=== PATIENT | female | born 1940 | race American Indian/Alaskan Native ===

== ENCOUNTER 2022-03-30 20:32 | Inpatient (IN) | payer MEDICARE ==
[2022-03-30] MEDS ORDERED: HALOPERIDOL LACTATE 5 MG/1 ML INJ IM STA (21:21)
[2022-03-30] MEDS ORDERED: LORazepam 2 MG/ML VIAL IM STA (21:21)
[2022-03-30] MEDS ORDERED: HALOPERIDOL LACTATE 5 MG/1 ML INJ IM ONE (21:23)
--- NOTE | 2022-03-30 21:23 | Emergency Department Report ---
<SOLIS OSEI - Last Filed: 03/30/22 23:44> ED General Adult HPI - General Chief complaint: Psych Stated complaint: im fine Time Seen by Provider: 03/30/22 20:46 Source: patient, EMS ( EMS documentation not available at time of chart dictation ), RN notes reviewed Mode of arrival: Stretcher Limitations: Other (Dementia, psychiatric disease, disorganization) - History of Present Illness Initial comments: The patient was evaluated in the emergency department for symptoms described in the history of present illness. He/she was evaluated in the context of the global COVID-19 pandemic, which necessitated consideration that the patient might be at risk for infection with the virus that causes COVID-19. Institutional protocols and algorithms that pertain to the evaluation of patients at risk for COVID-19 are in a state of rapid change based on information released by regulatory bodies including the CDC and federal and state organizations. These policies and algorithms were followed during the patient's care in the emergency department. Please note that these policies, procedures and recommendations changed on a rapid basis. Primary care doctor: Dr. Guaman Is a 81-year-old female. Her past medical history includes schizophrenia, hallucinations, hypertension, depression, vascular dementia. Her primary care doctor is Dr. Guaman She presents to the emergency room with emergency medical services. The patient herself denies physical pain, homicidality, suicidality, hallucinations and physical pain. She states she is fine and that she wants to go. As per verbal report from nursing team, alf called emergency medical services to administer an IM injection. When EMS arrived, as per verbal report from nursing team, the calling alf requested that EMS take the patient to the emergency room. The patient at the moment denies all physical pain. She appears to have psychiatric evaluation at her alf. Home medications include Tylenol, Lexapro, melatonin, MiraLAX, olanzapine, sertraline, atenolol, vitamin B. The patient has no complaints at this time, and therefore, does not describe the qualitative nature of symptoms, exacerbating factors relieving factors or aggravating factors. She is somewhat disorganized, trying to get up and out of bed, and is not quite sure where she is. She thinks that she is at [facility]. The patient is not currently accompanied by friends or family at this time for collateral information or additional information. She appears to be a resident of [facility]; [phone] Called up [facility] and discussed the patient's case with their staff. Patient has been having increasing episodes of increasing violent behavior, agitation, and amish preoccupations. Simultaneously, she was recently diagnosed with an ESBL urinary tract infection, sensitive to ampicillin, amikacin, amoxicillin, ciprofloxacin, Invanz, gentamicin, Levaquin, Zosyn and Bactrim. She was prescribed Bactrim. She reportedly did not take her Bactrim. -: Gradual, days(s) - Related Data Home Medications Medication Instructions Recorded Confirmed Last Taken Escitalopram [Lexapro] 10 mg PO DAILY 03/31/22 03/31/22 Unknown Melatonin [Melatonin 10MG TAB] 10 mg PO HS 03/31/22 03/31/22 Unknown OLANZapine [Zyprexa] 5 mg PO BID 03/31/22 03/31/22 Unknown Sertraline [Zoloft] 75 mg PO HS 03/31/22 03/31/22 Unknown Timolol Maleate/Pf [Timolol 1 drop OU DAILY 03/31/22 03/31/22 Unknown Maleate 0.5% Eye Drop] Vitamin B Complex [B Complex] 1 tab PO DAILY 03/31/22 03/31/22 Unknown haloperidoL [Haldol] 5 mg PO BID 03/31/22 03/31/22 Unknown polyethylene glycoL 3350 [Miralax 17 gm PO QDAY 03/31/22 03/31/22 Unknown 3350] Allergies Allergy/AdvReac Type Severity Reaction Status Date / Time No Known Drug Allergies Allergy Unknown Verified 03/30/22 21:24 ED Review of Systems Constitutional: denies: fever ENT: denies: epistaxis Respiratory: denies: cough Cardiovascular: denies: chest pain Gastrointestinal: denies: abdominal pain Genitourinary: denies: dysuria Neurological: confusion. denies: weakness Psychiatric: as per HPI (Agitation). denies: homicidal thoughts, suicidal thoughts ED Past Medical Hx - Social History Smoking Status: Unknown if ever smoked Substance Use Type: Other - Medications Home Medications: Home Medications Medication Instructions Recorded Confirmed Last Taken Type Escitalopram [Lexapro] 10 mg PO DAILY 03/31/22 03/31/22 Unknown History Melatonin [Melatonin 10MG TAB] 10 mg PO HS 03/31/22 03/31/22 Unknown History OLANZapine [Zyprexa] 5 mg PO BID 03/31/22 03/31/22 Unknown History Sertraline [Zoloft] 75 mg PO HS 03/31/22 03/31/22 Unknown History Timolol Maleate/Pf [Timolol 1 drop OU DAILY 03/31/22 03/31/22 Unknown History Maleate 0.5% Eye Drop] Vitamin B Complex [B Complex] 1 tab PO DAILY 03/31/22 03/31/22 Unknown History haloperidoL [Haldol] 5 mg PO BID 03/31/22 03/31/22 Unknown History polyethylene glycoL 3350 [Miralax 17 gm PO QDAY 03/31/22 03/31/22 Unknown History 3350] ED Physical Exam - General Limitations: Other (Patient is disorganized.) General appearance: in no apparent distress - Head Head exam: Present: atraumatic, normocephalic - Eye Eye exam: Present: normal appearance, EOMI. Absent: nystagmus - ENT ENT exam: Present: normal exam, normal orophraynx, mucous membranes moist, normal external ear exam - Neck Neck exam: Present: normal inspection, full ROM. Absent: tenderness, meningismus - Respiratory Respiratory exam: Present: normal lung sounds bilaterally. Absent: respiratory distress, wheezes, rales, rhonchi, stridor, decreased breath sounds - Cardiovascular Cardiovascular Exam: Present: regular rate, normal rhythm, normal heart sounds. Absent: bradycardia, tachycardia, irregular rhythm, systolic murmur, diastolic murmur, rubs, gallop - GI/Abdominal GI/Abdominal exam: Present: soft. Absent: distended, tenderness, guarding, rebound, rigid, pulsatile mass - Extremities Exam Extremities exam: Present: normal inspection, full ROM. Absent: pedal edema, calf tenderness - Back Exam Back exam: Present: normal inspection. Absent: tenderness, CVA tenderness (R), CVA tenderness (L), paraspinal tenderness, vertebral tenderness - Neurological Exam Neurological exam: Present: alert - Psychiatric Psychiatric exam: Present: agitated, anxious, other (There is no facial droop. The tongue is midline. EOMI. 5 out of 5 strength in 4 extremities.) - Skin Skin exam: Present: warm, dry, intact, normal color. Absent: rash ED Course - Reevaluation(s) Reevaluation #1: 03/30/22 22:08 Differential diagnosis, including but not limited to: Psychosis, schizophrenia, pneumonia, UTI, electrolyte derangement, thyroid derangement, dementia Assessment and plan: 81-year-old female with disorganized behavior, who is pleasant in the emergency room, not violent, but disorganized. Place patient on hold. Requires medication with haloperidol and Ativan. Obtain x-ray of the chest, noncontrast CT scan of the brain, and urinalysis as well as EKG. Obtain appropriate laboratory studies. Obtain psychiatric consultation. Reassess. Patient is afebrile with reassuring vital signs, with a benign and unremarkable and noncontributory external physical examination. Suspect multiple issues, including probable URI, exacerbating underlying psychosis, schizophrenia and dementia 03/30/22 23:44 X-ray of the chest unremarkable. CT scan of the brain unremarkable. Urinalysis, EKG, and CBC pending. Care was transferred to the oncoming ER physician, to follow-up on CBC, urinalysis, and EKG. Anticipates that patient will require ED Medical Decision Making - Lab Data Result diagrams: 03/30/22 21:28 Vital Signs 03/30/22 03/30/22 03/30/22 20:33 20:51 20:59 Temperature 98.1 F 98.3 F Pulse Rate 98 H Respiratory 18 Rate Blood Pressure 133/92 O2 Sat by Pulse 98 99 Oximetry 03/30/22 21:00 Temperature Pulse Rate Respiratory Rate Blood Pressure O2 Sat by Pulse 99 Oximetry Lab Results 03/30/22 03/30/22 Range/Units 21:28 21:28 Acetaminophen 5.0 L (10.0-30.0) ug/mL Plasma/Serum Alcohol < 0.01 (0-0.07) % - Radiology Data Radiology results: report reviewed, image reviewed interpreted by me: 1 view x-ray of the chest, interpreted by myself, negative for acute findings. CT HEAD WITHOUT CONTRAST INDICATION / CLINICAL INFORMATION: Medical Clearance Psych. TECHNIQUE: All CT scans at this location are performed using CT dose reduction for ALARA by means of automated exposure control. COMPARISON: None available. FINDINGS: HEMORRHAGE: No evidence of intracranial hemorrhage or extra-axial fluid collection. EXTRA-AXIAL SPACES: Cortical sulci and sylvian fissures are enlarged reflecting a degree of parenchymal volume loss which is within normal limits for the patient's age of . Basilar cisterns have an unremarkable appearance. VENTRICULAR SYSTEM: The third and lateral ventricles are enlarged reflecting presence of age related parenchymal volume loss. CEREBRAL PARENCHYMA: Periventricular and deep white matter lucency is observed. This is probably secondary to microvascular ischemic change. There is no indication of recent infarction. No areas of encephalomalacia are identified. MIDLINE SHIFT OR HERNIATION: There is no mass effect. CEREBELLUM / BRAINSTEM: Brainstem has an unremarkable appearance. Age related cerebellar atrophy is noted. MIDLINE STRUCTURES:Pituitary gland has an unremarkable appearance. No abnormalities are seen in the pineal region. INTRACRANIAL VESSELS:Calcified atherosclerotic plaque is present along the course of the cavernous segments of both internal carotid arteries. CRANIOCERVICAL JUNCTION:No significant abnorm ality. ORBITS: Status post bilateral cataract surgery. No additional abnormality. SOFT TISSUES of HEAD: No significant abnormality. CALVARIUM: Evaluation of bone windows reveals no abnormalities. PARANASAL SINUSES / MASTOID AIR CELLS: Paranasal sinuses are free from inflammatory mucosal disease. Mastoid air cells are normally pneumatized. ADDITIONAL FINDINGS: None. IMPRESSION: 1. Age-related involutional changes of parenchymal volume loss and microvascular ischemia. 2. No acute intracranial abnormality. Signer Name: Gurjit Lazo MD Signed: 03/30/2022 9:24 PM CHEST 1 VIEW INDICATION / CLINICAL INFORMATION: Medical Clearance Psych. COMPARISON: None available. FINDINGS: SUPPORT DEVICES: None. HEART / MEDIASTINUM: No significant abnormality. LUNGS / PLEURA: No significant pulmonary or pleural abnormality. No pneumothorax. ADDITIONAL FINDINGS: No significant additional findings. IMPRESSION: 1. No acute findings. Signer Name: Ele Schuler MD Signed: 03/30/2022 9:26 PM Workstation [id number] Disposition Clinical Impression: Acute psychosis, Schizophrenia, Dementia, Medical clearance for psychiatric admission Disposition: 67 [facility] Does the pt Need Aspirin: No Condition: Stable <MADALYN MARTIN - Last Filed: 04/01/22 17:19> ED Review of Systems ROS: Stated complaint: im fine Other details as noted in HPI ED Course Vital Signs 03/30/22 03/30/22 03/30/22 20:33 20:51 20:59 Temperature 98.1 F 98.3 F Pulse Rate 98 H Respiratory 18 Rate Blood Pressure 133/92 O2 Sat by Pulse 98 99 Oximetry 03/30/22 03/30/22 03/30/22 21:00 21:10 21:16 Temperature Pulse Rate Respiratory Rate Blood Pressure O2 Sat by Pulse 99 98 98 Oximetry 03/30/22 03/30/22 03/30/22 21:30 21:46 22:00 Temperature Pulse Rate 79 73 77 Respiratory 17 23 18 Rate Blood Pressure 102/62 146/87 146/87 O2 Sat by Pulse 99 Oximetry 03/30/22 03/30/22 03/30/22 22:16 22:30 22:46 Temperature Pulse Rate 85 81 81 Respiratory 20 23 22 Rate Blood Pressure O2 Sat by Pulse 98 99 98 Oximetry 03/30/22 03/30/22 03/30/22 23:00 23:16 23:30 Temperature Pulse Rate 80 75 61 Respiratory 22 23 15 Rate Blood Pressure 154/78 154/78 154/78 O2 Sat by Pulse 98 98 99 Oximetry 03/30/22 03/31/22 03/31/22 23:46 00:00 00:16 Temperature Pulse Rate 65 67 69 Respiratory 17 16 20 Rate Blood Pressure 154/78 154/78 154/78 O2 Sat by Pulse 96 98 95 Oximetry 03/31/22 03/31/22 03/31/22 00:30 00:46 01:00 Temperature Pulse Rate 67 71 70 Respiratory 26 H 23 23 Rate Blood Pressure 154/78 154/78 154/78 O2 Sat by Pulse 98 98 98 Oximetry 03/31/22 03/31/22 03/31/22 01:16 01:30 01:46 Temperature Pulse Rate 73 71 71 Respiratory 23 24 22 Rate Blood Pressure 154/78 154/78 154/78 O2 Sat by Pulse 97 99 99 Oximetry 03/31/22 03/31/22 03/31/22 02:00 02:16 02:30 Temperature Pulse Rate 70 68 64 Respiratory 23 21 25 H Rate Blood Pressure 154/78 154/78 154/78 O2 Sat by Pulse 99 98 99 Oximetry 03/31/22 03/31/22 03/31/22 02:46 03:00 03:16 Temperature Pulse Rate 55 L 54 L 67 Respiratory 20 22 23 Rate Blood Pressure 154/78 154/78 154/78 O2 Sat by Pulse 99 100 97 Oximetry 03/31/22 03/31/22 03/31/22 03:30 03:46 04:00 Temperature Pulse Rate 65 63 65 Respiratory 21 23 23 Rate Blood Pressure 154/78 154/78 154/78 O2 Sat by Pulse 98 98 98 Oximetry 03/31/22 03/31/22 03/31/22 04:16 04:30 04:46 Temperature Pulse Rate 71 69 67 Respiratory 21 23 20 Rate Blood Pressure 154/78 154/78 154/78 O2 Sat by Pulse 99 99 99 Oximetry 03/31/22 03/31/22 03/31/22 05:00 05:16 05:30 Temperature Pulse Rate 66 71 74 Respiratory 21 20 22 Rate Blood Pressure 154/78 154/78 154/78 O2 Sat by Pulse 99 98 99 Oximetry 03/31/22 03/31/22 03/31/22 05:46 06:00 06:16 Temperature Pulse Rate 61 69 69 Respiratory 23 24 24 Rate Blood Pressure 154/78 O2 Sat by Pulse 96 98 98 Oximetry 03/31/22 03/31/22 03/31/22 06:30 06:46 07:00 Temperature Pulse Rate 70 66 62 Respiratory 24 20 22 Rate Blood Pressure O2 Sat by Pulse 99 99 99 Oximetry 03/31/22 03/31/22 03/31/22 07:16 07:30 07:46 Temperature 98.8 F Pulse Rate 69 60 75 Respiratory 22 21 22 Rate Blood Pressure O2 Sat by Pulse 96 98 98 Oximetry 03/31/22 03/31/22 03/31/22 08:00 08:16 08:30 Temperature Pulse Rate 55 L 79 88 Respiratory 20 18 13 Rate Blood Pressure 127/80 127/80 127/80 O2 Sat by Pulse 98 Oximetry 03/31/22 03/31/22 03/31/22 08:46 09:00 09:16 Temperature Pulse Rate 71 83 76 Respiratory 10 L 17 9 L Rate Blood Pressure 127/80 127/80 127/80 O2 Sat by Pulse 85 86 Oximetry 03/31/22 03/31/22 03/31/22 09:30 09:46 10:00 Temperature Pulse Rate 64 60 58 L Respiratory 10 L 14 21 Rate Blood Pressure 127/80 127/80 127/80 O2 Sat by Pulse Oximetry 03/31/22 03/31/22 03/31/22 10:16 10:30 10:46 Temperature Pulse Rate 70 68 70 Respiratory 11 L 11 L 18 Rate Blood Pressure 127/80 127/80 127/80 O2 Sat by Pulse Oximetry 03/31/22 03/31/22 03/31/22 10:59 11:00 11:16 Temperature Pulse Rate 52 L 58 L Respiratory 19 23 Rate Blood Pressure 127/80 127/80 O2 Sat by Pulse 99 Oximetry 03/31/22 03/31/22 03/31/22 11:30 11:46 12:00 Temperature Pulse Rate 62 55 L 66 Respiratory 21 18 21 Rate Blood Pressure 127/80 127/80 127/80 O2 Sat by Pulse Oximetry 03/31/22 03/31/22 03/31/22 12:16 12:30 12:46 Temperature Pulse Rate 57 L 70 56 L Respiratory 23 22 16 Rate Blood Pressure 127/80 127/80 127/80 O2 Sat by Pulse Oximetry 03/31/22 03/31/22 03/31/22 13:00 13:16 13:30 Temperature Pulse Rate 56 L 81 80 Respiratory 13 14 23 Rate Blood Pressure 127/80 127/80 127/80 O2 Sat by Pulse Oximetry 03/31/22 03/31/22 03/31/22 13:46 14:00 14:16 Temperature Pulse Rate 81 75 77 Respiratory 12 9 L 15 Rate Blood Pressure 127/80 127/80 127/80 O2 Sat by Pulse Oximetry ED Medical Decision Making - Lab Data Result diagrams: 03/31/22 00:09 03/30/22 21:28 - Medical Decision Making Pending CBC, UA, UDS unremarkable. Patient medically clear for psychiatric admission. Mental health consult pending. COVID test ordered Critical care attestation.: If time is entered above; I have spent that time in minutes in the direct care of this critically ill patient, excluding procedure time. ED Disposition Is pt being admited?: No Time of Disposition: 05:42
[2022-03-30 22:10] LABS: Alanine Aminotransferase 10 units/L (7-56); Albumin 4.2 g/dL (3.9-5); BUN/Creatinine Ratio 27; Blood Urea Nitrogen 27 mg/dL (7-17); Calcium 10.1 mg/dL (8.4-10.2); Hemolysis Index 19
--- NOTE | 2022-03-30 22:28 | Cat Scan Report ---
CT HEAD WITHOUT CONTRAST INDICATION / CLINICAL INFORMATION: Medical Clearance Psych. TECHNIQUE: All CT scans at this location are performed using CT dose reduction for ALARA by means of automated e xposure control. COMPARISON: None available. FINDINGS: HEMORRHAGE: No evidence of intracranial hemorrhage or extra-axial fluid collection. EXTRA-AXIAL SPACES: Cortical sulci and sylvian fissures are enlarged reflecting a degree of parenchym al volume loss which is within normal limits for the patient's age of . Basilar cisterns have an unre markable appearance. VENTRICULAR SYSTEM: The third and lateral ventricles are enlarged reflecting presence of age related parenchymal volume loss. CEREBRAL PARENCHYMA: Periventricular and deep white matter lucency is observed. This is probably seco ndary to microvascular ischemic change. There is no indication of recent infarction. No areas of ence phalomalacia are identified. MIDLINE SHIFT OR HERNIATION: There is no mass effect. CEREBELLUM / BRAINSTEM: Brainstem has an unremarkable appearance. Age related cerebellar atrophy is n oted. MIDLINE STRUCTURES:Pituitary gland has an unremarkable appearance. No abnormalities are seen in the p ineal region. INTRACRANIAL VESSELS:Calcified atherosclerotic plaque is present along the course of the cavernous se gments of both internal carotid arteries. CRANIOCERVICAL JUNCTION:No significant abnormality. ORBITS: Status post bilateral cataract surgery. No additional abnormality. SOFT TISSUES of HEAD: No significant abnormality. CALVARIUM: Evaluation of bone windows reveals no abnormalities. PARANASAL SINUSES / MASTOID AIR CELLS: Paranasal sinuses are free from inflammatory mucosal disease. Mastoid air cells are normally pneumatized. ADDITIONAL FINDINGS: None. IMPRESSION: 1. Age-related involutional changes of parenchymal volume loss and microvascular ischemia. 2. No acute intracranial abnormality. Signer Name: Gurjit Lazo MD Signed: 03/30/2022 10:24 PM Workstation Name: [id number]
--- NOTE | 2022-03-30 22:30 | XRay Report ---
CHEST 1 VIEW INDICATION / CLINICAL INFORMATION: Medical Clearance Psych. COMPARISON: None available. FINDINGS: SUPPORT DEVICES: None. HEART / MEDIASTINUM: No significant abnormality. LUNGS / PLEURA: No significant pulmonary or pleural abnormality. No pneumothorax. ADDITIONAL FINDINGS: No significant additional findings. IMPRESSION: 1. No acute findings. Signer Name: Ele Schuler MD Signed: 03/30/2022 10:26 PM Workstation Name: [id number]
[2022-03-31 00:39] LABS: Hematocrit 34.9 % (30.3-42.9); Hemoglobin 11.7 gm/dl (10.1-14.3); Mean Corpuscular HGB Conc 34 % (30-34); Mean Corpuscular Volume 90 fl (79-97); Platelet Count 222 K/mm3 (140-440)
[2022-03-31 01:41] LABS: Bilirubin,Urine NEG (Negative); Blood,Urine NEG (Negative); Color,Urine Yellow (Yellow); Urobilinogen,Urine < 2.0 mg/dL (<2.0)
[2022-03-31 01:51] LABS: Amphetamine Screen,Urine PRESUMPTIVE NEGATIVE; Benzodiazepines Screen,Urine PRESUMPTIVE NEGATIVE; Cannabinoid Screen,Urine PRESUMPTIVE NEGATIVE; Cocaine Screen,Urine PRESUMPTIVE NEGATIVE; Methadone Screen,Urine PRESUMPTIVE NEGATIVE; Opiate Screen,Urine PRESUMPTIVE NEGATIVE
[2022-03-31 02:00] LABS: Hyaline Casts,Urine 2 /LPF; Mucus,Urine 2+ /HPF
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
[2022-03-31] MEDS: risperiDONE 0.25 MG TAB PO SCH (21:10)
--- NOTE | 2022-04-01 08:27 | History and Physical Report ---
GP History & Physical - History of Present Illness Date of admission: 03/31/22 Date of Examination: 04/01/22 Reason for Admission: Danger to self, Failure of Outpatient Treatment, Severe anxiety/depression History of Present Illness: The patient was seen today. She was first seen by me in the ER. At that time her thoughts were disorganized and she was delusional. Today the patient is paranoid and delusional. She is talking to herself at times. She says "there are no children here." She then tells me that her clothes are missing because her sisters are here taking them. The patient then says "I'm not talking to you anymore." She starts to walk off. She says "and you are not Kari. You didn't use to look like this." She refuses to further speak with me. PAST PSYCHIATRIC HISTORY: Unable to assess PAST MEDICAL HISTORY: None reported Family Psychiatric History: None reported or documented SOCIAL HISTORY Unable to assess REVIEW OF SYSTEMS Unable to assess MENTAL STATUS EXAMINATION Unable to assess Diagnoses: Delusional Disorder Treatment Plan Patient admitted for inpatient psychiatric evaluation, medication adjustment and close monitoring The patient's behavior, mood, sleep and appetite will be closely monitored. Patient enrolled in individual and group therapeutic sessions and encouraged to attend. Patient provided with a safe and structured environment. Patient's physical health needs will be addressed by the Hospitalist. Hospitalist Consulted Labs including CBC, CMP, Lipid profile and Hemoglobin A1C levels ordered for baseline reference Social Assessment will be completed and the Hand Slitter will work with patient and family to ensure a suitable and safe disposition Medication adjustment will be made as clinically indicated Continue home meds Increased Risperidone 0.5mg po BID Usual Wellness Nondenominational/Preservation: - Start Trazodone 50 mg po QHS & 50 mg po QHS PRN between 10 PM & 2 AM for insomnia - Start Melatonin 5 mg po QHS to promote circadian rhythm The patient agreed on the treatment plan, understood the risk, benefit, alternative treatment, potential consequence of no treatment, and gave informed consent. Estimated days: 7 Post hospital care: primary care provider, psychiatric provider Case staffed with Dr. Morales Legal Status: Voluntary Patient Problems: Current Active Problems Acute psychosis (Acute) Dementia (Acute) Medical clearance for psychiatric admission (Acute) Schizophrenia (Acute) Reaction to Hospitalization: Accepting Medications and Allergies Allergies Allergy/AdvReac Type Severity Reaction Status Date / Time No Known Drug Allergies Allergy Unknown Verified 03/30/22 21:24 Home Medications Medication Instructions Recorded Confirmed Last Taken Type Escitalopram [Lexapro] 10 mg PO DAILY 03/31/22 03/31/22 Unknown History Melatonin [Melatonin 10MG TAB] 10 mg PO HS 03/31/22 03/31/22 Unknown History OLANZapine [Zyprexa] 5 mg PO BID 03/31/22 03/31/22 Unknown History Sertraline [Zoloft] 75 mg PO HS 03/31/22 03/31/22 Unknown History Timolol Maleate/Pf [Timolol 1 drop OU DAILY 03/31/22 03/31/22 Unknown History Maleate 0.5% Eye Drop] Vitamin B Complex [B Complex] 1 tab PO DAILY 03/31/22 03/31/22 Unknown History haloperidoL [Haldol] 5 mg PO BID 03/31/22 03/31/22 Unknown History polyethylene glycoL 3350 [Miralax 17 gm PO QDAY 03/31/22 03/31/22 Unknown History 3350] Active Meds: Active Medications Risperidone (Risperidone 0.25 Mg Tab) 0.25 mg PO BID [facility] Last Admin: 03/31/22 21:10 Dose: 0.25 mg Results - Results Labs/Vitals: Laboratory Last Values WBC 4.9 K/mm3 (4.5-11.0) 03/31/22 00:09 RBC 3.90 M/mm3 (3.65-5.03) 03/31/22 00:09 Hgb 11.7 gm/dl (10.1-14.3) 03/31/22 00:09 Hct 34.9 % (30.3-42.9) 03/31/22 00:09 MCV 90 fl (79-97) 03/31/22 00:09 MCH 30 pg (28-32) 03/31/22 00:09 MCHC 34 % (30-34) 03/31/22 00:09 RDW 14.0 % (13.2-15.2) 03/31/22 00:09 Plt Count 222 K/mm3 (140-440) 03/31/22 00:09 Sodium 140 mmol/L (137-145) 03/30/22 21:28 Potassium 3.7 mmol/L (3.6-5.0) 03/30/22 21:28 Chloride 105.4 mmol/L (98-107) 03/30/22 21:28 Carbon Dioxide 20 mmol/L (22-30) L 03/30/22 21:28 Anion Gap 18 mmol/L 03/30/22 21:28 BUN 27 mg/dL (7-17) H 03/30/22 21:28 Creatinine 1.0 mg/dL (0.6-1.2) 03/30/22 21:28 Estimated GFR > 60 ml/min 03/30/22 21:28 BUN/Creatinine Ratio 27 % 03/30/22 21:28 Glucose 114 mg/dL (65-100) H 03/30/22 21:28 POC Glucose 85 mg/dL (70-105) 03/31/22 19:53 Calcium 10.1 mg/dL (8.4-10.2) 03/30/22 21: Magnesium 1.90 mg/dL (1.7-2.3) 03/30/22 21: Total Bilirubin 0.20 mg/dL (0.1-1.2) 03/30/22 21:28 AST 18 units/L (5-40) 03/30/22 21:28 ALT 10 units/L (7-56) 03/30/22 21:28 Alkaline Phosphatase 124 units/L (35-129) 03/30/22 21: Ammonia 14.0 umol/L (25-60) L 03/30/22 21:28 Total Creatine Kinase 194 units/L (30-135) H 03/30/22 21:28 Total Protein 7.7 g/dL (6.3-8.2) 03/30/22 21: Albumin 4.2 g/dL (3.9-5) 03/30/22 21: Albumin/Globulin Ratio 1.2 % 03/30/22 21:28 TSH 3.450 mlU/mL (0.270-4.200) 03/30/22 21: Urine Color Yellow (Yellow) 03/30/22 Unknown Urine Turbidity Clear (Clear) 03/30/22 Unknown Urine pH 5.0 (5.0-7.0) 03/30/22 Unknown Ur Specific [place] 1.024 (1.003-1.030) 03/30/22 Unknown Urine Protein 30 mg/dl mg/dL (Negative) 03/30/22 Unknown Urine Glucose (UA) Neg mg/dL (Negative) 03/30/22 Unknown Urine Ketones Tr mg/dL (Negative) 03/30/22 Unknown Urine Blood Neg (Negative) 03/30/22 Unknown Urine Nitrite Neg (Negative) 03/30/22 Unknown Urine Bilirubin Neg (Negative) 03/30/22 Unknown Urine Urobilinogen < 2.0 mg/dL (<2.0) 03/30/22 Unknown Ur Leukocyte Esterase Neg (Negative) 03/30/22 Unknown Urine WBC (Auto) 3.0 /HPF (0.0-6.0) 03/30/22 Unknown Urine RBC (Auto) 14.0 /HPF (0.0-6.0) 03/30/22 Unknown U Epithel Cells (Auto) < 1.0 /HPF (0-13.0) 03/30/22 Unknown Hyaline Casts 2 /LPF 03/30/22 Unknown Urine Mucus 2+ /HPF 03/30/22 Unknown Salicylates < 0.3 mg/dL (2.8-20.0) L 03/30/22 21:28 Urine Opiates Screen Presumptive negative 03/30/22 Unknown Urine Methadone Screen Presumptive negative 03/30/22 Unknown Acetaminophen 5.0 ug/mL (10.0-30.0) L 03/30/22 21:28 Ur Barbiturates Screen Presumptive negative 03/30/22 Unknown Ur Phencyclidine Scrn Presumptive negative 03/30/22 Unknown Ur Amphetamines Screen Presumptive negative 03/30/22 Unknown U Benzodiazepines Scrn Presumptive negative 03/30/22 Unknown Urine Cocaine Screen Presumptive negative 03/30/22 Unknown U Marijuana (THC) Screen Presumptive negative 03/30/22 Unknown Drugs of Abuse Note Disclamer 03/30/22 Unknown Plasma/Serum Alcohol < 0.01 % (0-0.07) 03/30/22 21:28 SARS-CoV-2 (PCR) Negative (Negative) 03/31/22 08:30 Last Vital Signs Temp 97.5 F L 03/31/22 19:24 Pulse 69 03/31/22 21:40 Resp 17 03/31/22 21:40 BP 154/67 03/31/22 21:40 Pulse Ox 99 03/31/22 21:40 Physical Examination - Constitutional Vitals: Vital Signs Temp Pulse Resp BP Pulse Ox 97.5 F L 69 17 154/67 99 03/31/22 19:24 03/31/22 21:40 03/31/22 21:40 03/31/22 21:40 03/31/22 21:40 Temperature -Last 24 Hours Temperature 97.5 F Temperature 97.5 F Mental Status Exam - Vital signs Last Vital Signs Temp 97.5 F L 03/31/22 19:24 Pulse 69 03/31/22 21:40 Resp 17 03/31/22 21:40 BP 154/67 03/31/22 21:40 Pulse Ox 99 03/31/22 21:40 Physician Certification - Certification Statement Physician Certification Statement: This is an acknowledgement statement that DHIRAJ BENDER is a 81 year old F who requires inpatient psychiatric admission for treatment which could reasonably be expected to improve the patient's condition for Estimated period of time patient will need to remain in the hospital: [ ] Plan for post-hospital care: [ ]
[2022-04-01] MEDS ORDERED: [UNRECOGNIZED DRUG - OTHER] OU SCH (10:00)
[2022-04-01] MEDS: TIMOLOL 0.5% OPHTH SOLN 5 ML OU SCH (10:00)
[2022-04-01] MEDS: POLYETHYLENE GLYCOL 3350 17 GM POWDER PO SCH (10:00)
[2022-04-01] MEDS ORDERED: VITAMIN B COMPLEX PO SCH (10:00)
[2022-04-01] MEDS: ESCITALOPRAM 10 MG TAB PO SCH (10:17)
[2022-04-01] MEDS: risperiDONE 0.25 MG TAB PO SCH ×3 (10:17→21:18)
[2022-04-01] MEDS: B COMPLEX W/VITAMIN C TAB PO SCH (11:00)
[2022-04-01] MEDS: SERTRALINE 50 MG TAB PO SCH ×2 (21:17→21:30)
[2022-04-01] MEDS: MELATONIN 5 MG TAB PO SCH (21:17)
[2022-04-01] MEDS ORDERED: NON-FORMULARY EACH (Melatonin [Melatonin 10mg Tab] 10 MG Tablet) PO SCH (22:00)
--- NOTE | 2022-04-02 09:00 | Progress Note ---
Subjective Date of service: 04/02/22 Principal diagnosis: Delusional Disorder Subjective Comment: The patient was seen today. Her thoughts are disorganized. She is suspicious, and looking around. She is mumbling. She asks "how are you and Deepthi doing." She then starts whispering and staring at me. She then points and says "there's your recipe. Go talk to Deepthi." REVIEW OF SYSTEMS Unable to assess MENTAL STATUS EXAMINATION Unable to assess Diagnoses: Delusional Disorder Treatment Plan Patient admitted for inpatient psychiatric evaluation, medication adjustment and close monitoring The patient's behavior, mood, sleep and appetite will be closely monitored. Patient enrolled in individual and group therapeutic sessions and encouraged to attend. Patient provided with a safe and structured environment. Patient's physical health needs will be addressed by the Hospitalist. Hospitalist Consulted Labs including CBC, CMP, Lipid profile and Hemoglobin A1C levels ordered for baseline reference Social Assessment will be completed and the Adolescent Coordinator will work with patient and family to ensure a suitable and safe disposition Medication adjustment will be made as clinically indicated Increased Risperidone 0.5mg po TID Usual Wellness Jewish/Preservation: - Start Trazodone 50 mg po QHS & 50 mg po QHS PRN between 10 PM & 2 AM for insomnia - Start Melatonin 5 mg po QHS to promote circadian rhythm The patient agreed on the treatment plan, understood the risk, benefit, alternative treatment, potential consequence of no treatment, and gave informed consent. Estimated days: 7 Post hospital care: primary care provider, psychiatric provider Case staffed with Dr. Morales Medications and Allergies Allergies Allergy/AdvReac Type Severity Reaction Status Date / Time No Known Drug Allergies Allergy Unknown Verified 03/30/22 21:24 Home Medications Medication Instructions Recorded Confirmed Last Taken Type Escitalopram [Lexapro] 10 mg PO DAILY 03/31/22 03/31/22 Unknown History Melatonin [Melatonin 10MG TAB] 10 mg PO HS 03/31/22 03/31/22 Unknown History OLANZapine [Zyprexa] 5 mg PO BID 03/31/22 03/31/22 Unknown History Sertraline [Zoloft] 75 mg PO HS 03/31/22 03/31/22 Unknown History Timolol Maleate/Pf [Timolol 1 drop OU DAILY 03/31/22 03/31/22 Unknown History Maleate 0.5% Eye Drop] Vitamin B Complex [B Complex] 1 tab PO DAILY 03/31/22 03/31/22 Unknown History haloperidoL [Haldol] 5 mg PO BID 03/31/22 03/31/22 Unknown History polyethylene glycoL 3350 [Miralax 17 gm PO QDAY 03/31/22 03/31/22 Unknown History 3350] Active Meds: Active Medications Escitalopram Oxalate (Escitalopram 10 Mg Tab) 10 mg PO DAILY [facility] Last Admin: 04/01/22 10:17 Dose: 10 mg Melatonin (Melatonin 5 Mg Tab) 10 mg [address] [facility] Last Admin: 04/01/22 21:17 Dose: 10 mg Polyethylene Glycol (Polyethylene Glycol 3350 17 Gm Powder) 17 gm PO QDAY [facility] Last Admin: 04/01/22 10:00 Dose: 17 gm Risperidone (Risperidone 0.25 Mg Tab) 0.5 mg PO BID [facility] Last Admin: 04/01/22 21:18 Dose: 0.5 mg Sertraline HCl (Sertraline 50 Mg Tab) 75 mg PO [facility] Last Admin: 04/01/22 21:30 Dose: Not Given Timolol Maleate (Timolol 0.5% Ophth Soln 5 Ml) 1 drops OU QDAY [facility] Last Admin: 04/01/22 10:00 Dose: 1 drops Vitamin B Complex/Vitamin C (B Complex W/Vitamin C Tab) 1 each PO QDAY [facility] Last Admin: 04/01/22 11:00 Dose: 1 each Results - Results Labs/Vitals: Laboratory Last Values WBC 4.9 K/mm3 (4.5-11.0) 03/31/22 00:09 RBC 3.90 M/mm3 (3.65-5.03) 03/31/22 00:09 Hgb 11.7 gm/dl (10.1-14.3) 03/31/22 00:09 Hct 34.9 % (30.3-42.9) 03/31/22 00:09 MCV 90 fl (79-97) 03/31/22 00:09 MCH 30 pg (28-32) 03/31/22 00:09 MCHC 34 % (30-34) 03/31/22 00:09 RDW 14.0 % (13.2-15.2) 03/31/22 00:09 Plt Count 222 K/mm3 (140-440) 03/31/22 00:09 Sodium 140 mmol/L (137-145) 03/30/22 21:28 Potassium 3.7 mmol/L (3.6-5.0) 03/30/22 21: Chloride 105.4 mmol/L (98-107) 03/30/22 21: Carbon Dioxide 20 mmol/L (22-30) L 03/30/22 21:28 Anion Gap 18 mmol/L 03/30/22 21:28 BUN 27 mg/dL (7-17) H 03/30/22 21:28 Creatinine 1.0 mg/dL (0.6-1.2) 03/30/22 21: Estimated GFR > 60 ml/min 03/30/22 21: BUN/Creatinine Ratio 27 % 03/30/22 21: Glucose 114 mg/dL (65-100) H 03/30/22 21: POC Glucose 85 mg/dL (70-105) 03/31/22 19:53 Calcium 10.1 mg/dL (8.4-10.2) 03/30/22 21:28 Magnesium 1.90 mg/dL (1.7-2.3) 03/30/22 21: Total Bilirubin 0.20 mg/dL (0.1-1.2) 03/30/22 21: AST 18 units/L (5-40) 03/30/22 21: ALT 10 units/L (7-56) 03/30/22 21: Alkaline Phosphatase 124 units/L (35-129) 03/30/22 21: Ammonia 14.0 umol/L (25-60) L 03/30/22 21: Total Creatine Kinase 194 units/L (30-135) H 03/30/22 21:28 Total Protein 7.7 g/dL (6.3-8.2) 03/30/22 21: Albumin 4.2 g/dL (3.9-5) 03/30/22 21: Albumin/Globulin Ratio 1.2 % 03/30/22 21:28 TSH 3.450 mlU/mL (0.270-4.200) 03/30/22 21:28 Urine Color Yellow (Yellow) 03/30/22 Unknown Urine Turbidity Clear (Clear) 03/30/22 Unknown Urine pH 5.0 (5.0-7.0) 03/30/22 Unknown Ur Specific [place] 1.024 (1.003-1.030) 03/30/22 Unknown Urine Protein 30 mg/dl mg/dL (Negative) 03/30/22 Unknown Urine Glucose (UA) Neg mg/dL (Negative) 03/30/22 Unknown Urine Ketones Tr mg/dL (Negative) 03/30/22 Unknown Urine Blood Neg (Negative) 03/30/22 Unknown Urine Nitrite Neg (Negative) 03/30/22 Unknown Urine Bilirubin Neg (Negative) 03/30/22 Unknown Urine Urobilinogen < 2.0 mg/dL (<2.0) 03/30/22 Unknown Ur Leukocyte Esterase Neg (Negative) 03/30/22 Unknown Urine WBC (Auto) 3.0 /HPF (0.0-6.0) 03/30/22 Unknown Urine RBC (Auto) 14.0 /HPF (0.0-6.0) 03/30/22 Unknown U Epithel Cells (Auto) < 1.0 /HPF (0-13.0) 03/30/22 Unknown Hyaline Casts 2 /LPF 03/30/22 Unknown Urine Mucus 2+ /HPF 03/30/22 Unknown Salicylates < 0.3 mg/dL (2.8-20.0) L 03/30/22 21:28 Urine Opiates Screen Presumptive negative 03/30/22 Unknown Urine Methadone Screen Presumptive negative 03/30/22 Unknown Acetaminophen 5.0 ug/mL (10.0-30.0) L 03/30/22 21:28 Ur Barbiturates Screen Presumptive negative 03/30/22 Unknown Ur Phencyclidine Scrn Presumptive negative 03/30/22 Unknown Ur Amphetamines Screen Presumptive negative 03/30/22 Unknown U Benzodiazepines Scrn Presumptive negative 03/30/22 Unknown Urine Cocaine Screen Presumptive negative 03/30/22 Unknown U Marijuana (THC) Screen Presumptive negative 03/30/22 Unknown Drugs of Abuse Note Disclamer 03/30/22 Unknown Plasma/Serum Alcohol < 0.01 % (0-0.07) 03/30/22 21:28 SARS-CoV-2 (PCR) Negative (Negative) 03/31/22 08:30 Last Vital Signs Temp 97.5 F L 03/31/22 19:24 Pulse 81 04/01/22 03:00 Resp 12 04/01/22 03:00 BP 131/60 04/01/22 03:00 Pulse Ox 96 04/01/22 03:00
[2022-04-02] MEDS: TIMOLOL 0.5% OPHTH SOLN 5 ML OU SCH (09:11)
[2022-04-02] MEDS: POLYETHYLENE GLYCOL 3350 17 GM POWDER PO SCH (09:12)
[2022-04-02] MEDS: ESCITALOPRAM 10 MG TAB PO SCH (09:13)
[2022-04-02] MEDS: risperiDONE 0.25 MG TAB PO SCH ×4 (09:17→22:15)
[2022-04-02] MEDS: B COMPLEX W/VITAMIN C TAB PO SCH (09:18)
[2022-04-02] MEDS: ZIPRASIDONE MESYLATE 20 MG VIAL IM PRN (13:39)
[2022-04-02] MEDS: SERTRALINE 50 MG TAB PO SCH (22:00)
[2022-04-02] MEDS: MELATONIN 5 MG TAB PO SCH ×2 (22:00→22:17)
[2022-04-03] MEDS ORDERED: WATER FOR INJ Sterile (PF) 10 ML ONE ×2 (00:35→13:36)
[2022-04-03] MEDS: ZIPRASIDONE MESYLATE 20 MG VIAL IM PRN ×2 (00:36→14:02)
[2022-04-03 00:51] VITALS: BP 141/117
[2022-04-03] MEDS: risperiDONE 0.25 MG TAB PO SCH ×3 (08:21→22:24)
--- NOTE | 2022-04-03 08:46 | Progress Note ---
Subjective Date of service: 04/03/22 Principal diagnosis: Delusional Disorder Subjective Comment: The patient was seen today. Her thoughts are disorganized. She is paranoid and delusional. She is calling me Kallie and tells me to get out of her room. She says "I'm not talking to you, Kallie. You had that music loud." She then says "God made me the little lady lawson. I wasn't trying to be white." REVIEW OF SYSTEMS Unable to assess MENTAL STATUS EXAMINATION Unable to assess Diagnoses: Delusional Disorder Treatment Plan Patient admitted for inpatient psychiatric evaluation, medication adjustment and close monitoring The patient's behavior, mood, sleep and appetite will be closely monitored. Patient enrolled in individual and group therapeutic sessions and encouraged to attend. Patient provided with a safe and structured environment. Patient's physical health needs will be addressed by the Hospitalist. Hospitalist Consulted Labs including CBC, CMP, Lipid profile and Hemoglobin A1C levels ordered for baseline reference Social Assessment will be completed and the Damage Appraiser will work with patient and family to ensure a suitable and safe disposition Medication adjustment will be made as clinically indicated Increased Risperidone 1mg po BID Start Depakote DR 125mg po BID Usual Wellness Confucianist/Preservation: - Start Trazodone 50 mg po QHS & 50 mg po QHS PRN between 10 PM & 2 AM for insomnia - Start Melatonin 5 mg po QHS to promote circadian rhythm The patient agreed on the treatment plan, understood the risk, benefit, a lternative treatment, potential consequence of no treatment, and gave informed consent. Estimated days: 7 Post hospital care: primary care provider, psychiatric provider Case staffed with Dr. Morales Medications and Allergies Allergies Allergy/AdvReac Type Severity Reaction Status Date / Time No Known Drug Allergies Allergy Unknown Verified 03/30/22 21:24 Home Medications Medication Instructions Recorded Confirmed Last Taken Type Escitalopram [Lexapro] 10 mg PO DAILY 03/31/22 03/31/22 Unknown History Melatonin [Melatonin 10MG TAB] 10 mg PO HS 03/31/22 03/31/22 Unknown History OLANZapine [Zyprexa] 5 mg PO BID 03/31/22 03/31/22 Unknown History Sertraline [Zoloft] 75 mg PO HS 03/31/22 03/31/22 Unknown History Timolol Maleate/Pf [Timolol 1 drop OU DAILY 03/31/22 03/31/22 Unknown History Maleate 0.5% Eye Drop] Vitamin B Complex [B Complex] 1 tab PO DAILY 03/31/22 03/31/22 Unknown History haloperidoL [Haldol] 5 mg PO BID 03/31/22 03/31/22 Unknown History polyethylene glycoL 3350 [Miralax 17 gm PO QDAY 03/31/22 03/31/22 Unknown History 3350] Active Meds: Active Medications Escitalopram Oxalate (Escitalopram 10 Mg Tab) 10 mg PO DAILY [facility] Last Admin: 04/02/22 09:13 Dose: 10 mg Melatonin (Melatonin 5 Mg Tab) 10 mg PO [facility] Last Admin: 04/02/22 22:17 Dose: 10 mg Polyethylene Glycol (Polyethylene Glycol 3350 17 Gm Powder) 17 gm PO QDAY [facility] Last Admin: 04/02/22 09:12 Dose: 17 gm Risperidone (Risperidone 0.25 Mg Tab) 0.5 mg PO TID [facility] Last Admin: 04/03/22 08:21 Dose: Not Given Sertraline HCl (Sertraline 50 Mg Tab) 75 mg PO [facility] Last Admin: 04/02/22 22:00 Dose: Not Given Timolol Maleate (Timolol 0.5% Ophth Soln 5 Ml) 1 drops OU QDAY [facility] Last Admin: 04/02/22 09:11 Dose: 1 drops Vitamin B Complex/Vitamin C (B Complex W/Vitamin C Tab) 1 each PO QDAY [facility] Last Admin: 04/02/22 09:18 Dose: 1 each Ziprasidone (Ziprasidone Mesylate 20 Mg Vial) 10 mg IM Q4H PRN PRN Reason: Agitation Last Admin: 04/03/22 00:36 Dose: 10 mg Results - Results Labs/Vitals: Laboratory Last Values WBC 4.9 K/mm3 (4.5-11.0) 03/31/22 00:09 RBC 3.90 M/mm3 (3.65-5.03) 03/31/22 00:09 Hgb 11.7 gm/dl (10.1-14.3) 03/31/22 00:09 Hct 34.9 % (30.3-42.9) 03/31/22 00:09 MCV 90 fl (79-97) 03/31/22 00:09 MCH 30 pg (28-32) 03/31/22 00:09 MCHC 34 % (30-34) 03/31/22 00:09 RDW 14.0 % (13.2-15.2) 03/31/22 00:09 Plt Count 222 K/mm3 (140-440) 03/31/22 00:09 Sodium 140 mmol/L (137-145) 03/30/22 21:28 Potassium 3.7 mmol/L (3.6-5.0) 03/30/22 21:28 Chloride 105.4 mmol/L (98-107) 03/30/22 21:28 Carbon Dioxide 20 mmol/L (22-30) L 03/30/22 21:28 Anion Gap 18 mmol/L 03/30/22 21:28 BUN 27 mg/dL (7-17) H 03/30/22 21:28 Creatinine 1.0 mg/dL (0.6-1.2) 03/30/22 21:28 Estimated GFR > 60 ml/min 03/30/22 21:28 BUN/Creatinine Ratio 27 % 03/30/22 21:28 Glucose 114 mg/dL (65-100) H 03/30/22 21:28 POC Glucose 85 mg/dL (70-105) 03/31/22 19:53 Calcium 10.1 mg/dL (8.4-10.2) 03/30/22 21:28 Magnesium 1.90 mg/dL (1.7-2.3) 03/30/22 21:28 Total Bilirubin 0.20 mg/dL (0.1-1.2) 03/30/22 21:28 AST 18 units/L (5-40) 03/30/22 21:28 ALT 10 units/L (7-56) 03/30/22 21:28 Alkaline Phosphatase 124 units/L (35-129) 03/30/22 21:28 Ammonia 14.0 umol/L (25-60) L 03/30/22 21:28 Total Creatine Kinase 194 units/L (30-135) H 03/30/22 21:28 Total Protein 7.7 g/dL (6.3-8.2) 03/30/22 21:28 Albumin 4.2 g/dL (3.9-5) 03/30/22 21:28 Albumin/Globulin Ratio 1.2 % 03/30/22 21:28 TSH 3.450 mlU/mL (0.270-4.200) 03/30/22 21:28 Urine Color Yellow (Yellow) 03/30/22 Unknown Urine Turbidity Clear (Clear) 03/30/22 Unknown Urine pH 5.0 (5.0-7.0) 03/30/22 Unknown Ur Specific [place] 1.024 (1.003-1.030) 03/30/22 Unknown Urine Protein 30 mg/dl mg/dL (Negative) 03/30/22 Unknown Urine Glucose (UA) Neg mg/dL (Negative) 03/30/22 Unknown Urine Ketones Tr mg/dL (Negative) 03/30/22 Unknown Urine Blood Neg (Negative) 03/30/22 Unknown Urine Nitrite Neg (Negative) 03/30/22 Unknown Urine Bilirubin Neg (Negative) 03/30/22 Unknown Urine Urobilinogen < 2.0 mg/dL (<2.0) 03/30/22 Unknown Ur Leukocyte Esterase Neg (Negative) 03/30/22 Unknown Urine WBC (Auto) 3.0 /HPF (0.0-6.0) 03/30/22 Unknown Urine RBC (Auto) 14.0 /HPF (0.0-6.0) 03/30/22 Unknown U Epithel Cells (Auto) < 1.0 /HPF (0-13.0) 03/30/22 Unknown Hyaline Casts 2 /LPF 03/30/22 Unknown Urine Mucus 2+ /HPF 03/30/22 Unknown Salicylates < 0.3 mg/dL (2.8-20.0) L 03/30/22 21:28 Urine Opiates Screen Presumptive negative 03/30/22 Unknown Urine Methadone Screen Presumptive negative 03/30/22 Unknown Acetaminophen 5.0 ug/mL (10.0-30.0) L 03/30/22 21:28 Ur Barbiturates Screen Presumptive negative 03/30/22 Unknown Ur Phencyclidine Scrn Presumptive negative 03/30/22 Unknown Ur Amphetamines Screen Presumptive negative 03/30/22 Unknown U Benzodiazepines Scrn Presumptive negative 03/30/22 Unknown Urine Cocaine Screen Presumptive negative 03/30/22 Unknown U Marijuana (THC) Screen Presumptive negative 03/30/22 Unknown Drugs of Abuse Note Disclamer 03/30/22 Unknown Plasma/Serum Alcohol < 0.01 % (0-0.07) 03/30/22 21:28 SARS-CoV-2 (PCR) Negative (Negative) 03/31/22 08:30 Last Vital Signs Temp 97.3 F L 04/02/22 08:52 Pulse 107 H 04/02/22 08:52 Resp 18 04/02/22 08:52 BP 141/117 04/02/22 08:52 Pulse Ox 98 04/02/22 08:52
[2022-04-03] MEDS: POLYETHYLENE GLYCOL 3350 17 GM POWDER PO SCH (12:02)
[2022-04-03] MEDS: DIVALPROEX DR 125 MG TAB PO SCH ×3 (12:02→22:25)
[2022-04-03] MEDS: B COMPLEX W/VITAMIN C TAB PO SCH ×2 (12:02→12:41)
[2022-04-03] MEDS: ESCITALOPRAM 10 MG TAB PO SCH ×3 (12:02→13:35)
[2022-04-03] MEDS: TIMOLOL 0.5% OPHTH SOLN 5 ML OU SCH (12:03)
[2022-04-03] MEDS: MELATONIN 5 MG TAB PO SCH (22:25)
[2022-04-03] MEDS: SERTRALINE 50 MG TAB PO SCH (22:25)
[2022-04-04] MEDS ORDERED: WATER FOR INJ Sterile (PF) 10 ML ONE (04:40)
[2022-04-04] MEDS: ZIPRASIDONE MESYLATE 20 MG VIAL IM PRN (05:00)
--- NOTE | 2022-04-04 08:56 | Progress Note ---
Subjective Date of service: 04/04/22 Principal diagnosis: Delusional Disorder Subjective Comment: The patient was seen today. Her thoughts are disorganized. She is paranoid and delusional. She slams her room door in my face and tells met "get out of here, Kallie." I try to open the door, she opens it slightly and is standing behind it. She says "you are doing everything in your power to be white. Get away from me, Kallie." The patient then starts asking for people who are not there. REVIEW OF SYSTEMS Unable to assess MENTAL STATUS EXAMINATION Unable to assess Diagnoses: Delusional Disorder Treatment Plan Patient admitted for inpatient psychiatric evaluation, medication adjustment and close monitoring The patient's behavior, mood, sleep and appetite will be closely monitored. Patient enrolled in individual and group therapeutic sessions and encouraged to attend. Patient provided with a safe and structured environment. Patient's physical health needs will be addressed by the Hospitalist. Hospitalist Consulted Labs including CBC, CMP, Lipid profile and Hemoglobin A1C levels ordered for baseline reference Social Assessment will be completed and the Vegetable Canner will work with patient and family to ensure a suitable and safe disposition Medication adjustment will be made as clinically indicated Increased Risperidone 1mg po BID Increased Depakote DR 125mg po TID Start Klonopin 0.5mg po BID x 3 days Usual Wellness Orthodox/Preservation: - Start Trazodone 50 mg po QHS & 50 mg po QHS PRN between 10 PM & 2 AM for insomnia - Start Melatonin 5 mg po QHS to promote circadian rhythm The patient agreed on the treatment plan, understood the risk, benefit, alternative treatment, potential consequence of no treatment, and gave informed consent. Estimated days: 7 Post hospital care: primary care provider, psychiatric provider Case staffed with Dr. Morales Medications and Allergies Allergies Allergy/AdvReac Type Severity Reaction Status Date / Time No Known Drug Allergies Allergy Unknown Verified 03/30/22 21:24 Home Medications Medication Instructions Recorded Confirmed Last Taken Type Escitalopram [Lexapro] 10 mg PO DAILY 03/31/22 03/31/22 Unknown History Melatonin [Melatonin 10MG TAB] 10 mg PO HS 03/31/22 03/31/22 Unknown History OLANZapine [Zyprexa] 5 mg PO BID 03/31/22 03/31/22 Unknown History Sertraline [Zoloft] 75 mg PO HS 03/31/22 03/31/22 Unknown History Timolol Maleate/Pf [Timolol 1 drop OU DAILY 03/31/22 03/31/22 Unknown History Maleate 0.5% Eye Drop] Vitamin B Complex [B Complex] 1 tab PO DAILY 03/31/22 03/31/22 Unknown History haloperidoL [Haldol] 5 mg PO BID 03/31/22 03/31/22 Unknown History polyethylene glycoL 3350 [Miralax 17 gm PO QDAY 03/31/22 03/31/22 Unknown History 3350] Active Meds: Active Medications Divalproex Sodium (Divalproex Dr 125 Mg Tab) 125 mg PO BID [facility] Last Admin: 04/03/22 22:25 Dose: Not Given Escitalopram Oxalate (Escitalopram 10 Mg Tab) 10 mg PO DAILY [facility] Last Admin: 04/03/22 13:35 Dose: Not Given Melatonin (Melatonin 5 Mg Tab) 10 mg PO [facility] Last Admin: 04/03/22 22:25 Dose: Not Given Polyethylene Glycol (Polyethylene Glycol 3350 17 Gm Powder) 17 gm PO QDAY [facility] Last Admin: 04/03/22 12:02 Dose: Not Given Risperidone (Risperidone 0.25 Mg Tab) 0.5 mg PO TID [facility] Last Admin: 04/03/22 22:24 Dose: Not Given Sertraline HCl (Sertraline 50 Mg Tab) 75 mg PO [facility] Last Admin: 04/03/22 22:25 Dose: Not Given Timolol Maleate (Timolol 0.5% Ophth Soln 5 Ml) 1 drops OU QDAY [facility] Last Admin: 04/03/22 12:03 Dose: Not Given Vitamin B Complex/Vitamin C (B Complex W/Vitamin C Tab) 1 each PO QDAY [facility] Last Admin: 04/03/22 12:02 Dose: Not Given Results - Results Labs/Vitals: Laboratory Last Values WBC 4.9 K/mm3 (4.5-11.0) 03/31/22 00:09 RBC 3.90 M/mm3 (3.65-5.03) 03/31/22 00:09 Hgb 11.7 gm/dl (10.1-14.3) 03/31/22 00:09 Hct 34.9 % (30.3-42.9) 03/31/22 00:09 MCV 90 fl (79-97) 03/31/22 00:09 MCH 30 pg (28-32) 03/31/22 00:09 MCHC 34 % (30-34) 03/31/22 00:09 RDW 14.0 % (13.2-15.2) 03/31/22 00:09 Plt Count 222 K/mm3 (140-440) 03/31/22 00:09 Sodium 140 mmol/L (137-145) 03/30/22 21:28 Potassium 3.7 mmol/L (3.6-5.0) 03/30/22 21:28 Chloride 105.4 mmol/L (98-107) 03/30/22 21:28 Carbon Dioxide 20 mmol/L (22-30) L 03/30/22 21:28 Anion Gap 18 mmol/L 03/30/22 21:28 BUN 27 mg/dL (7-17) H 03/30/22 21:28 Creatinine 1.0 mg/dL (0.6-1.2) 03/30/22 21:28 Estimated GFR > 60 ml/min 03/30/22 21:28 BUN/Creatinine Ratio 27 % 03/30/22 21:28 Glucose 114 mg/dL (65-100) H 03/30/22 21:28 POC Glucose 85 mg/dL (70-105) 03/31/22 19:53 Calcium 10.1 mg/dL (8.4-10.2) 03/30/22 21:28 Magnesium 1.90 mg/dL (1.7-2.3) 03/30/22 21:28 Total Bilirubin 0.20 mg/dL (0.1-1.2) 03/30/22 21:28 AST 18 units/L (5-40) 03/30/22 21:28 ALT 10 units/L (7-56) 03/30/22 21:28 Alkaline Phosphatase 124 units/L (35-129) 03/30/22 21:28 Ammonia 14.0 umol/L (25-60) L 03/30/22 21:28 Total Creatine Kinase 194 units/L (30-135) H 03/30/22 21:28 Total Protein 7.7 g/dL (6.3-8.2) 03/30/22 21:28 Albumin 4.2 g/dL (3.9-5) 03/30/22 21:28 Albumin/Globulin Ratio 1.2 % 03/30/22 21:28 TSH 3.450 mlU/mL (0.270-4.200) 03/30/22 21:28 Urine Color Yellow (Yellow) 03/30/22 Unknown Urine Turbidity Clear (Clear) 03/30/22 Unknown Urine pH 5.0 (5.0-7.0) 03/30/22 Unknown Ur Specific [place] 1.024 (1.003-1.030) 03/30/22 Unknown Urine Protein 30 mg/dl mg/dL (Negative) 03/30/22 Unknown Urine Glucose (UA) Neg mg/dL (Negative) 03/30/22 Unknown Urine Ketones Tr mg/dL (Negative) 03/30/22 Unknown Urine Blood Neg (Negative) 03/30/22 Unknown Urine Nitrite Neg (Negative) 03/30/22 Unknown Urine Bilirubin Neg (Negative) 03/30/22 Unknown Urine Urobilinogen < 2.0 mg/dL (<2.0) 03/30/22 Unknown Ur Leukocyte Esterase Neg (Negative) 03/30/22 Unknown Urine WBC (Auto) 3.0 /HPF (0.0-6.0) 03/30/22 Unknown Urine RBC (Auto) 14.0 /HPF (0.0-6.0) 03/30/22 Unknown U Epithel Cells (Auto) < 1.0 /HPF (0-13.0) 03/30/22 Unknown Hyaline Casts 2 /LPF 03/30/22 Unknown Urine Mucus 2+ /HPF 03/30/22 Unknown Salicylates < 0.3 mg/dL (2.8-20.0) L 03/30/22 21:28 Urine Opiates Screen Presumptive negative 03/30/22 Unknown Urine Methadone Screen Presumptive negative 03/30/22 Unknown Acetaminophen 5.0 ug/mL (10.0-30.0) L 03/30/22 21:28 Ur Barbiturates Screen Presumptive negative 03/30/22 Unknown Ur Phencyclidine Scrn Presumptive negative 03/30/22 Unknown Ur Amphetamines Screen Presumptive negative 03/30/22 Unknown U Benzodiazepines Scrn Presumptive negative 03/30/22 Unknown Urine Cocaine Screen Presumptive negative 03/30/22 Unknown U Marijuana (THC) Screen Presumptive negative 03/30/22 Unknown Drugs of Abuse Note Disclamer 03/30/22 Unknown Plasma/Serum Alcohol < 0.01 % (0-0.07) 03/30/22 21:28 SARS-CoV-2 (PCR) Negative (Negative) 03/31/22 08:30 Last Vital Signs Temp 97.3 F L 04/02/22 08:52 Pulse 107 H 04/02/22 08:52 Resp 18 04/02/22 08:52 BP 141/117 04/02/22 08:52 Pulse Ox 98 04/02/22 08:52
[2022-04-04] MEDS: risperiDONE 0.25 MG TAB PO SCH (09:34)
[2022-04-04] MEDS: B COMPLEX W/VITAMIN C TAB PO SCH (09:56)
[2022-04-04] MEDS: risperiDONE 1 MG TAB PO SCH ×2 (09:57→21:18)
[2022-04-04] MEDS: TIMOLOL 0.5% OPHTH SOLN 5 ML OU SCH (09:57)
[2022-04-04] MEDS: POLYETHYLENE GLYCOL 3350 17 GM POWDER PO SCH (09:57)
[2022-04-04] MEDS: clonazePAM 0.5 MG TAB PO SCH ×2 (09:57→21:21)
[2022-04-04] MEDS: ESCITALOPRAM 10 MG TAB PO SCH (09:57)
[2022-04-04] MEDS: DIVALPROEX DR 125 MG TAB PO SCH ×2 (14:40→21:21)
[2022-04-04] MEDS: MELATONIN 5 MG TAB PO SCH (21:18)
[2022-04-04] MEDS: SERTRALINE 50 MG TAB PO SCH (21:22)
[2022-04-04] MEDS: HALOPERIDOL LACTATE 5 MG/1 ML INJ IM PRN (22:02)
--- NOTE | 2022-04-05 08:40 | Progress Note ---
Subjective Date of service: 04/05/22 Principal diagnosis: Delusional Disorder Subjective Comment: The patient was seen today. Her thoughts are disorganized. She is paranoid and delusional. She is calling me Kallie. She says "get out of here with you yellow hair and white face. You want to be white." The patient says "where is your . Get out of here, you gone ." She pushes me out of her room. REVIEW OF SYSTEMS Unable to assess MENTAL STATUS EXAMINATION Unable to assess Diagnoses: Delusional Disorder Treatment Plan Patient admitted for inpatient psychiatric evaluation, medication adjustment and close monitoring The patient's behavior, mood, sleep and appetite will be closely monitored. Patient enrolled in individual and group therapeutic sessions and encouraged to attend. Patient provided with a safe and structured environment. Patient's physical health needs will be addressed by the Hospitalist. Hospitalist Consulted Labs including CBC, CMP, Lipid profile and Hemoglobin A1C levels ordered for baseline reference Social Assessment will be completed and the Clinical Molecular Geneticist will work with patient and family to ensure a suitable and safe disposition Medication adjustment will be made as clinically indicated Increased Risperidone 1.5mg po BID Increased Depakote DR 250mg po BID Increase Klonopin 1mg po BID x 3 days Usual Wellness Bahai/Preservation: - Start Trazodone 50 mg po QHS & 50 mg po QHS PRN between 10 PM & 2 AM for insomnia - Start Melatonin 5 mg po QHS to promote circadian rhythm The patient agreed on the treatment plan, understood the risk, benefit, alternative treatment, potential consequence of no treatment, and gave informed consent. Estimated days: 7 Post hospital care: primary care provider, psychiatric provider Case staffed with Dr. Morales Medications and Allergies Allergies Allergy/AdvReac Type Severity Reaction Status Date / Time No Known Drug Allergies Allergy Unknown Verified 03/30/22 21:24 Home Medications Medication Instructions Recorded Confirmed Last Taken Type Escitalopram [Lexapro] 10 mg PO DAILY 03/31/22 03/31/22 Unknown History Melatonin [Melatonin 10MG TAB] 10 mg PO HS 03/31/22 03/31/22 Unknown History OLANZapine [Zyprexa] 5 mg PO BID 03/31/22 03/31/22 Unknown History Sertraline [Zoloft] 75 mg PO HS 03/31/22 03/31/22 Unknown History Timolol Maleate/Pf [Timolol 1 drop OU DAILY 03/31/22 03/31/22 Unknown History Maleate 0.5% Eye Drop] Vitamin B Complex [B Complex] 1 tab PO DAILY 03/31/22 03/31/22 Unknown History haloperidoL [Haldol] 5 mg PO BID 03/31/22 03/31/22 Unknown History polyethylene glycoL 3350 [Miralax 17 gm PO QDAY 03/31/22 03/31/22 Unknown His tory 3350] Active Meds: Active Medications Escitalopram Oxalate (Escitalopram 10 Mg Tab) 10 mg PO DAILY [facility] Last Admin: 04/04/22 09:57 Dose: Not Given Haloperidol Lactate (Haloperidol Lactate 5 Mg/1 Ml Inj) 5 mg IM Q6H PRN PRN Reason: Agitation Last Admin: 04/04/22 22:02 Dose: 5 mg Melatonin (Melatonin 5 Mg Tab) 10 mg PO [facility] Last Admin: 04/04/22 21:18 Dose: 10 mg Polyethylene Glycol (Polyethylene Glycol 3350 17 Gm Powder) 17 gm PO QDAY [facility] Last Admin: 04/04/22 09:57 Dose: Not Given Sertraline HCl (Sertraline 50 Mg Tab) 75 mg PO [facility] Last Admin: 04/04/22 21:22 Dose: Not Given Timolol Maleate (Timolol 0.5% Ophth Soln 5 Ml) 1 drops OU QDAY [facility] Last Admin: 04/04/22 09:57 Dose: Not Given Vitamin B Complex/Vitamin C (B Complex W/Vitamin C Tab) 1 each PO QDAY [facility] Last Admin: 04/04/22 09:56 Dose: Not Given Results - Results Labs/Vitals: Laboratory Last Values WBC 4.9 K/mm3 (4.5-11.0) 03/31/22 00:09 RBC 3.90 M/mm3 (3.65-5.03) 03/31/22 00:09 Hgb 11.7 gm/dl (10.1-14.3) 03/31/22 00:09 Hct 34.9 % (30.3-42.9) 03/31/22 00:09 MCV 90 fl (79-97) 03/31/22 00:09 MCH 30 pg (28-32) 03/31/22 00:09 MCHC 34 % (30-34) 03/31/22 00:09 RDW 14.0 % (13.2-15.2) 03/31/22 00:09 Plt Count 222 K/mm3 (140-440) 03/31/22 00:09 Sodium 140 mmol/L (137-145) 03/30/22 21:28 Potassium 3.7 mmol/L (3.6-5.0) 03/30/22 21:28 Chloride 105.4 mmol/L (98-107) 03/30/22 21:28 Carbon Dioxide 20 mmol/L (22-30) L 03/30/22 21:28 Anion Gap 18 mmol/L 03/30/22 21:28 BUN 27 mg/dL (7-17) H 03/30/22 21:28 Creatinine 1.0 mg/dL (0.6-1.2) 03/30/22 21: Estimated GFR > 60 ml/min 03/30/22 21: BUN/Creatinine Ratio 27 % 03/30/22 21:28 Glucose 114 mg/dL (65-100) H 03/30/22 21:28 POC Glucose 85 mg/dL (70-105) 03/31/22 19:53 Calcium 10.1 mg/dL (8.4-10.2) 03/30/22 21:28 Magnesium 1.90 mg/dL (1.7-2.3) 03/30/22 21: Total Bilirubin 0.20 mg/dL (0.1-1.2) 03/30/22 21:28 AST 18 units/L (5-40) 03/30/22 21:28 ALT 10 units/L (7-56) 03/30/22 21:28 Alkaline Phosphatase 124 units/L (35-129) 03/30/22 21:28 Ammonia 14.0 umol/L (25-60) L 03/30/22 21:28 Total Creatine Kinase 194 units/L (30-135) H 03/30/22 21:28 Total Protein 7.7 g/dL (6.3-8.2) 03/30/22 21: Albumin 4.2 g/dL (3.9-5) 03/30/22 21: Albumin/Globulin Ratio 1.2 % 03/30/22 21:28 TSH 3.450 mlU/mL (0.270-4.200) 03/30/22 21:28 Urine Color Yellow (Yellow) 03/30/22 Unknown Urine Turbidity Clear (Clear) 03/30/22 Unknown Urine pH 5.0 (5.0-7.0) 03/30/22 Unknown Ur Specific [place] 1.024 (1.003-1.030) 03/30/22 Unknown Urine Protein 30 mg/dl mg/dL (Negative) 03/30/22 Unknown Urine Glucose (UA) Neg mg/dL (Negative) 03/30/22 Unknown Urine Ketones Tr mg/dL (Negative) 03/30/22 Unknown Urine Blood Neg (Negative) 03/30/22 Unknown Urine Nitrite Neg (Negative) 03/30/22 Unknown Urine Bilirubin Neg (Negative) 03/30/22 Unknown Urine Urobilinogen < 2.0 mg/dL (<2.0) 03/30/22 Unknown Ur Leukocyte Esterase Neg (Negative) 03/30/22 Unknown Urine WBC (Auto) 3.0 /HPF (0.0-6.0) 03/30/22 Unknown Urine RBC (Auto) 14.0 /HPF (0.0-6.0) 03/30/22 Unknown U Epithel Cells (Auto) < 1.0 /HPF (0-13.0) 03/30/22 Unknown Hyaline Casts 2 /LPF 03/30/22 Unknown Urine Mucus 2+ /HPF 03/30/22 Unknown Salicylates < 0.3 mg/dL (2.8-20.0) L 03/30/22 21:28 Urine Opiates Screen Presumptive negative 03/30/22 Unknown Urine Methadone Screen Presumptive negative 03/30/22 Unknown Acetaminophen 5.0 ug/mL (10.0-30.0) L 03/30/22 21:28 Ur Barbiturates Screen Presumptive negative 03/30/22 Unknown Ur Phencyclidine Scrn Presumptive negative 03/30/22 Unknown Ur Amphetamines Screen Presumptive negative 03/30/22 Unknown U Benzodiazepines Scrn Presumptive negative 03/30/22 Unknown Urine Cocaine Screen Presumptive negative 03/30/22 Unknown U Marijuana (THC) Screen Presumptive negative 03/30/22 Unknown Drugs of Abuse Note Disclamer 03/30/22 Unknown Plasma/Serum Alcohol < 0.01 % (0-0.07) 03/30/22 21:28 SARS-CoV-2 (PCR) Negative (Negative) 03/31/22 08:30 Last Vital Signs Temp 97.3 F L 04/02/22 08:52 Pulse 107 H 04/02/22 08:52 Resp 18 04/02/22 08:52 BP 141/117 04/02/22 08:52 Pulse Ox 98 04/02/22 08:52
[2022-04-05] MEDS: POLYETHYLENE GLYCOL 3350 17 GM POWDER PO SCH (09:55)
[2022-04-05] MEDS: clonazePAM 0.5 MG TAB PO SCH ×2 (09:55→21:48)
[2022-04-05] MEDS: risperiDONE 1 MG TAB PO SCH ×2 (09:55→21:48)
[2022-04-05] MEDS: DIVALPROEX DR 250 MG TAB PO SCH ×2 (09:55→21:48)
[2022-04-05] MEDS: ESCITALOPRAM 10 MG TAB PO SCH (09:55)
[2022-04-05] MEDS: B COMPLEX W/VITAMIN C TAB PO SCH (09:55)
[2022-04-05] MEDS: DIVALPROEX DR 125 MG TAB PO SCH (09:57)
[2022-04-05] MEDS: HALOPERIDOL LACTATE 5 MG/1 ML INJ IM PRN (09:58)
[2022-04-05] MEDS: TIMOLOL 0.5% OPHTH SOLN 5 ML OU SCH (10:00)
--- NOTE | 2022-04-05 10:09 | Progress Note ---
Assessment and Plan - Patient Problems (1) Vascular dementia with behavioral disturbance Current Visit: Yes Status: Acute Plan to address problem: Verbal prompting, verbal redirection, benzodiazepine therapy as clinically indicated. (2) Cerebral atherosclerosis Current Visit: Yes Status: Acute Plan to address problem: Risk factor reduction, antiplatelet therapy as clinically indicated. (3) Hyperlipidemia Current Visit: Yes Status: Acute Qualifiers: Hyperlipidemia type: mixed hyperlipidemia Qualified Code(s): E78.2 - Mixed hyperlipidemia Plan to address problem: Statin therapy, balanced diet, low-cholesterol diet. (4) Hypertension Current Visit: Yes Status: Acute Qualifiers: Hypertension type: primary hypertension Qualified Code(s): I10 - Essential (primary) hypertension Plan to address problem: Monitor blood pressure every shift, continue medical management. (5) Osteoarthritis Current Visit: Yes Status: Acute Plan to address problem: Pain control, supportive care. (6) Seizure disorder Current Visit: Yes Status: Acute Plan to address problem: Continue current management. No active seizure activity at this time. (7) Vertigo Current Visit: Yes Status: Acute Plan to address problem: Supportive care, meclizine as needed. (8) Advance care planning Current Visit: Yes Status: Acute Plan to address problem: Disease education done, care plan discussed, diagnoses discussed, prognosis discussed, patient is full code. +30 minutes. (9) Preventative health care Current Visit: Yes Status: Acute Plan to address problem: Patient counseled regarding home safety, fall precautions, outpatient follow-up with primary care physician for all age and risk factor appropriate screening test. +30 minutes. History Interval history: 81 YO Female with Vascular Dementia, Cerebral Atherosclerosis, HTN, HLD, DM, OA, Seizure Disorder, Schizophrenia, ARLETH admitted to [facility] for psychiatric stabilization. Consult placed by Dr. Park for medical management. Patient seen and evaluated in the recreation room. Patient appears to be at baseline level of cognition and function. Hospitalist Physical - Constitutional Vitals: Temp Pulse Resp BP Pulse Ox 97.3 F L 107 H 18 141/117 98 04/02/22 08:52 04/02/22 08:52 04/02/22 08:52 04/02/22 08:52 04/02/22 08:52 General appearance: Present: no acute distress - EENT Eyes: Present: PERRL ENT: hearing decreased - Neck Neck: Present: supple - Respiratory Respiratory effort: normal Respiratory: bilateral: diminished - Cardiovascular Rhythm: regular Heart Sounds: Present: S1 & S2 - Extremities Extremities: no ischemia Peripheral Pulses: within normal limits - Abdominal General gastrointestinal: soft, non-tender, non-distended - Integumentary Integumentary: Present: clear, dry - Psychiatric Psychiatric: cooperative - Neurologic Neurologic: CNII-XII intact Results - Labs CBC & Chem 7: 03/31/22 00:09 03/30/22 21:28 Labs: Laboratory Last Values WBC 4.9 K/mm3 (4.5-11.0) 03/31/22 00:09 RBC 3.90 M/mm3 (3.65-5.03) 03/31/22 00:09 Hgb 11.7 gm/dl (10.1-14.3) 03/31/22 00:09 Hct 34.9 % (30.3-42.9) 03/31/22 00:09 MCV 90 fl (79-97) 03/31/22 00:09 MCH 30 pg (28-32) 03/31/22 00:09 MCHC 34 % (30-34) 03/31/22 00:09 RDW 14.0 % (13.2-15.2) 03/31/22 00:09 Plt Count 222 K/mm3 (140-440) 03/31/22 00:09 Sodium 140 mmol/L (137-145) 03/30/22 21:28 Potassium 3.7 mmol/L (3.6-5.0) 03/30/22 21:28 Chloride 105.4 mmol/L (98-107) 03/30/22 21:28 Carbon Dioxide 20 mmol/L (22-30) L 03/30/22 21:28 Anion Gap 18 mmol/L 03/30/22 21:28 BUN 27 mg/dL (7-17) H 03/30/22 21:28 Creatinine 1.0 mg/dL (0.6-1.2) 03/30/22 21:28 Estimated GFR > 60 ml/min 03/30/22 21:28 BUN/Creatinine Ratio 27 % 03/30/22 21:28 Glucose 114 mg/dL (65-100) H 03/30/22 21:28 POC Glucose 85 mg/dL (70-105) 03/31/22 19:53 Calcium 10.1 mg/dL (8.4-10.2) 03/30/22 21:28 Magnesium 1.90 mg/dL (1.7-2.3) 03/30/22 21: Total Bilirubin 0.20 mg/dL (0.1-1.2) 03/30/22 21:28 AST 18 units/L (5-40) 03/30/22 21:28 ALT 10 units/L (7-56) 03/30/22 21:28 Alkaline Phosphatase 124 units/L (35-129) 03/30/22 21:28 Ammonia 14.0 umol/L (25-60) L 03/30/22 21: Total Creatine Kinase 194 units/L (30-135) H 03/30/22 21: Total Protein 7.7 g/dL (6.3-8.2) 03/30/22 21: Albumin 4.2 g/dL (3.9-5) 03/30/22 21: Albumin/Globulin Ratio 1.2 % 03/30/22 21: TSH 3.450 mlU/mL (0.270-4.200) 03/30/22 21:28 Urine Color Yellow (Yellow) 03/30/22 Unknown Urine Turbidity Clear (Clear) 03/30/22 Unknown Urine pH 5.0 (5.0-7.0) 03/30/22 Unknown Ur Specific [place] 1.024 (1.003-1.030) 03/30/22 Unknown Urine Protein 30 mg/dl mg/dL (Negative) 03/30/22 Unknown Urine Glucose (UA) Neg mg/dL (Negative) 03/30/22 Unknown Urine Ketones Tr mg/dL (Negative) 03/30/22 Unknown Urine Blood Neg (Negative) 03/30/22 Unknown Urine Nitrite Neg (Negative) 03/30/22 Unknown Urine Bilirubin Neg (Negative) 03/30/22 Unknown Urine Urobilinogen < 2.0 mg/dL (<2.0) 03/30/22 Unknown Ur Leukocyte Esterase Neg (Negative) 03/30/22 Unknown Urine WBC (Auto) 3.0 /HPF (0.0-6.0) 03/30/22 Unknown Urine RBC (Auto) 14.0 /HPF (0.0-6.0) 03/30/22 Unknown U Epithel Cells (Auto) < 1.0 /HPF (0-13.0) 03/30/22 Unknown Hyaline Casts 2 /LPF 03/30/22 Unknown Urine Mucus 2+ /HPF 03/30/22 Unknown Salicylates < 0.3 mg/dL (2.8-20.0) L 03/30/22 21:28 Urine Opiates Screen Presumptive negative 03/30/22 Unknown Urine Methadone Screen Presumptive negative 03/30/22 Unknown Acetaminophen 5.0 ug/mL (10.0-30.0) L 03/30/22 21:28 Ur Barbiturates Screen Presumptive negative 03/30/22 Unknown Ur Phencyclidine Scrn Presumptive negative 03/30/22 Unknown Ur Amphetamines Screen Presumptive negative 03/30/22 Unknown U Benzodiazepines Scrn Presumptive negative 03/30/22 Unknown Urine Cocaine Screen Presumptive negative 03/30/22 Unknown U Marijuana (THC) Screen Presumptive negative 03/30/22 Unknown Drugs of Abuse Note Disclamer 03/30/22 Unknown Plasma/Serum Alcohol < 0.01 % (0-0.07) 03/30/22 21:28 SARS-CoV-2 (PCR) Negative (Negative) 03/31/22 08:30 Grimaldo/IV: Voiding Method Toilet Active Medications - Current Medications Current Medications: Generic Name Dose Route Start Last Admin Trade Name Freq PRN Reason Stop Dose Admin Clonazepam 1 mg 04/05/22 10:00 04/05/22 09:55 Clonazepam 0.5 Mg Tab PO 04/08/22 07:00 Not Given BID [facility] Divalproex Sodium 250 mg 04/05/22 10:00 04/05/22 09:[address] 250 Mg Tab PO Not Given BID [facility] Escitalopram Oxalate 10 mg 04/01/22 10:00 04/05/22 09:55 Escitalopram 10 Mg Tab PO Not Given DAILY [facility] Haloperidol Lactate 5 mg 04/04/22 11:00 04/05/22 09:58 Haloperidol Lactate 5 Mg/1 Ml Inj IM 5 mg Q6H PRN Administration Agitation Melatonin 10 mg 04/01/22 22:00 04/04/22 21:18 Melatonin 5 Mg Tab PO 10 mg HS [facility] Administration Polyethylene Glycol 17 gm 04/01/22 10:00 04/05/22 09:55 Polyethylene Glycol 3350 17 Gm Powder PO Not Given QDAY [facility] Risperidone 1.5 mg 04/05/22 10:00 04/05/22 09:55 Risperidone 1 Mg Tab PO Not Given BID [facility] Sertraline HCl 75 mg 04/01/22 22:00 04/04/22 21:22 Sertraline 50 Mg Tab PO Not Given HS [facility] Timolol Maleate 1 drops 04/01/22 10:00 04/05/22 10:00 Timolol 0.5% Ophth Soln 5 Ml OU Not Given QDAY [facility] Vitamin B Complex/Vitamin C 1 each 04/01/22 11:00 04/05/22 09:55 B Complex W/Vitamin C Tab PO Not Given QDAY [facility]
[2022-04-05] MEDS: SERTRALINE 50 MG TAB PO SCH (21:48)
[2022-04-05] MEDS: MELATONIN 5 MG TAB PO SCH (21:48)
--- NOTE | 2022-04-06 08:39 | Progress Note ---
Subjective Date of service: 04/06/22 Principal diagnosis: Delusional Disorder Subjective Comment: The patient was seen today. She is delusional and suspicious. She is referring to me as "Mrs. Arreguin." She says "I'm just a lil baby lawson." The patient tells me to leave her alone and go on. She is staring and looking around. 04/05 The patient was seen today. Her thoughts are disorganized. She is paranoid and delusional. She is calling me Kallie. She says "get out of here with you yellow hair and white face. You want to be white." The patient says "where is your . Get out of here, you gone ." She pushes me out of her room. REVIEW OF SYSTEMS Unable to assess MENTAL STATUS EXAMINATION Unable to assess Diagnoses: Delusional Disorder Treatment Plan Patient admitted for inpatient psychiatric evaluation, medication adjustment and close monitoring The patient's behavior, mood, sleep and appetite will be closely monitored. Patient enrolled in individual and group therapeutic sessions and encouraged to attend. Patient provided with a safe and structured environment. Patient's physical health needs will be addressed by the Hospitalist. Hospi talist Consulted Labs including CBC, CMP, Lipid profile and Hemoglobin A1C levels ordered for baseline reference Social Assessment will be completed and the Mixing Machine Feeder will work with patient and family to ensure a suitable and safe disposition Medication adjustment will be made as clinically indicated Increased Risperidone 2mg po BID Increased Depakote DR 250mg po TID Klonopin 1mg po BID x 3 days Usual Wellness Gnosticism/Preservation: - Start Trazodone 50 mg po QHS & 50 mg po QHS PRN between 10 PM & 2 AM for insomnia - Start Melatonin 5 mg po QHS to promote circadian rhythm The patient agreed on the treatment plan, understood the risk, benefit, alternative treatment, potential consequence of no treatment, and gave informed consent. Estimated days: 7 Post hospital care: primary care provider, psychiatric provider Case staffed with Dr. Morales Medications and Allergies Allergies Allergy/AdvReac Type Severity Reaction Status Date / Time No Known Drug Allergies Allergy Unknown Unknown Verified 04/05/22 20:17 Home Medications Medication Instructions Recorded Confirmed Last Taken Type Escitalopram [Lexapro] 10 mg PO DAILY 03/31/22 03/31/22 Unknown History Melatonin [Melatonin 10MG TAB] 10 mg PO HS 03/31/22 03/31/22 Unknown History OLANZapine [Zyprexa] 5 mg PO BID 03/31/22 03/31/22 Unknown History Sertraline [Zoloft] 75 mg PO HS 03/31/22 03/31/22 Unknown History Timolol Maleate/Pf [Timolol 1 drop OU DAILY 03/31/22 03/31/22 Unknown History Maleate 0.5% Eye Drop] Vitamin B Complex [B Complex] 1 tab PO DAILY 03/31/22 03/31/22 Unknown History haloperidoL [Haldol] 5 mg PO BID 03/31/22 03/31/22 Unknown History polyethylene glycoL 3350 [Miralax 17 gm PO QDAY 03/31/22 03/31/22 Unknown History 3350] Active Meds: Active Medications Clonazepam (Clonazepam 0.5 Mg Tab) 1 mg PO BID [facility] Stop: 04/08/22 07:00 Last Admin: 04/05/22 21:48 Dose: 1 mg Divalproex Sodium (Divalproex Dr 250 Mg Tab) 250 mg PO BID [facility] Last Admin: 04/05/22 21:48 Dose: 250 mg Escitalopram Oxalate (Escitalopram 10 Mg Tab) 10 mg PO DAILY [facility] Last Admin: 04/05/22 09:55 Dose: Not Given Haloperidol Lactate (Haloperidol Lactate 5 Mg/1 Ml Inj) 5 mg IM Q6H PRN PRN Reason: Agitation Last Admin: 04/05/22 09:58 Dose: 5 mg Melatonin (Melatonin 5 Mg Tab) 10 mg PO [facility] Last Admin: 04/05/22 21:48 Dose: 10 mg Polyethylene Glycol (Polyethylene Glycol 3350 17 Gm Powder) 17 gm PO QDAY [facility] Last Admin: 04/05/22 09:55 Dose: Not Given Risperidone (Risperidone 1 Mg Tab) 1.5 mg PO BID [facility] Last Admin: 04/05/22 21:48 Dose: Not Given Sertraline HCl (Sertraline 50 Mg Tab) 75 mg PO [facility] Last Admin: 04/05/22 21:48 Dose: Not Given Timolol Maleate (Timolol 0.5% Ophth Soln 5 Ml) 1 drops OU QDAY [facility] Last Admin: 04/05/22 10:00 Dose: Not Given Vitamin B Complex/Vitamin C (B Complex W/Vitamin C Tab) 1 each PO QDAY [facility] Last Admin: 04/05/22 09:55 Dose: Not Given Results - Results Labs/Vitals: Laboratory Last Values WBC 4.9 K/mm3 (4.5-11.0) 03/31/22 00:09 RBC 3.90 M/mm3 (3.65-5.03) 03/31/22 00:09 Hgb 11.7 gm/dl (10.1-14.3) 03/31/22 00:09 Hct 34.9 % (30.3-42.9) 03/31/22 00:09 MCV 90 fl (79-97) 03/31/22 00:09 MCH 30 pg (28-32) 03/31/22 00:09 MCHC 34 % (30-34) 03/31/22 00:09 RDW 14.0 % (13.2-15.2) 03/31/22 00:09 Plt Count 222 K/mm3 (140-440) 03/31/22 00:09 Sodium 140 mmol/L (137-145) 03/30/22 21:28 Potassium 3.7 mmol/L (3.6-5.0) 03/30/22 21:28 Chloride 105.4 mmol/L (98-107) 03/30/22 21:28 Carbon Dioxide 20 mmol/L (22-30) L 03/30/22 21:28 Anion Gap 18 mmol/L 03/30/22 21:28 BUN 27 mg/dL (7-17) H 03/30/22 21:28 Creatinine 1.0 mg/dL (0.6-1.2) 03/30/22 21:28 Estimated GFR > 60 ml/min 03/30/22 21:28 BUN/Creatinine Ratio 27 % 03/30/22 21:28 Glucose 114 mg/dL (65-100) H 03/30/22 21:28 POC Glucose 85 mg/dL (70-105) 03/31/22 19:53 Calcium 10.1 mg/dL (8.4-10.2) 03/30/22 21:28 Magnesium 1.90 mg/dL (1.7-2.3) 03/30/22 21:28 Total Bilirubin 0.20 mg/dL (0.1-1.2) 03/30/22 21:28 AST 18 units/L (5-40) 03/30/22 21:28 ALT 10 units/L (7-56) 03/30/22 21:28 Alkaline Phosphatase 124 units/L (35-129) 03/30/22 21:28 Ammonia 14.0 umol/L (25-60) L 03/30/22 21: Total Creatine Kinase 194 units/L (30-135) H 03/30/22 21: Total Protein 7.7 g/dL (6.3-8.2) 03/30/22: Albumin 4.2 g/dL (3.9-5) 03/30/22 21: Albumin/Globulin Ratio 1.2 % 03/30/22 21: TSH 3.450 mlU/mL (0.270-4.200) 03/30/22 21: Urine Color Yellow (Yellow) 03/30/22 Unknown Urine Turbidity Clear (Clear) 03/30/22 Unknown Urine pH 5.0 (5.0-7.0) 03/30/22 Unknown Ur Specific [place] 1.024 (1.003-1.030) 03/30/22 Unknown Urine Protein 30 mg/dl mg/dL (Negative) 03/30/22 Unknown Urine Glucose (UA) Neg mg/dL (Negative) 03/30/22 Unknown Urine Ketones Tr mg/dL (Negative) 03/30/22 Unknown Urine Blood Neg (Negative) 03/30/22 Unknown Urine Nitrite Neg (Negative) 03/30/22 Unknown Urine Bilirubin Neg (Negative) 03/30/22 Unknown Urine Urobilinogen < 2.0 mg/dL (<2.0) 03/30/22 Unknown Ur Leukocyte Esterase Neg (Negative) 03/30/22 Unknown Urine WBC (Auto) 3.0 /HPF (0.0-6.0) 03/30/22 Unknown Urine RBC (Auto) 14.0 /HPF (0.0-6.0) 03/30/22 Unknown U Epithel Cells (Auto) < 1.0 /HPF (0-13.0) 03/30/22 Unknown Hyaline Casts 2 /LPF 03/30/22 Unknown Urine Mucus 2+ /HPF 03/30/22 Unknown Salicylates < 0.3 mg/dL (2.8-20.0) L 03/30/22 21: Urine Opiates Screen Presumptive negative 03/30/22 Unknown Urine Methadone Screen Presumptive negative 03/30/22 Unknown Acetaminophen 5.0 ug/mL (10.0-30.0) L 03/30/22 21:28 Ur Barbiturates Screen Presumptive negative 03/30/22 Unknown Ur Phencyclidine Scrn Presumptive negative 03/30/22 Unknown Ur Amphetamines Screen Presumptive negative 03/30/22 Unknown U Benzodiazepines Scrn Presumptive negative 03/30/22 Unknown Urine Cocaine Screen Presumptive negative 03/30/22 Unknown U Marijuana (THC) Screen Presumptive negative 03/30/22 Unknown Drugs of Abuse Note Disclamer 03/30/22 Unknown Plasma/Serum Alcohol < 0.01 % (0-0.07) 03/30/22 21:28 SARS-CoV-2 (PCR) Negative (Negative) 03/31/22 08:30 Last Vital Signs Temp 97.3 F L 04/02/22 08:52 Pulse 107 H 04/02/22 08:52 Resp 18 04/02/22 08:52 BP 141/117 04/02/22 08:52 Pulse Ox 98 04/02/22 08:52
[2022-04-06] MEDS: B COMPLEX W/VITAMIN C TAB PO SCH (10:23)
[2022-04-06] MEDS: risperiDONE 1 MG TAB PO SCH ×2 (10:23→21:33)
[2022-04-06] MEDS: clonazePAM 0.5 MG TAB PO SCH ×2 (10:24→21:32)
[2022-04-06] MEDS: POLYETHYLENE GLYCOL 3350 17 GM POWDER PO SCH (10:31)
[2022-04-06] MEDS: ESCITALOPRAM 10 MG TAB PO SCH (10:31)
[2022-04-06] MEDS: TIMOLOL 0.5% OPHTH SOLN 5 ML OU SCH (10:32)
[2022-04-06] MEDS: HALOPERIDOL LACTATE 5 MG/1 ML INJ IM PRN (10:46)
--- NOTE | 2022-04-06 12:45 | Consultation ---
History of Present Illness - Reason for Consult Consult date: 04/01/22 Medical management Requesting physician: HEATHER LANIER - History of Present Illness 81 YO Female with Vascular Dementia, Cerebral Atherosclerosis, HTN, HLD, DM, OA, Seizure Disorder, Schizophrenia, ARLETH admitted to [facility] for psychiatric stabilization. Consult placed by Dr. Lanier for medical management. Patient seen and evaluated in the recreation room. Patient denies fever, chills, chest pain, palpitation, productive cough, skin rash, recent contact, known exposure to COVID-19. Patient appears to be at baseline level of cognition and function. Past History Past Medical History: arthritis, diabetes, hypertension, hyperlipidemia, seizu res Past Surgical History: total knee replacement Social history: . denies: smoking, alcohol abuse Family history: diabetes, hypertension Medications and Allergies Allergies Allergy/AdvReac Type Severity Reaction Status Date / Time No Known Drug Allergies Allergy Unknown Unknown Verified 04/05/22 20:17 Home Medications Medication Instructions Recorded Confirmed Last Taken Type Escitalopram [Lexapro] 10 mg PO DAILY 03/31/22 03/31/22 Unknown History Melatonin [Melatonin 10MG TAB] 10 mg PO HS 03/31/22 03/31/22 Unknown History OLANZapine [Zyprexa] 5 mg PO BID 03/31/22 03/31/22 Unknown History Sertraline [Zoloft] 75 mg PO HS 03/31/22 03/31/22 Unknown History Timolol Maleate/Pf [Timolol 1 drop OU DAILY 03/31/22 03/31/22 Unknown History Maleate 0.5% Eye Drop] Vitamin B Complex [B Complex] 1 tab PO DAILY 03/31/22 03/31/22 Unknown History haloperidoL [Haldol] 5 mg PO BID 03/31/22 03/31/22 Unknown History polyethylene glycoL 3350 [Miralax 17 gm PO QDAY 03/31/22 03/31/22 Unknown History 3350] Active Meds: Active Medications Clonazepam (Clonazepam 0.5 Mg Tab) 1 mg PO BID [facility] Stop: 04/08/22 07:00 Last Admin: 04/06/22 10:24 Dose: Not Given Divalproex Sodium (Divalproex Dr 250 Mg Tab) 250 mg PO TID [facility] Escitalopram Oxalate (Escitalopram 10 Mg Tab) 10 mg PO DAILY [facility] Last Admin: 04/06/22 10:31 Dose: Not Given Haloperidol Lactate (Haloperidol Lactate 5 Mg/1 Ml Inj) 5 mg IM Q6H PRN PRN Reason: Agitation Last Admin: 04/06/22 10:46 Dose: 5 mg Melatonin (Melatonin 5 Mg Tab) 10 mg PO [facility] Last Admin: 04/05/22 21:48 Dose: 10 mg Polyethylene Glycol (Polyethylene Glycol 3350 17 Gm Powder) 17 gm PO QDAY [facility] Last Admin: 04/06/22 10:31 Dose: Not Given Risperidone (Risperidone 1 Mg Tab) 2 mg PO BID [facility] Last Admin: 04/06/22 10:23 Dose: 2 mg Sertraline HCl (Sertraline 50 Mg Tab) 75 mg PO [facility] Last Admin: 04/05/22 21:48 Dose: Not Given Timolol Maleate (Timolol 0.5% Ophth Soln 5 Ml) 1 drops OU QDAY [facility] Last Admin: 04/06/22 10:32 Dose: Not Given Vitamin B Complex/Vitamin C (B Complex W/Vitamin C Tab) 1 each PO QDAY [facility] Last Admin: 04/06/22 10:23 Dose: Not Given Review of Systems Constitutional: no weight loss, no weight gain, no fever, no chills Ears, nose, mouth and throat: no ear pain, no ear discharge, no decreased hearing, no nose pain, no nasal congestion, no sinus pressure Breasts: no change in shape Cardiovascular: no chest pain, no orthopnea, no palpitations, no rapid/irregular heart beat Respiratory: no cough, no excessive sputum Gastrointestinal: no abdominal pain, no nausea, no change in bowel habits, no coffee ground emesis Genitourinary Female: no pelvic pain, no flank pain, no dysuria Rectal: no pain, no incontinence, no bleeding Musculoskeletal: no neck stiffness, no neck pain, no arm numbness/tingling, no low back pain, no shooting leg pain Integumentary: no rash, no redness, no sores, no boils Neurological: no head injury, no weakness, no parathesias, no numbness, no seizures, no ataxia Psychiatric: anxiety, irritability Endocrine: no cold intolerance, no polyphagia, no excessive thirst, no nocturia, no excessive sweating Hematologic/Lymphatic: no easy bruising, no easy bleeding Allergic/Immunologic: no urticaria, no allergic rhinitis, no wheezing Exam - Constitutional Vitals: Temp Pulse Resp BP Pulse Ox 97.3 F L 107 H 18 141/117 98 04/02/22 08:52 04/02/22 08:52 04/02/22 08:52 04/02/22 08:52 04/02/22 08:52 General appearance: Present: no acute distress, well-nourished - EENT Eyes: Present: PERRL ENT: clear oral mucosa, hearing decreased - Neck Neck: Present: supple, normal ROM - Respiratory Respiratory effort: normal Respiratory: bilateral: CTA - Cardiovascular Heart Sounds: Present: S1 & S2. Absent: rub, click - Extremities Extremities: pulses symmetrical, No edema Peripheral Pulses: within normal limits - Abdominal General gastrointestinal: Present: soft, non-tender, non-distended, normal bowel sounds Female genitourinary: Present: normal - Integumentary Integumentary: Present: clear, warm, dry - Musculoskeletal Musculoskeletal: gait normal, strength equal bilaterally - Psychiatric Psychiatric: cooperative - Neurologic Neurologic: CNII-XII intact, moves all extremities Results - Labs CBC & Chem 7: 03/31/22 00:09 03/30/22 21:28 Assessment and Plan - Patient Problems (1) Vascular dementia with behavioral disturbance Current Visit: Yes Status: Acute Plan to address problem: Verbal prompting, verbal redirection, benzodiazepine therapy as clinically indic ated. (2) Cerebral atherosclerosis Current Visit: Yes Status: Acute Plan to address problem: Risk factor reduction, antiplatelet therapy as clinically indicated. (3) Seizure disorder Current Visit: Yes Status: Acute Plan to address problem: Continue current management. No active seizure activity at this time. (4) Vertigo Current Visit: Yes Status: Acute Plan to address problem: Supportive care, meclizine as needed. (5) Diabetes Current Visit: Yes Status: Acute Plan to address problem: Consistent carbohydrate diet, insulin protocol hypoglycemia protocol, Accu-Chek. (6) Hypertension Current Visit: Yes Status: Acute Qualifiers: Hypertension type: primary hypertension Qualified Code(s): I10 - Essential (primary) hypertension Plan to address problem: Monitor blood pressure every shift, continue medical management. (7) Hyperlipidemia Current Visit: Yes Status: Acute Qualifiers: Hyperlipidemia type: mixed hyperlipidemia Qualified Code(s): E78.2 - Mixed hyperlipidemia Plan to address problem: Statin therapy, balanced diet, low-cholesterol diet. (8) Osteoarthritis Current Visit: Yes Status: Acute Plan to address problem: Pain control, supportive care. (9) Advance care planning Current Visit: Yes Status: Acute Plan to address problem: Disease education done, care plan discussed, diagnoses discussed, prognosis discussed, patient is full code. +30 minutes. (10) Preventative health care Current Visit: Yes Status: Acute Plan to address problem: Patient counseled regarding home safety, fall precautions, outpatient follow-up with primary care physician for all age and risk factor appropriate screening test. +30 minutes.
--- NOTE | 2022-04-06 12:57 | Progress Note ---
Assessment and Plan - Patient Problems (1) Vascular dementia with behavioral disturbance Current Visit: Yes Status: Acute Plan to address problem: Verbal prompting, verbal redirection, benzodiazepine therapy as clinically indicated. (2) Cerebral atherosclerosis Current Visit: Yes Status: Acute Plan to address problem: Risk factor reduction, antiplatelet therapy as clinically indicated. (3) Hyperlipidemia Current Visit: Yes Status: Acute Qualifiers: Hyperlipidemia type: mixed hyperlipidemia Qualified Code(s): E78.2 - Mixed hyperlipidemia Plan to address problem: Statin therapy, balanced diet, low-cholesterol diet. (4) Hypertension Current Visit: Yes Status: Acute Qualifiers: Hypertension type: primary hypertension Qualified Code(s): I10 - Essential (primary) hypertension Plan to address problem: Monitor blood pressure every shift, continue medical management. (5) Osteoarthritis Current Visit: Yes Status: Acute Plan to address problem: Pain control, supportive care. (6) Seizure disorder Current Visit: Yes Status: Acute Plan to address problem: Continue current management. No active seizure activity at this time. (7) Vertigo Current Visit: Yes Status: Acute Plan to address problem: Supportive care, meclizine as needed. (8) Advance care planning Current Visit: Yes Status: Acute Plan to address problem: Disease education done, care plan discussed, diagnoses discussed, prognosis discussed, patient is full code. +30 minutes. (9) Preventative health care Current Visit: Yes Status: Acute Plan to address problem: Patient counseled regarding home safety, fall precautions, outpatient follow-up with primary care physician for all age and risk factor appropriate screening test. +30 minutes. History Interval history: 81 YO Female with Vascular Dementia, Cerebral Atherosclerosis, HTN, HLD, DM, OA, Seizure Disorder, Schizophrenia, ARLETH admitted to [facility] for psychiatric stabilization. Consult placed by Dr. Park for medical management. Patient seen and evaluated in the recreation room. Patient appears to be at baseline level of cognition and function. Hospitalist Physical - Constitutional Vitals: Temp Pulse Resp BP Pulse Ox 97.3 F L 107 H 18 141/117 98 04/02/22 08:52 04/02/22 08:52 04/02/22 08:52 04/02/22 08:52 04/02/22 08:52 General appearance: Present: no acute distress - EENT Eyes: Present: PERRL ENT: hearing decreased - Neck Neck: Present: supple - Respiratory Respiratory effort: normal Respiratory: bilateral: diminished - Cardiovascular Rhythm: regular Heart Sounds: Present: S1 & S2 - Extremities Extremities: no ischemia Peripheral Pulses: within normal limits - Integumentary Integumentary: Present: clear, dry - Psychiatric Psychiatric: cooperative - Neurologic Neurologic: CNII-XII intact Results - Labs CBC & Chem 7: 03/31/22 00:09 03/30/22 21:28 Labs: Laboratory Last Values WBC 4.9 K/mm3 (4.5-11.0) 03/31/22 00:09 RBC 3.90 M/mm3 (3.65-5.03) 03/31/22 00:09 Hgb 11.7 gm/dl (10.1-14.3) 03/31/22 00:09 Hct 34.9 % (30.3-42.9) 03/31/22 00:09 MCV 90 fl (79-97) 03/31/22 00:09 MCH 30 pg (28-32) 03/31/22 00:09 MCHC 34 % (30-34) 03/31/22 00:09 RDW 14.0 % (13.2-15.2) 03/31/22 00:09 Plt Count 222 K/mm3 (140-440) 03/31/22 00:09 Sodium 140 mmol/L (137-145) 03/30/22 21:28 Potassium 3.7 mmol/L (3.6-5.0) 03/30/22 21:28 Chloride 105.4 mmol/L (98-107) 03/30/22 21:28 Carbon Dioxide 20 mmol/L (22-30) L 03/30/22 21:28 Anion Gap 18 mmol/L 03/30/22 21:28 BUN 27 mg/dL (7-17) H 03/30/22 21:28 Creatinine 1.0 mg/dL (0.6-1.2) 03/30/22 21:28 Estimated GFR > 60 ml/min 03/30/22 21:28 BUN/Creatinine Ratio 27 % 03/30/22 21:28 Glucose 114 mg/dL (65-100) H 03/30/22 21:28 POC Glucose 85 mg/dL (70-105) 03/31/22 19:53 Calcium 10.1 mg/dL (8.4-10.2) 03/30/22 21: Magnesium 1.90 mg/dL (1.7-2.3) 03/30/22 21: Total Bilirubin 0.20 mg/dL (0.1-1.2) 03/30/22 21:28 AST 18 units/L (5-40) 03/30/22 21:28 ALT 10 units/L (7-56) 03/30/22 21:28 Alkaline Phosphatase 124 units/L (35-129) 03/30/22 21:28 Ammonia 14.0 umol/L (25-60) L 03/30/22 21: Total Creatine Kinase 194 units/L (30-135) H 03/30/22 21: Total Protein 7.7 g/dL (6.3-8.2) 03/30/22: Albumin 4.2 g/dL (3.9-5) 03/30/22: Albumin/Globulin Ratio 1.2 % 03/30/22: TSH 3.450 mlU/mL (0.270-4.200) 03/30/22 21:28 Urine Color Yellow (Yellow) 03/30/22 Unknown Urine Turbidity Clear (Clear) 03/30/22 Unknown Urine pH 5.0 (5.0-7.0) 03/30/22 Unknown Ur Specific [place] 1.024 (1.003-1.030) 03/30/22 Unknown Urine Protein 30 mg/dl mg/dL (Negative) 03/30/22 Unknown Urine Glucose (UA) Neg mg/dL (Negative) 03/30/22 Unknown Urine Ketones Tr mg/dL (Negative) 03/30/22 Unknown Urine Blood Neg (Negative) 03/30/22 Unknown Urine Nitrite Neg (Negative) 03/30/22 Unknown Urine Bilirubin Neg (Negative) 03/30/22 Unknown Urine Urobilinogen < 2.0 mg/dL (<2.0) 03/30/22 Unknown Ur Leukocyte Esterase Neg (Negative) 03/30/22 Unknown Urine WBC (Auto) 3.0 /HPF (0.0-6.0) 03/30/22 Unknown Urine RBC (Auto) 14.0 /HPF (0.0-6.0) 03/30/22 Unknown U Epithel Cells (Auto) < 1.0 /HPF (0-13.0) 03/30/22 Unknown Hyaline Casts 2 /LPF 03/30/22 Unknown Urine Mucus 2+ /HPF 03/30/22 Unknown Salicylates < 0.3 mg/dL (2.8-20.0) L 03/30/22 21:28 Urine Opiates Screen Presumptive negative 03/30/22 Unknown Urine Methadone Screen Presumptive negative 03/30/22 Unknown Acetaminophen 5.0 ug/mL (10.0-30.0) L 03/30/22 21:28 Ur Barbiturates Screen Presumptive negative 03/30/22 Unknown Ur Phencyclidine Scrn Presumptive negative 03/30/22 Unknown Ur Amphetamines Screen Presumptive negative 03/30/22 Unknown U Benzodiazepines Scrn Presumptive negative 03/30/22 Unknown Urine Cocaine Screen Presumptive negative 03/30/22 Unknown U Marijuana (THC) Screen Presumptive negative 03/30/22 Unknown Drugs of Abuse Note Disclamer 03/30/22 Unknown Plasma/Serum Alcohol < 0.01 % (0-0.07) 03/30/22 21:28 SARS-CoV-2 (PCR) Negative (Negative) 03/31/22 08:30 Grimaldo/IV: Voiding Method Toilet Active Medications - Current Medications Current Medications: Generic Name Dose Route Start Last Admin Trade Name Freq PRN Reason Stop Dose Admin Clonazepam 1 mg 04/05/22 10:00 04/06/22 10:24 Clonazepam 0.5 Mg Tab PO 04/08/22 07:00 Not Given BID [facility] Divalproex Sodium 250 mg 04/06/22 14:[address] 250 Mg Tab PO TID MARIN Escitalopram Oxalate 10 mg 04/01/22 10:00 04/06/22 10:31 Escitalopram 10 Mg Tab PO Not Given DAILY [facility] Haloperidol Lactate 5 mg 04/04/22 11:00 04/06/22 10:46 Haloperidol Lactate 5 Mg/1 Ml Inj IM 5 mg Q6H PRN Administration Agitation Melatonin 10 mg 04/01/22 22:00 04/05/22 21:48 Melatonin 5 Mg Tab PO 10 mg HS MARIN Administration Polyethylene Glycol 17 gm 04/01/22 10:00 04/06/22 10:31 Polyethylene Glycol 3350 17 Gm Powder PO Not Given QDAY [facility] Risperidone 2 mg 04/06/22 10:00 04/06/22 10:23 Risperidone 1 Mg Tab PO 2 mg BID [facility] Administration Sertraline HCl 75 mg 04/01/22 22:00 04/05/22 21:48 Sertraline 50 Mg Tab PO Not Given HS [facility] Timolol Maleate 1 drops 04/01/22 10:00 04/06/22 10:32 Timolol 0.5% Ophth Soln 5 Ml OU Not Given QDAY [facility] Vitamin B Complex/Vitamin C 1 each 04/01/22 11:00 04/06/22 10:23 B Complex W/Vitamin C Tab PO Not Given QDAY [facility]
--- NOTE | 2022-04-06 12:58 | Progress Note ---
Assessment and Plan - Patient Problems (1) Vascular dementia with behavioral disturbance Current Visit: Yes Status: Acute Plan to address problem: Verbal prompting, verbal redirection, benzodiazepine therapy as clinically indicated. (2) Cerebral atherosclerosis Current Visit: Yes Status: Acute Plan to address problem: Risk factor reduction, antiplatelet therapy as clinically indicated. (3) Hyperlipidemia Current Visit: Yes Status: Acute Qualifiers: Hyperlipidemia type: mixed hyperlipidemia Qualified Code(s): E78.2 - Mixed hyperlipidemia Plan to address problem: Statin therapy, balanced diet, low-cholesterol diet. (4) Hypertension Current Visit: Yes Status: Acute Qualifiers: Hypertension type: primary hypertension Qualified Code(s): I10 - Essential (primary) hypertension Plan to address problem: Monitor blood pressure every shift, continue medical management. (5) Osteoarthritis Current Visit: Yes Status: Acute Plan to address problem: Pain control, supportive care. (6) Seizure disorder Current Visit: Yes Status: Acute Plan to address problem: Continue current management. No active seizure activity at this time. (7) Vertigo Current Visit: Yes Status: Acute Plan to address problem: Supportive care, meclizine as needed. (8) Advance care planning Current Visit: Yes Status: Acute Plan to address problem: Disease education done, care plan discussed, diagnoses discussed, prognosis discussed, patient is full code. +30 minutes. (9) Preventative health care Current Visit: Yes Status: Acute Plan to address problem: Patient counseled regarding home safety, fall precautions, outpatient follow-up with primary care physician for all age and risk factor appropriate screening test. +30 minutes. History Interval history: 81 YO Female with Vascular Dementia, Cerebral Atherosclerosis, HTN, HLD, DM, OA, Seizure Disorder, Schizophrenia, ARLETH admitted to [facility] for psychiatric stabilization. Consult placed by Dr. Park for medical management. Patient seen and evaluated in the recreation room. Patient appears to be at baseline level of cognition and function. Hospitalist Physical - Constitutional Vitals: Temp Pulse Resp BP Pulse Ox 97.3 F L 107 H 18 141/117 98 04/02/22 08:52 04/02/22 08:52 04/02/22 08:52 04/02/22 08:52 04/02/22 08:52 General appearance: Present: no acute distress - EENT ENT: hearing decreased - Respiratory Respiratory effort: normal Respiratory: bilateral: diminished - Cardiovascular Rhythm: regular Heart Sounds: Present: S1 & S2 - Extremities Extremities: no ischemia Peripheral Pulses: within normal limits - Abdominal General gastrointestinal: soft, non-tender, non-distended - Integumentary Integumentary: Present: clear, dry - Psychiatric Psychiatric: cooperative - Neurologic Neurologic: CNII-XII intact Results - Labs CBC & Chem 7: 03/31/22 00:09 03/30/22 21:28 Labs: Laboratory Last Values WBC 4.9 K/mm3 (4.5-11.0) 03/31/22 00:09 RBC 3.90 M/mm3 (3.65-5.03) 03/31/22 00:09 Hgb 11.7 gm/dl (10.1-14.3) 03/31/22 00:09 Hct 34.9 % (30.3-42.9) 03/31/22 00:09 MCV 90 fl (79-97) 03/31/22 00:09 MCH 30 pg (28-32) 03/31/22 00:09 MCHC 34 % (30-34) 03/31/22 00:09 RDW 14.0 % (13.2-15.2) 03/31/22 00:09 Plt Count 222 K/mm3 (140-440) 03/31/22 00:09 Sodium 140 mmol/L (137-145) 03/30/22 21:28 Potassium 3.7 mmol/L (3.6-5.0) 03/30/22 21:28 Chloride 105.4 mmol/L (98-107) 03/30/22 21: Carbon Dioxide 20 mmol/L (22-30) L 03/30/22 21:28 Anion Gap 18 mmol/L 03/30/22 21:28 BUN 27 mg/dL (7-17) H 03/30/22 21:28 Creatinine 1.0 mg/dL (0.6-1.2) 03/30/22 21:28 Estimated GFR > 60 ml/min 03/30/22 21:28 BUN/Creatinine Ratio 27 % 03/30/22 21:28 Glucose 114 mg/dL (65-100) H 03/30/22 21:28 POC Glucose 85 mg/dL (70-105) 03/31/22 19:53 Calcium 10.1 mg/dL (8.4-10.2) 03/30/22 21: Magnesium 1.90 mg/dL (1.7-2.3) 03/30/22 21: Total Bilirubin 0.20 mg/dL (0.1-1.2) 03/30/22 21:28 AST 18 units/L (5-40) 03/30/22 21:28 ALT 10 units/L (7-56) 03/30/22 21:28 Alkaline Phosphatase 124 units/L (35-129) 03/30/22 21:28 Ammonia 14.0 umol/L (25-60) L 03/30/22 21:28 Total Creatine Kinase 194 units/L (30-135) H 03/30/22 21: Total Protein 7.7 g/dL (6.3-8.2) 03/30/22 21: Albumin 4.2 g/dL (3.9-5) 03/30/22: Albumin/Globulin Ratio 1.2 % 03/30/22: TSH 3.450 mlU/mL (0.270-4.200) 03/30/22 21:28 Urine Color Yellow (Yellow) 03/30/22 Unknown Urine Turbidity Clear (Clear) 03/30/22 Unknown Urine pH 5.0 (5.0-7.0) 03/30/22 Unknown Ur Specific [place] 1.024 (1.003-1.030) 03/30/22 Unknown Urine Protein 30 mg/dl mg/dL (Negative) 03/30/22 Unknown Urine Glucose (UA) Neg mg/dL (Negative) 03/30/22 Unknown Urine Ketones Tr mg/dL (Negative) 03/30/22 Unknown Urine Blood Neg (Negative) 03/30/22 Unknown Urine Nitrite Neg (Negative) 03/30/22 Unknown Urine Bilirubin Neg (Negative) 03/30/22 Unknown Urine Urobilinogen < 2.0 mg/dL (<2.0) 03/30/22 Unknown Ur Leukocyte Esterase Neg (Negative) 03/30/22 Unknown Urine WBC (Auto) 3.0 /HPF (0.0-6.0) 03/30/22 Unknown Urine RBC (Auto) 14.0 /HPF (0.0-6.0) 03/30/22 Unknown U Epithel Cells (Auto) < 1.0 /HPF (0-13.0) 03/30/22 Unknown Hyaline Casts 2 /LPF 03/30/22 Unknown Urine Mucus 2+ /HPF 03/30/22 Unknown Salicylates < 0.3 mg/dL (2.8-20.0) L 03/30/22 21:28 Urine Opiates Screen Presumptive negative 03/30/22 Unknown Urine Methadone Screen Presumptive negative 03/30/22 Unknown Acetaminophen 5.0 ug/mL (10.0-30.0) L 03/30/22 21:28 Ur Barbiturates Screen Presumptive negative 03/30/22 Unknown Ur Phencyclidine Scrn Presumptive negative 03/30/22 Unknown Ur Amphetamines Screen Presumptive negative 03/30/22 Unknown U Benzodiazepines Scrn Presumptive negative 03/30/22 Unknown Urine Cocaine Screen Presumptive negative 03/30/22 Unknown U Marijuana (THC) Screen Presumptive negative 03/30/22 Unknown Drugs of Abuse Note Disclamer 03/30/22 Unknown Plasma/Serum Alcohol < 0.01 % (0-0.07) 03/30/22 21:28 SARS-CoV-2 (PCR) Negative (Negative) 03/31/22 08:30 Grimaldo/IV: Voiding Method Toilet Active Medications - Current Medications Current Medications: Generic Name Dose Route Start Last Admin Trade Name Freq PRN Reason Stop Dose Admin Clonazepam 1 mg 04/05/22 10:00 04/06/22 10:24 Clonazepam 0.5 Mg Tab PO 04/08/22 07:00 Not Given BID MARIN Divalproex Sodium 250 mg 04/06/22 14:[address] 250 Mg Tab PO TID MARIN Escitalopram Oxalate 10 mg 04/01/22 10:00 04/06/22 10:31 Escitalopram 10 Mg Tab PO Not Given DAILY [facility] Haloperidol Lactate 5 mg 04/04/22 11:00 04/06/22 10:46 Haloperidol Lactate 5 Mg/1 Ml Inj IM 5 mg Q6H PRN Administration Agitation Melatonin 10 mg 04/01/22 22:00 04/05/22 21:48 Melatonin 5 Mg Tab PO 10 mg HS MARIN Administration Polyethylene Glycol 17 gm 04/01/22 10:00 04/06/22 10:31 Polyethylene Glycol 3350 17 Gm Powder PO Not Given QDAY [facility] Risperidone 2 mg 04/06/22 10:00 04/06/22 10:23 Risperidone 1 Mg Tab PO 2 mg BID MARIN Administration Sertraline HCl 75 mg 04/01/22 22:00 04/05/22 21:48 Sertraline 50 Mg Tab PO Not Given [facility] Timolol Maleate 1 drops 04/01/22 10:00 04/06/22 10:32 Timolol 0.5% Ophth Soln 5 Ml OU Not Given QDAY [facility] Vitamin B Complex/Vitamin C 1 each 04/01/22 11:00 04/06/22 10:23 B Complex W/Vitamin C Tab PO Not Given QDAY [facility]
--- NOTE | 2022-04-06 13:00 | Progress Note ---
Assessment and Plan - Patient Problems (1) Vascular dementia with behavioral disturbance Current Visit: Yes Status: Acute Plan to address problem: Verbal prompting, verbal redirection, benzodiazepine therapy as clinically indicated. (2) Cerebral atherosclerosis Current Visit: Yes Status: Acute Plan to address problem: Risk factor reduction, antiplatelet therapy as clinically indicated. (3) Hyperlipidemia Current Visit: Yes Status: Acute Qualifiers: Hyperlipidemia type: mixed hyperlipidemia Qualified Code(s): E78.2 - Mixed hyperlipidemia Plan to address problem: Statin therapy, balanced diet, low-cholesterol diet. (4) Hypertension Current Visit: Yes Status: Acute Qualifiers: Hypertension type: primary hypertension Qualified Code(s): I10 - Essential (primary) hypertension Plan to address problem: Monitor blood pressure every shift, continue medical management. (5) Osteoarthritis Current Visit: Yes Status: Acute Plan to address problem: Pain control, supportive care. (6) Seizure disorder Current Visit: Yes Status: Acute Plan to address problem: Continue current management. No active seizure activity at this time. (7) Vertigo Current Visit: Yes Status: Acute Plan to address problem: Supportive care, meclizine as needed. (8) Advance care planning Current Visit: Yes Status: Acute Plan to address problem: Disease education done, care plan discussed, diagnoses discussed, prognosis discussed, patient is full code. +30 minutes. (9) Preventative health care Current Visit: Yes Status: Acute Plan to address problem: Patient counseled regarding home safety, fall precautions, outpatient follow-up with primary care physician for all age and risk factor appropriate screening test. +30 minutes. History Interval history: 81 YO Female with Vascular Dementia, Cerebral Atherosclerosis, HTN, HLD, DM, OA, Seizure Disorder, Schizophrenia, ARLETH admitted to [facility] for psychiatric stabilization. Consult placed by Dr. Park for medical management. Patient seen and evaluated in the recreation room. Patient appears to be at baseline level of cognition and function. Hospitalist Physical - Constitutional Vitals: Temp Pulse Resp BP Pulse Ox 97.3 F L 107 H 18 141/117 98 04/02/22 08:52 04/02/22 08:52 04/02/22 08:52 04/02/22 08:52 04/02/22 08:52 General appearance: Present: no acute distress - EENT Eyes: Present: PERRL ENT: hearing intact - Neck Neck: Present: supple - Respiratory Respiratory effort: normal Respiratory: bilateral: diminished - Cardiovascular Rhythm: regular Heart Sounds: Present: S1 & S2 - Extremities Extremities: no ischemia Peripheral Pulses: within normal limits - Abdominal General gastrointestinal: soft, non-tender, non-distended - Integumentary Integumentary: Present: clear, dry - Psychiatric Psychiatric: cooperative - Neurologic Neurologic: CNII-XII intact Results - Labs CBC & Chem 7: 03/31/22 00:09 03/30/22 21:28 Labs: Laboratory Last Values WBC 4.9 K/mm3 (4.5-11.0) 03/31/22 00:09 RBC 3.90 M/mm3 (3.65-5.03) 03/31/22 00:09 Hgb 11.7 gm/dl (10.1-14.3) 03/31/22 00:09 Hct 34.9 % (30.3-42.9) 03/31/22 00:09 MCV 90 fl (79-97) 03/31/22 00:09 MCH 30 pg (28-32) 03/31/22 00:09 MCHC 34 % (30-34) 03/31/22 00:09 RDW 14.0 % (13.2-15.2) 03/31/22 00:09 Plt Count 222 K/mm3 (140-440) 03/31/22 00:09 Sodium 140 mmol/L (137-145) 03/30/22 21:28 Potassium 3.7 mmol/L (3.6-5.0) 03/30/22 21:28 Chloride 105.4 mmol/L (98-107) 03/30/22 21:28 Carbon Dioxide 20 mmol/L (22-30) L 03/30/22 21:28 Anion Gap 18 mmol/L 03/30/22 21:28 BUN 27 mg/dL (7-17) H 03/30/22 21:28 Creatinine 1.0 mg/dL (0.6-1.2) 03/30/22 21:28 Estimated GFR > 60 ml/min 03/30/22 21:28 BUN/Creatinine Ratio 27 % 03/30/22 21:28 Glucose 114 mg/dL (65-100) H 03/30/22 21:28 POC Glucose 85 mg/dL (70-105) 03/31/22 19:53 Calcium 10.1 mg/dL (8.4-10.2) 03/30/22 21:28 Magnesium 1.90 mg/dL (1.7-2.3) 03/30/22 21: Total Bilirubin 0.20 mg/dL (0.1-1.2) 03/30/22 21:28 AST 18 units/L (5-40) 03/30/22 21:28 ALT 10 units/L (7-56) 03/30/22 21:28 Alkaline Phosphatase 124 units/L (35-129) 03/30/22 21:28 Ammonia 14.0 umol/L (25-60) L 03/30/22 21: Total Creatine Kinase 194 units/L (30-135) H 03/30/22 21: Total Protein 7.7 g/dL (6.3-8.2) 03/30/22 21: Albumin 4.2 g/dL (3.9-5) 03/30/22 21: Albumin/Globulin Ratio 1.2 % 03/30/22 21: TSH 3.450 mlU/mL (0.270-4.200) 03/30/22 21:28 Urine Color Yellow (Yellow) 03/30/22 Unknown Urine Turbidity Clear (Clear) 03/30/22 Unknown Urine pH 5.0 (5.0-7.0) 03/30/22 Unknown Ur Specific [place] 1.024 (1.003-1.030) 03/30/22 Unknown Urine Protein 30 mg/dl mg/dL (Negative) 03/30/22 Unknown Urine Glucose (UA) Neg mg/dL (Negative) 03/30/22 Unknown Urine Ketones Tr mg/dL (Negative) 03/30/22 Unknown Urine Blood Neg (Negative) 03/30/22 Unknown Urine Nitrite Neg (Negative) 03/30/22 Unknown Urine Bilirubin Neg (Negative) 03/30/22 Unknown Urine Urobilinogen < 2.0 mg/dL (<2.0) 03/30/22 Unknown Ur Leukocyte Esterase Neg (Negative) 03/30/22 Unknown Urine WBC (Auto) 3.0 /HPF (0.0-6.0) 03/30/22 Unknown Urine RBC (Auto) 14.0 /HPF (0.0-6.0) 03/30/22 Unknown U Epithel Cells (Auto) < 1.0 /HPF (0-13.0) 03/30/22 Unknown Hyaline Casts 2 /LPF 03/30/22 Unknown Urine Mucus 2+ /HPF 03/30/22 Unknown Salicylates < 0.3 mg/dL (2.8-20.0) L 03/30/22 21:28 Urine Opiates Screen Presumptive negative 03/30/22 Unknown Urine Methadone Screen Presumptive negative 03/30/22 Unknown Acetaminophen 5.0 ug/mL (10.0-30.0) L 03/30/22 21:28 Ur Barbiturates Screen Presumptive negative 03/30/22 Unknown Ur Phencyclidine Scrn Presumptive negative 03/30/22 Unknown Ur Amphetamines Screen Presumptive negative 03/30/22 Unknown U Benzodiazepines Scrn Presumptive negative 03/30/22 Unknown Urine Cocaine Screen Presumptive negative 03/30/22 Unknown U Marijuana (THC) Screen Presumptive negative 03/30/22 Unknown Drugs of Abuse Note Disclamer 03/30/22 Unknown Plasma/Serum Alcohol < 0.01 % (0-0.07) 03/30/22 21:28 SARS-CoV-2 (PCR) Negative (Negative) 03/31/22 08:30 Grimaldo/IV: Voiding Method Toilet Active Medications - Current Medications Current Medications: Generic Name Dose Route Start Last Admin Trade Name Freq PRN Reason Stop Dose Admin Clonazepam 1 mg 04/05/22 10:00 04/06/22 10:24 Clonazepam 0.5 Mg Tab PO 04/08/22 07:00 Not Given BID MARIN Divalproex Sodium 250 mg 04/06/22 14:[address] 250 Mg Tab PO TID MARIN Escitalopram Oxalate 10 mg 04/01/22 10:00 04/06/22 10:31 Escitalopram 10 Mg Tab PO Not Given DAILY MARIN Haloperidol Lactate 5 mg 04/04/22 11:00 04/06/22 10:46 Haloperidol Lactate 5 Mg/1 Ml Inj IM 5 mg Q6H PRN Administration Agitation Melatonin 10 mg 04/01/22 22:00 04/05/22 21:48 Melatonin 5 Mg Tab PO 10 mg HS MARIN Administration Polyethylene Glycol 17 gm 04/01/22 10:00 04/06/22 10:31 Polyethylene Glycol 3350 17 Gm Powder PO Not Given QDAY [facility] Risperidone 2 mg 04/06/22 10:00 04/06/22 10:23 Risperidone 1 Mg Tab PO 2 mg BID MARIN Administration Sertraline HCl 75 mg 04/01/22 22:00 04/05/22 21:48 Sertraline 50 Mg Tab PO Not Given HS MARIN Timolol Maleate 1 drops 04/01/22 10:00 04/06/22 10:32 Timolol 0.5% Ophth Soln 5 Ml OU Not Given QDAY [facility] Vitamin B Complex/Vitamin C 1 each 04/01/22 11:00 04/06/22 10:23 B Complex W/Vitamin C Tab PO Not Given QDAY [facility]
[2022-04-06] MEDS: DIVALPROEX DR 250 MG TAB PO SCH ×2 (14:44→21:32)
[2022-04-06] MEDS: MELATONIN 5 MG TAB PO SCH (21:32)
[2022-04-06] MEDS: SERTRALINE 50 MG TAB PO SCH (21:33)
[2022-04-07] MEDS: HALOPERIDOL LACTATE 5 MG/1 ML INJ IM PRN (11:50)
[2022-04-07] MEDS: POLYETHYLENE GLYCOL 3350 17 GM POWDER PO SCH (11:53)
[2022-04-07] MEDS: TIMOLOL 0.5% OPHTH SOLN 5 ML OU SCH (11:53)
[2022-04-07] MEDS: risperiDONE 1 MG TAB PO SCH ×2 (11:53→21:34)
[2022-04-07] MEDS: clonazePAM 0.5 MG TAB PO SCH ×2 (11:53→21:34)
[2022-04-07] MEDS: ESCITALOPRAM 10 MG TAB PO SCH (11:53)
[2022-04-07] MEDS: B COMPLEX W/VITAMIN C TAB PO SCH (11:53)
[2022-04-07] MEDS: DIVALPROEX DR 250 MG TAB PO SCH ×3 (11:54→21:33)
--- NOTE | 2022-04-07 20:17 | Progress Note ---
Subjective Date of service: 04/07/22 Principal diagnosis: Delusional Disorder Subjective Comment: Subjective Date of service: 04/07/22 Principal diagnosis: Delusional Disorder Subjective Comment: Patient seen today. Patient still very delusional and suspicious. Patient kept pushing the door and didn't want us to come in. 04/06/22 Principal diagnosis: Delusional Disorder Subjective Comment: The patient was seen today. She is delusional and suspicious. She is referring to me as "Mrs. Arreguin." She says "I'm just a lil baby lawson." The patient tells me to leave her alone and go on. She is staring and looking around. 04/05 The patient was seen today. Her thoughts are disorganized. She is paranoid and delusional. She is calling me Kallie. She says "get out of here with you yellow hair and white face. You want to be white." The patient says "where is your . Get out of here, you gone ." She pushes me out of her room. REVIEW OF SYSTEMS Unable to assess MENTAL STATUS EXAMINATION Unable to assess Diagnoses: Delusional Disorder Treatment Plan Patient admitted for inpatient psychiatric evaluation, medication adjustment and close monitoring The patient's behavior, mood, sleep and appetite will be closely monitored. Patient enrolled in individual and group therapeutic sessions and encouraged to attend. Patient provided with a safe and structured environment. Patient's physical health needs will be addressed by the Hospitalist. Hospitalist Consulted Labs including CBC, CMP, Lipid profile and Hemoglobin A1C levels ordered for baseline reference Social Assessment will be completed and the Front Desk Associate will work with patient and family to ensure a suitable and safe disposition Medication adjustment will be made as clinically indicated Increased Risperidone 2mg po BID Increased Depakote DR 250mg po TID Klonopin 1mg po BID x 3 days Usual Wellness Confucianist/Preservation: - Start Trazodone 50 mg po QHS & 50 mg po QHS PRN between 10 PM & 2 AM for i nsomnia - Start Melatonin 5 mg po QHS to promote circadian rhythm The patient agreed on the treatment plan, understood the risk, benefit, alternative treatment, potential consequence of no treatment, and gave informed consent. Estimated days: 7 Post hospital care: primary care provider, psychiatric provider Case staffed with Dr. Morales Medications and Allergies Allergies Allergy/AdvReac Type Severity Reaction Status Date / Time No Known Drug Allergies Allergy Unknown Unknown Verified 04/05/22 20:17 Home Medications Medication Instructions Recorded Confirmed Last Taken Type Escitalopram [Lexapro] 10 mg PO DAILY 03/31/22 03/31/22 Unknown History Melatonin [Melatonin 10MG TAB] 10 mg PO 03/31/22 03/31/22 Unknown History OLANZapine [Zyprexa] 5 mg PO BID 03/31/22 03/31/22 Unknown History Sertraline [Zoloft] 75 mg PO HS 03/31/22 03/31/22 Unknown History Timolol Maleate/Pf [Timolol 1 drop OU DAILY 03/31/22 03/31/22 Unknown History Maleate 0.5% Eye Drop] Vitamin B Complex [B Complex] 1 tab PO DAILY 03/31/22 03/31/22 Unknown History haloperidoL [Haldol] 5 mg PO BID 03/31/22 03/31/22 Unknown History polyethylene glycoL 3350 [Miralax 17 gm PO QDAY 03/31/22 03/31/22 Unknown History 3350] Active Meds: Active Medications Clonazepam (Clonazepam 0.5 Mg Tab) 1 mg PO BID [facility] Stop: 04/08/22 07:00 Last Admin: 04/05/22 21:48 Dose: 1 mg Divalproex Sodium (Divalproex Dr 250 Mg Tab) 250 mg PO BID [facility] Last Admin: 04/05/22 21:48 Dose: 250 mg Escitalopram Oxalate (Escitalopram 10 Mg Tab) 10 mg PO DAILY [facility] Last Admin: 04/05/22 09:55 Dose: Not Given Haloperidol Lactate (Haloperidol Lactate 5 Mg/1 Ml Inj) 5 mg IM Q6H PRN PRN Reason: Agitation Last Admin: 04/05/22 09:58 Dose: 5 mg Melatonin (Melatonin 5 Mg Tab) 10 mg PO [facility] Last Admin: 04/05/22 21:48 Dose: 10 mg Polyethylene Glycol (Polyethylene Glycol 3350 17 Gm Powder) 17 gm PO QDAY [facility] Last Admin: 04/05/22 09:55 Dose: Not Given Risperidone (Risperidone 1 Mg Tab) 1.5 mg PO BID [facility] Last Admin: 04/05/22 21:48 Dose: Not Given Sertraline HCl (Sertraline 50 Mg Tab) 75 mg PO [facility] Last Admin: 04/05/22 21:48 Dose: Not Given Timolol Maleate (Timolol 0.5% Ophth Soln 5 Ml) 1 drops OU QDAY [facility] Last Admin: 04/05/22 10:00 Dose: Not Given Vitamin B Complex/Vitamin C (B Complex W/Vitamin C Tab) 1 each PO QDAY [facility] Last Admin: 04/05/22 09:55 Dose: Not Given Medications and Allergies Allergies Allergy/AdvReac Type Severity Reaction Status Date / Time No Known Drug Allergies Allergy Unknown Unknown Verified 04/05/22 20:17 Home Medications Medication Instructions Recorded Confirmed Last Taken Type Escitalopram [Lexapro] 10 mg PO DAILY 03/31/22 03/31/22 Unknown History Melatonin [Melatonin 10MG TAB] 10 mg PO 03/31/22 03/31/22 Unknown History OLANZapine [Zyprexa] 5 mg PO BID 03/31/22 03/31/22 Unknown History Sertraline [Zoloft] 75 mg PO 03/31/22 03/31/22 Unknown History Timolol Maleate/Pf [Timolol 1 drop OU DAILY 03/31/22 03/31/22 Unknown History Maleate 0.5% Eye Drop] Vitamin B Complex [B Complex] 1 tab PO DAILY 03/31/22 03/31/22 Unknown History haloperidoL [Haldol] 5 mg PO BID 03/31/22 03/31/22 Unknown History polyethylene glycoL 3350 [Miralax 17 gm PO QDAY 03/31/22 03/31/22 Unknown History 3350] Active Meds: Active Medications Clonazepam (Clonazepam 0.5 Mg Tab) 1 mg PO BID [facility] Stop: 04/08/22 07:00 Last Admin: 04/07/22 11:53 Dose: Not Given Divalproex Sodium (Divalproex Dr 250 Mg Tab) 250 mg PO TID [facility] Last Admin: 04/07/22 14:18 Dose: Not Given Escitalopram Oxalate (Escitalopram 10 Mg Tab) 10 mg PO DAILY [facility] Last Admin: 04/07/22 11:53 Dose: Not Given Haloperidol Lactate (Haloperidol Lactate 5 Mg/1 Ml Inj) 5 mg IM Q6H PRN PRN Reason: Agitation Last Admin: 04/07/22 11:50 Dose: 5 mg Melatonin (Melatonin 5 Mg Tab) 10 mg PO [facility] Last Admin: 04/06/22 21:32 Dose: Not Given Polyethylene Glycol (Polyethylene Glycol 3350 17 Gm Powder) 17 gm PO QDAY [facility] Last Admin: 04/07/22 11:53 Dose: Not Given Risperidone (Risperidone 1 Mg Tab) 2 mg PO BID [facility] Last Admin: 04/07/22 11:53 Dose: Not Given Sertraline HCl (Sertraline 50 Mg Tab) 75 mg PO [facility] Last Admin: 04/06/22 21:33 Dose: Not Given Timolol Maleate (Timolol 0.5% Ophth Soln 5 Ml) 1 drops OU QDAY [facility] Last Admin: 04/07/22 11:53 Dose: Not Given Vitamin B Complex/Vitamin C (B Complex W/Vitamin C Tab) 1 each PO QDAY [facility] Last Admin: 04/07/22 11:53 Dose: Not Given Results - Results Labs/Vitals: Laboratory Last Values WBC 4.9 K/mm3 (4.5-11.0) 03/31/22 00:09 RBC 3.90 M/mm3 (3.65-5.03) 03/31/22 00:09 Hgb 11.7 gm/dl (10.1-14.3) 03/31/22 00:09 Hct 34.9 % (30.3-42.9) 03/31/22 00:09 MCV 90 fl (79-97) 03/31/22 00:09 MCH 30 pg (28-32) 03/31/22 00:09 MCHC 34 % (30-34) 03/31/22 00:09 RDW 14.0 % (13.2-15.2) 03/31/22 00:09 Plt Count 222 K/mm3 (140-440) 03/31/22 00:09 Sodium 140 mmol/L (137-145) 03/30/22 21:28 Potassium 3.7 mmol/L (3.6-5.0) 03/30/22 21:28 Chloride 105.4 mmol/L (98-107) 03/30/22 21:28 Carbon Dioxide 20 mmol/L (22-30) L 03/30/22:28 Anion Gap 18 mmol/L 03/30/22 21:28 BUN 27 mg/dL (7-17) H 03/30/22 21:28 Creatinine 1.0 mg/dL (0.6-1.2) 03/30/22 21:28 Estimated GFR > 60 ml/min 03/30/22 21:28 BUN/Creatinine Ratio 27 % 03/30/22 21:28 Glucose 114 mg/dL (65-100) H 03/30/22 21:28 POC Glucose 85 mg/dL (70-105) 03/31/22 19:53 Calcium 10.1 mg/dL (8.4-10.2) 03/30/22 21:28 Magnesium 1.90 mg/dL (1.7-2.3) 03/30/22 21: Total Bilirubin 0.20 mg/dL (0.1-1.2) 03/30/22 21:28 AST 18 units/L (5-40) 03/30/22 21: ALT 10 units/L (7-56) 03/30/22 21: Alkaline Phosphatase 124 units/L (35-129) 03/30/22 21: Ammonia 14.0 umol/L (25-60) L 03/30/22 21: Total Creatine Kinase 194 units/L (30-135) H 03/30/22 21:28 Total Protein 7.7 g/dL (6.3-8.2) 03/30/22 21: Albumin 4.2 g/dL (3.9-5) 03/30/22 21: Albumin/Globulin Ratio 1.2 % 03/30/22 21: TSH 3.450 mlU/mL (0.270-4.200) 03/30/22 21:28 Urine Color Yellow (Yellow) 03/30/22 Unknown Urine Turbidity Clear (Clear) 03/30/22 Unknown Urine pH 5.0 (5.0-7.0) 03/30/22 Unknown Ur Specific [place] 1.024 (1.003-1.030) 03/30/22 Unknown Urine Protein 30 mg/dl mg/dL (Negative) 03/30/22 Unknown Urine Glucose (UA) Neg mg/dL (Negative) 03/30/22 Unknown Urine Ketones Tr mg/dL (Negative) 03/30/22 Unknown Urine Blood Neg (Negative) 03/30/22 Unknown Urine Nitrite Neg (Negative) 03/30/22 Unknown Urine Bilirubin Neg (Negative) 03/30/22 Unknown Urine Urobilinogen < 2.0 mg/dL (<2.0) 03/30/22 Unknown Ur Leukocyte Esterase Neg (Negative) 03/30/22 Unknown Urine WBC (Auto) 3.0 /HPF (0.0-6.0) 03/30/22 Unknown Urine RBC (Auto) 14.0 /HPF (0.0-6.0) 03/30/22 Unknown U Epithel Cells (Auto) < 1.0 /HPF (0-13.0) 03/30/22 Unknown Hyaline Casts 2 /LPF 03/30/22 Unknown Urine Mucus 2+ /HPF 03/30/22 Unknown Salicylates < 0.3 mg/dL (2.8-20.0) L 03/30/22 21:28 Urine Opiates Screen Presumptive negative 03/30/22 Unknown Urine Methadone Screen Presumptive negative 03/30/22 Unknown Acetaminophen 5.0 ug/mL (10.0-30.0) L 03/30/22 21:28 Ur Barbiturates Screen Presumptive negative 03/30/22 Unknown Ur Phencyclidine Scrn Presumptive negative 03/30/22 Unknown Ur Amphetamines Screen Presumptive negative 03/30/22 Unknown U Benzodiazepines Scrn Presumptive negative 03/30/22 Unknown Urine Cocaine Screen Presumptive negative 03/30/22 Unknown U Marijuana (THC) Screen Presumptive negative 03/30/22 Unknown Drugs of Abuse Note Disclamer 03/30/22 Unknown Plasma/Serum Alcohol < 0.01 % (0-0.07) 03/30/22 21:28 SARS-CoV-2 (PCR) Negative (Negative) 03/31/22 08:30 Last Vital Signs Temp 97.3 F L 04/02/22 08:52 Pulse 107 H 04/02/22 08:52 Resp 18 04/02/22 08:52 BP 141/117 04/02/22 08:52 Pulse Ox 98 04/02/22 08:52
[2022-04-07] MEDS: SERTRALINE 50 MG TAB PO SCH (21:34)
[2022-04-07] MEDS: MELATONIN 5 MG TAB PO SCH (21:34)
[2022-04-08] MEDS: HALOPERIDOL LACTATE 5 MG/1 ML INJ IM PRN (09:49)
[2022-04-08] MEDS: DIVALPROEX DR 250 MG TAB PO SCH ×4 (12:46→22:09)
[2022-04-08] MEDS: B COMPLEX W/VITAMIN C TAB PO SCH (12:47)
[2022-04-08] MEDS: POLYETHYLENE GLYCOL 3350 17 GM POWDER PO SCH (12:47)
[2022-04-08] MEDS: TIMOLOL 0.5% OPHTH SOLN 5 ML OU SCH (12:47)
[2022-04-08] MEDS: ESCITALOPRAM 10 MG TAB PO SCH (12:47)
[2022-04-08] MEDS: risperiDONE 1 MG TAB PO SCH ×3 (12:47→22:10)
--- NOTE | 2022-04-08 17:34 | Progress Note ---
Subjective Principal diagnosis: Delusional Disorder Subjective Comment: Subjective Date of service: 04/08/22 Principal diagnosis: Delusional Disorder Subjective Comment: Patient seen today in her room. She was rambling and telling us to get out of her room, patient had tolet paper everywhere on the floor. patient has been refusing her meds and staff stated that she had been eating the hand soap. Sertraline increased. Date of service: 04/07/22 Principal diagnosis: Delusional Disorder Subjective Comment: Patient seen today. Patient still very delusional and suspicious. Patient kept pushing the door and didn't want us to come in. 04/06/22 Principal diagnosis: Delusional Disorder Subjective Comment: The patient was seen today. She is delusional and suspicious. She is referring to me as "Mrs. Arreguin." She says "I'm just a lil baby lawson." The patient tells me to leave her alone and go on. She is staring and looking around. 04/05 The patient was seen today. Her thoughts are disorganized. She is paranoid and delusional. She is calling me Kallie. She says "get out of here with you yellow hair and white face. You want to be white." The patient says "where is your . Get out of here, you gone ." She pushes me out of her room. REVIEW OF SYSTEMS Unable to assess MENTAL STATUS EXAMINATION Unable to assess Diagnoses: Delusional Disorder Treatment Plan Patient admitted for inpatient psychiatric evaluation, medication adjustment and close monitoring The patient's behavior, mood, sleep and appetite will be closely monitored. Patient enrolled in individual and group therapeutic sessions and encouraged to attend. Patient provided with a safe and structured environment. Patient's physical health needs will be addressed by the Hospitalist. Hospitalist Consulted Labs including CBC, CMP, Lipid profile and Hemoglobin A1C levels ordered for baseline reference Social Assessment will be completed and the Social Media Project Manager will work with patient and family to ensure a suitable and safe disposition Medication adjustment will be made as clinically indicated Increased Risperidone 2mg po BID Increased Depakote DR 250mg po TID Klonopin 1mg po BID x 3 days Usual Wellness Sabianist/Preservation: - Start Trazodone 50 mg po QHS & 50 mg po QHS PRN between 10 PM & 2 AM for insomnia - Start Melatonin 5 mg po QHS to promote circadian rhythm The patient agreed on the treatment plan, understood the risk, benefit, alternative treatment, potential consequence of no treatment, and gave informed consent. Estimated days: 7 Post hospital care: primary care provider, psychiatric provider Case staffed with Dr. Morales Medications and Allergies Allergies Allergy/AdvReac Type Severity Reaction Status Date / Time No Known Drug Allergies Allergy Unknown Unknown Verified 04/05/22 20:17 Home Medications Medication Instructions Recorded Confirmed Last Taken Type Escitalopram [Lexapro] 10 mg PO DAILY 03/31/22 03/31/22 Unknown History Melatonin [Melatonin 10MG TAB] 10 mg PO HS 03/31/22 03/31/22 Unknown History OLANZapine [Zyprexa] 5 mg PO BID 03/31/22 03/31/22 Unknown History Sertraline [Zoloft] 75 mg PO HS 03/31/22 03/31/22 Unknown History Timolol Maleate/Pf [Timolol 1 drop OU DAILY 03/31/22 03/31/22 Unknown History Maleate 0.5% Eye Drop] Vitamin B Complex [B Complex] 1 tab PO DAILY 03/31/22 03/31/22 Unknown History haloperidoL [Haldol] 5 mg PO BID 03/31/22 03/31/22 Unknown History polyethylene glycoL 3350 [Miralax 17 gm PO QDAY 03/31/22 03/31/22 Unknown History 3350] Active Meds: Active Medications Clonazepam (Clonazepam 0.5 Mg Tab) 1 mg PO BID [facility] Stop: 04/08/22 07:00 Last Admin: 04/05/22 21:48 Dose: 1 mg Divalproex Sodium (Divalproex Dr 250 Mg Tab) 250 mg PO BID [facility] Last Admin: 04/05/22 21:48 Dose: 250 mg Escitalopram Oxalate (Escitalopram 10 Mg Tab) 10 mg PO DAILY [facility] Last Admin: 04/05/22 09:55 Dose: Not Given Haloperidol Lactate (Haloperidol Lactate 5 Mg/1 Ml Inj) 5 mg IM Q6H PRN PRN Reason: Agitation Last Admin: 04/05/22 09:58 Dose: 5 mg Melatonin (Melatonin 5 Mg Tab) 10 mg PO [facility] Last Admin: 04/05/22 21:48 Dose: 10 mg Polyethylene Glycol (Polyethylene Glycol 3350 17 Gm Powder) 17 gm PO QDAY [facility] Last Admin: 04/05/22 09:55 Dose: Not Given Risperidone (Risperidone 1 Mg Tab) 1.5 mg PO BID [facility] Last Admin: 04/05/22 21:48 Dose: Not Given Sertraline HCl (Sertraline 50 Mg Tab) 75 mg PO [facility] Last Admin: 04/05/22 21:48 Dose: Not Given Timolol Maleate (Timolol 0.5% Ophth Soln 5 Ml) 1 drops OU QDAY [facility] Last Admin: 04/05/22 10:00 Dose: Not Given Vitamin B Complex/Vitamin C (B Complex W/Vitamin C Tab) 1 each PO QDAY [facility] Last Admin: 04/05/22 09:55 Dose: Not Given Medications and Allergies Allergies Allergy/AdvReac Type Severity Reaction Status Date / Time No Known Drug Allergies Allergy Unknown Unknown Verified 04/05/22 20:17 Home Medications Medication Instructions Recorded Confirmed Last Taken Type Escitalopram [Lexapro] 10 mg PO DAILY 03/31/22 03/31/22 Unknown History Melatonin [Melatonin 10MG TAB] 10 mg PO 03/31/22 03/31/22 Unknown History OLANZapine [Zyprexa] 5 mg PO BID 03/31/22 03/31/22 Unknown History Sertraline [Zoloft] 75 mg PO 03/31/22 03/31/22 Unknown History Timolol Maleate/Pf [Timolol 1 drop OU DAILY 03/31/22 03/31/22 Unknown History Maleate 0.5% Eye Drop] Vitamin B Complex [B Complex] 1 tab PO DAILY 03/31/22 03/31/22 Unknown History haloperidoL [Haldol] 5 mg PO BID 03/31/22 03/31/22 Unknown History polyethylene glycoL 3350 [Miralax 17 gm PO QDAY 03/31/22 03/31/22 Unknown History 3350] Active Meds: Active Medications Divalproex Sodium (Divalproex Dr 250 Mg Tab) 250 mg PO TID [facility] Last Admin: 04/08/22 15:24 Dose: Not Given Escitalopram Oxalate (Escitalopram 10 Mg Tab) 10 mg PO DAILY [facility] Last Admin: 04/08/22 12:47 Dose: Not Given Haloperidol Lactate (Haloperidol Lactate 5 Mg/1 Ml Inj) 5 mg IM Q6H PRN PRN Reason: Agitation Last Admin: 04/08/22 09:49 Dose: 5 mg Melatonin (Melatonin 5 Mg Tab) 10 mg PO [facility] Last Admin: 04/07/22 21:34 Dose: Not Given Polyethylene Glycol (Polyethylene Glycol 3350 17 Gm Powder) 17 gm PO QDAY [facility] Last Admin: 04/08/22 12:47 Dose: Not Given Risperidone (Risperidone 1 Mg Tab) 2 mg PO BID [facility] Last Admin: 04/08/22 12:47 Dose: Not Given Sertraline HCl (Sertraline 50 Mg Tab) 75 mg PO [facility] Last Admin: 04/07/22 21:34 Dose: Not Given Timolol Maleate (Timolol 0.5% Ophth Soln 5 Ml) 1 drops OU QDAY [facility] Last Admin: 04/08/22 12:47 Dose: Not Given Vitamin B Complex/Vitamin C (B Complex W/Vitamin C Tab) 1 each PO QDAY [facility] Last Admin: 04/08/22 12:47 Dose: Not Given Results - Results Labs/Vitals: Laboratory Last Values WBC 4.9 K/mm3 (4.5-11.0) 03/31/22 00:09 RBC 3.90 M/mm3 (3.65-5.03) 03/31/22 00:09 Hgb 11.7 gm/dl (10.1-14.3) 03/31/22 00:09 Hct 34.9 % (30.3-42.9) 03/31/22 00:09 MCV 90 fl (79-97) 03/31/22 00:09 MCH 30 pg (28-32) 03/31/22 00:09 MCHC 34 % (30-34) 03/31/22 00:09 RDW 14.0 % (13.2-15.2) 03/31/22 00:09 Plt Count 222 K/mm3 (140-440) 03/31/22 00:09 Sodium 140 mmol/L (137-145) 03/30/22 21:28 Potassium 3.7 mmol/L (3.6-5.0) 03/30/22 21:28 Chloride 105.4 mmol/L (98-107) 03/30/22 21:28 Carbon Dioxide 20 mmol/L (22-30) L 03/30/22 21:28 Anion Gap 18 mmol/L 03/30/22 21:28 BUN 27 mg/dL (7-17) H 03/30/22 21:28 Creatinine 1.0 mg/dL (0.6-1.2) 03/30/22 21:28 Estimated GFR > 60 ml/min 03/30/22 21:28 BUN/Creatinine Ratio 27 % 03/30/22 21:28 Glucose 114 mg/dL (65-100) H 03/30/22 21:28 POC Glucose 85 mg/dL (70-105) 03/31/22 19:53 Calcium 10.1 mg/dL (8.4-10.2) 03/30/22 21:28 Magnesium 1.90 mg/dL (1.7-2.3) 03/30/22 21: Total Bilirubin 0.20 mg/dL (0.1-1.2) 03/30/22 21: AST 18 units/L (5-40) 03/30/22 21: ALT 10 units/L (7-56) 03/30/22 21: Alkaline Phosphatase 124 units/L (35-129) 03/30/22 21: Ammonia 14.0 umol/L (25-60) L 03/30/22 21:28 Total Creatine Kinase 194 units/L (30-135) H 03/30/22 21:28 Total Protein 7.7 g/dL (6.3-8.2) 03/30/22 21: Albumin 4.2 g/dL (3.9-5) 03/30/22 21: Albumin/Globulin Ratio 1.2 % 03/30/22 21: TSH 3.450 mlU/mL (0.270-4.200) 03/30/22 21:28 Urine Color Yellow (Yellow) 03/30/22 Unknown Urine Turbidity Clear (Clear) 03/30/22 Unknown Urine pH 5.0 (5.0-7.0) 03/30/22 Unknown Ur Specific [place] 1.024 (1.003-1.030) 03/30/22 Unknown Urine Protein 30 mg/dl mg/dL (Negative) 03/30/22 Unknown Urine Glucose (UA) Neg mg/dL (Negative) 03/30/22 Unknown Urine Ketones Tr mg/dL (Negative) 03/30/22 Unknown Urine Blood Neg (Negative) 03/30/22 Unknown Urine Nitrite Neg (Negative) 03/30/22 Unknown Urine Bilirubin Neg (Negative) 03/30/22 Unknown Urine Urobilinogen < 2.0 mg/dL (<2.0) 03/30/22 Unknown Ur Leukocyte Esterase Neg (Negative) 03/30/22 Unknown Urine WBC (Auto) 3.0 /HPF (0.0-6.0) 03/30/22 Unknown Urine RBC (Auto) 14.0 /HPF (0.0-6.0) 03/30/22 Unknown U Epithel Cells (Auto) < 1.0 /HPF (0-13.0) 03/30/22 Unknown Hyaline Casts 2 /LPF 03/30/22 Unknown Urine Mucus 2+ /HPF 03/30/22 Unknown Salicylates < 0.3 mg/dL (2.8-20.0) L 03/30/22 21:28 Urine Opiates Screen Presumptive negative 03/30/22 Unknown Urine Methadone Screen Presumptive negative 03/30/22 Unknown Acetaminophen 5.0 ug/mL (10.0-30.0) L 03/30/22 21:28 Ur Barbiturates Screen Presumptive negative 03/30/22 Unknown Ur Phencyclidine Scrn Presumptive negative 03/30/22 Unknown Ur Amphetamines Screen Presumptive negative 03/30/22 Unknown U Benzodiazepines Scrn Presumptive negative 03/30/22 Unknown Urine Cocaine Screen Presumptive negative 03/30/22 Unknown U Marijuana (THC) Screen Presumptive negative 03/30/22 Unknown Drugs of Abuse Note Disclamer 03/30/22 Unknown Plasma/Serum Alcohol < 0.01 % (0-0.07) 03/30/22 21:28 SARS-CoV-2 (PCR) Negative (Negative) 03/31/22 08:30 Last Vital Signs Temp 97.3 F L 04/02/22 08:52 Pulse 107 H 04/02/22 08:52 Resp 18 04/02/22 08:52 BP 141/117 04/02/22 08:52 Pulse Ox 98 04/02/22 08:52
[2022-04-08] MEDS: MELATONIN 5 MG TAB PO SCH ×2 (21:05→22:10)
[2022-04-08] MEDS: SERTRALINE 100 MG TAB PO SCH ×2 (21:06→22:11)
--- NOTE | 2022-04-09 09:36 | Progress Note ---
Subjective Date of service: 04/09/22 Principal diagnosis: Delusional Disorder Subjective Comment: Subjective Date of service: 04/09/2022 Principal diagnosis:Delusional disorder Subjective Comment: Patient seen today in her room. Patient told me to " go out of here you bitch". Patient refusing to take her medications and also refusing to eat. Date of service: 04/08/22 Principal diagnosis: Delusional Disorder Subjective Comment: Patient seen today in her room. She was rambling and telling us to get out of her room, patient had tolet paper everywhere on the floor. patient has been refusing her meds and staff stated that she had been eating the hand soap. Sertraline increased. Date of service: 04/07/22 Principal diagnosis: Delusional Disorder Subjective Comment: Patient seen today. Patient still very delusional and suspicious. Patient kept pushing the door and didn't want us to come in. 04/06/22 Principal diagnosis: Delusional Disorder Subjective Comment: The patient was seen today. She is delusional and suspicious. She is referring to me as "Mrs. Arreguin." She says "I'm just a lil baby lawson." The patient tells me to leave her alone and go on. She is staring and looking around. 04/05 The patient was seen today. Her thoughts are disorganized. She is paranoid and delusional. She is calling me Kallie. She says "get out of here with you yellow hair and white face. You want to be white." The patient says "where is your . Get out of here, you gone ." She pushes me out of her room. REVIEW OF SYSTEMS Unable to assess MENTAL STATUS EXAMINATION Unable to assess Diagnoses: Delusional Disorder Treatment Plan Patient admitted for inpatient psychiatric evaluation, medication adjustment and close monitoring The patient's behavior, mood, sleep and appetite will be closely monitored. Patient enrolled in individual and group therapeutic sessions and encouraged to attend. Patient provided with a safe and structured environment. Patient's physical health needs will be addressed by the Hospitalist. Hospitalist Consulted Labs including CBC, CMP, Lipid profile and Hemoglobin A1C levels ordered for baseline reference Social Assessment will be completed and the Gui Developer will work with patient and family to ensure a suitable and safe disposition Medication adjustment will be made as clinically indicated Increased Risperidone 2mg po BID Increased Depakote DR 250mg po TID Klonopin 1mg po BID x 3 days Usual Wellness Anabaptism/Preservation: - Start Trazodone 50 mg po QHS & 50 mg po QHS PRN between 10 PM & 2 AM for insomnia - Start Melatonin 5 mg po QHS to promote circadian rhythm The patient agreed on the treatment plan, understood the risk, benefit, alternative treatment, potential consequence of no treatment, and gave informed consent. Estimated days: 7 Post hospital care: primary care provider, psychiatric provider Case staffed with Dr. Morales Medications and Allergies Allergies Allergy/AdvReac Type Severity Reaction Status Date / Time No Known Drug Allergies Allergy Unknown Unknown Verified 04/05/22 20:17 Home Medications Medication Instructions Recorded Confirmed Last Taken Type Escitalopram [Lexapro] 10 mg PO DAILY 03/31/22 03/31/22 Unknown History Melatonin [Melatonin 10MG TAB] 10 mg PO HS 03/31/22 03/31/22 Unknown History OLANZapine [Zyprexa] 5 mg PO BID 03/31/22 03/31/22 Unknown History Sertraline [Zoloft] 75 mg PO HS 03/31/22 03/31/22 Unknown History Timolol Maleate/Pf [Timolol 1 drop OU DAILY 03/31/22 03/31/22 Unknown History Maleate 0.5% Eye Drop] Vitamin B Complex [B Complex] 1 tab PO DAILY 03/31/22 03/31/22 Unknown History haloperidoL [Haldol] 5 mg PO BID 03/31/22 03/31/22 Unknown History polyethylene glycoL 3350 [Miralax 17 gm PO QDAY 03/31/22 03/31/22 Unknown History 3350] Active Meds: Active Medications Clonazepam (Clonazepam 0.5 Mg Tab) 1 mg PO BID [facility] Stop: 04/08/22 07:00 Last Admin: 04/05/22 21:48 Dose: 1 mg Divalproex Sodium (Divalproex Dr 250 Mg Tab) 250 mg PO BID [facility] Last Admin: 04/05/22 21:48 Dose: 250 mg Escitalopram Oxalate (Escitalopram 10 Mg Tab) 10 mg PO DAILY [facility] Last Admin: 04/05/22 09:55 Dose: Not Given Haloperidol Lactate (Haloperidol Lactate 5 Mg/1 Ml Inj) 5 mg IM Q6H PRN PRN Reason: Agitation Last Admin: 07/06/22 09:58 Dose: 5 mg Melatonin (Melatonin 5 Mg Tab) 10 mg PO [facility] Last Admin: 04/05/22 21:48 Dose: 10 mg Polyethylene Glycol (Polyethylene Glycol 3350 17 Gm Powder) 17 gm PO QDAY [facility] Last Admin: 04/05/22 09:55 Dose: Not Given Risperidone (Risperidone 1 Mg Tab) 1.5 mg PO BID [facility] Last Admin: 04/05/22 21:48 Dose: Not Given Sertraline HCl (Sertraline 50 Mg Tab) 75 mg PO [facility] Last Admin: 04/05/22 21:48 Dose: Not Given Timolol Maleate (Timolol 0.5% Ophth Soln 5 Ml) 1 drops OU QDAY [facility] Last Admin: 04/05/22 10:00 Dose: Not Given Vitamin B Complex/Vitamin C (B Complex W/Vitamin C Tab) 1 each PO QDAY [facility] Last Admin: 04/05/22 09:55 Dose: Not Given Medications and Allergies Allergies Allergy/AdvReac Type Severity Reaction Status Date / Time No Known Drug Allergies Allergy Unknown Unknown Verified 04/05/22 20:17 Home Medications Medication Instructions Recorded Confirmed Last Taken Type Escitalopram [Lexapro] 10 mg PO DAILY 03/31/22 03/31/22 Unknown History Melatonin [Melatonin 10MG TAB] 10 mg PO 03/31/22 03/31/22 Unknown History OLANZapine [Zyprexa] 5 mg PO BID 03/31/22 03/31/22 Unknown History Sertraline [Zoloft] 75 mg PO 03/31/22 03/31/22 Unknown History Timolol Maleate/Pf [Timolol 1 drop OU DAILY 03/31/22 03/31/22 Unknown History Maleate 0.5% Eye Drop] Vitamin B Complex [B Complex] 1 tab PO DAILY 03/31/22 03/31/22 Unknown History haloperidoL [Haldol] 5 mg PO BID 03/31/22 03/31/22 Unknown History polyethylene glycoL 3350 [Miralax 17 gm PO QDAY 03/31/22 03/31/22 Unknown History 3350] Active Meds: Active Medications Divalproex Sodium (Divalproex Dr 250 Mg Tab) 250 mg PO TID [facility] Last Admin: 04/08/22 22:09 Dose: Not Given Escitalopram Oxalate (Escitalopram 10 Mg Tab) 10 mg PO DAILY [facility] Last Admin: 04/08/22 12:47 Dose: Not Given Haloperidol Lactate (Haloperidol Lactate 5 Mg/1 Ml Inj) 5 mg IM Q6H PRN PRN Reason: Agitation Last Admin: 04/08/22 09:49 Dose: 5 mg Melatonin (Melatonin 5 Mg Tab) 10 mg PO HS [facility] Last Admin: 04/08/22 22:10 Dose: Not Given Polyethylene Glycol (Polyethylene Glycol 3350 17 Gm Powder) 17 gm PO QDAY [facility] Last Admin: 04/08/22 12:47 Dose: Not Given Risperidone (Risperidone 1 Mg Tab) 2 mg PO BID [facility] Last Admin: 04/08/22 22:10 Dose: Not Given Sertraline HCl (Sertraline 100 Mg Tab) 100 mg PO QHS [facility] Last Admin: 04/08/22 22:11 Dose: Not Given Timolol Maleate (Timolol 0.5% Ophth Soln 5 Ml) 1 drops OU QDAY [facility] Last Admin: 04/08/22 12:47 Dose: Not Given Vitamin B Complex/Vitamin C (B Complex W/Vitamin C Tab) 1 each PO QDAY [facility] Last Admin: 04/08/22 12:47 Dose: Not Given Results - Results Labs/Vitals: Laboratory Last Values WBC 4.9 K/mm3 (4.5-11.0) 03/31/22 00:09 RBC 3.90 M/mm3 (3.65-5.03) 03/31/22 00:09 Hgb 11.7 gm/dl (10.1-14.3) 03/31/22 00:09 Hct 34.9 % (30.3-42.9) 03/31/22 00:09 MCV 90 fl (79-97) 03/31/22 00:09 MCH 30 pg (28-32) 03/31/22 00:09 MCHC 34 % (30-34) 03/31/22 00:09 RDW 14.0 % (13.2-15.2) 03/31/22 00:09 Plt Count 222 K/mm3 (140-440) 03/31/22 00:09 Sodium 140 mmol/L (137-145) 03/30/22 21:28 Potassium 3.7 mmol/L (3.6-5.0) 03/30/22 21:28 Chloride 105.4 mmol/L (98-107) 03/30/22 21:28 Carbon Dioxide 20 mmol/L (22-30) L 03/30/22 21:28 Anion Gap 18 mmol/L 03/30/22 21:28 BUN 27 mg/dL (7-17) H 03/30/22 21:28 Creatinine 1.0 mg/dL (0.6-1.2) 03/30/22 21:28 Estimated GFR > 60 ml/min 03/30/22 21:28 BUN/Creatinine Ratio 27 % 03/30/22 21:28 Glucose 114 mg/dL (65-100) H 03/30/22 21:28 POC Glucose 85 mg/dL (70-105) 03/31/22 19:53 Calcium 10.1 mg/dL (8.4-10.2) 03/30/22 21: Magnesium 1.90 mg/dL (1.7-2.3) 03/30/22 21: Total Bilirubin 0.20 mg/dL (0.1-1.2) 03/30/22 21:28 AST 18 units/L (5-40) 03/30/22 21:28 ALT 10 units/L (7-56) 03/30/22 21:28 Alkaline Phosphatase 124 units/L (35-129) 03/30/22 21:28 Ammonia 14.0 umol/L (25-60) L 03/30/22 21:28 Total Creatine Kinase 194 units/L (30-135) H 03/30/22 21:28 Total Protein 7.7 g/dL (6.3-8.2) 03/30/22 21: Albumin 4.2 g/dL (3.9-5) 03/30/22 21:28 Albumin/Globulin Ratio 1.2 % 03/30/22 21:28 TSH 3.450 mlU/mL (0.270-4.200) 03/30/22 21:28 Urine Color Yellow (Yellow) 03/30/22 Unknown Urine Turbidity Clear (Clear) 03/30/22 Unknown Urine pH 5.0 (5.0-7.0) 03/30/22 Unknown Ur Specific [place] 1.024 (1.003-1.030) 03/30/22 Unknown Urine Protein 30 mg/dl mg/dL (Negative) 03/30/22 Unknown Urine Glucose (UA) Neg mg/dL (Negative) 03/30/22 Unknown Urine Ketones Tr mg/dL (Negative) 03/30/22 Unknown Urine Blood Neg (Negative) 03/30/22 Unknown Urine Nitrite Neg (Negative) 03/30/22 Unknown Urine Bilirubin Neg (Negative) 03/30/22 Unknown Urine Urobilinogen < 2.0 mg/dL (<2.0) 03/30/22 Unknown Ur Leukocyte Esterase Neg (Negative) 03/30/22 Unknown Urine WBC (Auto) 3.0 /HPF (0.0-6.0) 03/30/22 Unknown Urine RBC (Auto) 14.0 /HPF (0.0-6.0) 03/30/22 Unknown U Epithel Cells (Auto) < 1.0 /HPF (0-13.0) 03/30/22 Unknown Hyaline Casts 2 /LPF 03/30/22 Unknown Urine Mucus 2+ /HPF 03/30/22 Unknown Salicylates < 0.3 mg/dL (2.8-20.0) L 03/30/22 21:28 Urine Opiates Screen Presumptive negative 03/30/22 Unknown Urine Methadone Screen Presumptive negative 03/30/22 Unknown Acetaminophen 5.0 ug/mL (10.0-30.0) L 03/30/22 21:28 Ur Barbiturates Screen Presumptive negative 03/30/22 Unknown Ur Phencyclidine Scrn Presumptive negative 03/30/22 Unknown Ur Amphetamines Screen Presumptive negative 03/30/22 Unknown U Benzodiazepines Scrn Presumptive negative 03/30/22 Unknown Urine Cocaine Screen Presumptive negative 03/30/22 Unknown U Marijuana (THC) Screen Presumptive negative 03/30/22 Unknown Drugs of Abuse Note Disclamer 03/30/22 Unknown Plasma/Serum Alcohol < 0.01 % (0-0.07) 03/30/22 21:28 SARS-CoV-2 (PCR) Negative (Negative) 03/31/22 08:30 Last Vital Signs Temp 97.3 F L 04/02/22 08:52 Pulse 107 H 04/02/22 08:52 Resp 18 04/02/22 08:52 BP 141/117 04/02/22 08:52 Pulse Ox 98 04/02/22 08:52
[2022-04-09] MEDS: TIMOLOL 0.5% OPHTH SOLN 5 ML OU SCH (11:00)
[2022-04-09] MEDS: ESCITALOPRAM 10 MG TAB PO SCH (11:00)
[2022-04-09] MEDS: POLYETHYLENE GLYCOL 3350 17 GM POWDER PO SCH (11:00)
[2022-04-09] MEDS: risperiDONE 1 MG TAB PO SCH ×2 (11:00→21:41)
[2022-04-09] MEDS: B COMPLEX W/VITAMIN C TAB PO SCH (11:00)
[2022-04-09] MEDS: DIVALPROEX DR 250 MG TAB PO SCH ×3 (11:00→21:41)
[2022-04-09] MEDS: HALOPERIDOL LACTATE 5 MG/1 ML INJ IM PRN (15:00)
--- NOTE | 2022-04-09 20:16 | Progress Note ---
Assessment and Plan - Patient Problems (1) Vascular dementia with behavioral disturbance Current Visit: Yes Status: Acute Plan to address problem: Verbal prompting, verbal redirection, benzodiazepine therapy as clinically indicated. (2) Cerebral atherosclerosis Current Visit: Yes Status: Acute Plan to address problem: Risk factor reduction, antiplatelet therapy as clinically indicated. (3) Hyperlipidemia Current Visit: Yes Status: Acute Qualifiers: Hyperlipidemia type: mixed hyperlipidemia Qualified Code(s): E78.2 - Mixed hyperlipidemia Plan to address problem: Statin therapy, balanced diet, low-cholesterol diet. (4) Hypertension Current Visit: Yes Status: Acute Qualifiers: Hypertension type: primary hypertension Qualified Code(s): I10 - Essential (primary) hypertension Plan to address problem: Monitor blood pressure every shift, continue medical management. (5) Osteoarthritis Current Visit: Yes Status: Acute Plan to address problem: Pain control, supportive care. (6) Seizure disorder Current Visit: Yes Status: Acute Plan to address problem: Continue current management. No active seizure activity at this time. (7) Vertigo Current Visit: Yes Status: Acute Plan to address problem: Supportive care, meclizine as needed. (8) Advance care planning Current Visit: Yes Status: Acute Plan to address problem: Disease education done, care plan discussed, diagnoses discussed, prognosis discussed, patient is full code. +30 minutes. (9) Preventative health care Current Visit: Yes Status: Acute Plan to address problem: Patient counseled regarding home safety, fall precautions, outpatient follow-up with primary care physician for all age and risk factor appropriate screening test. +30 minutes. History Interval history: 81 YO Female with Vascular Dementia, Cerebral Atherosclerosis, HTN, HLD, DM, OA, Seizure Disorder, Schizophrenia, ARLETH admitted to [facility] for psychiatric stabilization. Consult placed by Dr. Park for medical management. Patient seen and evaluated in the recreation room. Patient appears to be at baseline level of cognition and function. Hospitalist Physical - Constitutional Vitals: Temp Pulse Resp BP Pulse Ox 97.3 F L 107 H 18 141/117 98 04/02/22 08:52 04/02/22 08:52 04/02/22 08:52 04/02/22 08:52 04/02/22 08:52 General appearance: Present: no acute distress - EENT Eyes: Present: PERRL ENT: hearing decreased - Neck Neck: Present: supple - Respiratory Respiratory effort: normal Respiratory: bilateral: diminished - Cardiovascular Rhythm: regular Heart Sounds: Present: S1 & S2 - Extremities Extremities: no ischemia Peripheral Pulses: within normal limits - Abdominal General gastrointestinal: soft, non-tender, non-distended - Integumentary Integumentary: Present: dry - Psychiatric Psychiatric: cooperative - Neurologic Neurologic: CNII-XII intact Results - Labs CBC & Chem 7: 03/31/22 00:09 03/30/22 21:28 Labs: Laboratory Last Values WBC 4.9 K/mm3 (4.5-11.0) 03/31/22 00:09 RBC 3.90 M/mm3 (3.65-5.03) 03/31/22 00:09 Hgb 11.7 gm/dl (10.1-14.3) 03/31/22 00:09 Hct 34.9 % (30.3-42.9) 03/31/22 00:09 MCV 90 fl (79-97) 03/31/22 00:09 MCH 30 pg (28-32) 03/31/22 00:09 MCHC 34 % (30-34) 03/31/22 00:09 RDW 14.0 % (13.2-15.2) 03/31/22 00:09 Plt Count 222 K/mm3 (140-440) 03/31/22 00:09 Sodium 140 mmol/L (137-145) 03/30/22 21:28 Potassium 3.7 mmol/L (3.6-5.0) 03/30/22 21:28 Chloride 105.4 mmol/L (98-107) 03/30/22 21:28 Carbon Dioxide 20 mmol/L (22-30) L 03/30/22 21:28 Anion Gap 18 mmol/L 03/30/22 21:28 BUN 27 mg/dL (7-17) H 03/30/22 21:28 Creatinine 1.0 mg/dL (0.6-1.2) 03/30/22 21:28 Estimated GFR > 60 ml/min 03/30/22 21:28 BUN/Creatinine Ratio 27 % 03/30/22 21:28 Glucose 114 mg/dL (65-100) H 03/30/22 21:28 POC Glucose 85 mg/dL (70-105) 03/31/22 19:53 Calcium 10.1 mg/dL (8.4-10.2) 03/30/22 21: Magnesium 1.90 mg/dL (1.7-2.3) 03/30/22 21: Total Bilirubin 0.20 mg/dL (0.1-1.2) 03/30/22 21:28 AST 18 units/L (5-40) 03/30/22 21:28 ALT 10 units/L (7-56) 03/30/22 21: Alkaline Phosphatase 124 units/L (35-129) 03/30/22 21:28 Ammonia 14.0 umol/L (25-60) L 03/30/22 21: Total Creatine Kinase 194 units/L (30-135) H 03/30/22 21: Total Protein 7.7 g/dL (6.3-8.2) 03/30/22 21: Albumin 4.2 g/dL (3.9-5) 03/30/22 21: Albumin/Globulin Ratio 1.2 % 03/30/22 21: TSH 3.450 mlU/mL (0.270-4.200) 03/30/22 21:28 Urine Color Yellow (Yellow) 03/30/22 Unknown Urine Turbidity Clear (Clear) 03/30/22 Unknown Urine pH 5.0 (5.0-7.0) 03/30/22 Unknown Ur Specific [place] 1.024 (1.003-1.030) 03/30/22 Unknown Urine Protein 30 mg/dl mg/dL (Negative) 03/30/22 Unknown Urine Glucose (UA) Neg mg/dL (Negative) 03/30/22 Unknown Urine Ketones Tr mg/dL (Negative) 03/30/22 Unknown Urine Blood Neg (Negative) 03/30/22 Unknown Urine Nitrite Neg (Negative) 03/30/22 Unknown Urine Bilirubin Neg (Negative) 03/30/22 Unknown Urine Urobilinogen < 2.0 mg/dL (<2.0) 03/30/22 Unknown Ur Leukocyte Esterase Neg (Negative) 03/30/22 Unknown Urine WBC (Auto) 3.0 /HPF (0.0-6.0) 03/30/22 Unknown Urine RBC (Auto) 14.0 /HPF (0.0-6.0) 03/30/22 Unknown U Epithel Cells (Auto) < 1.0 /HPF (0-13.0) 03/30/22 Unknown Hyaline Casts 2 /LPF 03/30/22 Unknown Urine Mucus 2+ /HPF 03/30/22 Unknown Salicylates < 0.3 mg/dL (2.8-20.0) L 03/30/22 21:28 Urine Opiates Screen Presumptive negative 03/30/22 Unknown Urine Methadone Screen Presumptive negative 03/30/22 Unknown Acetaminophen 5.0 ug/mL (10.0-30.0) L 03/30/22 21:28 Ur Barbiturates Screen Presumptive negative 03/30/22 Unknown Ur Phencyclidine Scrn Presumptive negative 03/30/22 Unknown Ur Amphetamines Screen Presumptive negative 03/30/22 Unknown U Benzodiazepines Scrn Presumptive negative 03/30/22 Unknown Urine Cocaine Screen Presumptive negative 03/30/22 Unknown U Marijuana (THC) Screen Presumptive negative 03/30/22 Unknown Drugs of Abuse Note Disclamer 03/30/22 Unknown Plasma/Serum Alcohol < 0.01 % (0-0.07) 03/30/22 21:28 SARS-CoV-2 (PCR) Negative (Negative) 03/31/22 08:30 Grimaldo/IV: Voiding Method Toilet Active Medications - Current Medications Current Medications: Generic Name Dose Route Start Last Admin Trade Name Freq PRN Reason Stop Dose Admin Divalproex Sodium 250 mg 04/06/22 14:00 04/09/22 14:[address] 250 Mg Tab PO Not Given TID MARIN Escitalopram Oxalate 10 mg 04/01/22 10:00 04/09/22 11:00 Escitalopram 10 Mg Tab PO Not Given DAILY MARIN Haloperidol Lactate 5 mg 04/04/22 11:00 04/09/22 15:00 Haloperidol Lactate 5 Mg/1 Ml Inj IM 5 mg Q6H PRN Administration Agitation Melatonin 10 mg 04/01/22 22:00 04/08/22 22:10 Melatonin 5 Mg Tab PO Not Given HS MARIN Polyethylene Glycol 17 gm 04/01/22 10:00 04/09/22 11:00 Polyethylene Glycol 3350 17 Gm Powder PO Not Given QDAY MARIN Risperidone 2 mg 04/06/22 10:00 04/09/22 11:00 Risperidone 1 Mg Tab PO Not Given BID MARIN Sertraline HCl 100 mg 04/08/22 22:00 04/08/22 22:11 Sertraline 100 Mg Tab PO Not Given QHS [facility] Timolol Maleate 1 drops 04/01/22 10:00 04/09/22 11:00 Timolol 0.5% Ophth Soln 5 Ml OU Not Given QDAY [facility] Vitamin B Complex/Vitamin C 1 each 04/01/22 11:00 04/09/22 11:00 B Complex W/Vitamin C Tab PO Not Given QDAY [facility] Nutrition/Malnutrition Assess - Dietary Evaluation Nutrition/Malnutrition Findings: Nutrition Notes Start: 04/07/22 12:14 Freq: Status: Active Protocol: Document 04/07/22 12:14 MARYLOUALL (Rec: 04/07/22 12:22 NHALL [id number]) Nutrition Notes Need for Assessment generated from: LOS Initial or Follow up Assessment Other Pertinent Diagnosis Vascular dementia with behavioral disturbance Current Diet Regular Labs/Tests reviewed Pertinent Medications reviewed Height 5 ft 6 in Weight 68.039 kg [place] Body Weight (kg) 59.09 BMI 24.2 Weight Status Appropriate Subjective/Other Information Pt screened for LOS. She has consumed 45% of meals since admission. Percent of energy/protein needs met: 68% energy 59% pro Burn Absent Trauma Absent Current % PO Poor (25-49%) Minimum of two criteria No #1 Nutrition Diagnosis Inadequate protein-energy intake Etiology advanced age, dementia As Evidenced by Signs and Symptoms PO intake meeting <75% energy and pro needs Is patient on ventilator? No Is Patient Ambulatory and/or Out of Bed Yes REE-([facility]-ambulatory/OOB) [ [id number] [id number]] Calculation Used for Recommendations [facility] Additional Notes Pro needs 1-1.2g/k-82g/ day Fluid needs 1ml/kcal Nutrition Intervention Change Diet Order: Continue current diet order Add Supplement/Snack (indicate name/kcal Ensure Enlive once daily /protein ) Provides kCal: 350 Provides Protein (gm) 20 Goal #1 PO intake of meals plus ONS to meet at least 75% energy and pro needs Anticipated Discharge Needs: Continue ONS 1-2 times daily if PO intake remains suboptimal Follow-Up By: 04/14/22 Additional Comments F/U: intakes (meals, ONS), wt
--- NOTE | 2022-04-09 20:16 | Progress Note ---
Assessment and Plan - Patient Problems (1) Vascular dementia with behavioral disturbance Current Visit: Yes Status: Acute Plan to address problem: Verbal prompting, verbal redirection, benzodiazepine therapy as clinically indicated. (2) Cerebral atherosclerosis Current Visit: Yes Status: Acute Plan to address problem: Risk factor reduction, antiplatelet therapy as clinically indicated. (3) Hyperlipidemia Current Visit: Yes Status: Acute Qualifiers: Hyperlipidemia type: mixed hyperlipidemia Qualified Code(s): E78.2 - Mixed hyperlipidemia Plan to address problem: Statin therapy, balanced diet, low-cholesterol diet. (4) Hypertension Current Visit: Yes Status: Acute Qualifiers: Hypertension type: primary hypertension Qualified Code(s): I10 - Essential (primary) hypertension Plan to address problem: Monitor blood pressure every shift, continue medical management. (5) Osteoarthritis Current Visit: Yes Status: Acute Plan to address problem: Pain control, supportive care. (6) Seizure disorder Current Visit: Yes Status: Acute Plan to address problem: Continue current management. No active seizure activity at this time. (7) Vertigo Current Visit: Yes Status: Acute Plan to address problem: Supportive care, meclizine as needed. (8) Advance care planning Current Visit: Yes Status: Acute Plan to address problem: Disease education done, care plan discussed, diagnoses discussed, prognosis discussed, patient is full code. +30 minutes. (9) Preventative health care Current Visit: Yes Status: Acute History Interval history: 81 YO Female with Vascular Dementia, Cerebral Atherosclerosis, HTN, HLD, DM, OA, Seizure Disorder, Schizophrenia, ARLETH admitted to [facility] for psychiatric stabilization. Consult placed by Dr. Park for medical management. Patient seen and evaluated in the recreation room. Patient appears to be at baseline level of cognition and function. Hospitalist Physical - Constitutional Vitals: Temp Pulse Resp BP Pulse Ox 97.3 F L 107 H 18 141/117 98 04/02/22 08:52 04/02/22 08:52 04/02/22 08:52 04/02/22 08:52 04/02/22 08:52 General appearance: Present: no acute distress - EENT Eyes: Present: PERRL ENT: hearing decreased - Neck Neck: Present: supple - Respiratory Respiratory effort: normal Respiratory: bilateral: CTA - Cardiovascular Rhythm: regular Heart Sounds: Present: S1 & S2 - Extremities Extremities: no ischemia Peripheral Pulses: within normal limits - Abdominal General gastrointestinal: soft, non-tender, non-distended - Integumentary Integumentary: Present: clear, dry - Psychiatric Psychiatric: cooperative - Neurologic Neurologic: CNII-XII intact Results - Labs CBC & Chem 7: 03/31/22 00:09 03/30/22 21:28 Labs: Laboratory Last Values WBC 4.9 K/mm3 (4.5-11.0) 03/31/22 00:09 RBC 3.90 M/mm3 (3.65-5.03) 03/31/22 00:09 Hgb 11.7 gm/dl (10.1-14.3) 03/31/22 00:09 Hct 34.9 % (30.3-42.9) 03/31/22 00:09 MCV 90 fl (79-97) 03/31/22 00:09 MCH 30 pg (28-32) 03/31/22 00:09 MCHC 34 % (30-34) 03/31/22 00:09 RDW 14.0 % (13.2-15.2) 03/31/22 00:09 Plt Count 222 K/mm3 (140-440) 03/31/22 00:09 Sodium 140 mmol/L (137-145) 03/30/22 21:28 Potassium 3.7 mmol/L (3.6-5.0) 03/30/22 21:28 Chloride 105.4 mmol/L (98-107) 03/30/22 21:28 Carbon Dioxide 20 mmol/L (22-30) L 03/30/22 21:28 Anion Gap 18 mmol/L 03/30/22 21:28 BUN 27 mg/dL (7-17) H 03/30/22 21:28 Creatinine 1.0 mg/dL (0.6-1.2) 03/30/22 21:28 Estimated GFR > 60 ml/min 03/30/22 21:28 BUN/Creatinine Ratio 27 % 03/30/22 21:28 Glucose 114 mg/dL (65-100) H 03/30/22 21:28 POC Glucose 85 mg/dL (70-105) 03/31/22 19:53 Calcium 10.1 mg/dL (8.4-10.2) 03/30/22 21:28 Magnesium 1.90 mg/dL (1.7-2.3) 03/30/22 21: Total Bilirubin 0.20 mg/dL (0.1-1.2) 03/30/22 21: AST 18 units/L (5-40) 03/30/22 21: ALT 10 units/L (7-56) 03/30/22 21: Alkaline Phosphatase 124 units/L (35-129) 03/30/22 21: Ammonia 14.0 umol/L (25-60) L 03/30/22 21: Total Creatine Kinase 194 units/L (30-135) H 03/30/22 21: Total Protein 7.7 g/dL (6.3-8.2) 03/30/22: Albumin 4.2 g/dL (3.9-5) 03/30/22: Albumin/Globulin Ratio 1.2 % 03/30/22: TSH 3.450 mlU/mL (0.270-4.200) 03/30/22 21:28 Urine Color Yellow (Yellow) 03/30/22 Unknown Urine Turbidity Clear (Clear) 03/30/22 Unknown Urine pH 5.0 (5.0-7.0) 03/30/22 Unknown Ur Specific [place] 1.024 (1.003-1.030) 03/30/22 Unknown Urine Protein 30 mg/dl mg/dL (Negative) 03/30/22 Unknown Urine Glucose (UA) Neg mg/dL (Negative) 03/30/22 Unknown Urine Ketones Tr mg/dL (Negative) 03/30/22 Unknown Urine Blood Neg (Negative) 03/30/22 Unknown Urine Nitrite Neg (Negative) 03/30/22 Unknown Urine Bilirubin Neg (Negative) 03/30/22 Unknown Urine Urobilinogen < 2.0 mg/dL (<2.0) 03/30/22 Unknown Ur Leukocyte Esterase Neg (Negative) 03/30/22 Unknown Urine WBC (Auto) 3.0 /HPF (0.0-6.0) 03/30/22 Unknown Urine RBC (Auto) 14.0 /HPF (0.0-6.0) 03/30/22 Unknown U Epithel Cells (Auto) < 1.0 /HPF (0-13.0) 03/30/22 Unknown Hyaline Casts 2 /LPF 03/30/22 Unknown Urine Mucus 2+ /HPF 03/30/22 Unknown Salicylates < 0.3 mg/dL (2.8-20.0) L 03/30/22 21:28 Urine Opiates Screen Presumptive negative 03/30/22 Unknown Urine Methadone Screen Presumptive negative 03/30/22 Unknown Acetaminophen 5.0 ug/mL (10.0-30.0) L 03/30/22 21:28 Ur Barbiturates Screen Presumptive negative 03/30/22 Unknown Ur Phencyclidine Scrn Presumptive negative 03/30/22 Unknown Ur Amphetamines Screen Presumptive negative 03/30/22 Unknown U Benzodiazepines Scrn Presumptive negative 03/30/22 Unknown Urine Cocaine Screen Presumptive negative 03/30/22 Unknown U Marijuana (THC) Screen Presumptive negative 03/30/22 Unknown Drugs of Abuse Note Disclamer 03/30/22 Unknown Plasma/Serum Alcohol < 0.01 % (0-0.07) 03/30/22 21:28 SARS-CoV-2 (PCR) Negative (Negative) 03/31/22 08:30 Grimaldo/IV: Voiding Method Toilet Active Medications - Current Medications Current Medications: Generic Name Dose Route Start Last Admin Trade Name Freq PRN Reason Stop Dose Admin Divalproex Sodium 250 mg 04/06/22 14:00 04/09/22 14:[address] 250 Mg Tab PO Not Given TID MARIN Escitalopram Oxalate 10 mg 04/01/22 10:00 04/09/22 11:00 Escitalopram 10 Mg Tab PO Not Given DAILY MARIN Haloperidol Lactate 5 mg 04/04/22 11:00 04/09/22 15:00 Haloperidol Lactate 5 Mg/1 Ml Inj IM 5 mg Q6H PRN Administration Agitation Melatonin 10 mg 04/01/22 22:00 04/08/22 22:10 Melatonin 5 Mg Tab PO Not Given HS MARIN Polyethylene Glycol 17 gm 04/01/22 10:00 04/09/22 11:00 Polyethylene Glycol 3350 17 Gm Powder PO Not Given QDAY [facility] Risperidone 2 mg 04/06/22 10:00 04/09/22 11:00 Risperidone 1 Mg Tab PO Not Given BID MARIN Sertraline HCl 100 mg 04/08/22 22:00 04/08/22 22:11 Sertraline 100 Mg Tab PO Not Given QHS MARIN Timolol Maleate 1 drops 04/01/22 10:00 04/09/22 11:00 Timolol 0.5% Ophth Soln 5 Ml OU Not Given QDAY [facility] Vitamin B Complex/Vitamin C 1 each 04/01/22 11:00 04/09/22 11:00 B Complex W/Vitamin C Tab PO Not Given QDAY [facility] Nutrition/Malnutrition Assess - Dietary Evaluation Nutrition/Malnutrition Findings: Nutrition Notes Start: 04/07/22 12:14 Freq: Status: Active Protocol: Document 04/07/22 12:14 [email or web address] (Rec: 04/07/22 12:22 [facility] [id number]) Nutrition Notes Need for Assessment generated from: LOS Initial or Follow up Assessment Other Pertinent Diagnosis Vascular dementia with behavioral disturbance Current Diet Regular Labs/Tests reviewed Pertinent Medications reviewed Height 5 ft 6 in Weight 68.039 kg [place] Body Weight (kg) 59.09 BMI 24.2 Weight Status Appropriate Subjective/Other Information Pt screened for LOS. She has consumed 45% of meals since admission. Percent of energy/protein needs met: 68% energy 59% pro Burn Absent Trauma Absent Current % PO Poor (25-49%) Minimum of two criteria No #1 Nutrition Diagnosis Inadequate protein-energy intake Etiology advanced age, dementia As Evidenced by Signs and Symptoms PO intake meeting <75% energy and pro needs Is patient on ventilator? No Is Patient Ambulatory and/or Out of Bed Yes REE-([facility]-ambulatory/OOB) [ 1523.782 NUTR.MSJOOB] Calculation Used for Recommendations [facility] Additional Notes Pro needs 1-1.2g/k-82g/ day Fluid needs 1ml/kcal Nutrition Intervention Change Diet Order: Continue current diet order Add Supplement/Snack (indicate name/kcal Ensure Enlive once daily /protein ) Provides kCal: 350 Provides Protein (gm) 20 Goal #1 PO intake of meals plus ONS to meet at least 75% energy and pro needs Anticipated Discharge Needs: Continue ONS 1-2 times daily if PO intake remains suboptimal Follow-Up By: 04/14/22 Additional Comments F/U: intakes (meals, ONS), wt
--- NOTE | 2022-04-09 20:17 | Progress Note ---
Assessment and Plan - Patient Problems (1) Vascular dementia with behavioral disturbance Current Visit: Yes Status: Acute Plan to address problem: Verbal prompting, verbal redirection, benzodiazepine therapy as clinically indicated. (2) Cerebral atherosclerosis Current Visit: Yes Status: Acute Plan to address problem: Risk factor reduction, antiplatelet therapy as clinically indicated. (3) Hyperlipidemia Current Visit: Yes Status: Acute Qualifiers: Hyperlipidemia type: mixed hyperlipidemia Qualified Code(s): E78.2 - Mixed hyperlipidemia Plan to address problem: Statin therapy, balanced diet, low-cholesterol diet. (4) Hypertension Current Visit: Yes Status: Acute Qualifiers: Hypertension type: primary hypertension Qualified Code(s): I10 - Essential (primary) hypertension Plan to address problem: Monitor blood pressure every shift, continue medical management. (5) Osteoarthritis Current Visit: Yes Status: Acute Plan to address problem: Pain control, supportive care. (6) Seizure disorder Current Visit: Yes Status: Acute Plan to address problem: Continue current management. No active seizure activity at this time. (7) Vertigo Current Visit: Yes Status: Acute Plan to address problem: Supportive care, meclizine as needed. (8) Advance care planning Current Visit: Yes Status: Acute Plan to address problem: Disease education done, care plan discussed, diagnoses discussed, prognosis discussed, patient is full code. +30 minutes. (9) Preventative health care Current Visit: Yes Status: Acute Plan to address problem: Patient counseled regarding home safety, fall precautions, outpatient follow-up with primary care physician for all age and risk factor appropriate screening test. +30 minutes. History Interval history: 81 YO Female with Vascular Dementia, Cerebral Atherosclerosis, HTN, HLD, DM, OA, Seizure Disorder, Schizophrenia, ARLETH admitted to [facility] for psychiatric stabilization. Consult placed by Dr. Park for medical management. Patient seen and evaluated in the recreation room. Patient appears to be at baseline level of cognition and function. Hospitalist Physical - Constitutional Vitals: Temp Pulse Resp BP Pulse Ox 97.3 F L 107 H 18 141/117 98 04/02/22 08:52 04/02/22 08:52 04/02/22 08:52 04/02/22 08:52 04/02/22 08:52 General appearance: Present: no acute distress - EENT Eyes: Present: PERRL ENT: hearing intact, hearing decreased - Neck Neck: Present: supple - Respiratory Respiratory effort: normal Respiratory: bilateral: diminished - Cardiovascular Rhythm: regular Heart Sounds: Present: S1 & S2 - Extremities Extremities: no ischemia Peripheral Pulses: within normal limits - Abdominal General gastrointestinal: soft, non-tender, non-distended - Integumentary Integumentary: Present: clear, dry - Psychiatric Psychiatric: cooperative - Neurologic Neurologic: CNII-XII intact Results - Labs CBC & Chem 7: 03/31/22 00:09 03/30/22 21:28 Labs: Laboratory Last Values WBC 4.9 K/mm3 (4.5-11.0) 03/31/22 00:09 RBC 3.90 M/mm3 (3.65-5.03) 03/31/22 00:09 Hgb 11.7 gm/dl (10.1-14.3) 03/31/22 00:09 Hct 34.9 % (30.3-42.9) 03/31/22 00:09 MCV 90 fl (79-97) 03/31/22 00:09 MCH 30 pg (28-32) 03/31/22 00:09 MCHC 34 % (30-34) 03/31/22 00:09 RDW 14.0 % (13.2-15.2) 03/31/22 00:09 Plt Count 222 K/mm3 (140-440) 03/31/22 00:09 Sodium 140 mmol/L (137-145) 03/30/22 21:28 Potassium 3.7 mmol/L (3.6-5.0) 03/30/22 21:28 Chloride 105.4 mmol/L (98-107) 03/30/22 21:28 Carbon Dioxide 20 mmol/L (22-30) L 03/30/22 21:28 Anion Gap 18 mmol/L 03/30/22 21:28 BUN 27 mg/dL (7-17) H 03/30/22 21:28 Creatinine 1.0 mg/dL (0.6-1.2) 03/30/22 21:28 Estimated GFR > 60 ml/min 03/30/22 21:28 BUN/Creatinine Ratio 27 % 03/30/22 21:28 Glucose 114 mg/dL (65-100) H 03/30/22 21:28 POC Glucose 85 mg/dL (70-105) 03/31/22 19:53 Calcium 10.1 mg/dL (8.4-10.2) 03/30/22 21:28 Magnesium 1.90 mg/dL (1.7-2.3) 03/30/22 21:28 Total Bilirubin 0.20 mg/dL (0.1-1.2) 03/30/22 21:28 AST 18 units/L (5-40) 03/30/22 21:28 ALT 10 units/L (7-56) 03/30/22 21:28 Alkaline Phosphatase 124 units/L (35-129) 03/30/22 21:28 Ammonia 14.0 umol/L (25-60) L 03/30/22 21:28 Total Creatine Kinase 194 units/L (30-135) H 03/30/22 21:28 Total Protein 7.7 g/dL (6.3-8.2) 03/30/22 21:28 Albumin 4.2 g/dL (3.9-5) 03/30/22 21: Albumin/Globulin Ratio 1.2 % 03/30/22 21:28 TSH 3.450 mlU/mL (0.270-4.200) 03/30/22 21:28 Urine Color Yellow (Yellow) 03/30/22 Unknown Urine Turbidity Clear (Clear) 03/30/22 Unknown Urine pH 5.0 (5.0-7.0) 03/30/22 Unknown Ur Specific [place] 1.024 (1.003-1.030) 03/30/22 Unknown Urine Protein 30 mg/dl mg/dL (Negative) 03/30/22 Unknown Urine Glucose (UA) Neg mg/dL (Negative) 03/30/22 Unknown Urine Ketones Tr mg/dL (Negative) 03/30/22 Unknown Urine Blood Neg (Negative) 03/30/22 Unknown Urine Nitrite Neg (Negative) 03/30/22 Unknown Urine Bilirubin Neg (Negative) 03/30/22 Unknown Urine Urobilinogen < 2.0 mg/dL (<2.0) 03/30/22 Unknown Ur Leukocyte Esterase Neg (Negative) 03/30/22 Unknown Urine WBC (Auto) 3.0 /HPF (0.0-6.0) 03/30/22 Unknown Urine RBC (Auto) 14.0 /HPF (0.0-6.0) 03/30/22 Unknown U Epithel Cells (Auto) < 1.0 /HPF (0-13.0) 03/30/22 Unknown Hyaline Casts 2 /LPF 03/30/22 Unknown Urine Mucus 2+ /HPF 03/30/22 Unknown Salicylates < 0.3 mg/dL (2.8-20.0) L 03/30/22 21:28 Urine Opiates Screen Presumptive negative 03/30/22 Unknown Urine Methadone Screen Presumptive negative 03/30/22 Unknown Acetaminophen 5.0 ug/mL (10.0-30.0) L 03/30/22 21:28 Ur Barbiturates Screen Presumptive negative 03/30/22 Unknown Ur Phencyclidine Scrn Presumptive negative 03/30/22 Unknown Ur Amphetamines Screen Presumptive negative 03/30/22 Unknown U Benzodiazepines Scrn Presumptive negative 03/30/22 Unknown Urine Cocaine Screen Presumptive negative 03/30/22 Unknown U Marijuana (THC) Screen Presumptive negative 03/30/22 Unknown Drugs of Abuse Note Disclamer 03/30/22 Unknown Plasma/Serum Alcohol < 0.01 % (0-0.07) 03/30/22 21:28 SARS-CoV-2 (PCR) Negative (Negative) 03/31/22 08:30 Grimaldo/IV: Voiding Method Toilet Active Medications - Current Medications Current Medications: Generic Name Dose Route Start Last Admin Trade Name Freq PRN Reason Stop Dose Admin Divalproex Sodium 250 mg 04/06/22 14:00 04/09/22 14:[address] 250 Mg Tab PO Not Given TID MARIN Escitalopram Oxalate 10 mg 04/01/22 10:00 04/09/22 11:00 Escitalopram 10 Mg Tab PO Not Given DAILY MARIN Haloperidol Lactate 5 mg 04/04/22 11:00 04/09/22 15:00 Haloperidol Lactate 5 Mg/1 Ml Inj IM 5 mg Q6H PRN Administration Agitation Melatonin 10 mg 04/01/22 22:00 04/08/22 22:10 Melatonin 5 Mg Tab PO Not Given HS MARIN Polyethylene Glycol 17 gm 04/01/22 10:00 04/09/22 11:00 Polyethylene Glycol 3350 17 Gm Powder PO Not Given QDAY [facility] Risperidone 2 mg 04/06/22 10:00 04/09/22 11:00 Risperidone 1 Mg Tab PO Not Given BID MARIN Sertraline HCl 100 mg 04/08/22 22:00 04/08/22 22:11 Sertraline 100 Mg Tab PO Not Given QHS COUNTS INCLUDE [facility] BEDS AT [facility] Timolol Maleate 1 drops 04/01/22 10:00 04/09/22 11:00 Timolol 0.5% Ophth Soln 5 Ml OU Not Given QDAY COUNTS INCLUDE 234 BEDS AT THE [facility] Vitamin B Complex/Vitamin C 1 each 04/01/22 11:00 04/09/22 11:00 B Complex W/Vitamin C Tab PO Not Given QDAY COUNTS INCLUDE 234 BEDS AT THE [facility] Nutrition/Malnutrition Assess - Dietary Evaluation Nutrition/Malnutrition Findings: Nutrition Notes Start: 04/07/22 12:14 Freq: Status: Active Protocol: Document 04/07/22 12:14 [facility] (Rec: 04/07/22 12:22 [facility] [id number]) Nutrition Notes Need for Assessment generated from: LOS Initial or Follow up Assessment Other Pertinent Diagnosis Vascular dementia with behavioral disturbance Current Diet Regular Labs/Tests reviewed Pertinent Medications reviewed Height 5 ft 6 in Weight 68.039 kg [place] Body Weight (kg) 59.09 BMI 24.2 Weight Status Appropriate Subjective/Other Information Pt screened for LOS. She has consumed 45% of meals since admission. Percent of energy/protein needs met: 68% energy 59% pro Burn Absent Trauma Absent Current % PO Poor (25-49%) Minimum of two criteria No #1 Nutrition Diagnosis Inadequate protein-energy intake Etiology advanced age, dementia As Evidenced by Signs and Symptoms PO intake meeting <75% energy and pro needs Is patient on ventilator? No Is Patient Ambulatory and/or Out of Bed Yes REE-([facility]-ambulatory/OOB) [ 1523.782 NUTR.MSJOOB] Calculation Used for Recommendations [facility] Additional Notes Pro needs 1-1.2g/k-82g/ day Fluid needs 1ml/kcal Nutrition Intervention Change Diet Order: Continue current diet order Add Supplement/Snack (indicate name/kcal Ensure Enlive once daily /protein ) Provides kCal: 350 Provides Protein (gm) 20 Goal #1 PO intake of meals plus ONS to meet at least 75% energy and pro needs Anticipated Discharge Needs: Continue ONS 1-2 times daily if PO intake remains suboptimal Follow-Up By: 04/14/22 Additional Comments F/U: intakes (meals, ONS), wt
[2022-04-09] MEDS: SERTRALINE 100 MG TAB PO SCH (21:41)
[2022-04-09] MEDS: MELATONIN 5 MG TAB PO SCH (21:41)
--- NOTE | 2022-04-10 09:41 | Progress Note ---
Subjective Date of service: 04/10/22 Principal diagnosis: Delusional Disorder Subjective Comment: Subjective Date of service: 04/10/2022 Principal diagnosis:Delusional disorder Subjective Comment: Patient seen this morning, uneaten breakfast on her table. Patient states " you can have the food, i don't like grits" Patient very aggressive, cursing and kicking staff and myself. Patient refusing to take vitals.Patient thoughts are disorganized. Date of service: 04/09/2022 Principal diagnosis:Delusional disorder Subjective Comment: Patient seen today in her room. Patient told me to " go out of here you bitch". Patient refusing to take her medications and also refusing to eat. Date of service: 04/08/22 Principal diagnosis: Delusional Disorder Subjective Comment: Patient seen today in her room. She was rambling and telling us to get out of her room, patient had tolet paper everywhere on the floor. patient has been refusing her meds and staff stated that she had been eating the hand soap. Sertraline increased. Date of service: 04/07/22 Principal diagnosis: Delusional Disorder Subjective Comment: Patient seen today. Patient still very delusional and suspicious. Patient kept pushing the door and didn't want us to come in. 04/06/22 Principal diagnosis: Delusional Disorder Subjective Comment: The patient was seen today. She is delusional and suspicious. She is referring to me as "Mrs. Arreguin." She says "I'm just a lil baby lawson." The patient tells me to leave her alone and go on. She is staring and looking around. 04/05 The patient was seen today. Her thoughts are disorganized. She is paranoid and delusional. She is calling me Kallie. She says "get out of here with you yellow hair and white face. You want to be white." The patient says "where is your . Get out of here, you gone ." She pushes me out of her room. REVIEW OF SYSTEMS Unable to assess MENTAL STATUS EXAMINATION Unable to assess Diagnoses: Delusional Disorder Treatment Plan Patient admitted for inpatient psychiatric evaluation, medication adjustment and close monitoring The patient's behavior, mood, sleep and appetite will be closely monitored. Patient enrolled in individual and group therapeutic sessions and encouraged to attend. Patient provided with a safe and structured environment. Patient's physical health needs will be addressed by the Hospitalist. Hospitalist Consulted Labs including CBC, CMP, Lipid profile and Hemoglobin A1C levels ordered for baseline reference Social Assessment will be completed and the Driver Sales will work with patient and family to ensure a suitable and safe disposition Medication adjustment will be made as clinically indicated Increased Risperidone 2mg po BID Increased Depakote DR 250mg po TID Klonopin 1mg po BID x 3 days Usual Wellness Amish/Preservation: - Start Trazodone 50 mg po QHS & 50 mg po QHS PRN between 10 PM & 2 AM for insomnia - Start Melatonin 5 mg po QHS to promote circadian rhythm The patient agreed on the treatment plan, understood the risk, benefit, alternative treatment, potential consequence of no treatment, and gave informed consent. Estimated days: 7 Post hospital care: primary care provider, psychiatric provider Case staffed with Dr. Morales Medications and Allergies Allergies Allergy/AdvReac Type Severity Reaction Status Date / Time No Known Drug Allergies Allergy Unknown Unknown Verified 04/05/22 20:17 Home Medications Medication Instructions Recorded Confirmed Last Taken Type Escitalopram [Lexapro] 10 mg PO DAILY 03/31/22 03/31/22 Unknown History Melatonin [Melatonin 10MG TAB] 10 mg PO HS 03/31/22 03/31/22 Unknown History OLANZapine [Zyprexa] 5 mg PO BID 03/31/22 03/31/22 Unknown History Sertraline [Zoloft] 75 mg PO HS 03/31/22 03/31/22 Unknown History Timolol Maleate/Pf [Timolol 1 drop OU DAILY 03/31/22 03/31/22 Unknown History Maleate 0.5% Eye Drop] Vitamin B Complex [B Complex] 1 tab PO DAILY 03/31/22 03/31/22 Unknown History haloperidoL [Haldol] 5 mg PO BID 03/31/22 03/31/22 Unknown History polyethylene glycoL 3350 [Miralax 17 gm PO QDAY 03/31/22 03/31/22 Unknown History 3350] Active Meds: Active Medications Clonazepam (Clonazepam 0.5 Mg Tab) 1 mg PO BID [facility] Stop: 04/08/22 07:00 Last Admin: 04/05/22 21:48 Dose: 1 mg Divalproex Sodium (Divalproex Dr 250 Mg Tab) 250 mg PO BID [facility] Last Admin: 04/05/22 21:48 Dose: 250 mg Escitalopram Oxalate (Escitalopram 10 Mg Tab) 10 mg PO DAILY [facility] Last Admin: 04/05/22 09:55 Dose: Not Given Haloperidol Lactate (Haloperidol Lactate 5 Mg/1 Ml Inj) 5 mg IM Q6H PRN PRN Reason: Agitation Last Admin: 04/05/22 09:58 Dose: 5 mg Melatonin (Melatonin 5 Mg Tab) 10 mg PO [facility] Last Admin: 04/05/22 21:48 Dose: 10 mg Polyethylene Glycol (Polyethylene Glycol 3350 17 Gm Powder) 17 gm PO QDAY [facility] Last Admin: 04/05/22 09:55 Dose: Not Given Risperidone (Risperidone 1 Mg Tab) 1.5 mg PO BID [facility] Last Admin: 04/05/22 21:48 Dose: Not Given Sertraline HCl (Sertraline 50 Mg Tab) 75 mg PO [facility] Last Admin: 04/05/22 21:48 Dose: Not Given Timolol Maleate (Timolol 0.5% Ophth Soln 5 Ml) 1 drops OU QDAY [facility] Last Admin: 04/05/22 10:00 Dose: Not Given Vitamin B Complex/Vitamin C (B Complex W/Vitamin C Tab) 1 each PO QDAY [facility] Last Admin: 04/05/22 09:55 Dose: Not Given Medications and Allergies Allergies Allergy/AdvReac Type Severity Reaction Status Date / Time No Known Drug Allergies Allergy Unknown Unknown Verified 04/05/22 20:17 Home Medications Medication Instructions Recorded Confirmed Last Taken Type Escitalopram [Lexapro] 10 mg PO DAILY 03/31/22 03/31/22 Unknown History Melatonin [Melatonin 10MG TAB] 10 mg PO 03/31/22 03/31/22 Unknown History OLANZapine [Zyprexa] 5 mg PO BID 03/31/22 03/31/22 Unknown History Sertraline [Zoloft] 75 mg PO 03/31/22 03/31/22 Unknown History Timolol Maleate/Pf [Timolol 1 drop OU DAILY 03/31/22 03/31/22 Unknown History Maleate 0.5% Eye Drop] Vitamin B Complex [B Complex] 1 tab PO DAILY 03/31/22 03/31/22 Unknown History haloperidoL [Haldol] 5 mg PO BID 03/31/22 03/31/22 Unknown History polyethylene glycoL 3350 [Miralax 17 gm PO QDAY 03/31/22 03/31/22 Unknown History 6420] Active Meds: Active Medications Divalproex Sodium (Divalproex Dr 250 Mg Tab) 250 mg PO TID [facility] Last Admin: 04/09/22 21:41 Dose: Not Given Escitalopram Oxalate (Escitalopram 10 Mg Tab) 10 mg PO DAILY [facility] Last Admin: 04/09/22 11:00 Dose: Not Given Haloperidol Lactate (Haloperidol Lactate 5 Mg/1 Ml Inj) 5 mg IM Q6H PRN PRN Reason: Agitation Last Admin: 04/09/22 15:00 Dose: 5 mg Melatonin (Melatonin 5 Mg Tab) 10 mg PO HS [facility] Last Admin: 04/09/22 21:41 Dose: Not Given Polyethylene Glycol (Polyethylene Glycol 3350 17 Gm Powder) 17 gm PO QDAY [facility] Last Admin: 04/09/22 11:00 Dose: Not Given Risperidone (Risperidone 1 Mg Tab) 2 mg PO BID [facility] Last Admin: 04/09/22 21:41 Dose: Not Given Sertraline HCl (Sertraline 100 Mg Tab) 100 mg PO QHS [facility] Last Admin: 04/09/22 21:41 Dose: Not Given Timolol Maleate (Timolol 0.5% Ophth Soln 5 Ml) 1 drops OU QDAY [facility] Last Admin: 04/09/22 11:00 Dose: Not Given Vitamin B Complex/Vitamin C (B Complex W/Vitamin C Tab) 1 each PO QDAY [facility] Last Admin: 04/09/22 11:00 Dose: Not Given Results - Results Labs/Vitals: Laboratory Last Values WBC 4.9 K/mm3 (4.5-11.0) 03/31/22 00:09 RBC 3.90 M/mm3 (3.65-5.03) 03/31/22 00:09 Hgb 11.7 gm/dl (10.1-14.3) 03/31/22 00:09 Hct 34.9 % (30.3-42.9) 03/31/22 00:09 MCV 90 fl (79-97) 03/31/22 00:09 MCH 30 pg (28-32) 03/31/22 00:09 MCHC 34 % (30-34) 03/31/22 00:09 RDW 14.0 % (13.2-15.2) 03/31/22 00:09 Plt Count 222 K/mm3 (140-440) 03/31/22 00:09 Sodium 140 mmol/L (137-145) 03/30/22 21:28 Potassium 3.7 mmol/L (3.6-5.0) 03/30/22 21:28 Chloride 105.4 mmol/L (98-107) 03/30/22 21:28 Carbon Dioxide 20 mmol/L (22-30) L 03/30/22 21:28 Anion Gap 18 mmol/L 03/30/22 21:28 BUN 27 mg/dL (7-17) H 03/30/22 21:28 Creatinine 1.0 mg/dL (0.6-1.2) 03/30/22 21:28 Estimated GFR > 60 ml/min 03/30/22 21: BUN/Creatinine Ratio 27 % 03/30/22 21:28 Glucose 114 mg/dL (65-100) H 03/30/22 21: POC Glucose 85 mg/dL (70-105) 03/31/22 19:53 Calcium 10.1 mg/dL (8.4-10.2) 03/30/22 21:28 Magnesium 1.90 mg/dL (1.7-2.3) 03/30/22 21:28 Total Bilirubin 0.20 mg/dL (0.1-1.2) 03/30/22 21:28 AST 18 units/L (5-40) 03/30/22 21:28 ALT 10 units/L (7-56) 03/30/22 21:28 Alkaline Phosphatase 124 units/L (35-129) 03/30/22 21:28 Ammonia 14.0 umol/L (25-60) L 03/30/22 21:28 Total Creatine Kinase 194 units/L (30-135) H 03/30/22 21:28 Total Protein 7.7 g/dL (6.3-8.2) 03/30/22 21: Albumin 4.2 g/dL (3.9-5) 03/30/22 21:28 Albumin/Globulin Ratio 1.2 % 03/30/22 21:28 TSH 3.450 mlU/mL (0.270-4.200) 03/30/22 21:28 Urine Color Yellow (Yellow) 03/30/22 Unknown Urine Turbidity Clear (Clear) 03/30/22 Unknown Urine pH 5.0 (5.0-7.0) 03/30/22 Unknown Ur Specific [place] 1.024 (1.003-1.030) 03/30/22 Unknown Urine Protein 30 mg/dl mg/dL (Negative) 03/30/22 Unknown Urine Glucose (UA) Neg mg/dL (Negative) 03/30/22 Unknown Urine Ketones Tr mg/dL (Negative) 03/30/22 Unknown Urine Blood Neg (Negative) 03/30/22 Unknown Urine Nitrite Neg (Negative) 03/30/22 Unknown Urine Bilirubin Neg (Negative) 03/30/22 Unknown Urine Urobilinogen < 2.0 mg/dL (<2.0) 03/30/22 Unknown Ur Leukocyte Esterase Neg (Negative) 03/30/22 Unknown Urine WBC (Auto) 3.0 /HPF (0.0-6.0) 03/30/22 Unknown Urine RBC (Auto) 14.0 /HPF (0.0-6.0) 03/30/22 Unknown U Epithel Cells (Auto) < 1.0 /HPF (0-13.0) 03/30/22 Unknown Hyaline Casts 2 /LPF 03/30/22 Unknown Urine Mucus 2+ /HPF 03/30/22 Unknown Salicylates < 0.3 mg/dL (2.8-20.0) L 03/30/22 21:28 Urine Opiates Screen Presumptive negative 03/30/22 Unknown Urine Methadone Screen Presumptive negative 03/30/22 Unknown Acetaminophen 5.0 ug/mL (10.0-30.0) L 03/30/22 21:28 Ur Barbiturates Screen Presumptive negative 03/30/22 Unknown Ur Phencyclidine Scrn Presumptive negative 03/30/22 Unknown Ur Amphetamines Screen Presumptive negative 03/30/22 Unknown U Benzodiazepines Scrn Presumptive negative 03/30/22 Unknown Urine Cocaine Screen Presumptive negative 03/30/22 Unknown U Marijuana (THC) Screen Presumptive negative 03/30/22 Unknown Drugs of Abuse Note Disclamer 03/30/22 Unknown Plasma/Serum Alcohol < 0.01 % (0-0.07) 03/30/22 21:28 SARS-CoV-2 (PCR) Negative (Negative) 03/31/22 08:30 Last Vital Signs Temp 97.3 F L 04/02/22 08:52 Pulse 107 H 04/02/22 08:52 Resp 18 04/02/22 08:52 BP 141/117 04/02/22 08:52 Pulse Ox 98 04/02/22 08:52
[2022-04-10] MEDS: B COMPLEX W/VITAMIN C TAB PO SCH (10:36)
[2022-04-10] MEDS: DIVALPROEX DR 250 MG TAB PO SCH ×3 (10:36→21:23)
[2022-04-10] MEDS: ESCITALOPRAM 10 MG TAB PO SCH (10:36)
[2022-04-10] MEDS: TIMOLOL 0.5% OPHTH SOLN 5 ML OU SCH (10:37)
[2022-04-10] MEDS: POLYETHYLENE GLYCOL 3350 17 GM POWDER PO SCH (10:37)
[2022-04-10] MEDS: risperiDONE 1 MG TAB PO SCH ×2 (10:37→21:23)
[2022-04-10] MEDS: MELATONIN 5 MG TAB PO SCH (21:23)
[2022-04-10] MEDS: SERTRALINE 100 MG TAB PO SCH (21:23)
[2022-04-11] MEDS: DIVALPROEX DR 250 MG TAB PO SCH ×3 (08:30→21:23)
[2022-04-11] MEDS: TIMOLOL 0.5% OPHTH SOLN 5 ML OU SCH (10:00)
[2022-04-11] MEDS: ESCITALOPRAM 10 MG TAB PO SCH (10:00)
[2022-04-11] MEDS: risperiDONE 1 MG TAB PO SCH ×2 (10:00→21:24)
[2022-04-11] MEDS: B COMPLEX W/VITAMIN C TAB PO SCH (10:00)
[2022-04-11] MEDS: POLYETHYLENE GLYCOL 3350 17 GM POWDER PO SCH (10:00)
--- NOTE | 2022-04-11 10:11 | Progress Note ---
Subjective Date of service: 04/11/22 Principal diagnosis: Delusional Disorder Subjective Comment: Subjective Subjective Date of service: 04/11/22 Principal diagnosis: Delusional Disorder Subjective Comment: Patient seen today walking down the hallway. Patient asked how she was doing and states "I feel fine" and kept on walking. Patient didnt answer any more questions. Nursing staff states patient takes her time with eating, but will eventually finish her food. Patient took her shower today and was appropriately dressed. Date of service: 04/10/2022 Principal diagnosis:Delusional disorder Subjective Comment: Patient seen this morning, uneaten breakfast on her table. Patient states " you can have the food, i don't like grits" Patient very aggressive, cursing and kicking staff and myself. Patient refusing to take vitals.Patient thoughts are disorganized. Date of service: 04/09/2022 Principal diagnosis:Delusional disorder Subjective Comment: Patient seen today in her room. Patient told me to " go out of here you bitch". Patient refusing to take her medications and also refusing to eat. Date of service: 04/08/22 Principal diagnosis: Delusional Disorder Subjective Comment: Patient seen today in her room. She was rambling and telling us to get out of her room, patient had tolet paper everywhere on the floor. patient has been refusing her meds and staff stated that she had been eating the hand soap. Sertraline increased. Date of service: 04/07/22 Principal diagnosis: Delusional Disorder Subjective Comment: Patient seen today. Patient still very delusional and suspicious. Patient kept pushing the door and didn't want us to come in. 04/06/22 Principal diagnosis: Delusional Disorder Subjective Comment: The patient was seen today. She is delusional and suspicious. She is referring to me as "Mrs. Arreguin." She says "I'm just a lil baby lawson." The patient tells me to leave her alone and go on. She is staring and looking around. 04/05 The patient was seen today. Her thoughts are disorganized. She is paranoid and delusional. She is calling me Kallie. She says "get out of here with you yellow hair and white face. You want to be white." The patient says "where is your . Get out of here, you gone ." She pushes me out of her room. REVIEW OF SYSTEMS Unable to assess MENTAL STATUS EXAMINATION Unable to assess Diagnoses: Delusional Disorder Treatment Plan Patient admitted for inpatient psychiatric evaluation, medication adjustment and close monitoring The patient's behavior, mood, sleep and appetite will be closely monitored. Patient enrolled in individual and group therapeutic sessions and encouraged to attend. Patient provided with a safe and structured environment. Patient's physical health needs will be addressed by the Hospitalist. Hospitalist Consulted Labs including CBC, CMP, Lipid profile and Hemoglobin A1C levels ordered for baseline reference Social Assessment will be completed and the Credentialing Manager will work with patient and family to ensure a suitable and safe disposition Medication adjustment will be made as clinically indicated Increased Risperidone 2mg po BID Increased Depakote DR 250mg po TID Klonopin 1mg po BID x 3 days Usual Wellness Bah[place]/Preservation: - Start Trazodone 50 mg po QHS & 50 mg po QHS PRN between 10 PM & 2 AM for insomnia - Start Melatonin 5 mg po QHS to promote circadian rhythm The patient agreed on the treatment plan, understood the risk, benefit, alternative treatment, potential consequence of no treatment, and gave informed consent. Estimated days: 7 Post hospital care: primary care provider, psychiatric provider Case staffed with Dr. Morales Medications and Allergies Allergies Allergy/AdvReac Type Severity Reaction Status Date / Time No Known Drug Allergies Allergy Unknown Unknown Verified 04/05/22 20:17 Home Medications Medication Instructions Recorded Confirmed Last Taken Type Escitalopram [Lexapro] 10 mg PO DAILY 03/31/22 03/31/22 Unknown History Melatonin [Melatonin 10MG TAB] 10 mg PO HS 03/31/22 03/31/22 Unknown History OLANZapine [Zyprexa] 5 mg PO BID 03/31/22 03/31/22 Unknown History Sertraline [Zoloft] 75 mg PO HS 03/31/22 03/31/22 Unknown History Timolol Maleate/Pf [Timolol 1 drop OU DAILY 03/31/22 03/31/22 Unknown History Maleate 0.5% Eye Drop] Vitamin B Complex [B Complex] 1 tab PO DAILY 03/31/22 03/31/22 Unknown History haloperidoL [Haldol] 5 mg PO BID 03/31/22 03/31/22 Unknown History polyethylene glycoL 3350 [Miralax 17 gm PO QDAY 03/31/22 03/31/22 Unknown History 3350] Active Meds: Active Medications Clonazepam (Clonazepam 0.5 Mg Tab) 1 mg PO BID [facility] Stop: 04/08/22 07:00 Last Admin: 04/05/22 21:48 Dose: 1 mg Divalproex Sodium (Divalproex Dr 250 Mg Tab) 250 mg PO BID [facility] Last Admin: 04/05/22 21:48 Dose: 250 mg Escitalopram Oxalate (Escitalopram 10 Mg Tab) 10 mg PO DAILY [facility] Last Admin: 04/05/22 09:55 Dose: Not Given Haloperidol Lactate (Haloperidol Lactate 5 Mg/1 Ml Inj) 5 mg IM Q6H PRN PRN Reason: Agitation Last Admin: 04/05/22 09:58 Dose: 5 mg Melatonin (Melatonin 5 Mg Tab) 10 mg PO [facility] Last Admin: 04/05/22 21:48 Dose: 10 mg Polyethylene Glycol (Polyethylene Glycol 3350 17 Gm Powder) 17 gm PO QDAY [facility] Last Admin: 04/05/22 09:55 Dose: Not Given Risperidone (Risperidone 1 Mg Tab) 1.5 mg PO BID [facility] Last Admin: 04/05/22 21:48 Dose: Not Given Sertraline HCl (Sertraline 50 Mg Tab) 75 mg PO [facility] Last Admin: 04/05/22 21:48 Dose: Not Given Timolol Maleate (Timolol 0.5% Ophth Soln 5 Ml) 1 drops OU QDAY [facility] Last Admin: 04/05/22 10:00 Dose: Not Given Vitamin B Complex/Vitamin C (B Complex W/Vitamin C Tab) 1 each PO QDAY [facility] Last Admin: 04/05/22 09:55 Dose: Not Given Medications and Allergies Allergies Allergy/AdvReac Type Severity Reaction Status Date / Time No Known Drug Allergies Allergy Unknown Unknown Verified 04/05/22 20:17 Home Medications Medication Instructions Recorded Confirmed Last Taken Type Escitalopram [Lexapro] 10 mg PO DAILY 03/31/22 03/31/22 Unknown History Melatonin [Melatonin 10MG TAB] 10 mg PO 03/31/22 03/31/22 Unknown History OLANZapine [Zyprexa] 5 mg PO BID 03/31/22 03/31/22 Unknown History Sertraline [Zoloft] 75 mg PO 03/31/22 03/31/22 Unknown History Timolol Maleate/Pf [Timolol 1 drop OU DAILY 03/31/22 03/31/22 Unknown History Maleate 0.5% Eye Drop] Vitamin B Complex [B Complex] 1 tab PO DAILY 03/31/22 03/31/22 Unknown History haloperidoL [Haldol] 5 mg PO BID 03/31/22 03/31/22 Unknown History polyethylene glycoL 3350 [Miralax 17 gm PO QDAY 03/31/22 03/31/22 Unknown History 3350] Active Meds: Active Medications Divalproex Sodium (Divalproex Dr 250 Mg Tab) 250 mg PO TID [facility] Last Admin: 04/10/22 21:23 Dose: Not Given Escitalopram Oxalate (Escitalopram 10 Mg Tab) 10 mg PO DAILY [facility] Last Admin: 04/10/22 10:36 Dose: Not Given Haloperidol Lactate (Haloperidol Lactate 5 Mg/1 Ml Inj) 5 mg IM Q6H PRN PRN Reason: Agitation Last Admin: 04/09/22 15:00 Dose: 5 mg Melatonin (Melatonin 5 Mg Tab) 10 mg PO HS [facility] Last Admin: 04/10/22 21:23 Dose: Not Given Polyethylene Glycol (Polyethylene Glycol 3350 17 Gm Powder) 17 gm PO QDAY [facility] Last Admin: 04/10/22 10:37 Dose: Not Given Risperidone (Risperidone 1 Mg Tab) 2 mg PO BID [facility] Last Admin: 04/10/22 21:23 Dose: Not Given Sertraline HCl (Sertraline 100 Mg Tab) 100 mg PO QHS [facility] Last Admin: 04/10/22 21:23 Dose: Not Given Timolol Maleate (Timolol 0.5% Ophth Soln 5 Ml) 1 drops OU QDAY [facility] Last Admin: 04/10/22 10:37 Dose: Not Given Vitamin B Complex/Vitamin C (B Complex W/Vitamin C Tab) 1 each PO QDAY [facility] Last Admin: 04/10/22 10:36 Dose: Not Given Results - Results Labs/Vitals: Laboratory Last Values WBC 4.9 K/mm3 (4.5-11.0) 03/31/22 00:09 RBC 3.90 M/mm3 (3.65-5.03) 03/31/22 00:09 Hgb 11.7 gm/dl (10.1-14.3) 03/31/22 00:09 Hct 34.9 % (30.3-42.9) 03/31/22 00:09 MCV 90 fl (79-97) 03/31/22 00:09 MCH 30 pg (28-32) 03/31/22 00:09 MCHC 34 % (30-34) 03/31/22 00:09 RDW 14.0 % (13.2-15.2) 03/31/22 00:09 Plt Count 222 K/mm3 (140-440) 03/31/22 00:09 Sodium 140 mmol/L (137-145) 03/30/22 21:28 Potassium 3.7 mmol/L (3.6-5.0) 03/30/22 21:28 Chloride 105.4 mmol/L (98-107) 03/30/22 21:28 Carbon Dioxide 20 mmol/L (22-30) L 03/30/22 21:28 Anion Gap 18 mmol/L 03/30/22 21:28 BUN 27 mg/dL (7-17) H 03/30/22 21:28 Creatinine 1.0 mg/dL (0.6-1.2) 03/30/22 21:28 Estimated GFR > 60 ml/min 03/30/22 21:28 BUN/Creatinine Ratio 27 % 03/30/22 21:28 Glucose 114 mg/dL (65-100) H 03/30/22 21:28 POC Glucose 85 mg/dL (70-105) 03/31/22 19:53 Calcium 10.1 mg/dL (8.4-10.2) 03/30/22 21:28 Magnesium 1.90 mg/dL (1.7-2.3) 03/30/22 21:28 Total Bilirubin 0.20 mg/dL (0.1-1.2) 03/30/22 21:28 AST 18 units/L (5-40) 03/30/22 21:28 ALT 10 units/L (7-56) 03/30/22 21:28 Alkaline Phosphatase 124 units/L (35-129) 03/30/22 21:28 Ammonia 14.0 umol/L (25-60) L 03/30/22 21:28 Total Creatine Kinase 194 units/L (30-135) H 03/30/22 21:28 Total Protein 7.7 g/dL (6.3-8.2) 03/30/22 21:28 Albumin 4.2 g/dL (3.9-5) 03/30/22 21:28 Albumin/Globulin Ratio 1.2 % 03/30/22 21:28 TSH 3.450 mlU/mL (0.270-4.200) 03/30/22 21:28 Urine Color Yellow (Yellow) 03/30/22 Unknown Urine Turbidity Clear (Clear) 03/30/22 Unknown Urine pH 5.0 (5.0-7.0) 03/30/22 Unknown Ur Specific [place] 1.024 (1.003-1.030) 03/30/22 Unknown Urine Protein 30 mg/dl mg/dL (Negative) 03/30/22 Unknown Urine Glucose (UA) Neg mg/dL (Negative) 03/30/22 Unknown Urine Ketones Tr mg/dL (Negative) 03/30/22 Unknown Urine Blood Neg (Negative) 03/30/22 Unknown Urine Nitrite Neg (Negative) 03/30/22 Unknown Urine Bilirubin Neg (Negative) 03/30/22 Unknown Urine Urobilinogen < 2.0 mg/dL (<2.0) 03/30/22 Unknown Ur Leukocyte Esterase Neg (Negative) 03/30/22 Unknown Urine WBC (Auto) 3.0 /HPF (0.0-6.0) 03/30/22 Unknown Urine RBC (Auto) 14.0 /HPF (0.0-6.0) 03/30/22 Unknown U Epithel Cells (Auto) < 1.0 /HPF (0-13.0) 03/30/22 Unknown Hyaline Casts 2 /LPF 03/30/22 Unknown Urine Mucus 2+ /HPF 03/30/22 Unknown Salicylates < 0.3 mg/dL (2.8-20.0) L 03/30/22 21:28 Urine Opiates Screen Presumptive negative 03/30/22 Unknown Urine Methadone Screen Presumptive negative 03/30/22 Unknown Acetaminophen 5.0 ug/mL (10.0-30.0) L 03/30/22 21:28 Ur Barbiturates Screen Presumptive negative 03/30/22 Unknown Ur Phencyclidine Scrn Presumptive negative 03/30/22 Unknown Ur Amphetamines Screen Presumptive negative 03/30/22 Unknown U Benzodiazepines Scrn Presumptive negative 03/30/22 Unknown Urine Cocaine Screen Presumptive negative 03/30/22 Unknown U Marijuana (THC) Screen Presumptive negative 03/30/22 Unknown Drugs of Abuse Note Disclamer 03/30/22 Unknown Plasma/Serum Alcohol < 0.01 % (0-0.07) 03/30/22 21:28 SARS-CoV-2 (PCR) Negative (Negative) 03/31/22 08:30 Last Vital Signs Temp 97.3 F L 04/02/22 08:52 Pulse 107 H 04/02/22 08:52 Resp 18 04/02/22 08:52 BP 141/117 04/02/22 08:52 Pulse Ox 98 04/02/22 08:52
[2022-04-11] MEDS: HALOPERIDOL LACTATE 5 MG/1 ML INJ IM PRN (17:00)
[2022-04-11] MEDS: MELATONIN 5 MG TAB PO SCH (21:23)
[2022-04-11] MEDS: SERTRALINE 100 MG TAB PO SCH (21:24)
--- NOTE | 2022-04-12 09:43 | Progress Note ---
Subjective Date of service: 04/12/22 Principal diagnosis: Delusional Disorder Subjective Comment: Subjective Date of service: 04/12/22 Principal diagnosis: Delusional Disorder. Patient seen today in her room. Patient tells me to "get out". Patient refusing all medications and eating very little breakfast. Patient given prn haldol during the night. Subjective Date of service: 04/11/22 Principal diagnosis: Delusional Disorder Subjective Comment: Patient seen today walking down the hallway. Patient asked how she was doing and states "I feel fine" and kept on walking. Patient didnt answer any more questions. Nursing staff states patient takes her time with eating, but will eventually finish her food. Patient took her shower today and was appropriately dressed. Date of service: 04/10/2022 Principal diagnosis:Delusional disorder Subjective Comment: Patient seen this morning, uneaten breakfast on her table. Patient states " you can have the food, i don't like grits" Patient very aggressive, cursing and kicking staff and myself. Patient refusing to take vitals.Patient thoughts are disorganized. Date of service: 04/09/2022 Principal diagnosis:Delusional disorder Subjective Comment: Patient seen today in her room. Patient told me to " go out of here you bitch". Patient refusing to take her medications and also refusing to eat. Date of service: 04/08/22 Principal diagnosis: Delusional Disorder Subjective Comment: Patient seen today in her room. She was rambling and telling us to get out of her room, patient had tolet paper everywhere on the floor. patient has been refusing her meds and staff stated that she had been eating the hand soap. Sertraline increased. Date of service: 04/07/22 Principal diagnosis: Delusional Disorder Subjective Comment: Patient seen today. Patient still very delusional and suspicious. Patient kept pushing the door and didn't want us to come in. 04/06/22 Principal diagnosis: Delusional Disorder Subjective Comment: The patient was seen today. She is delusional and suspicious. She is referring to me as "Mrs. Arreguin." She says "I'm just a lil baby lawson." The patient tells me to leave her alone and go on. She is staring and looking around. 04/05 The patient was seen today. Her thoughts are disorganized. She is paranoid and delusional. She is calling me Kallie. She says "get out of here with you yellow hair and white face. You want to be white." The patient says "where is your . Get out of here, you gone ." She pushes me out of her room. REVIEW OF SYSTEMS Unable to assess MENTAL STATUS EXAMINATION Unable to assess Diagnoses: Delusional Disorder Treatment Plan Patient admitted for inpatient psychiatric evaluation, medication adjustment and close monitoring The patient's behavior, mood, sleep and appetite will be closely monitored. Patient enrolled in individual and group therapeutic sessions and encouraged to attend. Patient provided with a safe and structured environment. Patient's physical health needs will be addressed by the Hospitalist. Hospitalist Consulted Labs including CBC, CMP, Lipid profile and Hemoglobin A1C levels ordered for baseline reference Social Assessment will be completed and the Integration Technician will work with patient and family to ensure a suitable and safe disposition Medication adjustment will be made as clinically indicated Increased Risperidone 2mg po BID Increased Depakote DR 250mg po TID Klonopin 1mg po BID x 3 days Usual Wellness [facility] [facility]/Preservation: - Start Trazodone 50 mg po QHS & 50 mg po QHS PRN between 10 PM & 2 AM for insomnia - Start Melatonin 5 mg po QHS to promote circadian rhythm The patient agreed on the treatment plan, understood the risk, benefit, alternative treatment, potential consequence of no treatment, and gave informed consent. Estimated days: 7 Post hospital care: primary care provider, psychiatric provider Case staffed with Dr. Morales Medications and Allergies Allergies Allergy/AdvReac Type Severity Reaction Status Date / Time No Known Drug Allergies Allergy Unknown Unknown Verified 04/05/22 20:17 Home Medications Medication Instructions Recorded Confirmed Last Taken Type Escitalopram [Lexapro] 10 mg PO DAILY 03/31/22 03/31/22 Unknown History Melatonin [Melatonin 10MG TAB] 10 mg PO HS 03/31/22 03/31/22 Unknown History OLANZapine [Zyprexa] 5 mg PO BID 03/31/22 03/31/22 Unknown History Sertraline [Zoloft] 75 mg PO HS 03/31/22 03/31/22 Unknown History Timolol Maleate/Pf [Timolol 1 drop OU DAILY 03/31/22 03/31/22 Unknown History Maleate 0.5% Eye Drop] Vitamin B Complex [B Complex] 1 tab PO DAILY 03/31/22 03/31/22 Unknown History haloperidoL [Haldol] 5 mg PO BID 03/31/22 03/31/22 Unknown History polyethylene glycoL 3350 [Miralax 17 gm PO QDAY 03/31/22 03/31/22 Unknown History 3350] Active Meds: Active Medications Clonazepam (Clonazepam 0.5 Mg Tab) 1 mg PO BID [facility] Stop: 04/08/22 07:00 Last Admin: 04/05/22 21:48 Dose: 1 mg Divalproex Sodium (Divalproex Dr 250 Mg Tab) 250 mg PO BID [facility] Last Admin: 04/05/22 21:48 Dose: 250 mg Escitalopram Oxalate (Escitalopram 10 Mg Tab) 10 mg PO DAILY [facility] Last Admin: 04/05/22 09:55 Dose: Not Given Haloperidol Lactate (Haloperidol Lactate 5 Mg/1 Ml Inj) 5 mg IM Q6H PRN PRN Reason: Agitation Last Admin: 04/05/22 09:58 Dose: 5 mg Melatonin (Melatonin 5 Mg Tab) 10 mg PO [facility] Last Admin: 04/05/22 21:48 Dose: 10 mg Polyethylene Glycol (Polyethylene Glycol 3350 17 Gm Powder) 17 gm PO QDAY [facility] Last Admin: 04/05/22 09:55 Dose: Not Given Risperidone (Risperidone 1 Mg Tab) 1.5 mg PO BID [facility] Last Admin: 04/05/22 21:48 Dose: Not Given Sertraline HCl (Sertraline 50 Mg Tab) 75 mg PO [facility] Last Admin: 04/05/22 21:48 Dose: Not Given Timolol Maleate (Timolol 0.5% Ophth Soln 5 Ml) 1 drops OU QDAY [facility] Last Admin: 04/05/22 10:00 Dose: Not Given Vitamin B Complex/Vitamin C (B Complex W/Vitamin C Tab) 1 each PO QDAY [facility] Last Admin: 04/05/22 09:55 Dose: Not Given Medications and Allergies Allergies Allergy/AdvReac Type Severity Reaction Status Date / Time No Known Drug Allergies Allergy Unknown Unknown Verified 04/05/22 20:17 Home Medications Medication Instructions Recorded Confirmed Last Taken Type Escitalopram [Lexapro] 10 mg PO DAILY 03/31/22 03/31/22 Unknown History Melatonin [Melatonin 10MG TAB] 10 mg PO HS 03/31/22 03/31/22 Unknown History OLANZapine [Zyprexa] 5 mg PO BID 03/31/22 03/31/22 Unknown History Sertraline [Zoloft] 75 mg PO HS 03/31/22 03/31/22 Unknown History Timolol Maleate/Pf [Timolol 1 drop OU DAILY 03/31/22 03/31/22 Unknown History Maleate 0.5% Eye Drop] Vitamin B Complex [B Complex] 1 tab PO DAILY 03/31/22 03/31/22 Unknown History haloperidoL [Haldol] 5 mg PO BID 03/31/22 03/31/22 Unknown History polyethylene glycoL 3350 [Miralax 17 gm PO QDAY 03/31/22 03/31/22 Unknown Hist ory 3350] Active Meds: Active Medications Divalproex Sodium (Divalproex Dr 250 Mg Tab) 250 mg PO TID [facility] Last Admin: 04/11/22 21:23 Dose: Not Given Escitalopram Oxalate (Escitalopram 10 Mg Tab) 10 mg PO DAILY [facility] Last Admin: 04/11/22 10:00 Dose: Not Given Haloperidol Lactate (Haloperidol Lactate 5 Mg/1 Ml Inj) 5 mg IM Q6H PRN PRN Reason: Agitation Last Admin: 04/11/22 17:00 Dose: 5 mg Melatonin (Melatonin 5 Mg Tab) 10 mg PO [facility] Last Admin: 04/11/22 21:23 Dose: Not Given Polyethylene Glycol (Polyethylene Glycol 3350 17 Gm Powder) 17 gm PO QDAY [facility] Last Admin: 04/11/22 10:00 Dose: Not Given Risperidone (Risperidone 1 Mg Tab) 2 mg PO BID [facility] Last Admin: 04/11/22 21:24 Dose: Not Given Sertraline HCl (Sertraline 100 Mg Tab) 100 mg PO QHS [facility] Last Admin: 04/11/22 21:24 Dose: Not Given Timolol Maleate (Timolol 0.5% Ophth Soln 5 Ml) 1 drops OU QDAY [facility] Last Admin: 04/11/22 10:00 Dose: Not Given Vitamin B Complex/Vitamin C (B Complex W/Vitamin C Tab) 1 each PO QDAY [facility] Last Admin: 04/11/22 10:00 Dose: Not Given Results - Results Labs/Vitals: Laboratory Last Values WBC 4.9 K/mm3 (4.5-11.0) 03/31/22 00:09 RBC 3.90 M/mm3 (3.65-5.03) 03/31/22 00:09 Hgb 11.7 gm/dl (10.1-14.3) 03/31/22 00:09 Hct 34.9 % (30.3-42.9) 03/31/22 00:09 MCV 90 fl (79-97) 03/31/22 00:09 MCH 30 pg (28-32) 03/31/22 00:09 MCHC 34 % (30-34) 03/31/22 00:09 RDW 14.0 % (13.2-15.2) 03/31/22 00:09 Plt Count 222 K/mm3 (140-440) 03/31/22 00:09 Sodium 140 mmol/L (137-145) 03/30/22 21:28 Potassium 3.7 mmol/L (3.6-5.0) 03/30/22 21:28 Chloride 105.4 mmol/L (98-107) 03/30/22 21:28 Carbon Dioxide 20 mmol/L (22-30) L 03/30/22 21:28 Anion Gap 18 mmol/L 03/30/22 21:28 BUN 27 mg/dL (7-17) H 03/30/22 21:28 Creatinine 1.0 mg/dL (0.6-1.2) 03/30/22 21:28 Estimated GFR > 60 ml/min 03/30/22 21:28 BUN/Creatinine Ratio 27 % 03/30/22 21:28 Glucose 114 mg/dL (65-100) H 03/30/22 21:28 POC Glucose 85 mg/dL (70-105) 03/31/22 19:53 Calcium 10.1 mg/dL (8.4-10.2) 03/30/22 21:28 Magnesium 1.90 mg/dL (1.7-2.3) 03/30/22 21:28 Total Bilirubin 0.20 mg/dL (0.1-1.2) 03/30/22 21:28 AST 18 units/L (5-40) 03/30/22 21:28 ALT 10 units/L (7-56) 03/30/22 21:28 Alkaline Phosphatase 124 units/L (35-129) 03/30/22 21:28 Ammonia 14.0 umol/L (25-60) L 03/30/22 21:28 Total Creatine Kinase 194 units/L (30-135) H 03/30/22 21: Total Protein 7.7 g/dL (6.3-8.2) 03/30/22 21: Albumin 4.2 g/dL (3.9-5) 03/30/22 21: Albumin/Globulin Ratio 1.2 % 03/30/22 21: TSH 3.450 mlU/mL (0.270-4.200) 03/30/22 21:28 Urine Color Yellow (Yellow) 03/30/22 Unknown Urine Turbidity Clear (Clear) 03/30/22 Unknown Urine pH 5.0 (5.0-7.0) 03/30/22 Unknown Ur Specific [place] 1.024 (1.003-1.030) 03/30/22 Unknown Urine Protein 30 mg/dl mg/dL (Negative) 03/30/22 Unknown Urine Glucose (UA) Neg mg/dL (Negative) 03/30/22 Unknown Urine Ketones Tr mg/dL (Negative) 03/30/22 Unknown Urine Blood Neg (Negative) 03/30/22 Unknown Urine Nitrite Neg (Negative) 03/30/22 Unknown Urine Bilirubin Neg (Negative) 03/30/22 Unknown Urine Urobilinogen < 2.0 mg/dL (<2.0) 03/30/22 Unknown Ur Leukocyte Esterase Neg (Negative) 03/30/22 Unknown Urine WBC (Auto) 3.0 /HPF (0.0-6.0) 03/30/22 Unknown Urine RBC (Auto) 14.0 /HPF (0.0-6.0) 03/30/22 Unknown U Epithel Cells (Auto) < 1.0 /HPF (0-13.0) 03/30/22 Unknown Hyaline Casts 2 /LPF 03/30/22 Unknown Urine Mucus 2+ /HPF 03/30/22 Unknown Salicylates < 0.3 mg/dL (2.8-20.0) L 03/30/22 21:28 Urine Opiates Screen Presumptive negative 03/30/22 Unknown Urine Methadone Screen Presumptive negative 03/30/22 Unknown Acetaminophen 5.0 ug/mL (10.0-30.0) L 03/30/22 21:28 Ur Barbiturates Screen Presumptive negative 03/30/22 Unknown Ur Phencyclidine Scrn Presumptive negative 03/30/22 Unknown Ur Amphetamines Screen Presumptive negative 03/30/22 Unknown U Benzodiazepines Scrn Presumptive negative 03/30/22 Unknown Urine Cocaine Screen Presumptive negative 03/30/22 Unknown U Marijuana (THC) Screen Presumptive negative 03/30/22 Unknown Drugs of Abuse Note Disclamer 03/30/22 Unknown Plasma/Serum Alcohol < 0.01 % (0-0.07) 03/30/22 21:28 SARS-CoV-2 (PCR) Negative (Negative) 03/31/22 08:30 Last Vital Signs Temp 97.3 F L 04/02/22 08:52 Pulse 107 H 04/02/22 08:52 Resp 18 04/02/22 08:52 BP 141/117 04/02/22 08:52 Pulse Ox 98 04/02/22 08:52
[2022-04-12] MEDS: ESCITALOPRAM 10 MG TAB PO SCH (10:28)
[2022-04-12] MEDS: B COMPLEX W/VITAMIN C TAB PO SCH (10:28)
[2022-04-12] MEDS: DIVALPROEX DR 250 MG TAB PO SCH ×3 (10:28→21:15)
[2022-04-12] MEDS: risperiDONE 1 MG TAB PO SCH ×2 (10:29→21:15)
[2022-04-12] MEDS: POLYETHYLENE GLYCOL 3350 17 GM POWDER PO SCH (10:29)
[2022-04-12] MEDS: TIMOLOL 0.5% OPHTH SOLN 5 ML OU SCH (10:29)
[2022-04-12] MEDS: MELATONIN 5 MG TAB PO SCH (21:15)
[2022-04-12] MEDS: SERTRALINE 100 MG TAB PO SCH (21:15)
[2022-04-12] MEDS: HALOPERIDOL LACTATE 5 MG/1 ML INJ IM PRN (22:47)
[2022-04-13] MEDS: HALOPERIDOL LACTATE 5 MG/1 ML INJ IM PRN (07:54)
[2022-04-13] MEDS: DIVALPROEX DR 250 MG TAB PO SCH ×3 (08:01→21:46)
--- NOTE | 2022-04-13 09:13 | Progress Note ---
Subjective Date of service: 04/13/22 Principal diagnosis: Delusional Disorder Subjective Comment: Subjective Date of service: 04/13/22 Principal diagnosis: Delusional Disorder. Patient seen today. Patient still confused and telling me to leave her room. Patient not compliant with medications, received prn yesterday. Date of service: 04/12/22 Principal diagnosis: Delusional Disorder. Patient seen today in her room. Patient tells me to "get out". Patient refusing all medications and eating very little breakfast. Patient given prn haldol during the night. Subjective Date of service: 04/11/22 Principal diagnosis: Delusional Disorder Subjective Comment: Patient seen today walking down the hallway. Patient asked how she was doing and states "I feel fine" and kept on walking. Patient didnt answer any more questions. Nursing staff states patient takes her time with ea ting, but will eventually finish her food. Patient took her shower today and was appropriately dressed. Date of service: 04/10/2022 Principal diagnosis:Delusional disorder Subjective Comment: Patient seen this morning, uneaten breakfast on her table. Patient states " you can have the food, i don't like grits" Patient very aggress kavita, cursing and kicking staff and myself. Patient refusing to take vitals.Patient thoughts are disorganized. Date of service: 04/09/2022 Principal diagnosis:Delusional disorder Subjective Comment: Patient seen today in her room. Patient told me to " go out of here you bitch". Patient refusing to take her medications and also refusing to eat. Date of service: 04/08/22 Principal diagnosis: Delusional Disorder Subjective Comment: Patient seen today in her room. She was rambling and telling us to get out of her room, patient had tolet paper everywhere on the floor. patient has been refusing her meds and staff stated that she had been eating the hand soap. Sertraline increased. Date of service: 04/07/22 Principal diagnosis: Delusional Disorder Subjective Comment: Patient seen today. Patient still very delusional and suspicious. Patient kept pushing the door and didn't want us to come in. 04/06/22 Principal diagnosis: Delusional Disorder Subjective Comment: The patient was seen today. She is delusional and suspicious. She is referring to me as "Mrs. Arreguin." She says "I'm just a lil baby lawson." The patient tells me to leave her alone and go on. She is staring and looking around. 04/05 The patient was seen today. Her thoughts are disorganized. She is paranoid and delusional. She is calling me Kallie. She says "get out of here with you yellow hair and white face. You want to be white." The patient says "where is your . Get out of here, you gone ." She pushes me out of her room. REVIEW OF SYSTEMS Unable to assess MENTAL STATUS EXAMINATION Unable to assess Diagnoses: Delusional Disorder Treatment Plan Patient admitted for inpatient psychiatric evaluation, medication adjustment and close monitoring The patient's behavior, mood, sleep and appetite will be closely monitored. Patient enrolled in individual and group therapeutic sessions and encouraged to attend. Patient provided with a safe and structured environment. Patient's physical health needs will be addressed by the Hospitalist. Hospitalist Consulted Labs including CBC, CMP, Lipid profile and Hemoglobin A1C levels ordered for baseline reference Social Assessment will be completed and the Clinical Partner will work with patient and family to ensure a suitable and safe disposition Medication adjustment will be made as clinically indicated Increased Risperidone 2mg po BID Increased Depakote DR 250mg po TID Klonopin 1mg po BID x 3 days Usual Wellness [facility]/Preservation: - Start Trazodone 50 mg po QHS & 50 mg po QHS PRN between 10 PM & 2 AM for insomnia - Start Melatonin 5 mg po QHS to promote circadian rhythm The patient agreed on the treatment plan, understood the risk, benefit, alternative treatment, potential consequence of no treatment, and gave informed consent. Estimated days: 7 Post hospital care: primary care provider, psychiatric provider Case staffed with Dr. Morales Medications and Allergies Allergies Allergy/AdvReac Type Severity Reaction Status Date / Time No Known Drug Allergies Allergy Unknown Unknown Verified 04/05/22 20:17 Home Medications Medication Instructions Recorded Confirmed Last Taken Type Escitalopram [Lexapro] 10 mg PO DAILY 03/31/22 03/31/22 Unknown History Melatonin [Melatonin 10MG TAB] 10 mg PO HS 03/31/22 03/31/22 Unknown History OLANZapine [Zyprexa] 5 mg PO BID 03/31/22 03/31/22 Unknown History Sertraline [Zoloft] 75 mg PO HS 03/31/22 03/31/22 Unknown History Timolol Maleate/Pf [Timolol 1 drop OU DAILY 03/31/22 03/31/22 Unknown History Maleate 0.5% Eye Drop] Vitamin B Complex [B Complex] 1 tab PO DAILY 03/31/22 03/31/22 Unknown History haloperidoL [Haldol] 5 mg PO BID 03/31/22 03/31/22 Unknown History polyethylene glycoL 3350 [Miralax 17 gm PO QDAY 03/31/22 03/31/22 Unknown History 3350] Active Meds: Active Medications Clonazepam (Clonazepam 0.5 Mg Tab) 1 mg PO BID [facility] Stop: 04/08/22 07:00 Last Admin: 04/05/22 21:48 Dose: 1 mg Divalproex Sodium (Divalproex Dr 250 Mg Tab) 250 mg PO BID [facility] Last Admin: 04/05/22 21:48 Dose: 250 mg Escitalopram Oxalate (Escitalopram 10 Mg Tab) 10 mg PO DAILY [facility] Last Admin: 04/05/22 09:55 Dose: Not Given Haloperidol Lactate (Haloperidol Lactate 5 Mg/1 Ml Inj) 5 mg IM Q6H PRN PRN Reason: Agitation Last Admin: 04/05/22 09:58 Dose: 5 mg Melatonin (Melatonin 5 Mg Tab) 10 mg PO [facility] Last Admin: 04/05/22 21:48 Dose: 10 mg Polyethylene Glycol (Polyethylene Glycol 3350 17 Gm Powder) 17 gm PO QDAY [facility] Last Admin: 04/05/22 09:55 Dose: Not Given Risperidone (Risperidone 1 Mg Tab) 1.5 mg PO BID [facility] Last Admin: 04/05/22 21:48 Dose: Not Given Sertraline HCl (Sertraline 50 Mg Tab) 75 mg PO [facility] Last Admin: 04/05/22 21:48 Dose: Not Given Timolol Maleate (Timolol 0.5% Ophth Soln 5 Ml) 1 drops OU QDAY [facility] Last Admin: 04/05/22 10:00 Dose: Not Given Vitamin B Complex/Vitamin C (B Complex W/Vitamin C Tab) 1 each PO QDAY [facility] Last Admin: 04/05/22 09:55 Dose: Not Given Medications and Allergies Allergies Allergy/AdvReac Type Severity Reaction Status Date / Time No Known Drug Allergies Allergy Unknown Unknown Verified 04/05/22 20:17 Home Medications Medication Instructions Recorded Confirmed Last Taken Type Escitalopram [Lexapro] 10 mg PO DAILY 03/31/22 03/31/22 Unknown History Melatonin [Melatonin 10MG TAB] 10 mg PO HS 03/31/22 03/31/22 Unknown History OLANZapine [Zyprexa] 5 mg PO BID 03/31/22 03/31/22 Unknown History Sertraline [Zoloft] 75 mg PO HS 03/31/22 03/31/22 Unknown History Timolol Maleate/Pf [Timolol 1 drop OU DAILY 03/31/22 03/31/22 Unknown History Maleate 0.5% Eye Drop] Vitamin B Complex [B Complex] 1 tab PO DAILY 03/31/22 03/31/22 Unknown History haloperidoL [Haldol] 5 mg PO BID 03/31/22 03/31/22 Unknown History polyethylene glycoL 3350 [Miralax 17 gm PO QDAY 03/31/22 03/31/22 Unknown History 3350] Active Meds: Active Medications Divalproex Sodium (Divalproex Dr 250 Mg Tab) 250 mg PO TID [facility] Last Admin: 04/13/22 08:01 Dose: Not Given Escitalopram Oxalate (Escitalopram 10 Mg Tab) 10 mg PO DAILY [facility] Last Admin: 04/12/22 10:28 Dose: Not Given Haloperidol Lactate (Haloperidol Lactate 5 Mg/1 Ml Inj) 5 mg IM Q6H PRN PRN Reason: Agitation Last Admin: 04/13/22 07:54 Dose: 5 mg Melatonin (Melatonin 5 Mg Tab) 10 mg PO [facility] Last Admin: 04/12/22 21:15 Dose: Not Given Polyethylene Glycol (Polyethylene Glycol 3350 17 Gm Powder) 17 gm PO QDAY [facility]PL[facility] Last Admin: 04/12/22 10:29 Dose: Not Given Risperidone (Risperidone 1 Mg Tab) 2 mg PO BID [facility] Last Admin: 04/12/22 21:15 Dose: Not Given Sertraline HCl (Sertraline 100 Mg Tab) 100 mg PO QHS REPLACED BY [facility] Last Admin: 04/12/22 21:15 Dose: Not Given Timolol Maleate (Timolol 0.5% Ophth Soln 5 Ml) 1 drops OU QDAY REPLACED [facility] Last Admin: 04/12/22 10:29 Dose: Not Given Vitamin B Complex/Vitamin C (B Complex W/Vitamin C Tab) 1 each PO QDAY [facility] Last Admin: 04/12/22 10:28 Dose: Not Given Results - Results Labs/Vitals: Laboratory Last Values WBC 4.9 K/mm3 (4.5-11.0) 03/31/22 00:09 RBC 3.90 M/mm3 (3.65-5.03) 03/31/22 00:09 Hgb 11.7 gm/dl (10.1-14.3) 03/31/22 00:09 Hct 34.9 % (30.3-42.9) 03/31/22 00:09 MCV 90 fl (79-97) 03/31/22 00:09 MCH 30 pg (28-32) 03/31/22 00:09 MCHC 34 % (30-34) 03/31/22 00:09 RDW 14.0 % (13.2-15.2) 03/31/22 00:09 Plt Count 222 K/mm3 (140-440) 03/31/22 00:09 Sodium 140 mmol/L (137-145) 03/30/22 21:28 Potassium 3.7 mmol/L (3.6-5.0) 03/30/22 21:28 Chloride 105.4 mmol/L (98-107) 03/30/22 21:28 Carbon Dioxide 20 mmol/L (22-30) L 03/30/22 21:28 Anion Gap 18 mmol/L 03/30/22 21:28 BUN 27 mg/dL (7-17) H 03/30/22 21:28 Creatinine 1.0 mg/dL (0.6-1.2) 03/30/22 21:28 Estimated GFR > 60 ml/min 03/30/22 21:28 BUN/Creatinine Ratio 27 % 03/30/22 21:28 Glucose 114 mg/dL (65-100) H 03/30/22 21:28 POC Glucose 85 mg/dL (70-105) 03/31/22 19:53 Calcium 10.1 mg/dL (8.4-10.2) 03/30/22 21:28 Magnesium 1.90 mg/dL (1.7-2.3) 03/30/22 21:28 Total Bilirubin 0.20 mg/dL (0.1-1.2) 03/30/22 21:28 AST 18 units/L (5-40) 03/30/22 21: ALT 10 units/L (7-56) 03/30/22 21: Alkaline Phosphatase 124 units/L (35-129) 03/30/22 21: Ammonia 14.0 umol/L (25-60) L 03/30/22 21: Total Creatine Kinase 194 units/L (30-135) H 03/30/22 21: Total Protein 7.7 g/dL (6.3-8.2) 03/30/22: Albumin 4.2 g/dL (3.9-5) 03/30/22: Albumin/Globulin Ratio 1.2 % 03/30/22: TSH 3.450 mlU/mL (0.270-4.200) 03/30/22: Urine Color Yellow (Yellow) 03/30/22 Unknown Urine Turbidity Clear (Clear) 03/30/22 Unknown Urine pH 5.0 (5.0-7.0) 03/30/22 Unknown Ur Specific [place] 1.024 (1.003-1.030) 03/30/22 Unknown Urine Protein 30 mg/dl mg/dL (Negative) 03/30/22 Unknown Urine Glucose (UA) Neg mg/dL (Negative) 03/30/22 Unknown Urine Ketones Tr mg/dL (Negative) 03/30/22 Unknown Urine Blood Neg (Negative) 03/30/22 Unknown Urine Nitrite Neg (Negative) 03/30/22 Unknown Urine Bilirubin Neg (Negative) 03/30/22 Unknown Urine Urobilinogen < 2.0 mg/dL (<2.0) 03/30/22 Unknown Ur Leukocyte Esterase Neg (Negative) 03/30/22 Unknown Urine WBC (Auto) 3.0 /HPF (0.0-6.0) 03/30/22 Unknown Urine RBC (Auto) 14.0 /HPF (0.0-6.0) 03/30/22 Unknown U Epithel Cells (Auto) < 1.0 /HPF (0-13.0) 03/30/22 Unknown Hyaline Casts 2 /LPF 03/30/22 Unknown Urine Mucus 2+ /HPF 03/30/22 Unknown Salicylates < 0.3 mg/dL (2.8-20.0) L 03/30/22: Urine Opiates Screen Presumptive negative 03/30/22 Unknown Urine Methadone Screen Presumptive negative 03/30/22 Unknown Acetaminophen 5.0 ug/mL (10.0-30.0) L 03/30/22 21:28 Ur Barbiturates Screen Presumptive negative 03/30/22 Unknown Ur Phencyclidine Scrn Presumptive negative 03/30/22 Unknown Ur Amphetamines Screen Presumptive negative 03/30/22 Unknown U Benzodiazepines Scrn Presumptive negative 03/30/22 Unknown Urine Cocaine Screen Presumptive negative 03/30/22 Unknown U Marijuana (THC) Screen Presumptive negative 03/30/22 Unknown Drugs of Abuse Note Disclamer 03/30/22 Unknown Plasma/Serum Alcohol < 0.01 % (0-0.07) 03/30/22 21:28 SARS-CoV-2 (PCR) Negative (Negative) 03/31/22 08:30 Last Vital Signs Temp 97.3 F L 04/02/22 08:52 Pulse 107 H 04/02/22 08:52 Resp 18 04/02/22 08:52 BP 141/117 04/02/22 08:52 Pulse Ox 98 04/02/22 08:52
[2022-04-13] MEDS: POLYETHYLENE GLYCOL 3350 17 GM POWDER PO SCH (09:35)
[2022-04-13] MEDS: B COMPLEX W/VITAMIN C TAB PO SCH (09:35)
[2022-04-13] MEDS: ESCITALOPRAM 10 MG TAB PO SCH (09:35)
[2022-04-13] MEDS: risperiDONE 1 MG TAB PO SCH ×2 (09:35→21:46)
[2022-04-13] MEDS: TIMOLOL 0.5% OPHTH SOLN 5 ML OU SCH (09:35)
[2022-04-13] MEDS: MELATONIN 5 MG TAB PO SCH (21:46)
[2022-04-13] MEDS: SERTRALINE 100 MG TAB PO SCH (21:47)
[2022-04-14] MEDS: HALOPERIDOL LACTATE 5 MG/1 ML INJ IM PRN (00:40)
--- NOTE | 2022-04-14 09:04 | Progress Note ---
Subjective Date of service: 04/14/22 Principal diagnosis: Delusional Disorder Subjective Comment: The patient was seen today. She is still psychotic. She is delusional and suspicious. She is calling me "Mrs. Arreguin." She says "gone, gone, get out of here you look like that other girl." The patient is pointing and peeping around. She says "who is that?" She points past me where nobody is standing. 04/06 The patient was seen today. She is delusional and suspicious. She is referring to me as "Mrs. Arreguin." She says "I'm just a lil baby lawson." The patient tells me to leave her alone and go on. She is staring and looking around. 04/05 The patient was seen today. Her thoughts are disorganized. She is paranoid and delusional. She is calling me Kallie. She says "get out of here with you yellow hair and white face. You want to be white." The patient says "where is your . Get out of here, you gone ." She pushes me out of her room. REVIEW OF SYSTEMS Unable to assess MENTAL STATUS EXAMINATION Unable to assess Diagnoses: Delusional Disorder Treatment Plan Patient admitted for inpatient psychiatric evaluation, medication adjustment and close monitoring The patient's behavior, mood, sleep and appetite will be closely monitored. Patient enrolled in individual and group therapeutic sessions and encouraged to attend. Patient provided with a safe and structured environment. Patient's physical health needs will be addressed by the Hospitalist. Hospitalist Consulted Labs including CBC, CMP, Lipid profile and Hemoglobin A1C levels ordered for baseline reference Social Assessment will be completed and the Cyber Systems Engineer will work with patient and family to ensure a suitable and safe disposition Medication adjustment will be made as clinically indicated D/c Zoloft to prevent polypharm Klonopin 0.5mg po BID x 3 days Continue prn haldol if refusing po antipsychotic Usual Wellness Gnosticist/Preservation: - Start Trazodone 50 mg po QHS & 50 mg po QHS PRN between 10 PM & 2 AM for insomnia - Start Melatonin 5 mg po QHS to promote circadian rhythm The patient agreed on the treatment plan, understood the risk, benefit, alternative treatment, potential consequence of no treatment, and gave informed consent. Estimated days: 7 Post hospital care: primary care provider, psychiatric provider Case staffed with Dr. Morales Medications and Allergies Allergies Allergy/AdvReac Type Severity Reaction Status Date / Time No Known Drug Allergies Allergy Unknown Unknown Verified 04/05/22 20:17 Home Medications Medication Instructions Recorded Confirmed Last Taken Type Escitalopram [Lexapro] 10 mg PO DAILY 03/31/22 03/31/22 Unknown History Melatonin [Melatonin 10MG TAB] 10 mg PO 03/31/22 03/31/22 Unknown History OLANZapine [Zyprexa] 5 mg PO BID 03/31/22 03/31/22 Unknown History Sertraline [Zoloft] 75 mg PO HS 03/31/22 03/31/22 Unknown History Timolol Maleate/Pf [Timolol 1 drop OU DAILY 03/31/22 03/31/22 Unknown History Maleate 0.5% Eye Drop] Vitamin B Complex [B Complex] 1 tab PO DAILY 03/31/22 03/31/22 Unknown History haloperidoL [Haldol] 5 mg PO BID 03/31/22 03/31/22 Unknown History polyethylene glycoL 3350 [Miralax 17 gm PO QDAY 03/31/22 03/31/22 Unknown History 3350] Active Meds: Active Medications Divalproex Sodium (Divalproex Dr 250 Mg Tab) 250 mg PO TID [facility] Last Admin: 04/13/22 21:46 Dose: Not Given Escitalopram Oxalate (Escitalopram 10 Mg Tab) 10 mg PO DAILY [facility] Last Admin: 04/13/22 09:35 Dose: Not Given Haloperidol Lactate (Haloperidol Lactate 5 Mg/1 Ml Inj) 5 mg IM Q6H PRN PRN Reason: Agitation Last Admin: 04/14/22 00:40 Dose: 5 mg Melatonin (Melatonin 5 Mg Tab) 10 mg PO [facility] Last Admin: 04/13/22 21:46 Dose: Not Given Polyethylene Glycol (Polyethylene Glycol 3350 17 Gm Powder) 17 gm PO QDAY [facility] Last Admin: 04/13/22 09:35 Dose: Not Given Risperidone (Risperidone 1 Mg Tab) 2 mg PO BID [facility] Last Admin: 04/13/22 21:46 Dose: Not Given Sertraline HCl (Sertraline 100 Mg Tab) 100 mg PO QHS [facility] Last Admin: 04/13/22 21:47 Dose: Not Given Timolol Maleate (Timolol 0.5% Ophth Soln 5 Ml) 1 drops OU QDAY [facility] Last Admin: 04/13/22 09:35 Dose: Not Given Vitamin B Complex/Vitamin C (B Complex W/Vitamin C Tab) 1 each PO QDAY [facility] Last Admin: 04/13/22 09:35 Dose: Not Given Results - Results Labs/Vitals: Laboratory Last Values WBC 4.9 K/mm3 (4.5-11.0) 03/31/22 00:09 RBC 3.90 M/mm3 (3.65-5.03) 03/31/22 00:09 Hgb 11.7 gm/dl (10.1-14.3) 03/31/22 00:09 Hct 34.9 % (30.3-42.9) 03/31/22 00:09 MCV 90 fl (79-97) 03/31/22 00:09 MCH 30 pg (28-32) 03/31/22 00:09 MCHC 34 % (30-34) 03/31/22 00:09 RDW 14.0 % (13.2-15.2) 03/31/22 00:09 Plt Count 222 K/mm3 (140-440) 03/31/22 00:09 Sodium 140 mmol/L (137-145) 03/30/22 21:28 Potassium 3.7 mmol/L (3.6-5.0) 03/30/22 21:28 Chloride 105.4 mmol/L (98-107) 03/30/22 21:28 Carbon Dioxide 20 mmol/L (22-30) L 03/30/22 21:28 Anion Gap 18 mmol/L 03/30/22 21:28 BUN 27 mg/dL (7-17) H 03/30/22 21:28 Creatinine 1.0 mg/dL (0.6-1.2) 03/30/22 21:28 Estimated GFR > 60 ml/min 03/30/22 21:28 BUN/Creatinine Ratio 27 % 03/30/22 21:28 Glucose 114 mg/dL (65-100) H 03/30/22 21:28 POC Glucose 85 mg/dL (70-105) 03/31/22 19:53 Calcium 10.1 mg/dL (8.4-10.2) 03/30/22 21:28 Magnesium 1.90 mg/dL (1.7-2.3) 03/30/22 21:28 Total Bilirubin 0.20 mg/dL (0.1-1.2) 03/30/22 21:28 AST 18 units/L (5-40) 03/30/22 21: ALT 10 units/L (7-56) 03/30/22 21: Alkaline Phosphatase 124 units/L (35-129) 03/30/22 21:28 Ammonia 14.0 umol/L (25-60) L 03/30/22 21: Total Creatine Kinase 194 units/L (30-135) H 03/30/22 21: Total Protein 7.7 g/dL (6.3-8.2) 03/30/22: Albumin 4.2 g/dL (3.9-5) 03/30/22: Albumin/Globulin Ratio 1.2 % 03/30/22: TSH 3.450 mlU/mL (0.270-4.200) 03/30/22 21: Urine Color Yellow (Yellow) 03/30/22 Unknown Urine Turbidity Clear (Clear) 03/30/22 Unknown Urine pH 5.0 (5.0-7.0) 03/30/22 Unknown Ur Specific [place] 1.024 (1.003-1.030) 03/30/22 Unknown Urine Protein 30 mg/dl mg/dL (Negative) 03/30/22 Unknown Urine Glucose (UA) Neg mg/dL (Negative) 03/30/22 Unknown Urine Ketones Tr mg/dL (Negative) 03/30/22 Unknown Urine Blood Neg (Negative) 03/30/22 Unknown Urine Nitrite Neg (Negative) 03/30/22 Unknown Urine Bilirubin Neg (Negative) 03/30/22 Unknown Urine Urobilinogen < 2.0 mg/dL (<2.0) 03/30/22 Unknown Ur Leukocyte Esterase Neg (Negative) 03/30/22 Unknown Urine WBC (Auto) 3.0 /HPF (0.0-6.0) 03/30/22 Unknown Urine RBC (Auto) 14.0 /HPF (0.0-6.0) 03/30/22 Unknown U Epithel Cells (Auto) < 1.0 /HPF (0-13.0) 03/30/22 Unknown Hyaline Casts 2 /LPF 03/30/22 Unknown Urine Mucus 2+ /HPF 03/30/22 Unknown Salicylates < 0.3 mg/dL (2.8-20.0) L 03/30/22 21:28 Urine Opiates Screen Presumptive negative 03/30/22 Unknown Urine Methadone Screen Presumptive negative 03/30/22 Unknown Acetaminophen 5.0 ug/mL (10.0-30.0) L 03/30/22 21:28 Ur Barbiturates Screen Presumptive negative 03/30/22 Unknown Ur Phencyclidine Scrn Presumptive negative 03/30/22 Unknown Ur Amphetamines Screen Presumptive negative 03/30/22 Unknown U Benzodiazepines Scrn Presumptive negative 03/30/22 Unknown Urine Cocaine Screen Presumptive negative 03/30/22 Unknown U Marijuana (THC) Screen Presumptive negative 03/30/22 Unknown Drugs of Abuse Note Disclamer 03/30/22 Unknown Plasma/Serum Alcohol < 0.01 % (0-0.07) 03/30/22 21:28 SARS-CoV-2 (PCR) Negative (Negative) 03/31/22 08:30 Last Vital Signs Temp 97.3 F L 04/02/22 08:52 Pulse 107 H 04/02/22 08:52 Resp 18 04/02/22 08:52 BP 141/117 04/02/22 08:52 Pulse Ox 98 04/02/22 08:52
[2022-04-14] MEDS: DIVALPROEX DR 250 MG TAB PO SCH ×3 (11:15→22:05)
[2022-04-14] MEDS: risperiDONE 1 MG TAB PO SCH ×2 (12:10→22:05)
[2022-04-14] MEDS: POLYETHYLENE GLYCOL 3350 17 GM POWDER PO SCH (12:10)
[2022-04-14] MEDS: clonazePAM 0.5 MG TAB PO SCH ×2 (12:10→22:05)
[2022-04-14] MEDS: ESCITALOPRAM 10 MG TAB PO SCH (12:10)
[2022-04-14] MEDS: B COMPLEX W/VITAMIN C TAB PO SCH (12:10)
[2022-04-14] MEDS: TIMOLOL 0.5% OPHTH SOLN 5 ML OU SCH (12:11)
[2022-04-14] MEDS ORDERED: WATER FOR INJ Sterile (PF) 10 ML ONE (12:12)
[2022-04-14] MEDS: ZIPRASIDONE MESYLATE 20 MG VIAL IM PRN ×2 (12:28→22:04)
--- NOTE | 2022-04-14 20:26 | Progress Note ---
Assessment and Plan Assessment and plan: (1) Vascular dementia with behavioral disturbance Current Visit: Yes Status: Acute Plan to address problem: Verbal prompting, verbal redirection, benzodiazepine therapy as clinically indicated. (2) Cerebral atherosclerosis Current Visit: Yes Status: Acute Plan to address problem: Risk factor reduction, antiplatelet therapy as clinically indicated. (3) Hyperlipidemia Current Visit: Yes Status: Acute Qualifiers: Hyperlipidemia type: mixed hyperlipidemia Qualified Code(s): E78.2 - Mixed hyperlipidemia Plan to address problem: Statin therapy, balanced diet, low-cholesterol diet. (4) Hypertension Current Visit: Yes Status: Acute Qualifiers: Hypertension type: primary hypertension Qualified Code(s): I10 - Essential (primary) hypertension Plan to address problem: Monitor blood pressure every shift, continue medical management. (5) Osteoarthritis Current Visit: Yes Status: Acute Plan to address problem: Pain control, supportive care. (6) Seizure disorder Current Visit: Yes Status: Acute Plan to address problem: Continue current management. No active seizure activity at this time. (7) Vertigo Current Visit: Yes Status: Acute Plan to address problem: Supportive care, meclizine as needed. (8) Advance care planning Current Visit: Yes Status: Acute Plan to address problem: Disease education done, care plan discussed, diagnoses discussed, prognosis discussed, patient is full code. +30 minutes. (9) COVID 19 positive (10) Preventative health care Current Visit: Yes Status: Acute Plan to address problem: Patient counseled regarding home safety, fall precautions, outpatient follow-up with primary care physician for all age and risk factor appropriate screening test. +30 minutes. History Interval history: 81 YO Female with Vascular Dementia, Cerebral Atherosclerosis, HTN, HLD, DM, OA, Seizure Disorder, Schizophrenia, ARLETH admitted to [facility] for psychiatric stabilization. Consult placed by Dr. Park for medical management. Patient seen and evaluated in the recreation room. Patient appears to be at baseline level of cognition and function. covid positive but asymtomatic Hospitalist Physical - Physical exam Narrative exam: General appearance: Present: no acute distress - EENT Eyes: Present: PERRL ENT: hearing intact, hearing decreased - Neck Neck: Present: supple - Respiratory Respiratory effort: normal Respiratory: bilateral: diminished - Cardiovascular Rhythm: regular Heart Sounds: Present: S1 & S2 - Extremities Extremities: no ischemia Peripheral Pulses: within normal limits - Abdominal General gastrointestinal: soft, non-tender, non-distended - Integumentary Integumentary: Present: clear, dry - Psychiatric Psychiatric: cooperative - Neurologic Neurologic: CNII-XII intact - Constitutional Vitals: Temp Pulse Resp BP Pulse Ox 97.3 F L 107 H 18 141/117 98 04/02/22 08:52 04/02/22 08:52 04/02/22 08:52 04/02/22 08:52 04/02/22 08:52 General appearance: Present: no acute distress Results - Labs CBC & Chem 7: 03/31/22 00:09 03/30/22 21:28 Labs: Laboratory Last Values WBC 4.9 K/mm3 (4.5-11.0) 03/31/22 00:09 RBC 3.90 M/mm3 (3.65-5.03) 03/31/22 00:09 Hgb 11.7 gm/dl (10.1-14.3) 03/31/22 00:09 Hct 34.9 % (30.3-42.9) 03/31/22 00:09 MCV 90 fl (79-97) 03/31/22 00:09 MCH 30 pg (28-32) 03/31/22 00:09 MCHC 34 % (30-34) 03/31/22 00:09 RDW 14.0 % (13.2-15.2) 03/31/22 00:09 Plt Count 222 K/mm3 (140-440) 03/31/22 00:09 Sodium 140 mmol/L (137-145) 03/30/22 21:28 Potassium 3.7 mmol/L (3.6-5.0) 03/30/22 21:28 Chloride 105.4 mmol/L (98-107) 03/30/22 21:28 Carbon Dioxide 20 mmol/L (22-30) L 03/30/22 21:28 Anion Gap 18 mmol/L 03/30/22 21:28 BUN 27 mg/dL (7-17) H 03/30/22 21:28 Creatinine 1.0 mg/dL (0.6-1.2) 03/30/22 21:28 Estimated GFR > 60 ml/min 03/30/22 21:28 BUN/Creatinine Ratio 27 % 03/30/22 21:28 Glucose 114 mg/dL (65-100) H 03/30/22 21:28 POC Glucose 85 mg/dL (70-105) 03/31/22 19:53 Calcium 10.1 mg/dL (8.4-10.2) 03/30/22 21: Magnesium 1.90 mg/dL (1.7-2.3) 03/30/22 21: Total Bilirubin 0.20 mg/dL (0.1-1.2) 03/30/22 21:28 AST 18 units/L (5-40) 03/30/22 21:28 ALT 10 units/L (7-56) 03/30/22 21: Alkaline Phosphatase 124 units/L (35-129) 03/30/22 21: Ammonia 14.0 umol/L (25-60) L 03/30/22 21: Total Creatine Kinase 194 units/L (30-135) H 03/30/22 21:28 Total Protein 7.7 g/dL (6.3-8.2) 03/30/22 21: Albumin 4.2 g/dL (3.9-5) 03/30/22 21: Albumin/Globulin Ratio 1.2 % 03/30/22: TSH 3.450 mlU/mL (0.270-4.200) 03/30/22 21: Urine Color Yellow (Yellow) 03/30/22 Unknown Urine Turbidity Clear (Clear) 03/30/22 Unknown Urine pH 5.0 (5.0-7.0) 03/30/22 Unknown Ur Specific [place] 1.024 (1.003-1.030) 03/30/22 Unknown Urine Protein 30 mg/dl mg/dL (Negative) 03/30/22 Unknown Urine Glucose (UA) Neg mg/dL (Negative) 03/30/22 Unknown Urine Ketones Tr mg/dL (Negative) 03/30/22 Unknown Urine Blood Neg (Negative) 03/30/22 Unknown Urine Nitrite Neg (Negative) 03/30/22 Unknown Urine Bilirubin Neg (Negative) 03/30/22 Unknown Urine Urobilinogen < 2.0 mg/dL (<2.0) 03/30/22 Unknown Ur Leukocyte Esterase Neg (Negative) 03/30/22 Unknown Urine WBC (Auto) 3.0 /HPF (0.0-6.0) 03/30/22 Unknown Urine RBC (Auto) 14.0 /HPF (0.0-6.0) 03/30/22 Unknown U Epithel Cells (Auto) < 1.0 /HPF (0-13.0) 03/30/22 Unknown Hyaline Casts 2 /LPF 03/30/22 Unknown Urine Mucus 2+ /HPF 03/30/22 Unknown Salicylates < 0.3 mg/dL (2.8-20.0) L 03/30/22 21:28 Urine Opiates Screen Presumptive negative 03/30/22 Unknown Urine Methadone Screen Presumptive negative 03/30/22 Unknown Acetaminophen 5.0 ug/mL (10.0-30.0) L 03/30/22 21:28 Ur Barbiturates Screen Presumptive negative 03/30/22 Unknown Ur Phencyclidine Scrn Presumptive negative 03/30/22 Unknown Ur Amphetamines Screen Presumptive negative 03/30/22 Unknown U Benzodiazepines Scrn Presumptive negative 03/30/22 Unknown Urine Cocaine Screen Presumptive negative 03/30/22 Unknown U Marijuana (THC) Screen Presumptive negative 03/30/22 Unknown Drugs of Abuse Note Disclamer 03/30/22 Unknown Plasma/Serum Alcohol < 0.01 % (0-0.07) 03/30/22 21:28 SARS-CoV-2 (PCR) Positive (Negative) A 04/14/22 10:00 Grimaldo/IV: Voiding Method Toilet Active Medications - Current Medications Current Medications: Generic Name Dose Route Start Last Admin Trade Name Freq PRN Reason Stop Dose Admin Clonazepam 0.5 mg 04/14/22 10:00 04/14/22 12:10 Clonazepam 0.5 Mg Tab PO 04/17/22 06:00 Not Given BID MARIN Divalproex Sodium 250 mg 04/06/22 14:00 04/14/22 14:[address] 250 Mg Tab PO Not Given TID MARIN Escitalopram Oxalate 10 mg 04/01/22 10:00 04/14/22 12:10 Escitalopram 10 Mg Tab PO Not Given DAILY MARIN Melatonin 10 mg 04/01/22 22:00 04/13/22 21:46 Melatonin 5 Mg Tab PO Not Given HS MARIN Polyethylene Glycol 17 gm 04/01/22 10:00 04/14/22 12:10 Polyethylene Glycol 3350 17 Gm Powder PO Not Given QDAY MARIN Risperidone 2 mg 04/06/22 10:00 04/14/22 12:10 Risperidone 1 Mg Tab PO Not Given BID MARIN Timolol Maleate 1 drops 04/01/22 10:00 04/14/22 12:11 Timolol 0.5% Ophth Soln 5 Ml OU Not Given QDAY [facility] Vitamin B Complex/Vitamin C 1 each 04/01/22 11:00 04/14/22 12:10 B Complex W/Vitamin C Tab PO Not Given QDAY [facility]IN Ziprasidone 10 mg 04/14/22 09:57 04/14/22 12:28 Ziprasidone Mesylate 20 Mg Vial IM 10 mg Q12H PRN Administration Agitation Nutrition/Malnutrition Assess - Dietary Evaluation Nutrition/Malnutrition Findings: Nutrition Notes Start: 04/07/22 12:14 Freq: Status: Active Protocol: Document 04/14/22 13:53 KAVYA (Rec: 04/14/22 14:28 KAVYA [id number]) Nutrition Notes Initial or Follow up Reassessment Other Pertinent Diagnosis COVID-19, Vascular Dementia w/ Behavioral Disturbance, Delusional Disorder. Current Diet Regular Diet (since D 04/07), D Suppl (from D 04/14). Labs/Tests 04/14: N/A. Pertinent Medications 04/14: Vit B complex, Vit C, others nutritionally unremarkable. 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 Weight Status Appropriate Subjective/Other Information RD consult for routine F/U on dietary advancement. Pt's PO intake of meals has been Negligible (0-25%) and pt is refusing to eat, according to ADL and Progress notes. I will prescribe Dietary Supplements to compensate for poor or insifficient PO intake of meals. Percent of energy/protein needs met: Prescribed Regular Diet provides for energy/protein needs (2,289 Kcal/89 g) during LOS; additionally, Dietary Supplements will compensate for possible poor or insufficient PO intake of meals with 480 Kcal and 48 g of protein. Burn Absent Trauma Absent GI Symptoms None Food Allergy No Skin Integrity/Comment Assessment WNL. 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 Diagnosis Progress(for reassessment Continues documentation) Is patient on ventilator? No Is Patient Ambulatory and/or Out of Bed Yes REE-([place]-St. Jeor-ambulatory/OOB) [ 1523.782 [id number]] Kcal/Kg value to use for calculation 24 Approximate Energy Requirements Using 1633 kcal/Kg Calculation Used for Recommendations Kcal/kg Additional Notes Protein: 1-1.2 g/Kg ABW; 68-82 . g/day. Fluids: 1 ml/Kcal, or as per MD. Nutrition Intervention Change Diet Order: Continue Regular Diet. Add Supplement/Snack (indicate name/kcal Start 8 fl oz Ensure High /protein ) Protein; TID. Provides kCal: 480 Provides Protein (gm) 48 Goal #1 Compensate, through dietary supplementation, for possible poor or insufficient PO intake of meals during LOS. Goal #2 Adjust the dietary intervention to better serve Pt's needs and clinical conditions during LOS. Follow-Up By: 04/21/22 Additional Comments Continue monitoring food tolerance, %PO intake of meals and ONS, and BM.
[2022-04-14] MEDS: MELATONIN 5 MG TAB PO SCH (22:05)
--- NOTE | 2022-04-15 08:55 | Progress Note ---
Subjective Date of service: 04/15/22 Principal diagnosis: Delusional Disorder Subjective Comment: The patient was seen today. She was in her room and had jammed the door with a towel. The nurse pried open. The patient was instructed not to do that again. The patient has poor insight, with disorganized thoughts. Her speech is nonsensical. She is asking "did you bring the insulin for my eye." She is calling me Kallie. The patient does say she slept good, but the nurse caring for the patient says she slept about two hours. The nurse also states the patient's appetite is not good. She denies SI/HI. 04/14 The patient was seen today. She is still psychotic. She is delusional and suspicious. She is calling me "Mrs. Arreguin." She says "gone, gone, get out of here you look like that other girl." The patient is pointing and peeping around. She says "who is that?" She points past me where nobody is standing. REVIEW OF SYSTEMS Unable to assess MENTAL STATUS EXAMINATION Unable to assess Diagnoses: Delusional Disorder Treatment Plan Patient admitted for inpatient psychiatric evaluation, medication adjustment and close monitoring The patient's behavior, mood, sleep and appetite will be closely monitored. Patient enrolled in individual and group therapeutic sessions and encouraged to attend. Patient provided with a safe and structured environment. Patient's physical health needs will be addressed by the Hospitalist. Hospitalist Consulted Labs including CBC, CMP, Lipid profile and Hemoglobin A1C levels ordered for baseline reference Social Assessment will be completed and the Truck Repair Service Estimator will work with patient and family to ensure a suitable and safe disposition Medication adjustment will be made as clinically indicated Start Mirtazepine 7.5mg po qhs to stimulate appetite and induce sleep Klonopin 0.5mg po BID x 3 days Increased Lexapro 20mg po daily Continue prn Geodon if refusing po antipsychotic Usual Wellness Taoist/Preservation: - Start Trazodone 50 mg po QHS & 50 mg po QHS PRN between 10 PM & 2 AM for insomnia - Start Melatonin 5 mg po QHS to promote circadian rhythm The patient agreed on the treatment plan, understood the risk, benefit, alternative treatment, potential consequence of no treatment, and gave informed consent. Estimated days: 7 Post hospital care: primary care provider, psychiatric provider Case staffed with Dr. Morales Medications and Allergies Allergies Allergy/AdvReac Type Severity Reaction Status Date / Time No Known Drug Allergies Allergy Unknown Unknown Verified 04/05/22 20:17 Home Medications Medication Instructions Recorded Confirmed Last Taken Type Escitalopram [Lexapro] 10 mg PO DAILY 03/31/22 03/31/22 Unknown History Melatonin [Melatonin 10MG TAB] 10 mg PO 03/31/22 03/31/22 Unknown History OLANZapine [Zyprexa] 5 mg PO BID 03/31/22 03/31/22 Unknown History Sertraline [Zoloft] 75 mg PO HS 03/31/22 03/31/22 Unknown History Timolol Maleate/Pf [Timolol 1 drop OU DAILY 03/31/22 03/31/22 Unknown History Maleate 0.5% Eye Drop] Vitamin B Complex [B Complex] 1 tab PO DAILY 03/31/22 03/31/22 Unknown History haloperidoL [Haldol] 5 mg PO BID 03/31/22 03/31/22 Unknown History polyethylene glycoL 3350 [Miralax 17 gm PO QDAY 03/31/22 03/31/22 Unknown History 3350] Active Meds: Active Medications Clonazepam (Clonazepam 0.5 Mg Tab) 0.5 mg PO BID [facility] Stop: 04/17/22 06:00 Last Admin: 04/14/22 22:05 Dose: Not Given Divalproex Sodium (Divalproex Dr 250 Mg Tab) 250 mg PO TID [facility] Last Admin: 04/14/22 22:05 Dose: Not Given Escitalopram Oxalate (Escitalopram 10 Mg Tab) 10 mg PO DAILY [facility] Last Admin: 04/14/22 12:10 Dose: Not Given Melatonin (Melatonin 5 Mg Tab) 10 mg PO [facility] Last Admin: 04/14/22 22:05 Dose: Not Given Polyethylene Glycol (Polyethylene Glycol 3350 17 Gm Powder) 17 gm PO QDAY [facility] Last Admin: 04/14/22 12:10 Dose: Not Given Risperidone (Risperidone 1 Mg Tab) 2 mg PO BID [facility] Last Admin: 04/14/22 22:05 Dose: Not Given Timolol Maleate (Timolol 0.5% Ophth Soln 5 Ml) 1 drops OU QDAY [facility] Last Admin: 04/14/22 12:11 Dose: Not Given Vitamin B Complex/Vitamin C (B Complex W/Vitamin C Tab) 1 each PO QDAY [facility] Last Admin: 04/14/22 12:10 Dose: Not Given Ziprasidone (Ziprasidone Mesylate 20 Mg Vial) 10 mg IM Q12H PRN PRN Reason: Agitation Last Admin: 04/14/22 22:04 Dose: 10 mg Results - Results Labs/Vitals: Laboratory Last Values WBC 4.9 K/mm3 (4.5-11.0) 03/31/22 00:09 RBC 3.90 M/mm3 (3.65-5.03) 03/31/22 00:09 Hgb 11.7 gm/dl (10.1-14.3) 03/31/22 00:09 Hct 34.9 % (30.3-42.9) 03/31/22 00:09 MCV 90 fl (79-97) 03/31/22 00:09 MCH 30 pg (28-32) 03/31/22 00:09 MCHC 34 % (30-34) 03/31/22 00:09 RDW 14.0 % (13.2-15.2) 03/31/22 00:09 Plt Count 222 K/mm3 (140-440) 03/31/22 00:09 Sodium 140 mmol/L (137-145) 03/30/22 21:28 Potassium 3.7 mmol/L (3.6-5.0) 03/30/22 21:28 Chloride 105.4 mmol/L (98-107) 03/30/22 21:28 Carbon Dioxide 20 mmol/L (22-30) L 03/30/22 21:28 Anion Gap 18 mmol/L 03/30/22 21:28 BUN 27 mg/dL (7-17) H 03/30/22 21:28 Creatinine 1.0 mg/dL (0.6-1.2) 03/30/22 21:28 Estimated GFR > 60 ml/min 03/30/22 21:28 BUN/Creatinine Ratio 27 % 03/30/22 21:28 Glucose 114 mg/dL (65-100) H 03/30/22 21:28 POC Glucose 85 mg/dL (70-105) 03/31/22 19:53 Calcium 10.1 mg/dL (8.4-10.2) 03/30/22 21:28 Magnesium 1.90 mg/dL (1.7-2.3) 03/30/22 21:28 Total Bilirubin 0.20 mg/dL (0.1-1.2) 03/30/22 21: AST 18 units/L (5-40) 03/30/22 21: ALT 10 units/L (7-56) 03/30/22 21: Alkaline Phosphatase 124 units/L (35-129) 03/30/22 21: Ammonia 14.0 umol/L (25-60) L 03/30/22 21: Total Creatine Kinase 194 units/L (30-135) H 03/30/22 21: Total Protein 7.7 g/dL (6.3-8.2) 03/30/22: Albumin 4.2 g/dL (3.9-5) 03/30/22: Albumin/Globulin Ratio 1.2 % 03/30/22: TSH 3.450 mlU/mL (0.270-4.200) 03/30/22 21: Urine Color Yellow (Yellow) 03/30/22 Unknown Urine Turbidity Clear (Clear) 03/30/22 Unknown Urine pH 5.0 (5.0-7.0) 03/30/22 Unknown Ur Specific [place] 1.024 (1.003-1.030) 03/30/22 Unknown Urine Protein 30 mg/dl mg/dL (Negative) 03/30/22 Unknown Urine Glucose (UA) Neg mg/dL (Negative) 03/30/22 Unknown Urine Ketones Tr mg/dL (Negative) 03/30/22 Unknown Urine Blood Neg (Negative) 03/30/22 Unknown Urine Nitrite Neg (Negative) 03/30/22 Unknown Urine Bilirubin Neg (Negative) 03/30/22 Unknown Urine Urobilinogen < 2.0 mg/dL (<2.0) 03/30/22 Unknown Ur Leukocyte Esterase Neg (Negative) 03/30/22 Unknown Urine WBC (Auto) 3.0 /HPF (0.0-6.0) 03/30/22 Unknown Urine RBC (Auto) 14.0 /HPF (0.0-6.0) 03/30/22 Unknown U Epithel Cells (Auto) < 1.0 /HPF (0-13.0) 03/30/22 Unknown Hyaline Casts 2 /LPF 03/30/22 Unknown Urine Mucus 2+ /HPF 03/30/22 Unknown Salicylates < 0.3 mg/dL (2.8-20.0) L 03/30/22 21:28 Urine Opiates Screen Presumptive negative 03/30/22 Unknown Urine Methadone Screen Presumptive negative 03/30/22 Unknown Acetaminophen 5.0 ug/mL (10.0-30.0) L 03/30/22 21:28 Ur Barbiturates Screen Presumptive negative 03/30/22 Unknown Ur Phencyclidine Scrn Presumptive negative 03/30/22 Unknown Ur Amphetamines Screen Presumptive negative 03/30/22 Unknown U Benzodiazepines Scrn Presumptive negative 03/30/22 Unknown Urine Cocaine Screen Presumptive negative 03/30/22 Unknown U Marijuana (THC) Screen Presumptive negative 03/30/22 Unknown Drugs of Abuse Note Disclamer 03/30/22 Unknown Plasma/Serum Alcohol < 0.01 % (0-0.07) 03/30/22 21:28 SARS-CoV-2 (PCR) Positive (Negative) A 04/14/22 10:00 Last Vital Signs Temp 97.3 F L 04/02/22 08:52 Pulse 107 H 04/02/22 08:52 Resp 18 04/02/22 08:52 BP 141/117 04/02/22 08:52 Pulse Ox 98 04/02/22 08:52
[2022-04-15] MEDS: clonazePAM 0.5 MG TAB PO SCH ×2 (10:00→21:10)
[2022-04-15] MEDS: DIVALPROEX DR 250 MG TAB PO SCH ×3 (10:00→21:10)
[2022-04-15] MEDS: B COMPLEX W/VITAMIN C TAB PO SCH (10:00)
[2022-04-15] MEDS: POLYETHYLENE GLYCOL 3350 17 GM POWDER PO SCH (16:38)
[2022-04-15] MEDS: ESCITALOPRAM 10 MG TAB PO SCH (16:39)
[2022-04-15] MEDS: risperiDONE 1 MG TAB PO SCH ×2 (16:39→21:10)
[2022-04-15] MEDS: TIMOLOL 0.5% OPHTH SOLN 5 ML OU SCH (16:39)
[2022-04-15] MEDS: MELATONIN 5 MG TAB PO SCH (21:10)
[2022-04-15] MEDS: MIRTAZAPINE 15 MG TAB PO SCH (21:10)
[2022-04-16] MEDS: DIVALPROEX DR 250 MG TAB PO SCH ×3 (08:00→21:01)
--- NOTE | 2022-04-16 08:29 | Progress Note ---
Subjective Date of service: 04/16/22 Principal diagnosis: Dementia with behavioral disturbance, Delusional Disorder Subjective Comment: The patent was seen today. She is exhibiting signs of progressive dementia. She is confused and has poor insight. Her focus is poor. The patient's thoughts are disorganized. She is suspicious and refusing some meals and medications. She denies SI/HI. 04/15 The patient was seen today. She was in her room and had jammed the door with a towel. The nurse pried open. The patient was instructed not to do that again. The patient has poor insight, with disorganized thoughts. Her speech is nonsensical. She is asking "did you bring the insulin for my eye." She is calling me Kallie. The patient does say she slept good, but the nurse caring for the patient says she slept about two hours. The nurse also states the patient's appetite is not good. She denies SI/HI. 04/14 The patient was seen today. She is still psychotic. She is delusional and suspicious. She is calling me "Mrs. Arreguin." She says "gone, gone, get out of here you look like that other girl." The patient is pointing and peeping around. She says "who is that?" She points past me where nobody is standing. REVIEW OF SYSTEMS Unable to assess MENTAL STATUS EXAMINATION Unable to assess Diagnoses Dementia with Behavioral Disturbance Delusional Disorder Treatment Plan Patient admitted for inpatient psychiatric evaluation, medication adjustment and close monitoring The patient's behavior, mood, sleep and appetite will be closely monitored. Patient enrolled in individual and group therapeutic sessions and encouraged to attend. Patient provided with a safe and structured environment. Patient's physical health needs will be addressed by the Hospitalist. Hospitalist Consulted Labs including CBC, CMP, Lipid profile and Hemoglobin A1C levels ordered for baseline reference Social Assessment will be completed and the Pipelaying Fitter will work with patient and family to ensure a suitable and safe disposition Medication adjustment will be made as clinically indicated Mirtazepine 7.5mg po qhs to stimulate appetite and induce sleep Klonopin 0.5mg po BID x 3 days Lexapro 20mg po daily Continue prn Geodon if refusing po antipsychotic Usual Wellness Christianity/Preservation: - Start Trazodone 50 mg po QHS & 50 mg po QHS PRN between 10 PM & 2 AM for insomnia - Start Melatonin 5 mg po QHS to promote circadian rhythm The patient agreed on the treatment plan, understood the risk, benefit, alternative treatment, potential consequence of no treatment, and gave informed consent. Estimated days: 7 Post hospital care: primary care provider, psychiatric provider Case staffed with Dr. Morales Medications and Allergies Allergies Allergy/AdvReac Type Severity Reaction Status Date / Time No Known Drug Allergies Allergy Unknown Unknown Verified 04/05/22 20:17 Home Medications Medication Instructions Recorded Confirmed Last Taken Type Escitalopram [Lexapro] 10 mg PO DAILY 03/31/22 03/31/22 Unknown History Melatonin [Melatonin 10MG TAB] 10 mg PO HS 03/31/22 03/31/22 Unknown History OLANZapine [Zyprexa] 5 mg PO BID 03/31/22 03/31/22 Unknown History Sertraline [Zoloft] 75 mg PO HS 03/31/22 03/31/22 Unknown History Timolol Maleate/Pf [Timolol 1 drop OU DAILY 03/31/22 03/31/22 Unknown History Maleate 0.5% Eye Drop] Vitamin B Complex [B Complex] 1 tab PO DAILY 03/31/22 03/31/22 Unknown History haloperidoL [Haldol] 5 mg PO BID 03/31/22 03/31/22 Unknown History polyethylene glycoL 3350 [Miralax 17 gm PO QDAY 03/31/22 03/31/22 Unknown History 3350] Active Meds: Active Medications Clonazepam (Clonazepam 0.5 Mg Tab) 0.5 mg PO BID [facility] Stop: 04/17/22 06:00 Last Admin: 04/15/22 21:10 Dose: Not Given Divalproex Sodium (Divalproex Dr 250 Mg Tab) 250 mg PO TID [facility] Last Admin: 04/15/22 21:10 Dose: Not Given Escitalopram Oxalate (Escitalopram 10 Mg Tab) 20 mg PO QDAY [facility] Last Admin: 04/15/22 16:39 Dose: Not Given Melatonin (Melatonin 5 Mg Tab) 10 mg PO [facility] Last Admin: 04/15/22 21:10 Dose: Not Given Mirtazapine (Mirtazapine 15 Mg Tab) 7.5 mg PO QHS [facility] Last Admin: 04/15/22 21:10 Dose: Not Given Polyethylene Glycol (Polyethylene Glycol 3350 17 Gm Powder) 17 gm PO QDAY [facility] Last Admin: 04/15/22 16:38 Dose: Not Given Risperidone (Risperidone 1 Mg Tab) 2 mg PO BID [facility] Last Admin: 04/15/22 21:10 Dose: Not Given Timolol Maleate (Timolol 0.5% Ophth Soln 5 Ml) 1 drops OU QDAY [facility] Last Admin: 04/15/22 16:39 Dose: Not Given Vitamin B Complex/Vitamin C (B Complex W/Vitamin C Tab) 1 each PO QDAY [facility] Last Admin: 04/15/22 10:00 Dose: Not Given Ziprasidone (Ziprasidone Mesylate 20 Mg Vial) 10 mg IM Q12H PRN PRN Reason: Agitation Last Admin: 04/14/22 22:04 Dose: 10 mg Results - Results Labs/Vitals: Laboratory Last Values WBC 4.9 K/mm3 (4.5-11.0) 03/31/22 00:09 RBC 3.90 M/mm3 (3.65-5.03) 03/31/22 00:09 Hgb 11.7 gm/dl (10.1-14.3) 03/31/22 00:09 Hct 34.9 % (30.3-42.9) 03/31/22 00:09 MCV 90 fl (79-97) 03/31/22 00:09 MCH 30 pg (28-32) 03/31/22 00:09 MCHC 34 % (30-34) 03/31/22 00:09 RDW 14.0 % (13.2-15.2) 03/31/22 00:09 Plt Count 222 K/mm3 (140-440) 03/31/22 00:09 Sodium 140 mmol/L (137-145) 03/30/22 21:28 Potassium 3.7 mmol/L (3.6-5.0) 03/30/22 21:28 Chloride 105.4 mmol/L (98-107) 03/30/22 21:28 Carbon Dioxide 20 mmol/L (22-30) L 03/30/22 21:28 Anion Gap 18 mmol/L 03/30/22 21:28 BUN 27 mg/dL (7-17) H 03/30/22 21:28 Creatinine 1.0 mg/dL (0.6-1.2) 03/30/22 21:28 Estimated GFR > 60 ml/min 03/30/22 21:28 BUN/Creatinine Ratio 27 % 03/30/22 21:28 Glucose 114 mg/dL (65-100) H 03/30/22 21:28 POC Glucose 85 mg/dL (70-105) 03/31/22 19:53 Calcium 10.1 mg/dL (8.4-10.2) 03/30/22 21:28 Magnesium 1.90 mg/dL (1.7-2.3) 03/30/22 21:28 Total Bilirubin 0.20 mg/dL (0.1-1.2) 03/30/22 21:28 AST 18 units/L (5-40) 03/30/22 21:28 ALT 10 units/L (7-56) 03/30/22 21: Alkaline Phosphatase 124 units/L (35-129) 03/30/22 21: Ammonia 14.0 umol/L (25-60) L 03/30/22 21: Total Creatine Kinase 194 units/L (30-135) H 03/30/22 21:28 Total Protein 7.7 g/dL (6.3-8.2) 03/30/22 21: Albumin 4.2 g/dL (3.9-5) 03/30/22 21: Albumin/Globulin Ratio 1.2 % 03/30/22 21:28 TSH 3.450 mlU/mL (0.270-4.200) 03/30/22 21:28 Urine Color Yellow (Yellow) 03/30/22 Unknown Urine Turbidity Clear (Clear) 03/30/22 Unknown Urine pH 5.0 (5.0-7.0) 03/30/22 Unknown Ur Specific [place] 1.024 (1.003-1.030) 03/30/22 Unknown Urine Protein 30 mg/dl mg/dL (Negative) 03/30/22 Unknown Urine Glucose (UA) Neg mg/dL (Negative) 03/30/22 Unknown Urine Ketones Tr mg/dL (Negative) 03/30/22 Unknown Urine Blood Neg (Negative) 03/30/22 Unknown Urine Nitrite Neg (Negative) 03/30/22 Unknown Urine Bilirubin Neg (Negative) 03/30/22 Unknown Urine Urobilinogen < 2.0 mg/dL (<2.0) 03/30/22 Unknown Ur Leukocyte Esterase Neg (Negative) 03/30/22 Unknown Urine WBC (Auto) 3.0 /HPF (0.0-6.0) 03/30/22 Unknown Urine RBC (Auto) 14.0 /HPF (0.0-6.0) 03/30/22 Unknown U Epithel Cells (Auto) < 1.0 /HPF (0-13.0) 03/30/22 Unknown Hyaline Casts 2 /LPF 03/30/22 Unknown Urine Mucus 2+ /HPF 03/30/22 Unknown Salicylates < 0.3 mg/dL (2.8-20.0) L 03/30/22 21:28 Urine Opiates Screen Presumptive negative 03/30/22 Unknown Urine Methadone Screen Presumptive negative 03/30/22 Unknown Acetaminophen 5.0 ug/mL (10.0-30.0) L 03/30/22 21:28 Ur Barbiturates Screen Presumptive negative 03/30/22 Unknown Ur Phencyclidine Scrn Presumptive negative 03/30/22 Unknown Ur Amphetamines Screen Presumptive negative 03/30/22 Unknown U Benzodiazepines Scrn Presumptive negative 03/30/22 Unknown Urine Cocaine Screen Presumptive negative 03/30/22 Unknown U Marijuana (THC) Screen Presumptive negative 03/30/22 Unknown Drugs of Abuse Note Disclamer 03/30/22 Unknown Plasma/Serum Alcohol < 0.01 % (0-0.07) 03/30/22 21:28 SARS-CoV-2 (PCR) Positive (Negative) A 04/14/22 10:00 Last Vital Signs Temp 97.3 F L 04/02/22 08:52 Pulse 107 H 04/02/22 08:52 Resp 18 04/02/22 08:52 BP 141/117 04/02/22 08:52 Pulse Ox 98 04/02/22 08:52
[2022-04-16] MEDS: B COMPLEX W/VITAMIN C TAB PO SCH (10:00)
[2022-04-16] MEDS: clonazePAM 0.5 MG TAB PO SCH ×2 (10:00→21:01)
[2022-04-16] MEDS: ESCITALOPRAM 10 MG TAB PO SCH (10:00)
[2022-04-16] MEDS: POLYETHYLENE GLYCOL 3350 17 GM POWDER PO SCH (10:00)
[2022-04-16] MEDS: TIMOLOL 0.5% OPHTH SOLN 5 ML OU SCH (10:00)
[2022-04-16] MEDS: risperiDONE 1 MG TAB PO SCH ×2 (10:00→21:02)
[2022-04-16] MEDS: MELATONIN 5 MG TAB PO SCH (21:01)
[2022-04-16] MEDS: MIRTAZAPINE 15 MG TAB PO SCH (21:02)
[2022-04-16] MEDS: ZIPRASIDONE MESYLATE 20 MG VIAL IM PRN (22:47)
[2022-04-17] MEDS ORDERED: WATER FOR INJ Sterile (PF) 10 ML ONE ×2 (08:31→21:09)
--- NOTE | 2022-04-17 08:37 | Progress Note ---
Subjective Date of service: 04/17/22 Principal diagnosis: Dementia with behavioral disturbance, Delusional Disorder Subjective Comment: The patient was seen today. She is standing in the casas. She is confused, and rambling. She is difficult to redirect. 04/17 The patent was seen today. She is exhibiting signs of progressive dementia. She is confused and has poor insight. Her focus is poor. The patient's thoughts are disorganized. She is suspicious and refusing some meals and medications. She denies SI/HI. 04/15 The patient was seen today. She was in her room and had jammed the door with a towel. The nurse pried open. The patient was instructed not to do that again. The patient has poor insight, with disorganized thoughts. Her speech is nonsensical. She is asking "did you bring the insulin for my eye." She is calling me Kallie. The patient does say she slept good, but the nurse caring for the patient says she slept about two hours. The nurse also states the patient's appetite is not good. She denies SI/HI. 04/14 The patient was seen today. She is still psychotic. She is delusional and suspicious. She is calling me "Mrs. Arreguin." She says "gone, gone, get out of here you look like that other girl." The patient is pointing and peeping around. She says "who is that?" She points past me where nobody is standing. REVIEW OF SYSTEMS Unable to assess MENTAL STATUS EXAMINATION Unable to assess Diagnoses Dementia with Behavioral Disturbance Delusional Disorder Treatment Plan Patient admitted for inpatient psychiatric evaluation, medication adjustment and close monitoring The patient's behavior, mood, sleep and appetite will be closely monitored. Patient enrolled in individual and group therapeutic sessions and encouraged to attend. Patient provided with a safe and structured environment. Patient's physical health needs will be addressed by the Hospitalist. Hospitalist Consulted Labs including CBC, CMP, Lipid profile and Hemoglobin A1C levels ordered for baseline reference Social Assessment will be completed and the Software Development Intern will work with patient and family to ensure a suitable and safe disposition Medication adjustment will be made as clinically indicated Mirtazepine 7.5mg po qhs to stimulate appetite and induce sleep Klonopin 0.5mg po BID x 3 days Lexapro 20mg po daily Continue prn Geodon if refusing po antipsychotic [facility]Preservation: - Start Trazodone 50 mg po QHS & 50 mg po QHS PRN between 10 PM & 2 AM for insomnia - Start Melatonin 5 mg po QHS to promote circadian rhythm The patient agreed on the treatment plan, understood the risk, benefit, alternative treatment, potential consequence of no treatment, and gave informed consent. Estimated days: 7 Post hospital care: primary care provider, psychiatric provider Case staffed with Dr. Morales Medications and Allergies Allergies Allergy/AdvReac Type Severity Reaction Status Date / Time No Known Drug Allergies Allergy Unknown Unknown Verified 04/05/22 20:17 Home Medications Medication Instructions Recorded Confirmed Last Taken Type Escitalopram [Lexapro] 10 mg PO DAILY 03/31/22 03/31/22 Unknown History Melatonin [Melatonin 10MG TAB] 10 mg PO HS 03/31/22 03/31/22 Unknown History OLANZapine [Zyprexa] 5 mg PO BID 03/31/22 03/31/22 Unknown History Sertraline [Zoloft] 75 mg PO HS 03/31/22 03/31/22 Unknown History Timolol Maleate/Pf [Timolol 1 drop OU DAILY 03/31/22 03/31/22 Unknown History Maleate 0.5% Eye Drop] Vitamin B Complex [B Complex] 1 tab PO DAILY 03/31/22 03/31/22 Unknown History haloperidoL [Haldol] 5 mg PO BID 03/31/22 03/31/22 Unknown History polyethylene glycoL 3350 [Miralax 17 gm PO QDAY 03/31/22 03/31/22 Unknown History 3350] Active Meds: Active Medications Divalproex Sodium (Divalproex Dr 250 Mg Tab) 250 mg PO TID [facility] Last Admin: 04/16/22 21:01 Dose: Not Given Escitalopram Oxalate (Escitalopram 10 Mg Tab) 20 mg PO QDAY [facility] Last Admin: 04/16/22 10:00 Dose: Not Given Melatonin (Melatonin 5 Mg Tab) 10 mg PO [facility] Last Admin: 04/16/22 21:01 Dose: Not Given Mirtazapine (Mirtazapine 15 Mg Tab) 7.5 mg PO QHS [facility] Last Admin: 04/16/22 21:02 Dose: Not Given Polyethylene Glycol (Polyethylene Glycol 3350 17 Gm Powder) 17 gm PO QDAY [facility] Last Admin: 04/16/22 10:00 Dose: Not Given Risperidone (Risperidone 1 Mg Tab) 2 mg PO BID [facility] Last Admin: 04/16/22 21:02 Dose: Not Given Timolol Maleate (Timolol 0.5% Ophth Soln 5 Ml) 1 drops OU QDAY [facility] Last Admin: 04/16/22 10:00 Dose: Not Given Vitamin B Complex/Vitamin C (B Complex W/Vitamin C Tab) 1 each PO QDAY [facility] Last Admin: 04/16/22 10:00 Dose: Not Given Ziprasidone (Ziprasidone Mesylate 20 Mg Vial) 10 mg IM Q12H PRN PRN Reason: Agitation Last Admin: 04/16/22 22:47 Dose: 10 mg Results - Results Labs/Vitals: Laboratory Last Values WBC 4.9 K/mm3 (4.5-11.0) 03/31/22 00:09 RBC 3.90 M/mm3 (3.65-5.03) 03/31/22 00:09 Hgb 11.7 gm/dl (10.1-14.3) 03/31/22 00:09 Hct 34.9 % (30.3-42.9) 03/31/22 00:09 MCV 90 fl (79-97) 03/31/22 00:09 MCH 30 pg (28-32) 03/31/22 00:09 MCHC 34 % (30-34) 03/31/22 00:09 RDW 14.0 % (13.2-15.2) 03/31/22 00:09 Plt Count 222 K/mm3 (140-440) 03/31/22 00:09 Sodium 140 mmol/L (137-145) 03/30/22 21:28 Potassium 3.7 mmol/L (3.6-5.0) 03/30/22 21:28 Chloride 105.4 mmol/L (98-107) 03/30/22 21:28 Carbon Dioxide 20 mmol/L (22-30) L 03/30/22 21:28 Anion Gap 18 mmol/L 03/30/22 21:28 BUN 27 mg/dL (7-17) H 03/30/22 21:28 Creatinine 1.0 mg/dL (0.6-1.2) 03/30/22 21:28 Estimated GFR > 60 ml/min 03/30/22 21:28 BUN/Creatinine Ratio 27 % 03/30/22 21:28 Glucose 114 mg/dL (65-100) H 03/30/22 21:28 POC Glucose 85 mg/dL (70-105) 03/31/22 19:53 Calcium 10.1 mg/dL (8.4-10.2) 03/30/22 21:28 Magnesium 1.90 mg/dL (1.7-2.3) 03/30/22 21: Total Bilirubin 0.20 mg/dL (0.1-1.2) 03/30/22 21:28 AST 18 units/L (5-40) 03/30/22 21: ALT 10 units/L (7-56) 03/30/22 21: Alkaline Phosphatase 124 units/L (35-129) 03/30/22 21: Ammonia 14.0 umol/L (25-60) L 03/30/22 21: Total Creatine Kinase 194 units/L (30-135) H 03/30/22 21:28 Total Protein 7.7 g/dL (6.3-8.2) 03/30/22 21: Albumin 4.2 g/dL (3.9-5) 03/30/22 21: Albumin/Globulin Ratio 1.2 % 03/30/22 21: TSH 3.450 mlU/mL (0.270-4.200) 03/30/22 21:28 Urine Color Yellow (Yellow) 03/30/22 Unknown Urine Turbidity Clear (Clear) 03/30/22 Unknown Urine pH 5.0 (5.0-7.0) 03/30/22 Unknown Ur Specific [place] 1.024 (1.003-1.030) 03/30/22 Unknown Urine Protein 30 mg/dl mg/dL (Negative) 03/30/22 Unknown Urine Glucose (UA) Neg mg/dL (Negative) 03/30/22 Unknown Urine Ketones Tr mg/dL (Negative) 03/30/22 Unknown Urine Blood Neg (Negative) 03/30/22 Unknown Urine Nitrite Neg (Negative) 03/30/22 Unknown Urine Bilirubin Neg (Negative) 03/30/22 Unknown Urine Urobilinogen < 2.0 mg/dL (<2.0) 03/30/22 Unknown Ur Leukocyte Esterase Neg (Negative) 03/30/22 Unknown Urine WBC (Auto) 3.0 /HPF (0.0-6.0) 03/30/22 Unknown Urine RBC (Auto) 14.0 /HPF (0.0-6.0) 03/30/22 Unknown U Epithel Cells (Auto) < 1.0 /HPF (0-13.0) 03/30/22 Unknown Hyaline Casts 2 /LPF 03/30/22 Unknown Urine Mucus 2+ /HPF 03/30/22 Unknown Salicylates < 0.3 mg/dL (2.8-20.0) L 03/30/22 21:28 Urine Opiates Screen Presumptive negative 03/30/22 Unknown Urine Methadone Screen Presumptive negative 03/30/22 Unknown Acetaminophen 5.0 ug/mL (10.0-30.0) L 03/30/22 21:28 Ur Barbiturates Screen Presumptive negative 03/30/22 Unknown Ur Phencyclidine Scrn Presumptive negative 03/30/22 Unknown Ur Amphetamines Screen Presumptive negative 03/30/22 Unknown U Benzodiazepines Scrn Presumptive negative 03/30/22 Unknown Urine Cocaine Screen Presumptive negative 03/30/22 Unknown U Marijuana (THC) Screen Presumptive negative 03/30/22 Unknown Drugs of Abuse Note Disclamer 03/30/22 Unknown Plasma/Serum Alcohol < 0.01 % (0-0.07) 03/30/22 21:28 SARS-CoV-2 (PCR) Positive (Negative) A 04/14/22 10:00 Last Vital Signs Temp 97.3 F L 04/02/22 08:52 Pulse 107 H 04/02/22 08:52 Resp 18 04/02/22 08:52 BP 141/117 04/02/22 08:52 Pulse Ox 98 04/02/22 08:52
[2022-04-17] MEDS: B COMPLEX W/VITAMIN C TAB PO SCH (09:48)
[2022-04-17] MEDS: DIVALPROEX DR 250 MG TAB PO SCH ×3 (09:48→21:04)
[2022-04-17] MEDS: ESCITALOPRAM 10 MG TAB PO SCH (09:48)
[2022-04-17] MEDS: TIMOLOL 0.5% OPHTH SOLN 5 ML OU SCH (09:49)
[2022-04-17] MEDS: POLYETHYLENE GLYCOL 3350 17 GM POWDER PO SCH (09:49)
[2022-04-17] MEDS: ZIPRASIDONE MESYLATE 20 MG VIAL IM PRN ×2 (09:49→21:11)
[2022-04-17] MEDS: risperiDONE 1 MG TAB PO SCH ×2 (09:49→21:04)
[2022-04-17] MEDS: MIRTAZAPINE 15 MG TAB PO SCH (21:04)
[2022-04-17] MEDS: ZINC SULFATE 220 MG CAP PO SCH (21:04)
[2022-04-17] MEDS: ASCORBIC ACID 500 MG TAB PO SCH (21:04)
[2022-04-17] MEDS: MELATONIN 5 MG TAB PO SCH (21:04)
--- NOTE | 2022-04-18 08:45 | Discharge Summary ---
Providers - Providers Date of Admission: 03/31/22 14:06 Date of discharge: 04/18/22 Attending physician: HEATHER LANIER MD Primary care physician: FALGUNI CERVANTES Hospitalization Reason for admission: delusional Admitting Diagnosis: F02.81 - DEMENTIA IN OTH DISEASES CLASSD ELSWHR W BEHAVIORAL DISTURB Condition: Stable Hospital course: The patient was provided inpatient psychiatric treatment with safe and supportive care, medication adjustment, adverse effect monitoring, medical evaluations, medical treatments, assessment and psycho-education. The patient's mood, cognition, behavior, moral support are improved and stabilized. St the time of discharge, the patient had no endangering behavior and no debilitating adverse effects. The patient agreed on potential consequences of no treatment and gave informed consent. 04/18 The patient was seen today. She is lying across the bed with her Bible in her hand. She is confused, but slightly easier to redirect this morning. She asks "did you read your Bible." When asking how did she feel, the patient says "I feel good, now get out of my room." 04/17 The patient was seen today. She is standing in the casas. She is confused, and rambling. She is difficult to redirect. 04/16 The patent was seen today. She is exhibiting signs of progressive dementia. She is confused and has poor insight. Her focus is poor. The patient's thoughts are disorganized. She is suspicious and refusing some meals and medications. She denies SI/HI. 04/15 The patient was seen today. She was in her room and had jammed the door with a towel. The nurse pried open. The patient was instructed not to do that again. The patient has poor insight, with disorganized thoughts. Her speech is nonsensical. She is asking "did you bring the insulin for my eye." She is calling me Kallie. The patient does say she slept good, but the nurse caring for the patient says she slept about two hours. The nurse also states the patient's appetite is not good. She denies SI/HI. 04/14 The patient was seen today. She is still psychotic. She is delusional and suspicious. She is calling me "Mrs. Arreguin." She says "gone, gone, get out of here you look like that other girl." The patient is pointing and peeping around. She says "who is that?" She points past me where nobody is standing. 04/12/22 Patient seen today in her room. Patient tells me to "get out". Patient refusing all medications and eating very little breakfast. Patient given prn haldol during the night. 04/11 Patient seen today walking down the hallway. Patient asked how she was doing and states "I feel fine" and kept on walking. Patient didnt answer any more questions. Nursing staff states patient takes her time with eating, but tesfaye l eventually finish her food. Patient took her shower today and was appropriately dressed. 04/10/2022 Patient seen this morning, uneaten breakfast on her table. Patient states " you can have the food, i don't like grits" Patient very aggressive, cursing and kicking staff and myself. Patient refusing to take vitals.Patient thoughts are disorganized. 04/09/2022 Patient seen today in her room. Patient told me to " go out of here you bitch". Patient refusing to take her medications and also refusing to eat. 04/08/22 Patient seen today in her room. She was rambling and telling us to get out of her room, patient had tolet paper everywhere on the floor. patient has been refusing her meds and staff stated that she had been eating the hand soap. Sertraline increased. 04/07/22 Patient seen today. Patient still very delusional and suspicious. Patient kept pushing the door and didn't want us to come in. 04/06/22 The patient was seen today. She is delusional and suspicious. She is referring to me as "Mrs. Arreguin." She says "I'm just a lil baby lawson." The patient tells me to leave her alone and go on. She is staring and looking around. 04/05/22 The patient was seen today. Her thoughts are disorganized. She is paranoid and delusional. She is calling me Kallie. She says "get out of here with you yellow hair and white face. You want to be white." The patient says "where is your . Get out of here, you gone ." She pushes me out of her room. 04/04/22 The patient was seen today. Her thoughts are disorganized. She is paranoid and delusional. She slams her room door in my face and tells met "get out of here, Kallie." I try to open the door, she opens it slightly and is standing behind it. She says "you are doing everything in your power to be white. Get away from me, Kallie." The patient then starts asking for people who are not there. 04/03/22 The patient was seen today. Her thoughts are disorganized. She is paranoid and delusional. She is calling me Kallie and tells me to get out of her room. She says "I'm not talking to you, Kallie. You had that music loud." She then says "God made me the little lady lawson. I wasn't trying to be white." 04/02/22 The patient was seen today. Her thoughts are disorganized. She is suspicious, and looking around. She is mumbling. She asks "how are you and Deepthi doing." She then starts whispering and staring at me. She then points and says "there's your recipe. Go talk to Deepthi." 04/01/22 The patient was seen today. She was first seen by me in the ER. At that time her thoughts were disorganized and she was delusional. Today the patient is paranoid and delusional. She is talking to herself at times. She says "there are no children here." She then tells me that her clothes are missing because her sisters are here taking them. The patient then says "I'm not talking to you anymore." She starts to walk off. She says "and you are not Kari. You didn't use to look like this." She refuses to further speak with me. Disposition: 30 STILL A PATIENT Time spent for discharge: 45 Allergies/Adverse Reactions: Allergies No Known Drug Allergies Allergy (Unknown, Verified 04/05/22 20:17) Unknown Vital Signs: Last Vital Signs Temp 97.3 F L 04/02/22 08:52 Pulse 107 H 04/02/22 08:52 Resp 18 04/02/22 08:52 BP 141/117 04/02/22 08:52 Pulse Ox 98 04/02/22 08:52 Last Lab: Laboratory Last Values WBC 4.9 K/mm3 (4.5-11.0) 03/31/22 00:09 RBC 3.90 M/mm3 (3.65-5.03) 03/31/22 00:09 Hgb 11.7 gm/dl (10.1-14.3) 03/31/22 00:09 Hct 34.9 % (30.3-42.9) 03/31/22 00:09 MCV 90 fl (79-97) 03/31/22 00:09 MCH 30 pg (28-32) 03/31/22 00:09 MCHC 34 % (30-34) 03/31/22 00:09 RDW 14.0 % (13.2-15.2) 03/31/22 00:09 Plt Count 222 K/mm3 (140-440) 03/31/22 00:09 Sodium 140 mmol/L (137-145) 03/30/22 21:28 Potassium 3.7 mmol/L (3.6-5.0) 03/30/22 21:28 Chloride 105.4 mmol/L (98-107) 03/30/22 21:28 Carbon Dioxide 20 mmol/L (22-30) L 03/30/22 21:28 Anion Gap 18 mmol/L 03/30/22 21:28 BUN 27 mg/dL (7-17) H 03/30/22 21:28 Creatinine 1.0 mg/dL (0.6-1.2) 03/30/22 21:28 Estimated GFR > 60 ml/min 03/30/22 21:28 BUN/Creatinine Ratio 27 % 03/30/22 21:28 Glucose 114 mg/dL (65-100) H 03/30/22 21:28 POC Glucose 85 mg/dL (70-105) 03/31/22 19:53 Calcium 10.1 mg/dL (8.4-10.2) 03/30/22 21:28 Magnesium 1.90 mg/dL (1.7-2.3) 03/30/22 21:28 Total Bilirubin 0.20 mg/dL (0.1-1.2) 03/30/22 21:28 AST 18 units/L (5-40) 03/30/22 21:28 ALT 10 units/L (7-56) 03/30/22 21:28 Alkaline Phosphatase 124 units/L (35-129) 03/30/22 21:28 Ammonia 14.0 umol/L (25-60) L 03/30/22 21: Total Creatine Kinase 194 units/L (30-135) H 03/30/22 21:28 Total Protein 7.7 g/dL (6.3-8.2) 03/30/22 21: Albumin 4.2 g/dL (3.9-5) 03/30/22 21: Albumin/Globulin Ratio 1.2 % 03/30/22 21: TSH 3.450 mlU/mL (0.270-4.200) 03/30/22 21:28 Urine Color Yellow (Yellow) 03/30/22 Unknown Urine Turbidity Clear (Clear) 03/30/22 Unknown Urine pH 5.0 (5.0-7.0) 03/30/22 Unknown Ur Specific [place] 1.024 (1.003-1.030) 03/30/22 Unknown Urine Protein 30 mg/dl mg/dL (Negative) 03/30/22 Unknown Urine Glucose (UA) Neg mg/dL (Negative) 03/30/22 Unknown Urine Ketones Tr mg/dL (Negative) 03/30/22 Unknown Urine Blood Neg (Negative) 03/30/22 Unknown Urine Nitrite Neg (Negative) 03/30/22 Unknown Urine Bilirubin Neg (Negative) 03/30/22 Unknown Urine Urobilinogen < 2.0 mg/dL (<2.0) 03/30/22 Unknown Ur Leukocyte Esterase Neg (Negative) 03/30/22 Unknown Urine WBC (Auto) 3.0 /HPF (0.0-6.0) 03/30/22 Unknown Urine RBC (Auto) 14.0 /HPF (0.0-6.0) 03/30/22 Unknown U Epithel Cells (Auto) < 1.0 /HPF (0-13.0) 03/30/22 Unknown Hyaline Casts 2 /LPF 03/30/22 Unknown Urine Mucus 2+ /HPF 03/30/22 Unknown Salicylates < 0.3 mg/dL (2.8-20.0) L 03/30/22 21:28 Urine Opiates Screen Presumptive negative 03/30/22 Unknown Urine Methadone Screen Presumptive negative 03/30/22 Unknown Acetaminophen 5.0 ug/mL (10.0-30.0) L 03/30/22 21:28 Ur Barbiturates Screen Presumptive negative 03/30/22 Unknown Ur Phencyclidine Scrn Presumptive negative 03/30/22 Unknown Ur Amphetamines Screen Presumptive negative 03/30/22 Unknown U Benzodiazepines Scrn Presumptive negative 03/30/22 Unknown Urine Cocaine Screen Presumptive negative 03/30/22 Unknown U Marijuana (THC) Screen Presumptive negative 03/30/22 Unknown Drugs of Abuse Note Disclamer 03/30/22 Unknown Plasma/Serum Alcohol < 0.01 % (0-0.07) 03/30/22 21:28 SARS-CoV-2 (PCR) Positive (Negative) A 04/14/22 10:00 Core Measure Documentation - Palliative Care Palliative Care/ Comfort Measures: Not Applicable - Core Measures Any of the following diagnoses?: none Exam - Constitutional Vitals: Temp Pulse Resp BP Pulse Ox 97.3 F L 107 H 18 141/117 98 04/02/22 08:52 04/02/22 08:52 04/02/22 08:52 04/02/22 08:52 04/02/22 08:52 General appearance: Present: no acute distress - EENT Eyes: Present: PERRL, EOM intact ENT: hearing intact, clear oral mucosa - Neck Neck: Present: supple, normal ROM - Respiratory Respiratory effort: normal Plan Activity: advance as tolerated Weight Bearing Status: Weight Bear as Tolerated Care Plan Goals: Maintain good and stable mental health Plan of Treatment: The patient should be compliant with medications, not to use drugs, and not to drink alcohol. The patient understands that if suicidal ideas, homicidal ideas or any endangering feeling arise, the patient should seek assistance including, but not limited to crisis hotline, and emergency room. Assessment: Dementia with Behavioral Disturbance Follow up with: FALGUNI CERVANTES MD [Primary Care Provider] - 3-5 Days Prescriptions: Mirtazapine [Remeron 15mg TAB] 15 mg PO QHS #[address] [Depakote Dr] 250 mg PO TID #90 tablet Escitalopram [Lexapro] 20 mg PO QDAY #60 tablet risperiDONE [RisperDAL] 2 mg PO BID #120 tablet
--- NOTE | 2022-04-18 09:38 | Progress Note ---
Subjective Date of service: 04/18/22 Principal diagnosis: Dementia with behavioral disturbance, Delusional Disorder Subjective Comment: The patient was seen today. She is lying across the bed with her Bible in her hand. She is confused, but slightly easier to redirect this morning. She asks "did you read your Bible." When asking how did she feel, the patient says "I feel good, now get out of my room." 04/17 The patient was seen today. She is standing in the casas. She is confused, and rambling. She is difficult to redirect. 04/16 The patent was seen today. She is exhibiting signs of progressive dementia. She is confused and has poor insight. Her focus is poor. The patient's thoughts are disorganized. She is suspicious and refusing some meals and medications. She denies SI/HI. 04/15 The patient was seen today. She was in her room and had jammed the door with a towel. The nurse pried open. The patient was instructed not to do that again. The patient has poor insight, with disorganized thoughts. Her speech is nonsensical. She is asking "did you bring the insulin for my eye." She is calling me Kallie. The patient does say she slept good, but the nurse caring for the patient says she slept about two hours. The nurse also states the patient's appetite is not good. She denies SI/HI. 04/14 The patient was seen today. She is still psychotic. She is delusional and suspicious. She is calling me "Mrs. Arreguin." She says "gone, gone, get out of here you look like that other girl." The patient is pointing and peeping around. She says "who is that?" She points past me where nobody is standing. REVIEW OF SYSTEMS Unable to assess MENTAL STATUS EXAMINATION Unable to assess Diagnoses Dementia with Behavioral Disturbance Delusional Disorder Treatment Plan Patient admitted for inpatient psychiatric evaluation, medication adjustment and close monitoring The patient's behavior, mood, sleep and appetite will be closely monitored. Patient enrolled in individual and group therapeutic sessions and encouraged to attend. Patient provided with a safe and structured environment. Patient's physical health needs will be addressed by the Hospitalist. Hospitalist Consulted Labs including CBC, CMP, Lipid profile and Hemoglobin A1C levels ordered for baseline reference Social Assessment will be completed and the Sleeper Cutter will work with patient and family to ensure a suitable and safe disposition Medication adjustment will be made as clinically indicated Mirtazepine 7.5mg po qhs to stimulate appetite and induce sleep Klonopin 0.5mg po BID x 3 days Lexapro 20mg po daily Continue prn Geodon if refusing po antipsychotic Usual Wellness Worship/Preservation: - Start Trazodone 50 mg po QHS & 50 mg po QHS PRN between 10 PM & 2 AM for insomnia - Start Melatonin 5 mg po QHS to promote circadian rhythm The patient agreed on the treatment plan, understood the risk, benefit, alternative treatment, potential consequence of no treatment, and gave informed consent. Estimated days: 7 Post hospital care: primary care provider, psychiatric provider Case staffed with Dr. Morales Medications and Allergies Allergies Allergy/AdvReac Type Severity Reaction Status Date / Time No Known Drug Allergies Allergy Unknown Unknown Verified 04/05/22 20:17 Home Medications Medication Instructions Recorded Confirmed Last Taken Type Melatonin [Melatonin 10MG TAB] 10 mg PO HS 03/31/22 03/31/22 Unknown History Sertraline [Zoloft] 75 mg PO HS 03/31/22 03/31/22 Unknown History Timolol Maleate/Pf [Timolol 1 drop OU DAILY 03/31/22 03/31/22 Unknown History Maleate 0.5% Eye Drop] Vitamin B Complex [B Complex] 1 tab PO DAILY 03/31/22 03/31/22 Unknown History polyethylene glycoL 3350 [Miralax 17 gm PO QDAY 03/31/22 03/31/22 Unknown History 3350] Divalproex Dr [Julianna Rice] 250 mg PO TID #90 tablet 04/18/22 Unknown Rx Escitalopram [Lexapro] 20 mg PO QDAY #60 tablet 04/18/22 Unknown Rx Mirtazapine [Remeron 15mg TAB] 15 mg PO QHS #30 tablet 04/18/22 Unknown Rx risperiDONE [RisperDAL] 2 mg PO BID #120 tablet 04/18/22 Unknown Rx Active Meds: Active Medications Ascorbic Acid (Ascorbic Acid 500 Mg Tab) 500 mg PO BID [facility] Last Admin: 04/17/22 21:04 Dose: Not Given Cholecalciferol (Cholecalciferol (Vit D3) 400 Unit Tab) 1,000 unit PO QDAY [facility] Divalproex Sodium (Divalproex Dr 250 Mg Tab) 250 mg PO TID [facility] Last Admin: 04/17/22 21:04 Dose: Not Given Escitalopram Oxalate (Escitalopram 10 Mg Tab) 20 mg PO QDAY [facility] Last Admin: 04/17/22 09:48 Dose: Not Given Melatonin (Melatonin 5 Mg Tab) 10 mg PO HS [facility] Last Admin: 04/17/22 21:04 Dose: Not Given Mirtazapine (Mirtazapine 15 Mg Tab) 15 mg PO QHS [facility] Last Admin: 04/17/22 21:04 Dose: Not Given Polyethylene Glycol (Polyethylene Glycol 3350 17 Gm Powder) 17 gm PO QDAY [facility] Last Admin: 04/17/22 09:49 Dose: Not Given Risperidone (Risperidone 1 Mg Tab) 2 mg PO BID [facility] Last Admin: 04/17/22 21:04 Dose: Not Given Timolol Maleate (Timolol 0.5% Ophth Soln 5 Ml) 1 drops OU QDAY [facility] Last Admin: 04/17/22 09:49 Dose: Not Given Vitamin B Complex/Vitamin C (B Complex W/Vitamin C Tab) 1 each PO QDAY [facility] Last Admin: 04/17/22 09:48 Dose: Not Given Zinc Sulfate (Zinc Sulfate 220 Mg Cap) 220 mg PO BID [facility] Last Admin: 04/17/22 21:04 Dose: Not Given Ziprasidone (Ziprasidone Mesylate 20 Mg Vial) 10 mg IM Q4H PRN PRN Reason: Agitation Last Admin: 04/17/22 21:11 Dose: 10 mg Results - Results Labs/Vitals: Laboratory Last Values WBC 4.9 K/mm3 (4.5-11.0) 03/31/22 00:09 RBC 3.90 M/mm3 (3.65-5.03) 03/31/22 00:09 Hgb 11.7 gm/dl (10.1-14.3) 03/31/22 00:09 Hct 34.9 % (30.3-42.9) 03/31/22 00:09 MCV 90 fl (79-97) 03/31/22 00:09 MCH 30 pg (28-32) 03/31/22 00:09 MCHC 34 % (30-34) 03/31/22 00:09 RDW 14.0 % (13.2-15.2) 03/31/22 00:09 Plt Count 222 K/mm3 (140-440) 03/31/22 00:09 Sodium 140 mmol/L (137-145) 03/30/22 21:28 Potassium 3.7 mmol/L (3.6-5.0) 03/30/22 21:28 Chloride 105.4 mmol/L (98-107) 03/30/22 21:28 Carbon Dioxide 20 mmol/L (22-30) L 03/30/22 21:28 Anion Gap 18 mmol/L 03/30/22 21:28 BUN 27 mg/dL (7-17) H 03/30/22 21:28 Creatinine 1.0 mg/dL (0.6-1.2) 03/30/22 21:28 Estimated GFR > 60 ml/min 03/30/22 21:28 BUN/Creatinine Ratio 27 % 03/30/22 21:28 Glucose 114 mg/dL (65-100) H 03/30/22 21:28 POC Glucose 85 mg/dL (70-105) 03/31/22 19:53 Calcium 10.1 mg/dL (8.4-10.2) 03/30/22 21:28 Magnesium 1.90 mg/dL (1.7-2.3) 03/30/22 21:28 Total Bilirubin 0.20 mg/dL (0.1-1.2) 03/30/22 21:28 AST 18 units/L (5-40) 03/30/22 21:28 ALT 10 units/L (7-56) 03/30/22 21:28 Alkaline Phosphatase 124 units/L (35-129) 03/30/22 21:28 Ammonia 14.0 umol/L (25-60) L 03/30/22 21:28 Total Creatine Kinase 194 units/L (30-135) H 03/30/22 21:28 Total Protein 7.7 g/dL (6.3-8.2) 03/30/22 21:28 Albumin 4.2 g/dL (3.9-5) 03/30/22 21:28 Albumin/Globulin Ratio 1.2 % 03/30/22 21:28 TSH 3.450 mlU/mL (0.270-4.200) 03/30/22 21:28 Urine Color Yellow (Yellow) 03/30/22 Unknown Urine Turbidity Clear (Clear) 03/30/22 Unknown Urine pH 5.0 (5.0-7.0) 03/30/22 Unknown Ur Specific [place] 1.024 (1.003-1.030) 03/30/22 Unknown Urine Protein 30 mg/dl mg/dL (Negative) 03/30/22 Unknown Urine Glucose (UA) Neg mg/dL (Negative) 03/30/22 Unknown Urine Ketones Tr mg/dL (Negative) 03/30/22 Unknown Urine Blood Neg (Negative) 03/30/22 Unknown Urine Nitrite Neg (Negative) 03/30/22 Unknown Urine Bilirubin Neg (Negative) 03/30/22 Unknown Urine Urobilinogen < 2.0 mg/dL (<2.0) 03/30/22 Unknown Ur Leukocyte Esterase Neg (Negative) 03/30/22 Unknown Urine WBC (Auto) 3.0 /HPF (0.0-6.0) 03/30/22 Unknown Urine RBC (Auto) 14.0 /HPF (0.0-6.0) 03/30/22 Unknown U Epithel Cells (Auto) < 1.0 /HPF (0-13.0) 03/30/22 Unknown Hyaline Casts 2 /LPF 03/30/22 Unknown Urine Mucus 2+ /HPF 03/30/22 Unknown Salicylates < 0.3 mg/dL (2.8-20.0) L 03/30/22 21:28 Urine Opiates Screen Presumptive negative 03/30/22 Unknown Urine Methadone Screen Presumptive negative 03/30/22 Unknown Acetaminophen 5.0 ug/mL (10.0-30.0) L 03/30/22 21:28 Ur Barbiturates Screen Presumptive negative 03/30/22 Unknown Ur Phencyclidine Scrn Presumptive negative 03/30/22 Unknown Ur Amphetamines Screen Presumptive negative 03/30/22 Unknown U Benzodiazepines Scrn Presumptive negative 03/30/22 Unknown Urine Cocaine Screen Presumptive negative 03/30/22 Unknown U Marijuana (THC) Screen Presumptive negative 03/30/22 Unknown Drugs of Abuse Note Disclamer 03/30/22 Unknown Plasma/Serum Alcohol < 0.01 % (0-0.07) 03/30/22 21:28 SARS-CoV-2 (PCR) Positive (Negative) A 04/14/22 10:00 Last Vital Signs Temp 97.3 F L 04/02/22 08:52 Pulse 107 H 04/02/22 08:52 Resp 18 04/02/22 08:52 BP 141/117 04/02/22 08:52 Pulse Ox 98 04/02/22 08:52
[2022-04-18] MEDS: B COMPLEX W/VITAMIN C TAB PO SCH (10:11)
[2022-04-18] MEDS: DIVALPROEX DR 250 MG TAB PO SCH ×3 (10:11→22:02)
[2022-04-18] MEDS: ESCITALOPRAM 10 MG TAB PO SCH (10:11)
[2022-04-18] MEDS: POLYETHYLENE GLYCOL 3350 17 GM POWDER PO SCH (10:12)
[2022-04-18] MEDS: TIMOLOL 0.5% OPHTH SOLN 5 ML OU SCH (10:13)
[2022-04-18] MEDS: risperiDONE 1 MG TAB PO SCH ×2 (10:13→22:02)
[2022-04-18] MEDS: ASCORBIC ACID 500 MG TAB PO SCH ×2 (10:13→22:02)
[2022-04-18] MEDS: CHOLECALCIFEROL (VIT D3) 400 UNIT TAB PO SCH (10:14)
[2022-04-18] MEDS: ZINC SULFATE 220 MG CAP PO SCH ×2 (10:14→22:02)
--- NOTE | 2022-04-18 20:36 | Progress Note ---
Assessment and Plan - Patient Problems (1) Vascular dementia with behavioral disturbance Current Visit: Yes Status: Acute Plan to address problem: Verbal prompting, verbal redirection, benzodiazepine therapy as clinically indicated. (2) Cerebral atherosclerosis Current Visit: Yes Status: Acute Plan to address problem: Risk factor reduction, antiplatelet therapy as clinically indicated. (3) Hyperlipidemia Current Visit: Yes Status: Acute Qualifiers: Hyperlipidemia type: mixed hyperlipidemia Qualified Code(s): E78.2 - Mixed hyperlipidemia Plan to address problem: Statin therapy, balanced diet, low-cholesterol diet. (4) Hypertension Current Visit: Yes Status: Acute Qualifiers: Hypertension type: primary hypertension Qualified Code(s): I10 - Essential (primary) hypertension Plan to address problem: Monitor blood pressure every shift, continue medical management. (5) Osteoarthritis Current Visit: Yes Status: Acute Plan to address problem: Pain control, supportive care. (6) Seizure disorder Current Visit: Yes Status: Acute Plan to address problem: Continue current management. No active seizure activity at this time. (7) Vertigo Current Visit: Yes Status: Acute Plan to address problem: Supportive care, meclizine as needed. (8) Advance care planning Current Visit: Yes Status: Acute Plan to address problem: Disease education done, care plan discussed, diagnoses discussed, prognosis discussed, patient is full code. +30 minutes. (9) Preventative health care Current Visit: Yes Status: Acute Plan to address problem: Patient counseled regarding home safety, fall precautions, outpatient follow-up with primary care physician for all age and risk factor appropriate screening test. +30 minutes. History Interval history: 81 YO Female with Vascular Dementia, Cerebral Atherosclerosis, HTN, HLD, DM, OA, Seizure Disorder, Schizophrenia, ARLETH admitted to [facility] for psychiatric stabilization. Consult placed by Dr. Park for medical management. Patient seen and evaluated in the recreation room. Patient appears to be at baseline level of cognition and function. Hospitalist Physical - Constitutional Vitals: Temp Pulse Resp BP Pulse Ox 97.3 F L 107 H 18 141/117 98 04/02/22 08:52 04/02/22 08:52 04/02/22 08:52 04/02/22 08:52 04/02/22 08:52 General appearance: Present: no acute distress - EENT Eyes: Present: PERRL ENT: hearing decreased - Neck Neck: Present: supple - Respiratory Respiratory effort: normal Respiratory: bilateral: diminished - Cardiovascular Rhythm: regular Heart Sounds: Present: S1 & S2 - Extremities Extremities: no ischemia Peripheral Pulses: within normal limits - Abdominal General gastrointestinal: soft, non-tender, non-distended - Integumentary Integumentary: Present: clear, dry - Psychiatric Psychiatric: cooperative - Neurologic Neurologic: CNII-XII intact Results - Labs CBC & Chem 7: 03/31/22 00:09 03/30/22 21:28 Labs: Laboratory Last Values WBC 4.9 K/mm3 (4.5-11.0) 03/31/22 00:09 RBC 3.90 M/mm3 (3.65-5.03) 03/31/22 00:09 Hgb 11.7 gm/dl (10.1-14.3) 03/31/22 00:09 Hct 34.9 % (30.3-42.9) 03/31/22 00:09 MCV 90 fl (79-97) 03/31/22 00:09 MCH 30 pg (28-32) 03/31/22 00:09 MCHC 34 % (30-34) 03/31/22 00:09 RDW 14.0 % (13.2-15.2) 03/31/22 00:09 Plt Count 222 K/mm3 (140-440) 03/31/22 00:09 Sodium 140 mmol/L (137-145) 03/30/22 21:28 Potassium 3.7 mmol/L (3.6-5.0) 03/30/22 21:28 Chloride 105.4 mmol/L (98-107) 03/30/22 21:28 Carbon Dioxide 20 mmol/L (22-30) L 03/30/22 21:28 Anion Gap 18 mmol/L 03/30/22 21:28 BUN 27 mg/dL (7-17) H 03/30/22 21:28 Creatinine 1.0 mg/dL (0.6-1.2) 03/30/22 21:28 Estimated GFR > 60 ml/min 03/30/22 21:28 BUN/Creatinine Ratio 27 % 03/30/22 21:28 Glucose 114 mg/dL (65-100) H 03/30/22 21:28 POC Glucose 85 mg/dL (70-105) 03/31/22 19:53 Calcium 10.1 mg/dL (8.4-10.2) 03/30/22 21:28 Magnesium 1.90 mg/dL (1.7-2.3) 03/30/22 21: Total Bilirubin 0.20 mg/dL (0.1-1.2) 03/30/22 21:28 AST 18 units/L (5-40) 03/30/22 21:28 ALT 10 units/L (7-56) 03/30/22 21:28 Alkaline Phosphatase 124 units/L (35-129) 03/30/22 21:28 Ammonia 14.0 umol/L (25-60) L 03/30/22 21: Total Creatine Kinase 194 units/L (30-135) H 03/30/22 21: Total Protein 7.7 g/dL (6.3-8.2) 03/30/22 21: Albumin 4.2 g/dL (3.9-5) 03/30/22 21: Albumin/Globulin Ratio 1.2 % 03/30/22 21: TSH 3.450 mlU/mL (0.270-4.200) 03/30/22 21:28 Urine Color Yellow (Yellow) 03/30/22 Unknown Urine Turbidity Clear (Clear) 03/30/22 Unknown Urine pH 5.0 (5.0-7.0) 03/30/22 Unknown Ur Specific [place] 1.024 (1.003-1.030) 03/30/22 Unknown Urine Protein 30 mg/dl mg/dL (Negative) 03/30/22 Unknown Urine Glucose (UA) Neg mg/dL (Negative) 03/30/22 Unknown Urine Ketones Tr mg/dL (Negative) 03/30/22 Unknown Urine Blood Neg (Negative) 03/30/22 Unknown Urine Nitrite Neg (Negative) 03/30/22 Unknown Urine Bilirubin Neg (Negative) 03/30/22 Unknown Urine Urobilinogen < 2.0 mg/dL (<2.0) 03/30/22 Unknown Ur Leukocyte Esterase Neg (Negative) 03/30/22 Unknown Urine WBC (Auto) 3.0 /HPF (0.0-6.0) 03/30/22 Unknown Urine RBC (Auto) 14.0 /HPF (0.0-6.0) 03/30/22 Unknown U Epithel Cells (Auto) < 1.0 /HPF (0-13.0) 03/30/22 Unknown Hyaline Casts 2 /LPF 03/30/22 Unknown Urine Mucus 2+ /HPF 03/30/22 Unknown Salicylates < 0.3 mg/dL (2.8-20.0) L 03/30/22 21:28 Urine Opiates Screen Presumptive negative 03/30/22 Unknown Urine Methadone Screen Presumptive negative 03/30/22 Unknown Acetaminophen 5.0 ug/mL (10.0-30.0) L 03/30/22 21:28 Ur Barbiturates Screen Presumptive negative 03/30/22 Unknown Ur Phencyclidine Scrn Presumptive negative 03/30/22 Unknown Ur Amphetamines Screen Presumptive negative 03/30/22 Unknown U Benzodiazepines Scrn Presumptive negative 03/30/22 Unknown Urine Cocaine Screen Presumptive negative 03/30/22 Unknown U Marijuana (THC) Screen Presumptive negative 03/30/22 Unknown Drugs of Abuse Note Disclamer 03/30/22 Unknown Plasma/Serum Alcohol < 0.01 % (0-0.07) 03/30/22 21:28 SARS-CoV-2 (PCR) Positive (Negative) A 04/18/22 Unknown Grimaldo/IV: Voiding Method Toilet Active Medications - Current Medications Current Medications: Generic Name Dose Route Start Last Admin Trade Name Chrisq PRN Reason Stop Dose Admin Ascorbic Acid 500 mg 04/17/22 22:00 04/18/22 10:13 Ascorbic Acid 500 Mg Tab PO Not Given BID [facility] Cholecalciferol 1,000 unit 04/18/22 10:00 04/18/22 10:14 Cholecalciferol (Vit D3) 400 Unit Tab PO Not Given QDAY [facility] Divalproex Sodium 250 mg 04/06/22 14:00 04/18/22 14:[address] 250 Mg Tab PO Not Given TID [facility] Escitalopram Oxalate 20 mg 04/15/22 10:00 04/18/22 10:11 Escitalopram 10 Mg Tab PO Not Given QDAY [facility] Melatonin 10 mg 04/01/22 22:00 04/17/22 21:04 Melatonin 5 Mg Tab PO Not Given HS [facility] Mirtazapine 15 mg 04/17/22 22:00 04/17/22 21:04 Mirtazapine 15 Mg Tab PO Not Given QHS [facility] Polyethylene Glycol 17 gm 04/01/22 10:00 04/18/22 10:12 Polyethylene Glycol 3350 17 Gm Powder PO Not Given QDAY [facility] Risperidone 2 mg 04/06/22 10:00 04/18/22 10:13 Risperidone 1 Mg Tab PO Not Given BID [facility] Timolol Maleate 1 drops 04/01/22 10:00 04/18/22 10:13 Timolol 0.5% Ophth Soln 5 Ml OU Not Given QDAY [facility] Vitamin B Complex/Vitamin C 1 each 04/01/22 11:00 04/18/22 10:11 B Complex W/Vitamin C Tab PO Not Given QDAY [facility] Zinc Sulfate 220 mg 04/17/22 22:00 04/18/22 10:14 Zinc Sulfate 220 Mg Cap PO Not Given BID [facility] Ziprasidone 10 mg 04/17/22 20:09 04/17/22 21:11 Ziprasidone Mesylate 20 Mg Vial IM 10 mg Q4H PRN Administration Agitation Nutrition/Malnutrition Assess - Dietary Evaluation Nutrition/Malnutrition Findings: Nutrition Notes Start: 04/07/22 12:14 Freq: Status: Active Protocol: Document 04/14/22 13:53 KAVYA (Rec: 04/14/22 14:28 KAVYA [id number]) Nutrition Notes Initial or Follow up Reassessment Other Pertinent Diagnosis COVID-19, Vascular Dementia w/ Behavioral Disturbance, Delusional Disorder. Current Diet Regular Diet (since D 04/07), D Suppl (from D 04/14). Labs/Tests 04/14: N/A. Pertinent Medications 04/14: Vit B complex, Vit C, others nutritionally unremarkable. 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 Weight Status Appropriate Subjective/Other Information RD consult for routine F/U on dietary advancement. Pt's PO intake of meals has been Negligible (0-25%) and pt is refusing to eat, according to ADL and Progress notes. I will prescribe Dietary Supplements to compensate for poor or insifficient PO intake of meals. Percent of energy/protein needs met: Prescribed Regular Diet provides for energy/protein needs (2,289 Kcal/89 g) during LOS; additionally, Dietary Supplements will compensate for possible poor or insufficient PO intake of meals with 480 Kcal and 48 g of protein. Burn Absent Trauma Absent GI Symptoms None Food Allergy No Skin Integrity/Comment Assessment WNL. 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 Diagnosis Progress(for reassessment Continues documentation) Is patient on ventilator? No Is Patient Ambulatory and/or Out of Bed Yes REE-([place]-ambulatory/OOB) [ 1523.782 [id number]] Kcal/Kg value to use for calculation 24 Approximate Energy Requirements Using 1633 kcal/Kg Calculation Used for Recommendations Kcal/kg Additional Notes Protein: 1-1.2 g/Kg ABW; 68-82 . g/day. Fluids: 1 ml/Kcal, or as per MD. Nutrition Intervention Change Diet Order: Continue Regular Diet. Add Supplement/Snack (indicate name/kcal Start 8 fl oz Ensure High /protein ) Protein; TID. Provides kCal: 480 Provides Protein (gm) 48 Goal #1 Compensate, through dietary supplementation, for possible poor or insufficient PO intake of meals during LOS. Goal #2 Adjust the dietary intervention to better serve Pt's needs and clinical conditions during LOS. Follow-Up By: 04/21/22 Additional Comments Continue monitoring food tolerance, %PO intake of meals and ONS, and BM.
--- NOTE | 2022-04-18 20:38 | Progress Note ---
Assessment and Plan - Patient Problems (1) Vascular dementia with behavioral disturbance Current Visit: Yes Status: Acute Plan to address problem: Verbal prompting, verbal redirection, benzodiazepine therapy as clinically indicated. (2) COVID-19 Current Visit: Yes Status: Acute Plan to address problem: Asymptomatic, continue current therapy (3) Cerebral atherosclerosis Current Visit: Yes Status: Acute Plan to address problem: Risk factor reduction, antiplatelet therapy as clinically indicated. (4) Hyperlipidemia Current Visit: Yes Status: Acute Qualifiers: Hyperlipidemia type: mixed hyperlipidemia Qualified Code(s): E78.2 - Mixed hyperlipidemia Plan to address problem: Statin therapy, balanced diet, low-cholesterol diet. (5) Hypertension Current Visit: Yes Status: Acute Qualifiers: Hypertension type: primary hypertension Qualified Code(s): I10 - Essential (primary) hypertension Plan to address problem: Monitor blood pressure every shift, continue medical management. (6) Osteoarthritis Current Visit: Yes Status: Acute Plan to address problem: Pain control, supportive care. (7) Seizure disorder Current Visit: Yes Status: Acute Plan to address problem: Continue current management. No active seizure activity at this time. (8) Vertigo Current Visit: Yes Status: Acute Plan to address problem: Supportive care, meclizine as needed. (9) Advance care planning Current Visit: Yes Status: Acute Plan to address problem: Disease education done, care plan discussed, diagnoses discussed, prognosis discussed, patient is full code. +30 minutes. (10) Preventative health care Current Visit: Yes Status: Acute Plan to address problem: Patient counseled regarding home safety, fall precautions, outpatient follow-up with primary care physician for all age and risk factor appropriate screening test. +30 minutes. History Interval history: 81 YO Female with Vascular Dementia, Cerebral Atherosclerosis, HTN, HLD, DM, OA, Seizure Disorder, Schizophrenia, ARLETH admitted to [facility] for psychiatric stabilization. Consult placed by Dr. Park for medical management. Patient seen and evaluated in the recreation room. Patient appears to be at baseline level of cognition and function. Asymptomatic Covid 19 infection. Hospitalist Physical - Constitutional Vitals: Temp Pulse Resp BP Pulse Ox 97.3 F L 107 H 18 141/117 98 04/02/22 08:52 04/02/22 08:52 04/02/22 08:52 04/02/22 08:52 04/02/22 08:52 General appearance: Present: no acute distress - EENT Eyes: Present: PERRL ENT: hearing intact - Neck Neck: Present: supple - Respiratory Respiratory effort: normal Respiratory: bilateral: CTA - Cardiovascular Rhythm: regular Heart Sounds: Present: S1 & S2 - Extremities Extremities: no ischemia Peripheral Pulses: within normal limits - Abdominal General gastrointestinal: soft, non-tender, non-distended - Integumentary Integumentary: Present: clear, dry - Psychiatric Psychiatric: cooperative - Neurologic Neurologic: CNII-XII intact Results - Labs CBC & Chem 7: 03/31/22 00:09 03/30/22 21:28 Labs: Laboratory Last Values WBC 4.9 K/mm3 (4.5-11.0) 03/31/22 00:09 RBC 3.90 M/mm3 (3.65-5.03) 03/31/22 00:09 Hgb 11.7 gm/dl (10.1-14.3) 03/31/22 00:09 Hct 34.9 % (30.3-42.9) 03/31/22 00:09 MCV 90 fl (79-97) 03/31/22 00:09 MCH 30 pg (28-32) 03/31/22 00:09 MCHC 34 % (30-34) 03/31/22 00:09 RDW 14.0 % (13.2-15.2) 03/31/22 00:09 Plt Count 222 K/mm3 (140-440) 03/31/22 00:09 Sodium 140 mmol/L (137-145) 03/30/22 21:28 Potassium 3.7 mmol/L (3.6-5.0) 03/30/22 21:28 Chloride 105.4 mmol/L (98-107) 03/30/22 21:28 Carbon Dioxide 20 mmol/L (22-30) L 03/30/22 21:28 Anion Gap 18 mmol/L 03/30/22 21:28 BUN 27 mg/dL (7-17) H 03/30/22 21:28 Creatinine 1.0 mg/dL (0.6-1.2) 03/30/22 21:28 Estimated GFR > 60 ml/min 03/30/22 21:28 BUN/Creatinine Ratio 27 % 03/30/22 21:28 Glucose 114 mg/dL (65-100) H 03/30/22 21:28 POC Glucose 85 mg/dL (70-105) 03/31/22 19:53 Calcium 10.1 mg/dL (8.4-10.2) 03/30/22 21:28 Magnesium 1.90 mg/dL (1.7-2.3) 03/30/22 21: Total Bilirubin 0.20 mg/dL (0.1-1.2) 03/30/22 21:28 AST 18 units/L (5-40) 03/30/22 21:28 ALT 10 units/L (7-56) 03/30/22 21: Alkaline Phosphatase 124 units/L (35-129) 03/30/22 21: Ammonia 14.0 umol/L (25-60) L 03/30/22 21: Total Creatine Kinase 194 units/L (30-135) H 03/30/22 21:28 Total Protein 7.7 g/dL (6.3-8.2) 03/30/22 21: Albumin 4.2 g/dL (3.9-5) 03/30/22 21: Albumin/Globulin Ratio 1.2 % 03/30/22: TSH 3.450 mlU/mL (0.270-4.200) 03/30/22 21:28 Urine Color Yellow (Yellow) 03/30/22 Unknown Urine Turbidity Clear (Clear) 03/30/22 Unknown Urine pH 5.0 (5.0-7.0) 03/30/22 Unknown Ur Specific [place] 1.024 (1.003-1.030) 03/30/22 Unknown Urine Protein 30 mg/dl mg/dL (Negative) 03/30/22 Unknown Urine Glucose (UA) Neg mg/dL (Negative) 03/30/22 Unknown Urine Ketones Tr mg/dL (Negative) 03/30/22 Unknown Urine Blood Neg (Negative) 03/30/22 Unknown Urine Nitrite Neg (Negative) 03/30/22 Unknown Urine Bilirubin Neg (Negative) 03/30/22 Unknown Urine Urobilinogen < 2.0 mg/dL (<2.0) 03/30/22 Unknown Ur Leukocyte Esterase Neg (Negative) 03/30/22 Unknown Urine WBC (Auto) 3.0 /HPF (0.0-6.0) 03/30/22 Unknown Urine RBC (Auto) 14.0 /HPF (0.0-6.0) 03/30/22 Unknown U Epithel Cells (Auto) < 1.0 /HPF (0-13.0) 03/30/22 Unknown Hyaline Casts 2 /LPF 03/30/22 Unknown Urine Mucus 2+ /HPF 03/30/22 Unknown Salicylates < 0.3 mg/dL (2.8-20.0) L 03/30/22 21:28 Urine Opiates Screen Presumptive negative 03/30/22 Unknown Urine Methadone Screen Presumptive negative 03/30/22 Unknown Acetaminophen 5.0 ug/mL (10.0-30.0) L 03/30/22 21:28 Ur Barbiturates Screen Presumptive negative 03/30/22 Unknown Ur Phencyclidine Scrn Presumptive negative 03/30/22 Unknown Ur Amphetamines Screen Presumptive negative 03/30/22 Unknown U Benzodiazepines Scrn Presumptive negative 03/30/22 Unknown Urine Cocaine Screen Presumptive negative 03/30/22 Unknown U Marijuana (THC) Screen Presumptive negative 03/30/22 Unknown Drugs of Abuse Note Disclamer 03/30/22 Unknown Plasma/Serum Alcohol < 0.01 % (0-0.07) 03/30/22 21:28 SARS-CoV-2 (PCR) Positive (Negative) A 04/18/22 Unknown Grimaldo/IV: Voiding Method Toilet Active Medications - Current Medications Current Medications: Generic Name Dose Route Start Last Admin Trade Name Freq PRN Reason Stop Dose Admin Ascorbic Acid 500 mg 04/17/22 22:00 04/18/22 10:13 Ascorbic Acid 500 Mg Tab PO Not Given BID [facility] Cholecalciferol 1,000 unit 04/18/22 10:00 04/18/22 10:14 Cholecalciferol (Vit D3) 400 Unit Tab PO Not Given QDAY MARIN Divalproex Sodium 250 mg 04/06/22 14:00 04/18/22 14:[address] 250 Mg Tab PO Not Given TID MARIN Escitalopram Oxalate 20 mg 04/15/22 10:00 04/18/22 10:11 Escitalopram 10 Mg Tab PO Not Given QDAY MARIN Melatonin 10 mg 04/01/22 22:00 04/17/22 21:04 Melatonin 5 Mg Tab PO Not Given HS MARIN Mirtazapine 15 mg 04/17/22 22:00 04/17/22 21:04 Mirtazapine 15 Mg Tab PO Not Given QHS [facility] Polyethylene Glycol 17 gm 04/01/22 10:00 04/18/22 10:12 Polyethylene Glycol 3350 17 Gm Powder PO Not Given QDAY MARIN Risperidone 2 mg 04/06/22 10:00 04/18/22 10:13 Risperidone 1 Mg Tab PO Not Given BID [facility] Timolol Maleate 1 drops 04/01/22 10:00 04/18/22 10:13 Timolol 0.5% Ophth Soln 5 Ml OU Not Given QDAY MARIN Vitamin B Complex/Vitamin C 1 each 04/01/22 11:00 04/18/22 10:11 B Complex W/Vitamin C Tab PO Not Given QDAY [facility] Zinc Sulfate 220 mg 04/17/22 22:00 04/18/22 10:14 Zinc Sulfate 220 Mg Cap PO Not Given BID MARIN Ziprasidone 10 mg 04/17/22 20:09 04/17/22 21:11 Ziprasidone Mesylate 20 Mg Vial IM 10 mg Q4H PRN Administration Agitation Nutrition/Malnutrition Assess - Dietary Evaluation Nutrition/Malnutrition Findings: Nutrition Notes Start: 04/07/22 12:14 Freq: Status: Active Protocol: Document 04/14/22 13:53 KAVYA (Rec: 04/14/22 14:28 KAVYA [id number]) Nutrition Notes Initial or Follow up Reassessment Other Pertinent Diagnosis COVID-19, Vascular Dementia w/ Behavioral Disturbance, Delusional Disorder. Current Diet Regular Diet (since D 04/07), D Suppl (from D 04/14). Labs/Tests 04/14: N/A. Pertinent Medications 04/14: Vit B complex, Vit C, others nutritionally unremarkable. 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 Pt's PO intake of meals has been Negligible (0-25%) and pt is refusing to eat, according to ADL and Progress notes. I will prescribe Dietary Supplements to compensate for poor or insifficient PO intake of meals. Percent of energy/protein needs met: Prescribed Regular Diet provides for energy/protein needs (2,289 Kcal/89 g) during LOS; additionally, Dietary Supplements will compensate for possible poor or insufficient PO intake of meals with 480 Kcal and 48 g of protein. Burn Absent Trauma Absent GI Symptoms None Food Allergy No Skin Integrity/Comment Assessment WNL. 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 Diagnosis Progress(for reassessment Continues documentation) Is patient on ventilator? No Is Patient Ambulatory and/or Out of Bed Yes REE-([facility]-ambulatory/OOB) [ 1523.782 NUTR.[id number]] Kcal/Kg value to use for calculation 24 Approximate Energy Requirements Using 1633 kcal/Kg Calculation Used for Recommendations Kcal/kg Additional Notes Protein: 1-1.2 g/Kg ABW; 68-82 . g/day. Fluids: 1 ml/Kcal, or as per MD. Nutrition Intervention Change Diet Order: Continue Regular Diet. Add Supplement/Snack (indicate name/kcal Start 8 fl oz Ensure High /protein ) Protein; TID. Provides kCal: 480 Provides Protein (gm) 48 Goal #1 Compensate, through dietary supplementation, for possible poor or insufficient PO intake of meals during LOS. Goal #2 Adjust the dietary intervention to better serve Pt's needs and clinical conditions during LOS. Follow-Up By: 04/21/22 Additional Comments Continue monitoring food tolerance, %PO intake of meals and ONS, and BM.
--- NOTE | 2022-04-18 20:40 | Progress Note ---
Assessment and Plan - Patient Problems (1) Vascular dementia with behavioral disturbance Current Visit: Yes Status: Acute Plan to address problem: Verbal prompting, verbal redirection, benzodiazepine therapy as clinically indicated. (2) COVID-19 Current Visit: Yes Status: Acute Plan to address problem: Asymptomatic, continue current therapy (3) Cerebral atherosclerosis Current Visit: Yes Status: Acute Plan to address problem: Risk factor reduction, antiplatelet therapy as clinically indicated. (4) Hyperlipidemia Current Visit: Yes Status: Acute Qualifiers: Hyperlipidemia type: mixed hyperlipidemia Qualified Code(s): E78.2 - Mixed hyperlipidemia Plan to address problem: Statin therapy, balanced diet, low-cholesterol diet. (5) Hypertension Current Visit: Yes Status: Acute Qualifiers: Hypertension type: primary hypertension Qualified Code(s): I10 - Essential (primary) hypertension Plan to address problem: Monitor blood pressure every shift, continue medical management. (6) Osteoarthritis Current Visit: Yes Status: Acute Plan to address problem: Pain control, supportive care. (7) Seizure disorder Current Visit: Yes Status: Acute Plan to address problem: Continue current management. No active seizure activity at this time. (8) Vertigo Current Visit: Yes Status: Acute Plan to address problem: Supportive care, meclizine as needed. (9) Advance care planning Current Visit: Yes Status: Acute Plan to address problem: Disease education done, care plan discussed, diagnoses discussed, prognosis discussed, patient is full code. +30 minutes. (10) Preventative health care Current Visit: Yes Status: Acute Plan to address problem: Patient counseled regarding home safety, fall precautions, outpatient follow-up with primary care physician for all age and risk factor appropriate screening test. +30 minutes. History Interval history: 81 YO Female with Vascular Dementia, Cerebral Atherosclerosis, HTN, HLD, DM, OA, Seizure Disorder, Schizophrenia, ARLETH admitted to [facility] for psychiatric stabilization. Consult placed by Dr. Park for medical management. Patient seen and evaluated in the recreation room. Patient appears to be at baseline level of cognition and function. Asymptomatic Covid 19 infection. Hospitalist Physical - Constitutional Vitals: Temp Pulse Resp BP Pulse Ox 97.3 F L 107 H 18 141/117 98 04/02/22 08:52 04/02/22 08:52 04/02/22 08:52 04/02/22 08:52 04/02/22 08:52 General appearance: Present: no acute distress - EENT Eyes: Present: PERRL ENT: hearing decreased - Neck Neck: Present: supple - Respiratory Respiratory effort: normal Respiratory: bilateral: diminished - Cardiovascular Rhythm: regular Heart Sounds: Present: S1 & S2 - Extremities Extremities: no ischemia Peripheral Pulses: within normal limits - Abdominal General gastrointestinal: soft, non-tender, non-distended - Integumentary Integumentary: Present: clear, dry - Psychiatric Psychiatric: cooperative - Neurologic Neurologic: CNII-XII intact Results - Labs CBC & Chem 7: 03/31/22 00:09 03/30/22 21:28 Labs: Laboratory Last Values WBC 4.9 K/mm3 (4.5-11.0) 03/31/22 00:09 RBC 3.90 M/mm3 (3.65-5.03) 03/31/22 00:09 Hgb 11.7 gm/dl (10.1-14.3) 03/31/22 00:09 Hct 34.9 % (30.3-42.9) 03/31/22 00:09 MCV 90 fl (79-97) 03/31/22 00:09 MCH 30 pg (28-32) 03/31/22 00:09 MCHC 34 % (30-34) 03/31/22 00:09 RDW 14.0 % (13.2-15.2) 03/31/22 00:09 Plt Count 222 K/mm3 (140-440) 03/31/22 00:09 Sodium 140 mmol/L (137-145) 03/30/22 21:28 Potassium 3.7 mmol/L (3.6-5.0) 03/30/22 21:28 Chloride 105.4 mmol/L (98-107) 03/30/22 21:28 Carbon Dioxide 20 mmol/L (22-30) L 03/30/22 21:28 Anion Gap 18 mmol/L 03/30/22 21:28 BUN 27 mg/dL (7-17) H 03/30/22 21:28 Creatinine 1.0 mg/dL (0.6-1.2) 03/30/22 21:28 Estimated GFR > 60 ml/min 03/30/22 21:28 BUN/Creatinine Ratio 27 % 03/30/22 21:28 Glucose 114 mg/dL (65-100) H 03/30/22 21:28 POC Glucose 85 mg/dL (70-105) 03/31/22 19:53 Calcium 10.1 mg/dL (8.4-10.2) 03/30/22 21:28 Magnesium 1.90 mg/dL (1.7-2.3) 03/30/22 21: Total Bilirubin 0.20 mg/dL (0.1-1.2) 03/30/22 21:28 AST 18 units/L (5-40) 03/30/22 21:28 ALT 10 units/L (7-56) 03/30/22 21: Alkaline Phosphatase 124 units/L (35-129) 03/30/22 21: Ammonia 14.0 umol/L (25-60) L 03/30/22 21: Total Creatine Kinase 194 units/L (30-135) H 03/30/22 21:28 Total Protein 7.7 g/dL (6.3-8.2) 03/30/22 21: Albumin 4.2 g/dL (3.9-5) 03/30/22 21: Albumin/Globulin Ratio 1.2 % 03/30/22: TSH 3.450 mlU/mL (0.270-4.200) 03/30/22 21:28 Urine Color Yellow (Yellow) 03/30/22 Unknown Urine Turbidity Clear (Clear) 03/30/22 Unknown Urine pH 5.0 (5.0-7.0) 03/30/22 Unknown Ur Specific [place] 1.024 (1.003-1.030) 03/30/22 Unknown Urine Protein 30 mg/dl mg/dL (Negative) 03/30/22 Unknown Urine Glucose (UA) Neg mg/dL (Negative) 03/30/22 Unknown Urine Ketones Tr mg/dL (Negative) 03/30/22 Unknown Urine Blood Neg (Negative) 03/30/22 Unknown Urine Nitrite Neg (Negative) 03/30/22 Unknown Urine Bilirubin Neg (Negative) 03/30/22 Unknown Urine Urobilinogen < 2.0 mg/dL (<2.0) 03/30/22 Unknown Ur Leukocyte Esterase Neg (Negative) 03/30/22 Unknown Urine WBC (Auto) 3.0 /HPF (0.0-6.0) 03/30/22 Unknown Urine RBC (Auto) 14.0 /HPF (0.0-6.0) 03/30/22 Unknown U Epithel Cells (Auto) < 1.0 /HPF (0-13.0) 03/30/22 Unknown Hyaline Casts 2 /LPF 03/30/22 Unknown Urine Mucus 2+ /HPF 03/30/22 Unknown Salicylates < 0.3 mg/dL (2.8-20.0) L 03/30/22 21:28 Urine Opiates Screen Presumptive negative 03/30/22 Unknown Urine Methadone Screen Presumptive negative 03/30/22 Unknown Acetaminophen 5.0 ug/mL (10.0-30.0) L 03/30/22 21:28 Ur Barbiturates Screen Presumptive negative 03/30/22 Unknown Ur Phencyclidine Scrn Presumptive negative 03/30/22 Unknown Ur Amphetamines Screen Presumptive negative 03/30/22 Unknown U Benzodiazepines Scrn Presumptive negative 03/30/22 Unknown Urine Cocaine Screen Presumptive negative 03/30/22 Unknown U Marijuana (THC) Screen Presumptive negative 03/30/22 Unknown Drugs of Abuse Note Disclamer 03/30/22 Unknown Plasma/Serum Alcohol < 0.01 % (0-0.07) 03/30/22 21:28 SARS-CoV-2 (PCR) Positive (Negative) A 04/18/22 Unknown Grimaldo/IV: Voiding Method Toilet Active Medications - Current Medications Current Medications: Generic Name Dose Route Start Last Admin Trade Name Freq PRN Reason Stop Dose Admin Ascorbic Acid 500 mg 04/17/22 22:00 04/18/22 10:13 Ascorbic Acid 500 Mg Tab PO Not Given BID [facility] Cholecalciferol 1,000 unit 04/18/22 10:00 04/18/22 10:14 Cholecalciferol (Vit D3) 400 Unit Tab PO Not Given QDAY MARIN Divalproex Sodium 250 mg 04/06/22 14:00 04/18/22 14:[address] 250 Mg Tab PO Not Given TID MARIN Escitalopram Oxalate 20 mg 04/15/22 10:00 04/18/22 10:11 Escitalopram 10 Mg Tab PO Not Given QDAY MARIN Melatonin 10 mg 04/01/22 22:00 04/17/22 21:04 Melatonin 5 Mg Tab PO Not Given HS MARIN Mirtazapine 15 mg 04/17/22 22:00 04/17/22 21:04 Mirtazapine 15 Mg Tab PO Not Given QHS [facility] Polyethylene Glycol 17 gm 04/01/22 10:00 04/18/22 10:12 Polyethylene Glycol 3350 17 Gm Powder PO Not Given QDAY MARIN Risperidone 2 mg 04/06/22 10:00 04/18/22 10:13 Risperidone 1 Mg Tab PO Not Given BID [facility] Timolol Maleate 1 drops 04/01/22 10:00 04/18/22 10:13 Timolol 0.5% Ophth Soln 5 Ml OU Not Given QDAY MARIN Vitamin B Complex/Vitamin C 1 each 04/01/22 11:00 04/18/22 10:11 B Complex W/Vitamin C Tab PO Not Given QDAY [facility] Zinc Sulfate 220 mg 04/17/22 22:00 04/18/22 10:14 Zinc Sulfate 220 Mg Cap PO Not Given BID MARIN Ziprasidone 10 mg 04/17/22 20:09 04/17/22 21:11 Ziprasidone Mesylate 20 Mg Vial IM 10 mg Q4H PRN Administration Agitation Nutrition/Malnutrition Assess - Dietary Evaluation Nutrition/Malnutrition Findings: Nutrition Notes Start: 04/07/22 12:14 Freq: Status: Active Protocol: Document 04/14/22 13:53 KAVYA (Rec: 04/14/22 14:28 KAVYA [id number]) Nutrition Notes Initial or Follow up Reassessment Other Pertinent Diagnosis COVID-19, Vascular Dementia w/ Behavioral Disturbance, Delusional Disorder. Current Diet Regular Diet (since D 04/07), D Suppl (from D 04/14). Labs/Tests 04/14: N/A. Pertinent Medications 04/14: Vit B complex, Vit C, others nutritionally unremarkable. Height 5 ft 6 in Weight 68.039 kg [place] Body Weight (kg) 59.09 BMI 24.2 Intake Prior to Admission Good Weight change and time frame Pt states being unsure if loss body weight SECTION CHIEF. Weight Status Appropriate Subjective/Other Information RD consult for routine F/U on dietary advancement. Pt's PO intake of meals has been Negligible (0-25%) and pt is refusing to eat, according to ADL and Progress notes. I will prescribe Dietary Supplements to compensate for poor or insifficient PO intake of meals. Percent of energy/protein needs met: Prescribed Regular Diet provides for energy/protein needs (2,289 Kcal/89 g) during LOS; additionally, Dietary Supplements will compensate for possible poor or insufficient PO intake of meals with 480 Kcal and 48 g of protein. Burn Absent Trauma Absent GI Symptoms None Food Allergy No Skin Integrity/Comment Assessment WNL. Current % PO Negligible Minimum of two criteria No Fluid Accumulation N/A Reduced Supervisor Logging Strength N/A (non-severe) Protein-Calorie Malnutrition N\A #1 Nutrition Diagnosis Inadequate protein-energy intake Comments: Pt's PO intake of meals has been Negligible (0-25%) and pt is refusing to eat, according to ADL and Progress notes. Diagnosis Progress(for reassessment Continues documentation) Is patient on ventilator? No Is Patient Ambulatory and/or Out of Bed Yes REE-([place]-ambulatory/OOB) [ 1523.782 NUTR.MSJOOB] Kcal/Kg value to use for calculation 24 Approximate Energy Requirements Using 1633 kcal/Kg Calculation Used for Recommendations Kcal/kg Additional Notes Protein: 1-1.2 g/Kg ABW; 68-82 . g/day. Fluids: 1 ml/Kcal, or as per MD. Nutrition Intervention Change Diet Order: Continue Regular Diet. Add Supplement/Snack (indicate name/kcal Start 8 fl oz Ensure High /protein ) Protein; TID. Provides kCal: 480 Provides Protein (gm) 48 Goal #1 Compensate, through dietary supplementation, for possible poor or insufficient PO intake of meals during LOS. Goal #2 Adjust the dietary intervention to better serve Pt's needs and clinical conditions during LOS. Follow-Up By: 04/21/22 Additional Comments Continue monitoring food tolerance, %PO intake of meals and ONS, and BM.
[2022-04-18] MEDS: MIRTAZAPINE 15 MG TAB PO SCH (22:02)
[2022-04-18] MEDS: MELATONIN 5 MG TAB PO SCH (22:02)
[2022-04-18] MEDS ORDERED: WATER FOR INJ Sterile (PF) 10 ML ONE (23:52)
[2022-04-19] MEDS: ZIPRASIDONE MESYLATE 20 MG VIAL IM PRN (00:16)
[2022-04-19] MEDS: DIVALPROEX DR 250 MG TAB PO SCH ×3 (08:52→21:42)
[2022-04-19] MEDS: ESCITALOPRAM 10 MG TAB PO SCH (09:04)
[2022-04-19] MEDS: ASCORBIC ACID 500 MG TAB PO SCH ×2 (09:04→21:43)
[2022-04-19] MEDS: TIMOLOL 0.5% OPHTH SOLN 5 ML OU SCH (09:04)
[2022-04-19] MEDS: POLYETHYLENE GLYCOL 3350 17 GM POWDER PO SCH (09:04)
[2022-04-19] MEDS: risperiDONE 1 MG TAB PO SCH ×2 (09:05→21:43)
[2022-04-19] MEDS: B COMPLEX W/VITAMIN C TAB PO SCH (09:05)
[2022-04-19] MEDS: CHOLECALCIFEROL (VIT D3) 400 UNIT TAB PO SCH (09:05)
[2022-04-19] MEDS: ZINC SULFATE 220 MG CAP PO SCH ×2 (09:06→21:43)
--- NOTE | 2022-04-19 12:22 | Progress Note ---
Subjective Date of service: 04/19/22 Principal diagnosis: Dementia with behavioral disturbance, Delusional Disorder Subjective Comment: The patient was seen today. She is awake in her room, and sitting on side of the bed. She is confused and difficult to follow. She is cooperative. 04/18 The patient was seen today. She is lying across the bed with her Bible in her hand. She is confused, but slightly easier to redirect this morning. She asks "did you read your Bible." When asking how did she feel, the patient says "I feel good, now get out of my room." 04/17 The patient was seen today. She is standing in the casas. She is confused, and rambling. She is difficult to redirect. 04/16 The patent was seen today. She is exhibiting signs of progressive dementia. She is confused and has poor insight. Her focus is poor. The patient's thoughts are disorganized. She is suspicious and refusing some meals and medications. She denies SI/HI. 04/15 The patient was seen today. She was in her room and had jammed the door with a towel. The nurse pried open. The patient was instructed not to do that again. The patient has poor insight, with disorganized thoughts. Her speech is nonsensical. She is asking "did you bring the insulin for my eye." She is calling me Kallie. The patient does say she slept good, but the nurse caring for the patient says she slept about two hours. The nurse also states the patient's appetite is not good. She denies SI/HI. 04/14 The patient was seen today. She is still psychotic. She is delusional and suspicious. She is calling me "Mrs. Arreguin." She says "gone, gone, get out of here you look like that other girl." The patient is pointing and peeping around. She says "who is that?" She points past me where nobody is standing. REVIEW OF SYSTEMS Unable to assess MENTAL STATUS EXAMINATION Unable to assess Diagnoses Dementia with Behavioral Disturbance Delusional Disorder Treatment Plan Patient admitted for inpatient psychiatric evaluation, medication adjustment and close monitoring The patient's behavior, mood, sleep and appetite will be closely monitored. Patient enrolled in individual and group therapeutic sessions and encouraged to attend. Patient provided with a safe and structured environment. Patient's physical health needs will be addressed by the Hospitalist. Hospitalist Consulted Labs including CBC, CMP, Lipid profile and Hemoglobin A1C levels ordered for baseline reference Social Assessment will be completed and the Registered Sales Assistant will work with patient and family to ensure a suitable and safe disposition Medication adjustment will be made as clinically indicated Mirtazepine 7.5mg po qhs to stimulate appetite and induce sleep Klonopin 0.5mg po BID x 3 days Lexapro 20mg po daily Continue prn Geodon if refusing po antipsychotic Usual Wellness Voodoo/Preservation: - Start Trazodone 50 mg po QHS & 50 mg po QHS PRN between 10 PM & 2 AM for insomnia - Start Melatonin 5 mg po QHS to promote circadian rhythm The patient agreed on the treatment plan, understood the risk, benefit, alternative treatment, potential consequence of no treatment, and gave informed consent. Estimated days: 7 Post hospital care: primary care provider, psychiatric provider Case staffed with Dr. Morales Medications and Allergies Allergies Allergy/AdvReac Type Severity Reaction Status Date / Time No Known Drug Allergies Allergy Unknown Unknown Verified 04/05/22 20:17 Home Medications Medication Instructions Recorded Confirmed Last Taken Type Melatonin [Melatonin 10MG TAB] 10 mg PO HS 03/31/22 03/31/22 Unknown History Sertraline [Zoloft] 75 mg PO HS 03/31/22 03/31/22 Unknown History Timolol Maleate/Pf [Timolol 1 drop OU DAILY 03/31/22 03/31/22 Unknown History Maleate 0.5% Eye Drop] Vitamin B Complex [B Complex] 1 tab PO DAILY 03/31/22 03/31/22 Unknown History polyethylene glycoL 3350 [Miralax 17 gm PO QDAY 03/31/22 03/31/22 Unknown Hi story 3350] Divalproex [Julianna Rice] 250 mg PO TID #90 tablet 04/18/22 Unknown Rx Escitalopram [Lexapro] 20 mg PO QDAY #60 tablet 04/18/22 Unknown Rx Mirtazapine [Remeron 15mg TAB] 15 mg PO QHS #30 tablet 04/18/22 Unknown Rx risperiDONE [RisperDAL] 2 mg PO BID #120 tablet 04/18/22 Unknown Rx Active Meds: Active Medications Ascorbic Acid (Ascorbic Acid 500 Mg Tab) 500 mg PO BID [facility] Last Admin: 04/19/22 09:04 Dose: Not Given Cholecalciferol (Cholecalciferol (Vit D3) 400 Unit Tab) 1,000 unit PO QDAY [facility] Last Admin: 04/19/22 09:05 Dose: Not Given Divalproex Sodium (Divalproex Dr 250 Mg Tab) 250 mg PO TID [facility] Last Admin: 04/19/22 08:52 Dose: Not Given Escitalopram Oxalate (Escitalopram 10 Mg Tab) 20 mg PO QDAY [facility] Last Admin: 04/19/22 09:04 Dose: Not Given Melatonin (Melatonin 5 Mg Tab) 10 mg PO [facility] Last Admin: 04/18/22 22:02 Dose: Not Given Mirtazapine (Mirtazapine 15 Mg Tab) 15 mg PO QHS [facility] Last Admin: 04/18/22 22:02 Dose: Not Given Polyethylene Glycol (Polyethylene Glycol 3350 17 Gm Powder) 17 gm PO QDAY [facility] Last Admin: 04/19/22 09:04 Dose: Not Given Risperidone (Risperidone 1 Mg Tab) 2 mg PO BID [facility] Last Admin: 04/19/22 09:05 Dose: Not Given Timolol Maleate (Timolol 0.5% Ophth Soln 5 Ml) 1 drops OU QDAY [facility] Last Admin: 04/19/22 09:04 Dose: Not Given Vitamin B Complex/Vitamin C (B Complex W/Vitamin C Tab) 1 each PO QDAY [facility] Last Admin: 04/19/22 09:05 Dose: Not Given Zinc Sulfate (Zinc Sulfate 220 Mg Cap) 220 mg PO BID [facility] Last Admin: 04/19/22 09:06 Dose: Not Given Ziprasidone (Ziprasidone Mesylate 20 Mg Vial) 10 mg IM Q4H PRN PRN Reason: Agitation Last Admin: 04/19/22 00:16 Dose: 10 mg Results - Results Labs/Vitals: Laboratory Last Values WBC 4.9 K/mm3 (4.5-11.0) 03/31/22 00:09 RBC 3.90 M/mm3 (3.65-5.03) 03/31/22 00:09 Hgb 11.7 gm/dl (10.1-14.3) 03/31/22 00:09 Hct 34.9 % (30.3-42.9) 03/31/22 00:09 MCV 90 fl (79-97) 03/31/22 00:09 MCH 30 pg (28-32) 03/31/22 00:09 MCHC 34 % (30-34) 03/31/22 00:09 RDW 14.0 % (13.2-15.2) 03/31/22 00:09 Plt Count 222 K/mm3 (140-440) 03/31/22 00:09 Sodium 140 mmol/L (137-145) 03/30/22 21:28 Potassium 3.7 mmol/L (3.6-5.0) 03/30/22 21:28 Chloride 105.4 mmol/L (98-107) 03/30/22 21:28 Carbon Dioxide 20 mmol/L (22-30) L 03/30/22 21:28 Anion Gap 18 mmol/L 03/30/22 21:28 BUN 27 mg/dL (7-17) H 03/30/22 21:28 Creatinine 1.0 mg/dL (0.6-1.2) 03/30/22 21:28 Estimated GFR > 60 ml/min 03/30/22 21:28 BUN/Creatinine Ratio 27 % 03/30/22 21:28 Glucose 114 mg/dL (65-100) H 03/30/22 21:28 POC Glucose 85 mg/dL (70-105) 03/31/22 19:53 Calcium 10.1 mg/dL (8.4-10.2) 03/30/22 21:28 Magnesium 1.90 mg/dL (1.7-2.3) 03/30/22 21:28 Total Bilirubin 0.20 mg/dL (0.1-1.2) 03/30/22 21:28 AST 18 units/L (5-40) 03/30/22 21:28 ALT 10 units/L (7-56) 03/30/22 21:28 Alkaline Phosphatase 124 units/L (35-129) 03/30/22 21:28 Ammonia 14.0 umol/L (25-60) L 03/30/22 21:28 Total Creatine Kinase 194 units/L (30-135) H 03/30/22 21:28 Total Protein 7.7 g/dL (6.3-8.2) 03/30/22 21:28 Albumin 4.2 g/dL (3.9-5) 03/30/22 21:28 Albumin/Globulin Ratio 1.2 % 03/30/22 21:28 TSH 3.450 mlU/mL (0.270-4.200) 03/30/22 21:28 Urine Color Yellow (Yellow) 03/30/22 Unknown Urine Turbidity Clear (Clear) 03/30/22 Unknown Urine pH 5.0 (5.0-7.0) 03/30/22 Unknown Ur Specific [place] 1.024 (1.003-1.030) 03/30/22 Unknown Urine Protein 30 mg/dl mg/dL (Negative) 03/30/22 Unknown Urine Glucose (UA) Neg mg/dL (Negative) 03/30/22 Unknown Urine Ketones Tr mg/dL (Negative) 03/30/22 Unknown Urine Blood Neg (Negative) 03/30/22 Unknown Urine Nitrite Neg (Negative) 03/30/22 Unknown Urine Bilirubin Neg (Negative) 03/30/22 Unknown Urine Urobilinogen < 2.0 mg/dL (<2.0) 03/30/22 Unknown Ur Leukocyte Esterase Neg (Negative) 03/30/22 Unknown Urine WBC (Auto) 3.0 /HPF (0.0-6.0) 03/30/22 Unknown Urine RBC (Auto) 14.0 /HPF (0.0-6.0) 03/30/22 Unknown U Epithel Cells (Auto) < 1.0 /HPF (0-13.0) 03/30/22 Unknown Hyaline Casts 2 /LPF 03/30/22 Unknown Urine Mucus 2+ /HPF 03/30/22 Unknown Salicylates < 0.3 mg/dL (2.8-20.0) L 03/30/22 21:28 Urine Opiates Screen Presumptive negative 03/30/22 Unknown Urine Methadone Screen Presumptive negative 03/30/22 Unknown Acetaminophen 5.0 ug/mL (10.0-30.0) L 03/30/22 21:28 Ur Barbiturates Screen Presumptive negative 03/30/22 Unknown Ur Phencyclidine Scrn Presumptive negative 03/30/22 Unknown Ur Amphetamines Screen Presumptive negative 03/30/22 Unknown U Benzodiazepines Scrn Presumptive negative 03/30/22 Unknown Urine Cocaine Screen Presumptive negative 03/30/22 Unknown U Marijuana (THC) Screen Presumptive negative 03/30/22 Unknown Drugs of Abuse Note Disclamer 03/30/22 Unknown Plasma/Serum Alcohol < 0.01 % (0-0.07) 03/30/22 21:28 SARS-CoV-2 (PCR) Positive (Negative) A 04/18/22 Unknown Last Vital Signs Temp 97.3 F L 04/02/22 08:52 Pulse 107 H 04/02/22 08:52 Resp 18 04/02/22 08:52 BP 141/117 04/02/22 08:52 Pulse Ox 98 04/02/22 08:52
--- NOTE | 2022-04-19 12:26 | Event Note ---
Date: 04/17/22 Spoke with the patient's niece, updated her on the patient's progress, treatment plan and discharge plan.
[2022-04-19] MEDS: MIRTAZAPINE 15 MG TAB PO SCH (21:42)
[2022-04-19] MEDS: MELATONIN 5 MG TAB PO SCH (21:42)
[2022-04-20] MEDS ORDERED: WATER FOR INJ Sterile (PF) 10 ML ONE (07:41)
[2022-04-20] MEDS: ZIPRASIDONE MESYLATE 20 MG VIAL IM PRN ×2 (07:54→22:23)
[2022-04-20] MEDS: DIVALPROEX DR 250 MG TAB PO SCH ×3 (08:39→22:07)
[2022-04-20] MEDS: ESCITALOPRAM 10 MG TAB PO SCH (09:45)
[2022-04-20] MEDS: risperiDONE 1 MG TAB PO SCH ×2 (09:45→22:08)
[2022-04-20] MEDS: ZINC SULFATE 220 MG CAP PO SCH ×2 (09:45→22:08)
[2022-04-20] MEDS: ASCORBIC ACID 500 MG TAB PO SCH ×2 (09:45→22:08)
[2022-04-20] MEDS: POLYETHYLENE GLYCOL 3350 17 GM POWDER PO SCH (09:45)
[2022-04-20] MEDS: CHOLECALCIFEROL (VIT D3) 400 UNIT TAB PO SCH (09:46)
[2022-04-20] MEDS: B COMPLEX W/VITAMIN C TAB PO SCH (09:46)
[2022-04-20] MEDS: TIMOLOL 0.5% OPHTH SOLN 5 ML OU SCH (09:46)
[2022-04-20] MEDS: MELATONIN 5 MG TAB PO SCH (22:07)
[2022-04-20] MEDS: MIRTAZAPINE 15 MG TAB PO SCH (22:08)
[2022-04-20] MEDS: diphenhydrAMINE 50 MG/ML VIAL IM PRN (22:09)
--- NOTE | 2022-04-21 09:46 | Progress Note ---
Subjective Date of service: 04/21/22 Principal diagnosis: Dementia with behavioral disturbance, Delusional Disorder Subjective Comment: Subjective Date of service: Principal diagnosis: Dementia with behavioral disturbance Patient seen in the [address] way. Patient still refusing her PO medications. Nursing staff noticed that patients neck looks stiff. Haldol and Geodon stopped for now. Date of service: 04/13/22 Principal diagnosis: Delusional Disorder. Patient seen today. Patient still confused and telling me to leave her room. Patient not compliant with medications, received prn yesterday. Date of service: 04/12/22 Principal diagnosis: Delusional Disorder. Patient seen today in her room. Patient tells me to "get out". Patient refusing all medications and eating very little breakfast. Patient given prn haldol during the night. Subjective Date of service: 04/11/22 Principal diagnosis: Delusional Disorder Subjective Comment: Patient seen today walking down the hallway. Patient asked how she was doing and states "I feel fine" and kept on walking. Patient didnt answer any more questions. Nursing staff states patient takes her time with eating, but will eventually finish her food. Patient took her shower today and was appropriately dressed. Date of service: 04/10/2022 Principal diagnosis:Delusional disorder Subjective Comment: Patient seen this morning, uneaten breakfast on her table. Patient states " you can have the food, i don't like grits" Patient very aggressive, cursing and kicking staff and myself. Patient refusing to take vitals.Patient thoughts are disorganized. Date of service: 04/09/2022 Principal diagnosis:Delusional disorder Subjective Comment: Patient seen today in her room. Patient told me to " go out of here you bitch". Patient refusing to take her medications and also refusing to eat. Date of service: 04/08/22 Principal diagnosis: Delusional Disorder Subjective Comment: Patient seen today in her room. She was rambling and telling us to get out of her room, patient had tolet paper everywhere on the floor. patient has been refusing her meds and staff stated that she had been eating the hand soap. Sertraline increased. Date of service: 04/07/22 Principal diagnosis: Delusional Disorder Subjective Comment: Patient seen today. Patient still very delusional and suspicious. Patient kept pushing the door and didn't want us to come in. 04/06/22 Principal diagnosis: Delusional Disorder Subjective Comment: The patient was seen today. She is delusional and suspicious. She is referring to me as "Mrs. Arreguin." She says "I'm just a lil baby lawson." The patient tells me to leave her alone and go on. She is staring and looking around. 04/05 The patient was seen today. Her thoughts are disorganized. She is paranoid and delusional. She is calling me Kallie. She says "get out of here with you yellow hair and white face. You want to be white." The patient says "where is your . Get out of here, you gone ." She pushes me out of her room. REVIEW OF SYSTEMS Unable to assess MENTAL STATUS EXAMINATION Unable to assess Diagnoses: Delusional Disorder Treatment Plan Patient admitted for inpatient psychiatric evaluation, medication adjustment and close monitoring The patient's behavior, mood, sleep and appetite will be closely monitored. Patient enrolled in individual and group therapeutic sessions and encouraged to attend. Patient provided with a safe and structured environment. Patient's physical health needs will be addressed by the Hospitalist. Hospi talist Consulted Labs including CBC, CMP, Lipid profile and Hemoglobin A1C levels ordered for baseline reference Social Assessment will be completed and the Commercial Account Manager will work with patient and family to ensure a suitable and safe disposition Medication adjustment will be made as clinically indicated Increased Risperidone 2mg po BID Increased Depakote DR 250mg po TID Klonopin 1mg po BID x 3 days Usual Wellness Zoroastrian/Preservation: - Start Trazodone 50 mg po QHS & 50 mg po QHS PRN between 10 PM & 2 AM for insomnia - Start Melatonin 5 mg po QHS to promote circadian rhythm The patient agreed on the treatment plan, understood the risk, benefit, alternative treatment, potential consequence of no treatment, and gave informed consent. Estimated days: 7 Post hospital care: primary care provider, psychiatric provider Case staffed with Dr. Morales Medications and Allergies Allergies Allergy/AdvReac Type Severity Reaction Status Date / Time No Known Drug Allergies Allergy Unknown Unknown Verified 04/05/22 20:17 Home Medications Medication Instructions Recorded Confirmed Last Taken Type Escitalopram [Lexapro] 10 mg PO DAILY 03/31/22 03/31/22 Unknown History Melatonin [Melatonin 10MG TAB] 10 mg PO HS 03/31/22 03/31/22 Unknown History OLANZapine [Zyprexa] 5 mg PO BID 03/31/22 03/31/22 Unknown History Sertraline [Zoloft] 75 mg PO HS 03/31/22 03/31/22 Unknown History Timolol Maleate/Pf [Timolol 1 drop OU DAILY 03/31/22 03/31/22 Unknown History Maleate 0.5% Eye Drop] Vitamin B Complex [B Complex] 1 tab PO DAILY 03/31/22 03/31/22 Unknown History haloperidoL [Haldol] 5 mg PO BID 03/31/22 03/31/22 Unknown History polyethylene glycoL 3350 [Miralax 17 gm PO QDAY 03/31/22 03/31/22 Unknown History 3350] Active Meds: Active Medications Clonazepam (Clonazepam 0.5 Mg Tab) 1 mg PO BID [facility] Stop: 04/08/22 07:00 Last Admin: 04/05/22 21:48 Dose: 1 mg Divalproex Sodium (Divalproex Dr 250 Mg Tab) 250 mg PO BID [facility] Last Admin: 04/05/22 21:48 Dose: 250 mg Escitalopram Oxalate (Escitalopram 10 Mg Tab) 10 mg PO DAILY [facility] Last Admin: 04/05/22 09:55 Dose: Not Given Haloperidol Lactate (Haloperidol Lactate 5 Mg/1 Ml Inj) 5 mg IM Q6H PRN PRN Reason: Agitation Last Admin: 04/05/22 09:58 Dose: 5 mg Melatonin (Melatonin 5 Mg Tab) 10 mg PO [facility] Last Admin: 04/05/22 21:48 Dose: 10 mg Polyethylene Glycol (Polyethylene Glycol 3350 17 Gm Powder) 17 gm PO QDAY [facility] Last Admin: 04/05/22 09:55 Dose: Not Given Risperidone (Risperidone 1 Mg Tab) 1.5 mg PO BID [facility] Last Admin: 04/05/22 21:48 Dose: Not Given Sertraline HCl (Sertraline 50 Mg Tab) 75 mg PO [facility] Last Admin: 04/05/22 21:48 Dose: Not Given Timolol Maleate (Timolol 0.5% Ophth Soln 5 Ml) 1 drops OU QDAY [facility] Last Admin: 04/05/22 10:00 Dose: Not Given Vitamin B Complex/Vitamin C (B Complex W/Vitamin C Tab) 1 each PO QDAY [facility] Last Admin: 04/05/22 09:55 Dose: Not Given Medications and Allergies Allergies Allergy/AdvReac Type Severity Reaction Status Date / Time No Known Drug Allergies Allergy Unknown Unknown Verified 04/05/22 20:17 Home Medications Medication Instructions Recorded Confirmed Last Taken Type Melatonin [Melatonin 10MG TAB] 10 mg PO 03/31/22 03/31/22 Unknown History Sertraline [Zoloft] 75 mg PO 03/31/22 03/31/22 Unknown History Timolol Maleate/Pf [Timolol 1 drop OU DAILY 03/31/22 03/31/22 Unknown History Maleate 0.5% Eye Drop] Vitamin B Complex [B Complex] 1 tab PO DAILY 03/31/22 03/31/22 Unknown History polyethylene glycoL 3350 [Miralax 17 gm PO QDAY 03/31/22 03/31/22 Unknown History 3350] Divalproex Dr [Depakote Dr] 250 mg PO TID #90 tablet 04/18/22 Unknown Rx Escitalopram [Lexapro] 20 mg PO QDAY #60 tablet 04/18/22 Unknown Rx Mirtazapine [Remeron 15mg TAB] 15 mg PO QHS #30 tablet 04/18/22 Unknown Rx risperiDONE [RisperDAL] 2 mg PO BID #120 tablet 04/18/22 Unknown Rx Active Meds: Active Medications Ascorbic Acid (Ascorbic Acid 500 Mg Tab) 500 mg PO BID [facility] Last Admin: 04/20/22 22:08 Dose: Not Given Cholecalciferol (Cholecalciferol (Vit D3) 400 Unit Tab) 1,000 unit PO QDAY [facility] Last Admin: 04/20/22 09:46 Dose: Not Given Diphenhydramine HCl (Diphenhydramine 50 Mg/Ml Vial) 50 mg IM Q6H PRN PRN Reason: anxiety Last Admin: 04/20/22 22:09 Dose: 50 mg Divalproex Sodium (Divalproex Dr 250 Mg Tab) 250 mg PO TID [facility] Last Admin: 04/20/22 22:07 Dose: Not Given Escitalopram Oxalate (Escitalopram 10 Mg Tab) 20 mg PO QDAY [facility] Last Admin: 04/20/22 09:45 Dose: Not Given Melatonin (Melatonin 5 Mg Tab) 10 mg PO [facility] Last Admin: 04/20/22 22:07 Dose: Not Given Mirtazapine (Mirtazapine 15 Mg Tab) 15 mg PO QHS [facility] Last Admin: 04/20/22 22:08 Dose: Not Given Polyethylene Glycol (Polyethylene Glycol 3350 17 Gm Powder) 17 gm PO QDAY [facility] Last Admin: 04/20/22 09:45 Dose: Not Given Risperidone (Risperidone 1 Mg Tab) 2 mg PO BID [facility] Last Admin: 04/20/22 22:08 Dose: Not Given Timolol Maleate (Timolol 0.5% Ophth Soln 5 Ml) 1 drops OU QDAY [facility] Last Admin: 04/20/22 09:46 Dose: Not Given Vitamin B Complex/Vitamin C (B Complex W/Vitamin C Tab) 1 each PO QDAY [facility] Last Admin: 04/20/22 09:46 Dose: Not Given Zinc Sulfate (Zinc Sulfate 220 Mg Cap) 220 mg PO BID [facility] Last Admin: 04/20/22 22:08 Dose: Not Given Results - Results Labs/Vitals: Laboratory Last Values WBC 4.9 K/mm3 (4.5-11.0) 03/31/22 00:09 RBC 3.90 M/mm3 (3.65-5.03) 03/31/22 00:09 Hgb 11.7 gm/dl (10.1-14.3) 03/31/22 00:09 Hct 34.9 % (30.3-42.9) 03/31/22 00:09 MCV 90 fl (79-97) 03/31/22 00:09 MCH 30 pg (28-32) 03/31/22 00:09 MCHC 34 % (30-34) 03/31/22 00:09 RDW 14.0 % (13.2-15.2) 03/31/22 00:09 Plt Count 222 K/mm3 (140-440) 03/31/22 00:09 Sodium 140 mmol/L (137-145) 03/30/22 21:28 Potassium 3.7 mmol/L (3.6-5.0) 03/30/22 21:28 Chloride 105.4 mmol/L (98-107) 03/30/22 21:28 Carbon Dioxide 20 mmol/L (22-30) L 03/30/22 21:28 Anion Gap 18 mmol/L 03/30/22 21:28 BUN 27 mg/dL (7-17) H 03/30/22 21:28 Creatinine 1.0 mg/dL (0.6-1.2) 03/30/22 21:28 Estimated GFR > 60 ml/min 03/30/22 21: BUN/Creatinine Ratio 27 % 03/30/22 21:28 Glucose 114 mg/dL (65-100) H 03/30/22 21:28 POC Glucose 85 mg/dL (70-105) 03/31/22 19:53 Calcium 10.1 mg/dL (8.4-10.2) 03/30/22 21:28 Magnesium 1.90 mg/dL (1.7-2.3) 03/30/22 21: Total Bilirubin 0.20 mg/dL (0.1-1.2) 03/30/22 21: AST 18 units/L (5-40) 03/30/22 21: ALT 10 units/L (7-56) 03/30/22 21: Alkaline Phosphatase 124 units/L (35-129) 03/30/22 21:28 Ammonia 14.0 umol/L (25-60) L 03/30/22 21:28 Total Creatine Kinase 194 units/L (30-135) H 03/30/22 21:28 Total Protein 7.7 g/dL (6.3-8.2) 03/30/22 21: Albumin 4.2 g/dL (3.9-5) 03/30/22 21: Albumin/Globulin Ratio 1.2 % 03/30/22 21:28 TSH 3.450 mlU/mL (0.270-4.200) 03/30/22 21:28 Urine Color Yellow (Yellow) 03/30/22 Unknown Urine Turbidity Clear (Clear) 03/30/22 Unknown Urine pH 5.0 (5.0-7.0) 03/30/22 Unknown Ur Specific [place] 1.024 (1.003-1.030) 03/30/22 Unknown Urine Protein 30 mg/dl mg/dL (Negative) 03/30/22 Unknown Urine Glucose (UA) Neg mg/dL (Negative) 03/30/22 Unknown Urine Ketones Tr mg/dL (Negative) 03/30/22 Unknown Urine Blood Neg (Negative) 03/30/22 Unknown Urine Nitrite Neg (Negative) 03/30/22 Unknown Urine Bilirubin Neg (Negative) 03/30/22 Unknown Urine Urobilinogen < 2.0 mg/dL (<2.0) 03/30/22 Unknown Ur Leukocyte Esterase Neg (Negative) 03/30/22 Unknown Urine WBC (Auto) 3.0 /HPF (0.0-6.0) 03/30/22 Unknown Urine RBC (Auto) 14.0 /HPF (0.0-6.0) 03/30/22 Unknown U Epithel Cells (Auto) < 1.0 /HPF (0-13.0) 03/30/22 Unknown Hyaline Casts 2 /LPF 03/30/22 Unknown Urine Mucus 2+ /HPF 03/30/22 Unknown Salicylates < 0.3 mg/dL (2.8-20.0) L 03/30/22 21:28 Urine Opiates Screen Presumptive negative 03/30/22 Unknown Urine Methadone Screen Presumptive negative 03/30/22 Unknown Acetaminophen 5.0 ug/mL (10.0-30.0) L 03/30/22 21:28 Ur Barbiturates Screen Presumptive negative 03/30/22 Unknown Ur Phencyclidine Scrn Presumptive negative 03/30/22 Unknown Ur Amphetamines Screen Presumptive negative 03/30/22 Unknown U Benzodiazepines Scrn Presumptive negative 03/30/22 Unknown Urine Cocaine Screen Presumptive negative 03/30/22 Unknown U Marijuana (THC) Screen Presumptive negative 03/30/22 Unknown Drugs of Abuse Note Disclamer 03/30/22 Unknown Plasma/Serum Alcohol < 0.01 % (0-0.07) 03/30/22 21:28 SARS-CoV-2 (PCR) Positive (Negative) A 04/18/22 Unknown Last Vital Signs Temp 97.3 F L 04/02/22 08:52 Pulse 107 H 04/02/22 08:52 Resp 18 04/02/22 08:52 BP 141/117 04/02/22 08:52 Pulse Ox 98 04/02/22 08:52
[2022-04-21] MEDS: diphenhydrAMINE 50 MG/ML VIAL IM PRN (10:45)
[2022-04-21] MEDS: POLYETHYLENE GLYCOL 3350 17 GM POWDER PO SCH (11:00)
[2022-04-21] MEDS: ZINC SULFATE 220 MG CAP PO SCH ×2 (11:00→21:13)
[2022-04-21] MEDS: B COMPLEX W/VITAMIN C TAB PO SCH (11:00)
[2022-04-21] MEDS: risperiDONE 1 MG TAB PO SCH ×2 (11:00→21:12)
[2022-04-21] MEDS: ESCITALOPRAM 10 MG TAB PO SCH (11:00)
[2022-04-21] MEDS: DIVALPROEX DR 250 MG TAB PO SCH ×3 (11:00→21:07)
[2022-04-21] MEDS: ASCORBIC ACID 500 MG TAB PO SCH ×2 (11:00→21:12)
[2022-04-21] MEDS: TIMOLOL 0.5% OPHTH SOLN 5 ML OU SCH (11:00)
[2022-04-21] MEDS: BENZTROPINE 0.5 MG TAB PO SCH ×2 (11:00→21:12)
[2022-04-21] MEDS: CHOLECALCIFEROL (VIT D3) 400 UNIT TAB PO SCH (11:00)
[2022-04-21] MEDS: MELATONIN 5 MG TAB PO SCH (21:12)
[2022-04-21] MEDS: MIRTAZAPINE 15 MG TAB PO SCH (21:12)
--- NOTE | 2022-04-22 09:35 | Discharge Summary ---
Providers - Providers Date of Admission: 03/31/22 14:06 Attending physician: HEATHER LANIER MD Primary care physician: FALGUNI CERVANTES Hospitalization Condition: Stable Hospital course: The patient was provided inpatient psychiatric treatment with safe and supportive environment, group/individual therapy, psychiatric medication, medication adjustment, adverse effect monitor, medical evaluation, medical treatment, social service assessment, social support meeting, placement assessment and psycho-education. The patients mood, cognition, behavior, motivation, compliance to treatment and appreciation on family/social support are improved and stabilized. At the time of discharge, the patient had no suicidal ideas, no homicidal ideas, no aggressive thoughts, no endangering beha vior and no debilitating adverse effects. The patient agreed on the treatment plan, understood the risk, benefit, alternative treatment, potential consequence of no treatment, and gave informed consent. Progress Note: Disposition: 30 STILL A PATIENT Allergies/Adverse Reactions: Allergies No Known Drug Allergies Allergy (Unknown, Verified 04/05/22 20:17) Unknown Vital Signs: Last Vital Signs Temp 97.3 F L 04/02/22 08:52 Pulse 107 H 04/02/22 08:52 Resp 18 04/02/22 08:52 BP 141/117 04/02/22 08:52 Pulse Ox 98 04/02/22 08:52 Last Lab: Laboratory Last Values WBC 4.9 K/mm3 (4.5-11.0) 03/31/22 00:09 RBC 3.90 M/mm3 (3.65-5.03) 03/31/22 00:09 Hgb 11.7 gm/dl (10.1-14.3) 03/31/22 00:09 Hct 34.9 % (30.3-42.9) 03/31/22 00:09 MCV 90 fl (79-97) 03/31/22 00:09 MCH 30 pg (28-32) 03/31/22 00:09 MCHC 34 % (30-34) 03/31/22 00:09 RDW 14.0 % (13.2-15.2) 03/31/22 00:09 Plt Count 222 K/mm3 (140-440) 03/31/22 00:09 Sodium 140 mmol/L (137-145) 03/30/22 21:28 Potassium 3.7 mmol/L (3.6-5.0) 03/30/22 21:28 Chloride 105.4 mmol/L (98-107) 03/30/22 21:28 Carbon Dioxide 20 mmol/L (22-30) L 03/30/22 21:28 Anion Gap 18 mmol/L 03/30/22 21:28 BUN 27 mg/dL (7-17) H 03/30/22 21:28 Creatinine 1.0 mg/dL (0.6-1.2) 03/30/22 21:28 Estimated GFR > 60 ml/min 03/30/22 21:28 BUN/Creatinine Ratio 27 % 03/30/22 21:28 Glucose 114 mg/dL (65-100) H 03/30/22 21:28 POC Glucose 85 mg/dL (70-105) 03/31/22 19:53 Calcium 10.1 mg/dL (8.4-10.2) 03/30/22 21:28 Magnesium 1.90 mg/dL (1.7-2.3) 03/30/22 21:28 Total Bilirubin 0.20 mg/dL (0.1-1.2) 03/30/22 21:28 AST 18 units/L (5-40) 03/30/22 21:28 ALT 10 units/L (7-56) 03/30/22 21:28 Alkaline Phosphatase 124 units/L (35-129) 03/30/22 21:28 Ammonia 14.0 umol/L (25-60) L 03/30/22 21:28 Total Creatine Kinase 194 units/L (30-135) H 03/30/22 21:28 Total Protein 7.7 g/dL (6.3-8.2) 03/30/22 21:28 Albumin 4.2 g/dL (3.9-5) 03/30/22 21:28 Albumin/Globulin Ratio 1.2 % 03/30/22 21:28 TSH 3.450 mlU/mL (0.270-4.200) 03/30/22 21:28 Urine Color Yellow (Yellow) 03/30/22 Unknown Urine Turbidity Clear (Clear) 03/30/22 Unknown Urine pH 5.0 (5.0-7.0) 03/30/22 Unknown Ur Specific [place] 1.024 (1.003-1.030) 03/30/22 Unknown Urine Protein 30 mg/dl mg/dL (Negative) 03/30/22 Unknown Urine Glucose (UA) Neg mg/dL (Negative) 03/30/22 Unknown Urine Ketones Tr mg/dL (Negative) 03/30/22 Unknown Urine Blood Neg (Negative) 03/30/22 Unknown Urine Nitrite Neg (Negative) 03/30/22 Unknown Urine Bilirubin Neg (Negative) 03/30/22 Unknown Urine Urobilinogen < 2.0 mg/dL (<2.0) 03/30/22 Unknown Ur Leukocyte Esterase Neg (Negative) 03/30/22 Unknown Urine WBC (Auto) 3.0 /HPF (0.0-6.0) 03/30/22 Unknown Urine RBC (Auto) 14.0 /HPF (0.0-6.0) 03/30/22 Unknown U Epithel Cells (Auto) < 1.0 /HPF (0-13.0) 03/30/22 Unknown Hyaline Casts 2 /LPF 03/30/22 Unknown Urine Mucus 2+ /HPF 03/30/22 Unknown Salicylates < 0.3 mg/dL (2.8-20.0) L 03/30/22 21:28 Urine Opiates Screen Presumptive negative 03/30/22 Unknown Urine Methadone Screen Presumptive negative 03/30/22 Unknown Acetaminophen 5.0 ug/mL (10.0-30.0) L 03/30/22 21:28 Ur Barbiturates Screen Presumptive negative 03/30/22 Unknown Ur Phencyclidine Scrn Presumptive negative 03/30/22 Unknown Ur Amphetamines Screen Presumptive negative 03/30/22 Unknown U Benzodiazepines Scrn Presumptive negative 03/30/22 Unknown Urine Cocaine Screen Presumptive negative 03/30/22 Unknown U Marijuana (THC) Screen Presumptive negative 03/30/22 Unknown Drugs of Abuse Note Disclamer 03/30/22 Unknown Plasma/Serum Alcohol < 0.01 % (0-0.07) 03/30/22 21:28 SARS-CoV-2 (PCR) Positive (Negative) A 04/18/22 Unknown Core Measure Documentation - Palliative Care Palliative Care/ Comfort Measures: Not Applicable - Core Measures Any of the following diagnoses?: none - VTE Discharge Requirements Deep Vein Thrombosis/Pulmonary Embolism Present on Admission: No Exam - Constitutional Vitals: Temp Pulse Resp BP Pulse Ox 97.3 F L 107 H 18 141/117 98 04/02/22 08:52 04/02/22 08:52 04/02/22 08:52 04/02/22 08:52 04/02/22 08:52 Plan Care Plan Goals: Maintain good and stable mental health Plan of Treatment: The patient should be compliant with medications, not to use drugs, and not to drink alcohol. The patient understands that if suicidal ideas, homicidal ideas or any endangering feeling arise, the patient should seek assistance including, but not limited to crisis hotline, and emergency room. Assessment: Dementia with Behavioral Disturbance Follow up with: FALGUNI CERVANTES MD [Primary Care Provider] - 3-5 Days Prescriptions: Mirtazapine [Remeron 15mg TAB] 15 mg PO QHS #[address] [Depakote Dr] 250 mg PO TID #90 tablet Escitalopram [Lexapro] 20 mg PO QDAY #60 tablet risperiDONE [RisperDAL] 2 mg PO BID #120 tablet
[2022-04-22] MEDS: DIVALPROEX DR 250 MG TAB PO SCH ×3 (11:18→22:05)
[2022-04-22] MEDS: BENZTROPINE 0.5 MG TAB PO SCH ×2 (11:18→22:05)
[2022-04-22] MEDS: ESCITALOPRAM 10 MG TAB PO SCH (11:18)
[2022-04-22] MEDS: B COMPLEX W/VITAMIN C TAB PO SCH (11:18)
[2022-04-22] MEDS: POLYETHYLENE GLYCOL 3350 17 GM POWDER PO SCH (11:19)
[2022-04-22] MEDS: risperiDONE 1 MG TAB PO SCH ×2 (11:20→22:05)
[2022-04-22] MEDS: CHOLECALCIFEROL (VIT D3) 400 UNIT TAB PO SCH (11:20)
[2022-04-22] MEDS: ZINC SULFATE 220 MG CAP PO SCH ×2 (11:20→22:06)
[2022-04-22] MEDS: TIMOLOL 0.5% OPHTH SOLN 5 ML OU SCH (11:20)
[2022-04-22] MEDS: ASCORBIC ACID 500 MG TAB PO SCH ×2 (11:20→22:05)
--- NOTE | 2022-04-22 11:56 | Progress Note ---
Subjective Date of service: 04/22/22 Principal diagnosis: Dementia with behavioral disturbance, Delusional Disorder Subjective Comment: Subjective Date of service: 04/22/22 Principal diagnosis: Dementia with behavioral disturbance Patient seen today. No changes at this time. Possible dc on Sunday. Date of service: 04/21/22 Principal diagnosis: Dementia with behavioral disturbance Patient seen in the [address]. Patient still refusing her PO medications. Nursing staff noticed that patients neck looks stiff. Haldol and Geodon stopped for now. Date of service: 04/13/22 Principal diagnosis: Delusional Disorder. Patient seen today. Patient still confused and telling me to leave her room. Patient not compliant with medications, received prn yesterday. Date of service: 04/12/22 Principal diagnosis: Delusional Disorder. Patient seen today in her room. Patient tells me to "get out". Patient refusing all medications and eating very little breakfast. Patient given prn haldol during the night. Subjective Date of service: 04/11/22 Principal diagnosis: Delusional Disorder Subjective Comment: Patient seen today walking down the hallway. Patient asked how she was doing and states "I feel fine" and kept on walking. Patient didnt answer any more questions. Nursing staff states patient takes her time with eating, but will eventually finish her food. Patient took her shower today and was appropriately dressed. Date of service: 04/10/2022 Principal diagnosis:Delusional disorder Subjective Comment: Patient seen this morning, uneaten breakfast on her table. Patient states " you can have the food, i don't like grits" Patient very aggressive, cursing and kicking staff and myself. Patient refusing to take vitals.Patient thoughts are disorganized. Date of service: 04/09/2022 Principal diagnosis:Delusional disorder Subjective Comment: Patient seen today in her room. Patient told me to " go out of here you bitch". Patient refusing to take her medications and also refusing to eat. Date of service: 04/08/22 Principal diagnosis: Delusional Disorder Subjective Comment: Patient seen today in her room. She was rambling and telling us to get out of her room, patient had tolet paper everywhere on the floor. patient has been refusing her meds and staff stated that she had been eating the hand soap. Sertraline increased. Date of service: 04/07/22 Principal diagnosis: Delusional Disorder Subjective Comment: Patient seen today. Patient still very delusional and humphrey spicious. Patient kept pushing the door and didn't want us to come in. 04/06/22 Principal diagnosis: Delusional Disorder Subjective Comment: The patient was seen today. She is delusional and suspicious. She is referring to me as "Mrs. Arreguin." She says "I'm just a lil baby lawson." The patient tells me to leave her alone and go on. She is staring and looking around. 04/05 The patient was seen today. Her thoughts are disorganized. She is paranoid and delusional. She is calling me Kallie. She says "get out of here with you yellow hair and white face. You want to be white." The patient says "where is your . Get out of here, you gone ." She pushes me out of her room. REVIEW OF SYSTEMS Unable to assess MENTAL STATUS EXAMINATION Unable to assess Diagnoses: Delusional Disorder Treatment Plan Patient admitted for inpatient psychiatric evaluation, medication adjustment and close monitoring The patient's behavior, mood, sleep and appetite will be closely monitored. Patient enrolled in individual and group therapeutic sessions and encouraged to attend. Patient provided with a safe and structured environment. Patient's physical health needs will be addressed by the Hospitalist. Hospitalist Consulted Labs including CBC, CMP, Lipid profile and Hemoglobin A1C levels ordered for baseline reference Social Assessment will be completed and the Carpentry Teacher will work with patient and family to ensure a suitable and safe disposition Medication adjustment will be made as clinically indicated Increased Risperidone 2mg po BID Increased Depakote DR 250mg po TID Klonopin 1mg po BID x 3 days Usual Wellness Anabaptist/Preservation: - Start Trazodone 50 mg po QHS & 50 mg po QHS PRN between 10 PM & 2 AM for insomnia - Start Melatonin 5 mg po QHS to promote circadian rhythm The patient agreed on the treatment plan, understood the risk, benefit, alternative treatment, potential consequence of no treatment, and gave informed consent. Estimated days: 7 Post hospital care: primary care provider, psychiatric provider Case staffed with Dr. Morales Medications and Allergies Allergies Allergy/AdvReac Type Severity Reaction Status Date / Time No Known Drug Allergies Allergy Unknown Unknown Verified 04/05/22 20:17 Home Medications Medication Instructions Recorded Confirmed Last Taken Type Escitalopram [Lexapro] 10 mg PO DAILY 03/31/22 03/31/22 Unknown History Melatonin [Melatonin 10MG TAB] 10 mg PO 03/31/22 03/31/22 Unknown History OLANZapine [Zyprexa] 5 mg PO BID 03/31/22 03/31/22 Unknown History Sertraline [Zoloft] 75 mg PO HS 03/31/22 03/31/22 Unknown History Timolol Maleate/Pf [Timolol 1 drop OU DAILY 03/31/22 03/31/22 Unknown History Maleate 0.5% Eye Drop] Vitamin B Complex [B Complex] 1 tab PO DAILY 03/31/22 03/31/22 Unknown History haloperidoL [Haldol] 5 mg PO BID 03/31/22 03/31/22 Unknown History polyethylene glycoL 3350 [Miralax 17 gm PO QDAY 03/31/22 03/31/22 Unknown History 3350] Active Meds: Active Medications Clonazepam (Clonazepam 0.5 Mg Tab) 1 mg PO BID [facility] Stop: 04/08/22 07:00 Last Admin: 04/05/22 21:48 Dose: 1 mg Divalproex Sodium (Divalproex Dr 250 Mg Tab) 250 mg PO BID [facility] Last Admin: 04/05/22 21:48 Dose: 250 mg Escitalopram Oxalate (Escitalopram 10 Mg Tab) 10 mg PO DAILY [facility] Last Admin: 04/05/22 09:55 Dose: Not Given Haloperidol Lactate (Haloperidol Lactate 5 Mg/1 Ml Inj) 5 mg IM Q6H PRN PRN Reason: Agitation Last Admin: 04/05/22 09:58 Dose: 5 mg Melatonin (Melatonin 5 Mg Tab) 10 mg PO [facility] Last Admin: 04/05/22 21:48 Dose: 10 mg Polyethylene Glycol (Polyethylene Glycol 3350 17 Gm Powder) 17 gm PO QDAY [facility] Last Admin: 04/05/22 09:55 Dose: Not Given Risperidone (Risperidone 1 Mg Tab) 1.5 mg PO BID [facility] Last Admin: 04/05/22 21:48 Dose: Not Given Sertraline HCl (Sertraline 50 Mg Tab) 75 mg PO [facility] Last Admin: 04/05/22 21:48 Dose: Not Given Timolol Maleate (Timolol 0.5% Ophth Soln 5 Ml) 1 drops OU QDAY [facility] Last Admin: 04/05/22 10:00 Dose: Not Given Vitamin B Complex/Vitamin C (B Complex W/Vitamin C Tab) 1 each PO QDAY [facility] Last Admin: 04/05/22 09:55 Dose: Not Given Medications and Allergies Allergies Allergy/AdvReac Type Severity Reaction Status Date / Time No Known Drug Allergies Allergy Unknown Unknown Verified 04/05/22 20:17 Home Medications Medication Instructions Recorded Confirmed Last Taken Type Melatonin [Melatonin 10MG TAB] 10 mg PO HS 03/31/22 03/31/22 Unknown History Sertraline [Zoloft] 75 mg PO HS 03/31/22 03/31/22 Unknown History Timolol Maleate/Pf [Timolol 1 drop OU DAILY 03/31/22 03/31/22 Unknown History Maleate 0.5% Eye Drop] Vitamin B Complex [B Complex] 1 tab PO DAILY 03/31/22 03/31/22 Unknown History polyethylene glycoL 3350 [Miralax 17 gm PO QDAY 03/31/22 03/31/22 Unknown History 3350] Divalproex Dr [Depakote Dr] 250 mg PO TID #90 tablet 04/18/22 Unknown Rx Escitalopram [Lexapro] 20 mg PO QDAY #60 tablet 04/18/22 Unknown Rx Mirtazapine [Remeron 15mg TAB] 15 mg PO QHS #30 tablet 04/18/22 Unknown Rx risperiDONE [RisperDAL] 2 mg PO BID #120 tablet 04/18/22 Unknown Rx Active Meds: Active Medications Ascorbic Acid (Ascorbic Acid 500 Mg Tab) 500 mg PO BID [facility] Last Admin: 04/22/22 11:20 Dose: Not Given Benztropine Mesylate (Benztropine 0.5 Mg Tab) 0.5 mg PO BID [facility] Last Admin: 04/22/22 11:18 Dose: Not Given Cholecalciferol (Cholecalciferol (Vit D3) 400 Unit Tab) 1,000 unit PO QDAY [facility] Last Admin: 04/22/22 11:20 Dose: Not Given Diphenhydramine HCl (Diphenhydramine 50 Mg/Ml Vial) 50 mg IM Q6H PRN PRN Reason: anxiety Last Admin: 04/21/22 10:45 Dose: 50 mg Divalproex Sodium (Divalproex Dr 250 Mg Tab) 250 mg PO TID [facility] Last Admin: 04/22/22 11:18 Dose: Not Given Escitalopram Oxalate (Escitalopram 10 Mg Tab) 20 mg PO QDAY [facility] Last Admin: 04/22/22 11:18 Dose: Not Given Melatonin (Melatonin 5 Mg Tab) 10 mg PO HS [facility] Last Admin: 04/21/22 21:12 Dose: Not Given Mirtazapine (Mirtazapine 15 Mg Tab) 15 mg PO QHS [facility] Last Admin: 04/21/22 21:12 Dose: Not Given Polyethylene Glycol (Polyethylene Glycol 3350 17 Gm Powder) 17 gm PO QDAY [facility] Last Admin: 04/22/22 11:19 Dose: Not Given Risperidone (Risperidone 1 Mg Tab) 2 mg PO BID [facility] Last Admin: 04/22/22 11:20 Dose: Not Given Timolol Maleate (Timolol 0.5% Ophth Soln 5 Ml) 1 drops OU QDAY [facility] Last Admin: 04/22/22 11:20 Dose: Not Given Vitamin B Complex/Vitamin C (B Complex W/Vitamin C Tab) 1 each PO QDAY [facility] Last Admin: 04/22/22 11:18 Dose: Not Given Zinc Sulfate (Zinc Sulfate 220 Mg Cap) 220 mg PO BID [facility] Last Admin: 04/22/22 11:20 Dose: Not Given Results - Results Labs/Vitals: Laboratory Last Values WBC 4.9 K/mm3 (4.5-11.0) 03/31/22 00:09 RBC 3.90 M/mm3 (3.65-5.03) 03/31/22 00:09 Hgb 11.7 gm/dl (10.1-14.3) 03/31/22 00:09 Hct 34.9 % (30.3-42.9) 03/31/22 00:09 MCV 90 fl (79-97) 03/31/22 00:09 MCH 30 pg (28-32) 03/31/22 00:09 MCHC 34 % (30-34) 03/31/22 00:09 RDW 14.0 % (13.2-15.2) 03/31/22 00:09 Plt Count 222 K/mm3 (140-440) 03/31/22 00:09 Sodium 140 mmol/L (137-145) 03/30/22 21:28 Potassium 3.7 mmol/L (3.6-5.0) 03/30/22 21:28 Chloride 105.4 mmol/L (98-107) 03/30/22 21:28 Carbon Dioxide 20 mmol/L (22-30) L 03/30/22 21:28 Anion Gap 18 mmol/L 03/30/22 21:28 BUN 27 mg/dL (7-17) H 03/30/22 21:28 Creatinine 1.0 mg/dL (0.6-1.2) 03/30/22 21:28 Estimated GFR > 60 ml/min 03/30/22 21:28 BUN/Creatinine Ratio 27 % 03/30/22 21:28 Glucose 114 mg/dL (65-100) H 03/30/22 21:28 POC Glucose 85 mg/dL (70-105) 03/31/22 19:53 Calcium 10.1 mg/dL (8.4-10.2) 03/30/22 21:28 Magnesium 1.90 mg/dL (1.7-2.3) 03/30/22 21:28 Total Bilirubin 0.20 mg/dL (0.1-1.2) 03/30/22 21:28 AST 18 units/L (5-40) 03/30/22 21:28 ALT 10 units/L (7-56) 03/30/22 21:28 Alkaline Phosphatase 124 units/L (35-129) 03/30/22 21:28 Ammonia 14.0 umol/L (25-60) L 03/30/22 21:28 Total Creatine Kinase 194 units/L (30-135) H 03/30/22 21:28 Total Protein 7.7 g/dL (6.3-8.2) 03/30/22 21:28 Albumin 4.2 g/dL (3.9-5) 03/30/22 21:28 Albumin/Globulin Ratio 1.2 % 03/30/22 21:28 TSH 3.450 mlU/mL (0.270-4.200) 03/30/22 21:28 Urine Color Yellow (Yellow) 03/30/22 Unknown Urine Turbidity Clear (Clear) 03/30/22 Unknown Urine pH 5.0 (5.0-7.0) 03/30/22 Unknown Ur Specific [place] 1.024 (1.003-1.030) 03/30/22 Unknown Urine Protein 30 mg/dl mg/dL (Negative) 03/30/22 Unknown Urine Glucose (UA) Neg mg/dL (Negative) 03/30/22 Unknown Urine Ketones Tr mg/dL (Negative) 03/30/22 Unknown Urine Blood Neg (Negative) 03/30/22 Unknown Urine Nitrite Neg (Negative) 03/30/22 Unknown Urine Bilirubin Neg (Negative) 03/30/22 Unknown Urine Urobilinogen < 2.0 mg/dL (<2.0) 03/30/22 Unknown Ur Leukocyte Esterase Neg (Negative) 03/30/22 Unknown Urine WBC (Auto) 3.0 /HPF (0.0-6.0) 03/30/22 Unknown Urine RBC (Auto) 14.0 /HPF (0.0-6.0) 03/30/22 Unknown U Epithel Cells (Auto) < 1.0 /HPF (0-13.0) 03/30/22 Unknown Hyaline Casts 2 /LPF 03/30/22 Unknown Urine Mucus 2+ /HPF 03/30/22 Unknown Salicylates < 0.3 mg/dL (2.8-20.0) L 03/30/22 21:28 Urine Opiates Screen Presumptive negative 03/30/22 Unknown Urine Methadone Screen Presumptive negative 03/30/22 Unknown Acetaminophen 5.0 ug/mL (10.0-30.0) L 03/30/22 21:28 Ur Barbiturates Screen Presumptive negative 03/30/22 Unknown Ur Phencyclidine Scrn Presumptive negative 03/30/22 Unknown Ur Amphetamines Screen Presumptive negative 03/30/22 Unknown U Benzodiazepines Scrn Presumptive negative 03/30/22 Unknown Urine Cocaine Screen Presumptive negative 03/30/22 Unknown U Marijuana (THC) Screen Presumptive negative 03/30/22 Unknown Drugs of Abuse Note Disclamer 03/30/22 Unknown Plasma/Serum Alcohol < 0.01 % (0-0.07) 03/30/22 21:28 SARS-CoV-2 (PCR) Positive (Negative) A 04/18/22 Unknown Last Vital Signs Temp 97.3 F L 04/02/22 08:52 Pulse 107 H 04/02/22 08:52 Resp 18 04/02/22 08:52 BP 141/117 04/02/22 08:52 Pulse Ox 98 04/02/22 08:52
[2022-04-22] MEDS ORDERED: BENZTROPINE 2 MG/2 ML INJ IM ONE (13:00)
[2022-04-22] MEDS: diphenhydrAMINE 50 MG/ML VIAL IM PRN (20:40)
[2022-04-22] MEDS: MIRTAZAPINE 15 MG TAB PO SCH (22:05)
[2022-04-22] MEDS: MELATONIN 5 MG TAB PO SCH (22:05)
[2022-04-23] MEDS: DIVALPROEX DR 250 MG TAB PO SCH ×3 (09:56→21:21)
[2022-04-23] MEDS: ESCITALOPRAM 10 MG TAB PO SCH (10:11)
[2022-04-23] MEDS: B COMPLEX W/VITAMIN C TAB PO SCH (10:11)
[2022-04-23] MEDS: POLYETHYLENE GLYCOL 3350 17 GM POWDER PO SCH (10:11)
[2022-04-23] MEDS: BENZTROPINE 0.5 MG TAB PO SCH ×2 (10:11→21:21)
[2022-04-23] MEDS: risperiDONE 1 MG TAB PO SCH ×2 (10:11→21:22)
[2022-04-23] MEDS: CHOLECALCIFEROL (VIT D3) 400 UNIT TAB PO SCH (10:12)
[2022-04-23] MEDS: ZINC SULFATE 220 MG CAP PO SCH ×2 (10:12→21:22)
[2022-04-23] MEDS: ASCORBIC ACID 500 MG TAB PO SCH ×2 (10:12→21:22)
[2022-04-23] MEDS: TIMOLOL 0.5% OPHTH SOLN 5 ML OU SCH (10:12)
--- NOTE | 2022-04-23 12:00 | Progress Note ---
Subjective Date of service: 04/23/22 Principal diagnosis: Dementia with behavioral disturbance, Delusional Disorder Subjective Comment: Subjective Date of service: 04/23/22 Principal diagnosis: Dementia with behavioral disturbance Patient seen today in her room. No changes at this time. Date of service: 04/22/22 Principal diagnosis: Dementia with behavioral disturbance Patient seen today. No changes at this time. Possible dc on Sunday. Date of service: 04/21/22 Principal diagnosis: Dementia with behavioral disturbance Patient seen in the [address]. Patient still refusing her PO medications. Nursing staff noticed that patients neck looks stiff. Haldol and Geodon stopped for now. Date of service: 04/13/22 Principal diagnosis: Delusional Disorder. Patient seen today. Patient still confused and telling me to leave her room. Patient not compliant with medications, received prn yesterday. Date of service: 04/12/22 Principal diagnosis: Delusional Disorder. Patient seen today in her room. Patient tells me to "get out". Patient refusing all medications and eating very little breakfast. Patient given prn haldol during the night. Subjective Date of service: 04/11/22 Principal diagnosis: Delusional Disorder Subjective Comment: Patient seen today walking down the hallway. Patient asked how she was doing and states "I feel fine" and kept on walking. Patient didnt answer any more questions. Nursing staff states patient takes her time with eating, but will eventually finish her food. Patient took her shower today and was appropriately dressed. Date of service: 04/10/2022 Principal diagnosis:Delusional disorder Subjective Comment: Patient seen this morning, uneaten breakfast on her table. Patient states " you can have the food, i don't like grits" Patient very aggressive, cursing and kicking staff and myself. Patient refusing to take vitals.Patient thoughts are disorganized. Date of service: 04/09/2022 Principal diagnosis:Delusional disorder Subjective Comment: Patient seen today in her room. Patient told me to " go out of here you bitch". Patient refusing to take her medications and also refusing to eat. Date of service: 04/08/22 Principal diagnosis: Delusional Disorder Subjective Comment: Patient seen today in her room. She was rambling and telling us to get out of her room, patient had tolet paper everywhere on the floor. patient has been refusing her meds and staff stated that she had been eating the hand soap. Sertraline increased. Date of service: 04/07/22 Principal diagnosis: Delusional Disorder Subjective Comment: Patient seen today. Patient still very delusional and suspicious. Patient kept pushing the door and didn't want us to come in. 04/06/22 Principal diagnosis: Delusional Disorder Subjective Comment: The patient was seen today. She is delusional and suspicious. She is referring to me as "Mrs. Arreguin." She says "I'm just a lil baby lawson." The patient tells me to leave her alone and go on. She is staring and looking around. 04/05 The patient was seen today. Her thoughts are disorganized. She is paranoid and delusional. She is calling me Kallie. She says "get out of here with you yellow hair and white face. You want to be white." The patient says "where is your . Get out of here, you gone ." She pushes me out of her room. REVIEW OF SYSTEMS Unable to assess MENTAL STATUS EXAMINATION Unable to assess Diagnoses: Delusional Disorder Treatment Plan Patient admitted for inpatient psychiatric evaluation, medication adjustment and close monitoring The patient's behavior, mood, sleep and appetite will be closely monitored. Patient enrolled in individual and group therapeutic sessions and encouraged to attend. Patient provided with a safe and structured environment. Patient's physical health needs will be addressed by the Hospitalist. Hospitalist Consulted Labs including CBC, CMP, Lipid profile and Hemoglobin A1C levels ordered for baseline reference Social Assessment will be completed and the Director Cost will work with patient and family to ensure a suitable and safe disposition Medication adjustment will be made as clinically indicated Increased Risperidone 2mg po BID Increased Depakote DR 250mg po TID Klonopin 1mg po BID x 3 days Usual Wellness Buddhist/Preservation: - Start Trazodone 50 mg po QHS & 50 mg po QHS PRN between 10 PM & 2 AM for insomnia - Start Melatonin 5 mg po QHS to promote circadian rhythm The patient agreed on the treatment plan, understood the risk, benefit, alternative treatment, potential consequence of no treatment, and gave informed consent. Estimated days: 7 Post hospital care: primary care provider, psychiatric provider Case staffed with Dr. Morales Medications and Allergies Allergies Allergy/AdvReac Type Severity Reaction Status Date / Time No Known Drug Allergies Allergy Unknown Unknown Verified 04/05/22 20:17 Home Medications Medication Instructions Recorded Confirmed Last Taken Type Escitalopram [Lexapro] 10 mg PO DAILY 03/31/22 03/31/22 Unknown History Melatonin [Melatonin 10MG TAB] 10 mg PO HS 03/31/22 03/31/22 Unknown History OLANZapine [Zyprexa] 5 mg PO BID 03/31/22 03/31/22 Unknown History Sertraline [Zoloft] 75 mg PO HS 03/31/22 03/31/22 Unknown History Timolol Maleate/Pf [Timolol 1 drop OU DAILY 03/31/22 03/31/22 Unknown History Maleate 0.5% Eye Drop] Vitamin B Complex [B Complex] 1 tab PO DAILY 03/31/22 03/31/22 Unknown History haloperidoL [Haldol] 5 mg PO BID 03/31/22 03/31/22 Unknown History polyethylene glycoL 3350 [Miralax 17 gm PO QDAY 03/31/22 03/31/22 Unknown History 3350] Active Meds: Active Medications Clonazepam (Clonazepam 0.5 Mg Tab) 1 mg PO BID [facility] Stop: 04/08/22 07:00 Last Admin: 04/05/22 21:48 Dose: 1 mg Divalproex Sodium (Divalproex Dr 250 Mg Tab) 250 mg PO BID [facility] Last Admin: 04/05/22 21:48 Dose: 250 mg Escitalopram Oxalate (Escitalopram 10 Mg Tab) 10 mg PO DAILY [facility] Last Admin: 04/05/22 09:55 Dose: Not Given Haloperidol Lactate (Haloperidol Lactate 5 Mg/1 Ml Inj) 5 mg IM Q6H PRN PRN Reason: Agitation Last Admin: 04/05/22 09:58 Dose: 5 mg Melatonin (Melatonin 5 Mg Tab) 10 mg PO [facility] Last Admin: 04/05/22 21:48 Dose: 10 mg Polyethylene Glycol (Polyethylene Glycol 3350 17 Gm Powder) 17 gm PO QDAY [facility] Last Admin: 04/05/22 09:55 Dose: Not Given Risperidone (Risperidone 1 Mg Tab) 1.5 mg PO BID [facility] Last Admin: 04/05/22 21:48 Dose: Not Given Sertraline HCl (Sertraline 50 Mg Tab) 75 mg PO [facility] Last Admin: 04/05/22 21:48 Dose: Not Given Timolol Maleate (Timolol 0.5% Ophth Soln 5 Ml) 1 drops OU QDAY [facility] Last Admin: 04/05/22 10:00 Dose: Not Given Vitamin B Complex/Vitamin C (B Complex W/Vitamin C Tab) 1 each PO QDAY [facility] Last Admin: 04/05/22 09:55 Dose: Not Given Medications and Allergies Allergies Allergy/AdvReac Type Severity Reaction Status Date / Time No Known Drug Allergies Allergy Unknown Unknown Verified 04/05/22 20:17 Home Medications Medication Instructions Recorded Confirmed Last Taken Type Melatonin [Melatonin 10MG TAB] 10 mg PO HS 03/31/22 03/31/22 Unknown History Sertraline [Zoloft] 75 mg PO HS 03/31/22 03/31/22 Unknown History Timolol Maleate/Pf [Timolol 1 drop OU DAILY 03/31/22 03/31/22 Unknown History Maleate 0.5% Eye Drop] Vitamin B Complex [B Complex] 1 tab PO DAILY 03/31/22 03/31/22 Unknown History polyethylene glycoL 3350 [Miralax 17 gm PO QDAY 03/31/22 03/31/22 Unknown History 3350] Divalproex Dr [Depakote Dr] 250 mg PO TID #90 tablet 04/18/22 Unknown Rx Escitalopram [Lexapro] 20 mg PO QDAY #60 tablet 04/18/22 Unknown Rx Mirtazapine [Remeron 15mg TAB] 15 mg PO QHS #30 tablet 04/18/22 Unknown Rx risperiDONE [RisperDAL] 2 mg PO BID #120 tablet 04/18/22 Unknown Rx Active Meds: Active Medications Ascorbic Acid (Ascorbic Acid 500 Mg Tab) 500 mg PO BID [facility] Last Admin: 04/23/22 10:12 Dose: Not Given Benztropine Mesylate (Benztropine 0.5 Mg Tab) 0.5 mg PO BID [facility] Last Admin: 04/23/22 10:11 Dose: Not Given Cholecalciferol (Cholecalciferol (Vit D3) 400 Unit Tab) 1,000 unit PO QDAY [facility] Last Admin: 04/23/22 10:12 Dose: Not Given Diphenhydramine HCl (Diphenhydramine 50 Mg/Ml Vial) 50 mg IM Q6H PRN PRN Reason: anxiety Last Admin: 04/22/22 20:40 Dose: 50 mg Divalproex Sodium (Divalproex Dr 250 Mg Tab) 250 mg PO TID [facility] Last Admin: 04/23/22 09:56 Dose: Not Given Escitalopram Oxalate (Escitalopram 10 Mg Tab) 20 mg PO QDAY [facility] Last Admin: 04/23/22 10:11 Dose: Not Given Melatonin (Melatonin 5 Mg Tab) 10 mg PO HS [facility] Last Admin: 04/22/22 22:05 Dose: Not Given Mirtazapine (Mirtazapine 15 Mg Tab) 15 mg PO QHS [facility] Last Admin: 04/22/22 22:05 Dose: Not Given Polyethylene Glycol (Polyethylene Glycol 3350 17 Gm Powder) 17 gm PO QDAY [facility] Last Admin: 04/23/22 10:11 Dose: Not Given Risperidone (Risperidone 1 Mg Tab) 2 mg PO BID [facility] Last Admin: 04/23/22 10:11 Dose: Not Given Timolol Maleate (Timolol 0.5% Ophth Soln 5 Ml) 1 drops OU QDAY [facility] Last Admin: 04/23/22 10:12 Dose: Not Given Vitamin B Complex/Vitamin C (B Complex W/Vitamin C Tab) 1 each PO QDAY [facility] Last Admin: 04/23/22 10:11 Dose: Not Given Zinc Sulfate (Zinc Sulfate 220 Mg Cap) 220 mg PO BID [facility] Last Admin: 04/23/22 10:12 Dose: Not Given Results - Results Labs/Vitals: Laboratory Last Values WBC 4.9 K/mm3 (4.5-11.0) 03/31/22 00:09 RBC 3.90 M/mm3 (3.65-5.03) 03/31/22 00:09 Hgb 11.7 gm/dl (10.1-14.3) 03/31/22 00:09 Hct 34.9 % (30.3-42.9) 03/31/22 00:09 MCV 90 fl (79-97) 03/31/22 00:09 MCH 30 pg (28-32) 03/31/22 00:09 MCHC 34 % (30-34) 03/31/22 00:09 RDW 14.0 % (13.2-15.2) 03/31/22 00:09 Plt Count 222 K/mm3 (140-440) 03/31/22 00:09 Sodium 140 mmol/L (137-145) 03/30/22 21:28 Potassium 3.7 mmol/L (3.6-5.0) 03/30/22 21: Chloride 105.4 mmol/L (98-107) 03/30/22 21: Carbon Dioxide 20 mmol/L (22-30) L 03/30/22 21:28 Anion Gap 18 mmol/L 03/30/22 21:28 BUN 27 mg/dL (7-17) H 03/30/22 21:28 Creatinine 1.0 mg/dL (0.6-1.2) 03/30/22 21: Estimated GFR > 60 ml/min 03/30/22 21: BUN/Creatinine Ratio 27 % 03/30/22 21:28 Glucose 114 mg/dL (65-100) H 03/30/22 21: POC Glucose 85 mg/dL (70-105) 03/31/22 19:53 Calcium 10.1 mg/dL (8.4-10.2) 03/30/22 21:28 Magnesium 1.90 mg/dL (1.7-2.3) 03/30/22 21: Total Bilirubin 0.20 mg/dL (0.1-1.2) 03/30/22 21:28 AST 18 units/L (5-40) 03/30/22 21:28 ALT 10 units/L (7-56) 03/30/22 21: Alkaline Phosphatase 124 units/L (35-129) 03/30/22 21: Ammonia 14.0 umol/L (25-60) L 03/30/22 21:28 Total Creatine Kinase 194 units/L (30-135) H 03/30/22 21:28 Total Protein 7.7 g/dL (6.3-8.2) 03/30/22 21: Albumin 4.2 g/dL (3.9-5) 03/30/22 21: Albumin/Globulin Ratio 1.2 % 03/30/22 21:28 TSH 3.450 mlU/mL (0.270-4.200) 03/30/22 21:28 Urine Color Yellow (Yellow) 03/30/22 Unknown Urine Turbidity Clear (Clear) 03/30/22 Unknown Urine pH 5.0 (5.0-7.0) 03/30/22 Unknown Ur Specific [place] 1.024 (1.003-1.030) 03/30/22 Unknown Urine Protein 30 mg/dl mg/dL (Negative) 03/30/22 Unknown Urine Glucose (UA) Neg mg/dL (Negative) 03/30/22 Unknown Urine Ketones Tr mg/dL (Negative) 03/30/22 Unknown Urine Blood Neg (Negative) 03/30/22 Unknown Urine Nitrite Neg (Negative) 03/30/22 Unknown Urine Bilirubin Neg (Negative) 03/30/22 Unknown Urine Urobilinogen < 2.0 mg/dL (<2.0) 03/30/22 Unknown Ur Leukocyte Esterase Neg (Negative) 03/30/22 Unknown Urine WBC (Auto) 3.0 /HPF (0.0-6.0) 03/30/22 Unknown Urine RBC (Auto) 14.0 /HPF (0.0-6.0) 03/30/22 Unknown U Epithel Cells (Auto) < 1.0 /HPF (0-13.0) 03/30/22 Unknown Hyaline Casts 2 /LPF 03/30/22 Unknown Urine Mucus 2+ /HPF 03/30/22 Unknown Salicylates < 0.3 mg/dL (2.8-20.0) L 03/30/22 21:28 Urine Opiates Screen Presumptive negative 03/30/22 Unknown Urine Methadone Screen Presumptive negative 03/30/22 Unknown Acetaminophen 5.0 ug/mL (10.0-30.0) L 03/30/22 21:28 Ur Barbiturates Screen Presumptive negative 03/30/22 Unknown Ur Phencyclidine Scrn Presumptive negative 03/30/22 Unknown Ur Amphetamines Screen Presumptive negative 03/30/22 Unknown U Benzodiazepines Scrn Presumptive negative 03/30/22 Unknown Urine Cocaine Screen Presumptive negative 03/30/22 Unknown U Marijuana (THC) Screen Presumptive negative 03/30/22 Unknown Drugs of Abuse Note Disclamer 03/30/22 Unknown Plasma/Serum Alcohol < 0.01 % (0-0.07) 03/30/22 21:28 SARS-CoV-2 (PCR) Positive (Negative) A 04/18/22 Unknown Last Vital Signs Temp 97.3 F L 04/02/22 08:52 Pulse 107 H 04/02/22 08:52 Resp 18 04/02/22 08:52 BP 141/117 04/02/22 08:52 Pulse Ox 98 04/02/22 08:52
[2022-04-23] MEDS: MELATONIN 5 MG TAB PO SCH (21:21)
[2022-04-23] MEDS: MIRTAZAPINE 15 MG TAB PO SCH (21:22)
[2022-04-24] MEDS: diphenhydrAMINE 50 MG/ML VIAL IM PRN (11:09)
--- NOTE | 2022-04-24 11:20 | Progress Note ---
Subjective Date of service: 04/24/22 Principal diagnosis: Dementia with behavioral disturbance, Delusional Disorder Subjective Comment: Subjective Date of service: 04/24/22 Principal diagnosis: Dementia with behavioral disturbance Patient seen today. No new changes. Awaiting transport for discharge. Date of service: 04/23/22 Principal diagnosis: Dementia with behavioral disturbance Patient seen today in her room. No changes at this time. Date of service: 04/22/22 Principal diagnosis: Dementia with behavioral disturbance Patient seen today. No changes at this time. Possible dc on Sunday. Date of service: 04/21/22 Principal diagnosis: Dementia with behavioral disturbance Patient seen in the [address]. Patient still refusing her PO medications. Nursing staff noticed that patients neck looks stiff. Haldol and Geodon stopped for now. Date of service: 04/13/22 Principal diagnosis: Delusional Disorder. Patient seen today. Patient still confused and telling me to leave her room. Patient not compliant with medications, received prn yesterday. Date of service: 04/12/22 Principal diagnosis: Delusional Disorder. Patient seen today in her room. Patient tells me to "get out". Patient refusing all medications and eating very little breakfast. Patient given prn haldol during the night. Subjective Date of service: 04/11/22 Principal diagnosis: Delusional Disorder Subjective Comment: Patient seen today walking down the hallway. Patient asked how she was doing and states "I feel fine" and kept on walking. Patient didnt answer any more questions. Nursing staff states patient takes her time with eating, but will eventually finish her food. Patient took her shower today and was appropriately dressed. Date of service: 04/10/2022 Principal diagnosis:Delusional disorder Subjective Comment: Patient seen this morning, uneaten breakfast on her table. Patient states " you can have the food, i don't like grits" Patient very aggressive, cursing and kicking staff and myself. Patient refusing to take vitals.Patient thoughts are disorganized. Date of service: 04/09/2022 Principal diagnosis:Delusional disorder Subjective Comment: Patient seen today in her room. Patient told me to " go out of here you bitch". Patient refusing to take her medications and also refusing to eat. Date of service: 04/08/22 Principal diagnosis: Delusional Disorder Subjective Comment: Patient seen today in her room. She was rambling and telling us to get out of her room, patient had tolet paper everywhere on the floor. patient has been refusing her meds and staff stated that she had been eating the hand soap. Sertraline increased. Date of service: 04/07/22 Principal diagnosis: Delusional Disorder Subjective Comment: Patient seen today. Patient still very delusional and suspicious. Patient kept pushing the door and didn't want us to come in. 04/06/22 Principal diagnosis: Delusional Disorder Subjective Comment: The patient was seen today. She is delusional and suspicious. She is referring to me as "Mrs. Arreguin." She says "I'm just a lil baby lawson." The patient tells me to leave her alone and go on. She is staring and looking around. 04/05 The patient was seen today. Her thoughts are disorganized. She is paranoid and delusional. She is calling me Kallie. She says "get out of here with you yellow hair and white face. You want to be white." The patient says "where is your . Get out of here, you gone ." She pushes me out of her room. REVIEW OF SYSTEMS Unable to assess MENTAL STATUS EXAMINATION Unable to assess Diagnoses: Delusional Disorder Treatment Plan Patient admitted for inpatient psychiatric evaluation, medication adjustment and close monitoring The patient's behavior, mood, sleep and appetite will be closely monitored. Patient enrolled in individual and group therapeutic sessions and encouraged to attend. Patient provided with a safe and structured environment. Patient's physical health needs will be addressed by the Hospitalist. Hospitalist Consulted Labs including CBC, CMP, Lipid profile and Hemoglobin A1C levels ordered for baseline reference Social Assessment will be completed and the Interstate Planner will work with patient and family to ensure a suitable and safe disposition Medication adjustment will be made as clinically indicated Increased Risperidone 2mg po BID Increased Depakote DR 250mg po TID Klonopin 1mg po BID x 3 days Usual Wellness Amish/Preservation: - Start Trazodone 50 mg po QHS & 50 mg po QHS PRN between 10 PM & 2 AM for insomnia - Start Melatonin 5 mg po QHS to promote circadian rhythm The patient agreed on the treatment plan, understood the risk, benefit, alternative treatment, potential consequence of no treatment, and gave informed consent. Estimated days: 7 Post hospital care: primary care provider, psychiatric provider Case staffed with Dr. Morales Medications and Allergies Allergies Allergy/AdvReac Type Severity Reaction Status Date / Time No Known Drug Allergies Allergy Unknown Unknown Verified 04/05/22 20:17 Home Medications Medication Instructions Recorded Confirmed Last Taken Type Escitalopram [Lexapro] 10 mg PO DAILY 03/31/22 03/31/22 Unknown History Melatonin [Melatonin 10MG TAB] 10 mg PO HS 03/31/22 03/31/22 Unknown History OLANZapine [Zyprexa] 5 mg PO BID 03/31/22 03/31/22 Unknown History Sertraline [Zoloft] 75 mg PO HS 03/31/22 03/31/22 Unknown History Timolol Maleate/Pf [Timolol 1 drop OU DAILY 03/31/22 03/31/22 Unknown History Maleate 0.5% Eye Drop] Vitamin B Complex [B Complex] 1 tab PO DAILY 03/31/22 03/31/22 Unknown History haloperidoL [Haldol] 5 mg PO BID 03/31/22 03/31/22 Unknown History polyethylene glycoL 3350 [Miralax 17 gm PO QDAY 03/31/22 03/31/22 Unknown History 3350] Active Meds: Active Medications Clonazepam (Clonazepam 0.5 Mg Tab) 1 mg PO BID [facility] Stop: 04/08/22 07:00 Last Admin: 04/05/22 21:48 Dose: 1 mg Divalproex Sodium (Divalproex Dr 250 Mg Tab) 250 mg PO BID [facility] Last Admin: 04/05/22 21:48 Dose: 250 mg Escitalopram Oxalate (Escitalopram 10 Mg Tab) 10 mg PO DAILY [facility] Last Admin: 04/05/22 09:55 Dose: Not Given Haloperidol Lactate (Haloperidol Lactate 5 Mg/1 Ml Inj) 5 mg IM Q6H PRN PRN Reason: Agitation Last Admin: 04/05/22 09:58 Dose: 5 mg Melatonin (Melatonin 5 Mg Tab) [address] [facility] Last Admin: 04/05/22 21:48 Dose: 10 mg Polyethylene Glycol (Polyethylene Glycol 3350 17 Gm Powder) 17 gm PO QDAY [facility] Last Admin: 04/05/22 09:55 Dose: Not Given Risperidone (Risperidone 1 Mg Tab) 1.5 mg PO BID [facility] Last Admin: 04/05/22 21:48 Dose: Not Given Sertraline HCl (Sertraline 50 Mg Tab) [address] [facility] Last Admin: 04/05/22 21:48 Dose: Not Given Timolol Maleate (Timolol 0.5% Ophth Soln 5 Ml) 1 drops OU QDAY [facility] Last Admin: 04/05/22 10:00 Dose: Not Given Vitamin B Complex/Vitamin C (B Complex W/Vitamin C Tab) 1 each PO QDAY [facility] Last Admin: 04/05/22 09:55 Dose: Not Given Medications and Allergies Allergies Allergy/AdvReac Type Severity Reaction Status Date / Time No Known Drug Allergies Allergy Unknown Unknown Verified 04/05/22 20:17 Home Medications Medication Instructions Recorded Confirmed Last Taken Type Melatonin [Melatonin 10MG TAB] 10 mg PO 03/31/22 03/31/22 Unknown History Sertraline [Zoloft] 75 mg PO 03/31/22 03/31/22 Unknown History Timolol Maleate/Pf [Timolol 1 drop OU DAILY 03/31/22 03/31/22 Unknown History Maleate 0.5% Eye Drop] Vitamin B Complex [B Complex] 1 tab PO DAILY 03/31/22 03/31/22 Unknown History polyethylene glycoL 3350 [Miralax 17 gm PO QDAY 03/31/22 03/31/22 Unknown History 3350] Divalproex [Julianna Rice] 250 mg PO TID #90 tablet 04/18/22 Unknown Rx Escitalopram [Lexapro] 20 mg PO QDAY #60 tablet 04/18/22 Unknown Rx Mirtazapine [Remeron 15mg TAB] 15 mg PO QHS #30 tablet 04/18/22 Unknown Rx risperiDONE [RisperDAL] 2 mg PO BID #120 tablet 04/18/22 Unknown Rx Active Meds: Active Medications Ascorbic Acid (Ascorbic Acid 500 Mg Tab) 500 mg PO BID [facility] Last Admin: 04/23/22 21:22 Dose: Not Given Benztropine Mesylate (Benztropine 0.5 Mg Tab) 0.5 mg PO BID [facility] Last Admin: 04/23/22 21:21 Dose: Not Given Cholecalciferol (Cholecalciferol (Vit D3) 400 Unit Tab) 1,000 unit PO QDAY [facility] Last Admin: 04/23/22 10:12 Dose: Not Given Diphenhydramine HCl (Diphenhydramine 50 Mg/Ml Vial) 50 mg IM Q6H PRN PRN Reason: anxiety Last Admin: 04/24/22 11:09 Dose: 50 mg Divalproex Sodium (Divalproex Dr 250 Mg Tab) 250 mg PO TID [facility] Last Admin: 04/23/22 21:21 Dose: Not Given Escitalopram Oxalate (Escitalopram 10 Mg Tab) 20 mg PO QDAY [facility] Last Admin: 04/23/22 10:11 Dose: Not Given Melatonin (Melatonin 5 Mg Tab) 10 mg PO HS [facility] Last Admin: 04/23/22 21:21 Dose: Not Given Mirtazapine (Mirtazapine 15 Mg Tab) 15 mg PO QHS [facility] Last Admin: 04/23/22 21:22 Dose: Not Given Polyethylene Glycol (Polyethylene Glycol 3350 17 Gm Powder) 17 gm PO QDAY [facility] Last Admin: 04/23/22 10:11 Dose: Not Given Risperidone (Risperidone 1 Mg Tab) 2 mg PO BID [facility] Last Admin: 04/23/22 21:22 Dose: Not Given Timolol Maleate (Timolol 0.5% Ophth Soln 5 Ml) 1 drops OU QDAY [facility] Last Admin: 04/23/22 10:12 Dose: Not Given Vitamin B Complex/Vitamin C (B Complex W/Vitamin C Tab) 1 each PO QDAY [facility] Last Admin: 04/23/22 10:11 Dose: Not Given Zinc Sulfate (Zinc Sulfate 220 Mg Cap) 220 mg PO BID [facility] Last Admin: 04/23/22 21:22 Dose: Not Given Results - Results Labs/Vitals: Laboratory Last Values WBC 4.9 K/mm3 (4.5-11.0) 03/31/22 00:09 RBC 3.90 M/mm3 (3.65-5.03) 03/31/22 00:09 Hgb 11.7 gm/dl (10.1-14.3) 03/31/22 00:09 Hct 34.9 % (30.3-42.9) 03/31/22 00:09 MCV 90 fl (79-97) 03/31/22 00:09 MCH 30 pg (28-32) 03/31/22 00:09 MCHC 34 % (30-34) 03/31/22 00:09 RDW 14.0 % (13.2-15.2) 03/31/22 00:09 Plt Count 222 K/mm3 (140-440) 03/31/22 00:09 Sodium 140 mmol/L (137-145) 03/30/22 21:28 Potassium 3.7 mmol/L (3.6-5.0) 03/30/22 21:28 Chloride 105.4 mmol/L (98-107) 03/30/22 21:28 Carbon Dioxide 20 mmol/L (22-30) L 03/30/22 21:28 Anion Gap 18 mmol/L 03/30/22 21:28 BUN 27 mg/dL (7-17) H 03/30/22 21:28 Creatinine 1.0 mg/dL (0.6-1.2) 03/30/22 21: Estimated GFR > 60 ml/min 03/30/22 21:28 BUN/Creatinine Ratio 27 % 03/30/22 21:28 Glucose 114 mg/dL (65-100) H 03/30/22 21:28 POC Glucose 85 mg/dL (70-105) 03/31/22 19:53 Calcium 10.1 mg/dL (8.4-10.2) 03/30/22 21:28 Magnesium 1.90 mg/dL (1.7-2.3) 03/30/22 21:28 Total Bilirubin 0.20 mg/dL (0.1-1.2) 03/30/22 21:28 AST 18 units/L (5-40) 03/30/22 21:28 ALT 10 units/L (7-56) 03/30/22 21:28 Alkaline Phosphatase 124 units/L (35-129) 03/30/22 21:28 Ammonia 14.0 umol/L (25-60) L 03/30/22 21:28 Total Creatine Kinase 194 units/L (30-135) H 03/30/22 21:28 Total Protein 7.7 g/dL (6.3-8.2) 03/30/22 21:28 Albumin 4.2 g/dL (3.9-5) 03/30/22 21:28 Albumin/Globulin Ratio 1.2 % 03/30/22 21:28 TSH 3.450 mlU/mL (0.270-4.200) 03/30/22 21:28 Urine Color Yellow (Yellow) 03/30/22 Unknown Urine Turbidity Clear (Clear) 03/30/22 Unknown Urine pH 5.0 (5.0-7.0) 03/30/22 Unknown Ur Specific [place] 1.024 (1.003-1.030) 03/30/22 Unknown Urine Protein 30 mg/dl mg/dL (Negative) 03/30/22 Unknown Urine Glucose (UA) Neg mg/dL (Negative) 03/30/22 Unknown Urine Ketones Tr mg/dL (Negative) 03/30/22 Unknown Urine Blood Neg (Negative) 03/30/22 Unknown Urine Nitrite Neg (Negative) 03/30/22 Unknown Urine Bilirubin Neg (Negative) 03/30/22 Unknown Urine Urobilinogen < 2.0 mg/dL (<2.0) 03/30/22 Unknown Ur Leukocyte Esterase Neg (Negative) 03/30/22 Unknown Urine WBC (Auto) 3.0 /HPF (0.0-6.0) 03/30/22 Unknown Urine RBC (Auto) 14.0 /HPF (0.0-6.0) 03/30/22 Unknown U Epithel Cells (Auto) < 1.0 /HPF (0-13.0) 03/30/22 Unknown Hyaline Casts 2 /LPF 03/30/22 Unknown Urine Mucus 2+ /HPF 03/30/22 Unknown Salicylates < 0.3 mg/dL (2.8-20.0) L 03/30/22 21:28 Urine Opiates Screen Presumptive negative 03/30/22 Unknown Urine Methadone Screen Presumptive negative 03/30/22 Unknown Acetaminophen 5.0 ug/mL (10.0-30.0) L 03/30/22 21:28 Ur Barbiturates Screen Presumptive negative 03/30/22 Unknown Ur Phencyclidine Scrn Presumptive negative 03/30/22 Unknown Ur Amphetamines Screen Presumptive negative 03/30/22 Unknown U Benzodiazepines Scrn Presumptive negative 03/30/22 Unknown Urine Cocaine Screen Presumptive negative 03/30/22 Unknown U Marijuana (THC) Screen Presumptive negative 03/30/22 Unknown Drugs of Abuse Note Disclamer 03/30/22 Unknown Plasma/Serum Alcohol < 0.01 % (0-0.07) 03/30/22 21:28 SARS-CoV-2 (PCR) Positive (Negative) A 04/18/22 Unknown Last Vital Signs Temp 97.3 F L 04/02/22 08:52 Pulse 107 H 04/02/22 08:52 Resp 18 04/02/22 08:52 BP 141/117 04/02/22 08:52 Pulse Ox 98 04/02/22 08:52
[2022-04-24] MEDS: BENZTROPINE 0.5 MG TAB PO SCH (11:46)
[2022-04-24] MEDS: POLYETHYLENE GLYCOL 3350 17 GM POWDER PO SCH (11:46)
[2022-04-24] MEDS: DIVALPROEX DR 250 MG TAB PO SCH (11:46)
[2022-04-24] MEDS: B COMPLEX W/VITAMIN C TAB PO SCH (11:46)
[2022-04-24] MEDS: ESCITALOPRAM 10 MG TAB PO SCH (11:46)
[2022-04-24] MEDS: TIMOLOL 0.5% OPHTH SOLN 5 ML OU SCH (11:47)
[2022-04-24] MEDS: ASCORBIC ACID 500 MG TAB PO SCH (11:47)
[2022-04-24] MEDS: risperiDONE 1 MG TAB PO SCH (11:47)
[2022-04-24] MEDS: CHOLECALCIFEROL (VIT D3) 400 UNIT TAB PO SCH (11:47)
[2022-04-24] MEDS: ZINC SULFATE 220 MG CAP PO SCH (11:47)
--- NOTE | 2022-04-24 12:27 | Progress Note ---
Assessment and Plan Assessment and plan: Patient Problems (1) Vascular dementia with behavioral disturbance Current Visit: Yes Status: Acute Plan to address problem: Verbal prompting, verbal redirection, benzodiazepine therapy as clinically indicated. (2) COVID-19 Current Visit: Yes Status: Acute Plan to address problem: Asymptomatic, continue current therapy (3) Cerebral atherosclerosis Current Visit: Yes Status: Acute Plan to address problem: Risk factor reduction, antiplatelet therapy as clinically indicated. (4) Hyperlipidemia Current Visit: Yes Status: Acute Qualifiers: Hyperlipidemia type: mixed hyperlipidemia Qualified Code(s): E78.2 - Mixed hyperlipidemia Plan to address problem: Statin therapy, balanced diet, low-cholesterol diet. (5) Hypertension Current Visit: Yes Status: Acute Qualifiers: Hypertension type: primary hypertension Qualified Code(s): I10 - Essential (primary) hypertension Plan to address problem: Monitor blood pressure every shift, continue medical management. (6) Osteoarthritis Current Visit: Yes Status: Acute Plan to address problem: Pain control, supportive care. (7) Seizure disorder Current Visit: Yes Status: Acute Plan to address problem: Continue current management. No active seizure activity at this time. (8) Vertigo Current Visit: Yes Status: Acute Plan to address problem: Supportive care, meclizine as needed. (9) Advance care planning Current Visit: Yes Status: Acute Plan to address problem: Disease education done, care plan discussed, diagnoses discussed, prognosis discussed, patient is full code. +30 minutes. (10) Preventative health care Current Visit: Yes Status: Acute Plan to address problem: Patient counseled regarding home safety, fall precautions, outpatient follow-up with primary care physician for all age and risk factor appropriate screening test. +30 minutes. Overall patient is clinically stable from medical standpoint for discharge History Interval history: 81 YO Female with Vascular Dementia, Cerebral Atherosclerosis, HTN, HLD, DM, OA, Seizure Disorder, Schizophrenia, ARLETH admitted to [facility] for psychiatric stabilization. Consult placed by Dr. Park for medical management. Patient seen and evaluated in the recreation room. Patient appears to be at baseline level of cognition and function, continues to speak unintelligibly and in rapid succession covid positive but asymtomatic Hospitalist Physical - Physical exam Narrative exam: General appearance: Present: no acute distress - EENT Eyes: Present: PERRL ENT: hearing intact, hearing decreased - Neck Neck: Present: supple - Respiratory Respiratory effort: normal Respiratory: bilateral: diminished - Cardiovascular Rhythm: regular Heart Sounds: Present: S1 & S2 - Extremities Extremities: no ischemia Peripheral Pulses: within normal limits - Abdominal General gastrointestinal: soft, non-tender, non-distended - Integumentary Integumentary: Present: clear, dry - Psychiatric Psychiatric: cooperative - Neurologic Neurologic: CNII-XII intact - Constitutional Vitals: Temp Pulse Resp BP Pulse Ox 97.3 F L 107 H 18 141/117 98 04/02/22 08:52 04/02/22 08:52 04/02/22 08:52 04/02/22 08:52 04/02/22 08:52 General appearance: Present: no acute distress Results - Labs CBC & Chem 7: 03/31/22 00:09 03/30/22 21:28 Labs: Laboratory Last Values WBC 4.9 K/mm3 (4.5-11.0) 03/31/22 00:09 RBC 3.90 M/mm3 (3.65-5.03) 03/31/22 00:09 Hgb 11.7 gm/dl (10.1-14.3) 03/31/22 00:09 Hct 34.9 % (30.3-42.9) 03/31/22 00:09 MCV 90 fl (79-97) 03/31/22 00:09 MCH 30 pg (28-32) 03/31/22 00:09 MCHC 34 % (30-34) 03/31/22 00:09 RDW 14.0 % (13.2-15.2) 03/31/22 00:09 Plt Count 222 K/mm3 (140-440) 03/31/22 00:09 Sodium 140 mmol/L (137-145) 03/30/22 21:28 Potassium 3.7 mmol/L (3.6-5.0) 03/30/22 21:28 Chloride 105.4 mmol/L (98-107) 03/30/22 21:28 Carbon Dioxide 20 mmol/L (22-30) L 03/30/22 21:28 Anion Gap 18 mmol/L 03/30/22 21:28 BUN 27 mg/dL (7-17) H 03/30/22 21:28 Creatinine 1.0 mg/dL (0.6-1.2) 03/30/22: Estimated GFR > 60 ml/min 03/30/22 21: BUN/Creatinine Ratio 27 % 03/30/22 21:28 Glucose 114 mg/dL (65-100) H 03/30/22 21:28 POC Glucose 85 mg/dL (70-105) 03/31/22 19:53 Calcium 10.1 mg/dL (8.4-10.2) 03/30/22 21:28 Magnesium 1.90 mg/dL (1.7-2.3) 03/30/22 21: Total Bilirubin 0.20 mg/dL (0.1-1.2) 03/30/22 21: AST 18 units/L (5-40) 03/30/22 21: ALT 10 units/L (7-56) 03/30/22 21: Alkaline Phosphatase 124 units/L (35-129) 03/30/22 21: Ammonia 14.0 umol/L (25-60) L 03/30/22 21: Total Creatine Kinase 194 units/L (30-135) H 03/30/22 21:28 Total Protein 7.7 g/dL (6.3-8.2) 03/30/22 21: Albumin 4.2 g/dL (3.9-5) 03/30/22 21: Albumin/Globulin Ratio 1.2 % 03/30/22 21:28 TSH 3.450 mlU/mL (0.270-4.200) 03/30/22 21:28 Urine Color Yellow (Yellow) 03/30/22 Unknown Urine Turbidity Clear (Clear) 03/30/22 Unknown Urine pH 5.0 (5.0-7.0) 03/30/22 Unknown Ur Specific [place] 1.024 (1.003-1.030) 03/30/22 Unknown Urine Protein 30 mg/dl mg/dL (Negative) 03/30/22 Unknown Urine Glucose (UA) Neg mg/dL (Negative) 03/30/22 Unknown Urine Ketones Tr mg/dL (Negative) 03/30/22 Unknown Urine Blood Neg (Negative) 03/30/22 Unknown Urine Nitrite Neg (Negative) 03/30/22 Unknown Urine Bilirubin Neg (Negative) 03/30/22 Unknown Urine Urobilinogen < 2.0 mg/dL (<2.0) 03/30/22 Unknown Ur Leukocyte Esterase Neg (Negative) 03/30/22 Unknown Urine WBC (Auto) 3.0 /HPF (0.0-6.0) 03/30/22 Unknown Urine RBC (Auto) 14.0 /HPF (0.0-6.0) 03/30/22 Unknown U Epithel Cells (Auto) < 1.0 /HPF (0-13.0) 03/30/22 Unknown Hyaline Casts 2 /LPF 03/30/22 Unknown Urine Mucus 2+ /HPF 03/30/22 Unknown Salicylates < 0.3 mg/dL (2.8-20.0) L 03/30/22 21:28 Urine Opiates Screen Presumptive negative 03/30/22 Unknown Urine Methadone Screen Presumptive negative 03/30/22 Unknown Acetaminophen 5.0 ug/mL (10.0-30.0) L 03/30/22 21:28 Ur Barbiturates Screen Presumptive negative 03/30/22 Unknown Ur Phencyclidine Scrn Presumptive negative 03/30/22 Unknown Ur Amphetamines Screen Presumptive negative 03/30/22 Unknown U Benzodiazepines Scrn Presumptive negative 03/30/22 Unknown Urine Cocaine Screen Presumptive negative 03/30/22 Unknown U Marijuana (THC) Screen Presumptive negative 03/30/22 Unknown Drugs of Abuse Note Disclamer 03/30/22 Unknown Plasma/Serum Alcohol < 0.01 % (0-0.07) 03/30/22 21:28 SARS-CoV-2 (PCR) Positive (Negative) A 04/18/22 Unknown Grimaldo/IV: Voiding Method Toilet Active Medications - Current Medications Current Medications: Generic Name Dose Route Start Last Admin Trade Name Freq PRN Reason Stop Dose Admin Ascorbic Acid 500 mg 04/17/22 22:00 04/24/22 11:47 Ascorbic Acid 500 Mg Tab PO Not Given BID MARIN Benztropine Mesylate 0.5 mg 04/21/22 10:00 04/24/22 11:46 Benztropine 0.5 Mg Tab PO Not Given BID MARIN Cholecalciferol 1,000 unit 04/18/22 10:00 04/24/22 11:47 Cholecalciferol (Vit D3) 400 Unit Tab PO Not Given QDAY MARIN Diphenhydramine HCl 50 mg 04/20/22 15:04 04/24/22 11:09 Diphenhydramine 50 Mg/Ml Vial IM 50 mg Q6H PRN Administration anxiety Divalproex Sodium 250 mg 04/06/22 14:00 04/24/22 11:[address] 250 Mg Tab PO Not Given TID MARIN Escitalopram Oxalate 20 mg 04/15/22 10:00 04/24/22 11:46 Escitalopram 10 Mg Tab PO Not Given QDAY MARIN Melatonin 10 mg 04/01/22 22:00 04/23/22 21:21 Melatonin 5 Mg Tab PO Not Given HS MARIN Mirtazapine 15 mg 04/17/22 22:00 04/23/22 21:22 Mirtazapine 15 Mg Tab PO Not Given QHS MARIN Polyethylene Glycol 17 gm 04/01/22 10:00 04/24/22 11:46 Polyethylene Glycol 3350 17 Gm Powder PO Not Given QDAY MARIN Risperidone 2 mg 04/06/22 10:00 04/24/22 11:47 Risperidone 1 Mg Tab PO Not Given BID [facility] Timolol Maleate 1 drops 04/01/22 10:00 04/24/22 11:47 Timolol 0.5% Ophth Soln 5 Ml OU Not Given QDAY [facility] Vitamin B Complex/Vitamin C 1 each 04/01/22 11:00 04/24/22 11:46 B Complex W/Vitamin C Tab PO Not Given QDAY [facility] Zinc Sulfate 220 mg 04/17/22 22:00 04/24/22 11:47 Zinc Sulfate 220 Mg Cap PO Not Given BID [facility] Nutrition/Malnutrition Assess - Dietary Evaluation Nutrition/Malnutrition Findings: Nutrition Notes Start: 04/07/22 12:14 Freq: Status: Active Protocol: Document 04/21/22 09:53 KAVYA (Rec: 04/21/22 10:19 KAVYA [id number]) Nutrition Notes Initial or Follow up Reassessment Other Pertinent Diagnosis COVID-19, Vascular Dementia w/ Behavioral Disturbance, Delusional Disorder. Current Diet Regular Diet (since D 04/07), D Suppl (from D 04/14). Labs/Tests 04/21: N/A. Pertinent Medications 04/21: Vit B complex, Vit C, Vit D3, ZnSO4, others nutritionally unremarkable. Height 5 ft 6 in Weight 68.039 kg [place] Body Weight (kg) 59.09 BMI 24.2 Weight change and time frame No body weight change reported in 2 weeks. Weight Status Appropriate Subjective/Other Information RD consult for routine F/U on dietary advancement. Pt's PO intake of meals has been Negligible (0-25%) and pt is still refusing to eat, according to ADL and Progress notes. No reports available on Pt drinking the dietary supplements at the time. Pt is on Room Air, no saturation reported at the time. RN, over the phone, states that Pt eats once in a while, but drinks juices and the dietary supplements regularly. I will continue the dietary supplements to compensate for poor or insufficient PO intake of meals during LOS. Percent of energy/protein needs met: Prescribed Regular Diet provides for energy/protein needs (2,289 Kcal/89 g) during LOS; additionally, Dietary Supplements will compensate for possible poor or insufficient PO intake of meals with 480 Kcal and 48 g of protein. Burn Absent Trauma Absent GI Symptoms None Food Allergy No Skin Integrity/Comment Assessment WNL. 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 RN, over the phone, states that Pt eats once in a while, but drinks juices and the dietary supplements regularly. Diagnosis Progress(for reassessment Improved documentation) Is patient on ventilator? No Is Patient Ambulatory and/or Out of Bed Yes REE-([facility]-ambulatory/OOB) [ 1523.782 [id number]] Kcal/Kg value to use for calculation 24 Approximate Energy Requirements Using 1633 kcal/Kg Calculation Used for Recommendations Kcal/kg Additional Notes Protein: 1-1.2 g/Kg ABW; 68-82 . g/day. Fluids: 1 ml/Kcal, or as per MD. Nutrition Intervention Change Diet Order: Continue Regular Diet. Add Supplement/Snack (indicate name/kcal Continue 8 fl oz Ensure High /protein ) Protein; TID. Provides kCal: 480 Provides Protein (gm) 48 Goal #1 Compensate, through dietary supplementation, for possible poor or insufficient PO intake of meals during LOS. Goal #2 Adjust the dietary intervention to better serve Pt's needs and clinical conditions during LOS. Follow-Up By: 04/28/22 Additional Comments Continue monitoring food tolerance, %PO intake of meals and ONS, and BM.
== END 2022-04-24 11:50 | disposition home or self-care (01) | DRG 884 ==
LOC: ED 20:32 → 3A 03-31 11:51 → UNDOADMIN 03-31 11:51 → 5A 03-31 14:06
PROVIDERS: ADMIT Psychiatry & Neurology Psychiatry; ATTEND Psychiatry & Neurology Psychiatry
DX: F01.51 Vascular dementia, unspecified severity, with behavioral disturbance (principal); U07.1 COVID-19; F22 Delusional disorders; M19.90 Unspecified osteoarthritis, unspecified site; G40.909 Epilepsy, unspecified, not intractable, without status epilepticus; F20.9 Schizophrenia, unspecified; I67.2 Cerebral atherosclerosis; I10 Essential (primary) hypertension; F41.1 Generalized anxiety disorder; Z83.3 Family history of diabetes mellitus; Z82.49 Family history of ischemic heart disease and other diseases of the circulatory system; Z96.653 Presence of artificial knee joint, bilateral; R42 Dizziness and giddiness; E78.2 Mixed hyperlipidemia
CPT/HCPCS: 36415; 70450; 71045; 80053; 80307; 80320; 81001; 82140; 82550; 82962; 83735; 84443; 85027; G0378; G0480; J0515; J1200; J1630; J2060; J3486; U0003